=== PATIENT | male | born 1945 | race Caucasian/White ===

== ENCOUNTER 2020-11-07 22:54 | Emergency (ER) | payer OTHER ==
[2020-11-08 00:16] LABS: Absolute Lymphocytes (CBC) 0.4 K/uL (0.7-4.9); Basophils % 1.8 % (0-1.3); Hematocrit 32.6 % (39.6-49.0); MPV 10.1 fL (7.6-11.3); RBC Red Blood Cell Count 3.63 M/uL (4.33-5.43)
[2020-11-08 00:18] LABS: Protime INR 0.98
[2020-11-08 00:59] LABS: ALT/SGPT 19 U/L (12-78); AST/SGOT 9 U/L (15-37); Albumin 3.5 g/dL (3.4-5.0); Alkaline Phosphatase 111 U/L (45-117); BUN Blood Urea Nitrogen 35 mg/dL (7-18); Bicarbonate 22 mmol/L (21-32); Bilirubin Direct 0.3 mg/dL (0-0.2); Bilirubin Total 0.7 mg/dL (0.2-1.0); CKMB Creatine Kinase MB 3.1 ng/mL (0.3-3.6); Glucose Level 206 mg/dL (74-106); Lipase 107 U/L (73-393); NT PRO-BNP 2574 pg/mL (<450); Potassium 4.4 mmol/L (3.5-5.1); Protein, Total 7.2 g/dL (6.4-8.2); Sodium Level 139 mmol/L (136-145); Troponin (Emerg Dept Use Only) < 0.02 ng/mL (0.0-0.045)
--- NOTE | 2020-11-08 01:17 | EDPHYS ---
Physician Documentation [facility] Name: Royer Vu Jr Age: 74 yrs Sex: Male : 1945 Arrival Date: 11/07/2020 Time: 22:56 Bed 18 Private MD: ED Physician Frandy Fernandez HPI: 11/08 04:27 This 74 yrs old Male presents to ER via Ambulatory with complaints of tw4 Breathing Difficulty, Back Pain. 04:27 The patient has shortness of breath at rest. Onset: The symptoms/episode began/occurred tw4 today. Duration: The symptoms are continuous, and are unchanged since they started. The patient's shortness of breath has no apparent modifying factors. Associated signs and symptoms: The patient has no apparent associated signs or symptoms. The patient has not experienced similar symptoms in the past. Historical: - Allergies: 11/07 23:11 No Known Allergies; em - PMHx: 23:11 Hypertension; Diabetes - IDDM; colon CA; em - PSHx: 23:11 colon resection; em - Immunization history:: Adult Immunizations up to date. - Social history:: Smoking status: Patient denies any tobacco usage or history of. ROS: 11/08 04:27 Constitutional: Negative for fever, chills, and weight loss, Eyes: Negative for injury, tw4 pain, redness, and discharge, Cardiovascular: Negative for chest pain, palpitations, and edema, Abdomen/GI: Negative for abdominal pain, nausea, vomiting, diarrhea, and constipation, Back: Negative for injury and pain, MS/Extremity: Negative for injury and deformity, Skin: Negative for injury, rash, and discoloration, Neuro: Negative for headache, weakness, numbness, tingling, and seizure. Respiratory: Positive for shortness of breath. Exam: 04:27 Constitutional: This is a well developed, well nourished patient who is awake, alert, tw4 and in no acute distress. Head/Face: Normocephalic, atraumatic. Chest/axilla: Normal chest wall appearance and motion. Nontender with no deformity. No lesions are appreciated. Cardiovascular: Regular rate and rhythm with a normal S1 and S2. No gallops, murmurs, or rubs. Normal PMI, no JVD. No pulse deficits. Abdomen/GI: Soft, non-tender, with normal bowel sounds. No distension or tympany. No guarding or rebound. No evidence of tenderness throughout. Back: No spinal tenderness. No costovertebral tenderness. Full range of motion. Male : Normal genitalia with no discharge or lesions. Skin: Warm, dry with normal turgor. Normal color with no rashes, no lesions, and no evidence of cellulitis. 04:27 Respiratory: the patient does not display signs of respiratory distress, Respirations: normal, Breath sounds: are clear throughout. Vital Signs: 11/07 23:07 Pulse 74; Resp 22; Temp 98.9(O); Pulse Ox 95% on R/A; Weight 104.33 kg; Height 5 ft. 8 em in. (172.72 cm); Pain 3; 23:07 Body Mass Index 34.97 (104.33 kg, 172.72 cm) em MDM: 11/08 00:30 Patient medically screened. tw4 04:27 Antibiotic administration: Not indicated. Data reviewed: vital signs, nurses notes. Counseling: I had a detailed discussion with the patient and/or guardian regarding: the historical points, exam findings, and any diagnostic results supporting the discharge/admit diagnosis. Special discussion: I discussed with the patient/guardian in detail that at this point there is no indication for admission to the hospital. It is understood, however, that if the symptoms persist or worsen the patient needs to return immediately for re-evaluation. 11/07 23:08 Order name: Blood Culture Adult (2) 11/07 23:08 Order name: BMP 11/07 23:08 Order name: CBC with Diff 11/07 23:08 Order name: Ckmb 11/07 23:08 Order name: CPK 11/07 23:08 Order name: D-Dimer; Complete Time: 01:05 11/07 23:08 Order name: Hepatic Function 11/07 23:08 Order name: Lipase 11/07 23:08 Order name: Magnesium 11/07 23:08 Order name: NT PRO-BNP 11/07 23:08 Order name: PT-INR; Complete Time: 01:05 11/07 23:08 Order name: Ptt, Activated; Complete Time: 01:05 11/07 23:08 Order name: Troponin (emerg Dept Use Only) tw 11/07 23:08 Order name: XRAY CXR (1 view) tw 11/07 23:08 Order name: EKG; Complete Time: 23:11 tw4 11/07 23:08 Order name: Cardiac monitoring tw 11/07 23:08 Order name: EKG - Nurse/Tech tw 11/07 23:08 Order name: IV Saline Lock [facility] 11/07 23:08 Order name: Labs collected and sent tw 11/07 23:08 Order name: O2 Per Protocol tw 11/07 23:08 Order name: O2 Sat Monitoring tw 11/07 23:08 Order name: Blood Culture EDNE 11/07 23:09 Order name: Basic Metabolic Panel EDNE 11/07 23:09 Order name: CBC with Automated Diff; Complete Time: 01:05 EDNE 11/07 23:09 Order name: CKMB Creatine Kinase MB [facility] 11/07 23:09 Order name: Creatine Phosphokinase [facility] 11/08 00:44 Order name: SARS-COV-2 RT PCR; Complete Time: 01:05 EDMS Administered Medications: 01:40 Drug: Albuterol 1.25 mg Route: Inhalation; ll2 02:01 Follow up: Response: No adverse reaction ll2 Disposition: 11/08/20 01:17 Discharged to Home. Impression: Dyspnea. - Condition is Stable. - Discharge Instructions: Shortness of Breath. - Prescriptions for Albuterol Sulfate 90 mcg/actuation - inhale 1-2 puff by INHALATION route every 4-6 hours; 1 Inhaler. - Medication Reconciliation Form, Thank You Letter, Antibiotic Education, Prescription Opioid Use form. - Follow up: Private Physician; When: Upon discharge from the Emergency Department; Reason: Recheck today's complaints, Continuance of care, Re-evaluation by your physician. - Problem is new. - Symptoms have improved. Signatures: Dispatcher [employer] Nader Garvin, Frandy Wharton RN, MD MD tw4 Saritha Cash RN RN ll2 Corrections: (The following items were deleted from the chart) 11/07 23:57 23:09 CORONAVIRUS+MR.LAB.BRZ ordered. [facility] 11/08 02:31 01:17 11/08/2020 01:17 Discharged to Home. Impression: Dyspnea. Condition is Stable. ll2 Forms are Medication Reconciliation Form, Thank You Letter, Antibiotic Education, Prescription Opioid Use. Follow up: Private Physician; When: Upon discharge from the Emergency Department; Reason: Recheck today's complaints, Continuance of care, Re-evaluation by your physician. Problem is new. Symptoms have improved. tw4
--- NOTE | 2020-11-08 01:17 | ER ---
Nurse's Notes [facility] Name: Royer Vu Jr Age: 74 yrs Sex: Male : 1945 Arrival Date: 11/07/2020 Time: 22:56 Bed 18 Private MD: Diagnosis: Dyspnea Presentation: 11/07 23:07 Chief complaint: Patient states: reports shortness of breath on exertion that started em this morning, denies N/V fever, tested negative for covid 7 days ago. Coronavirus screen: Client denies travel out of the [place] in the last 14 days. Ebola Screen: Patient negative for fever greater than or equal to 101.5 degrees Fahrenheit, and additional compatible Ebola Virus Disease symptoms Patient denies exposure to infectious person. Patient denies travel to an Ebola-affected area in the 21 days before illness onset. No symptoms or risks identified at this time. Initial Sepsis Screen: Does the patient meet any 2 criteria? No. Patient's initial sepsis screen is negative. Does the patient have a suspected source of infection? No. Patient's initial sepsis screen is negative. Risk Assessment: Do you want to hurt yourself or someone else? Patient reports no desire to harm self or others. Onset of symptoms was November 07, 2020. 23:07 Method Of Arrival: Ambulatory em 23:07 Acuity: JORGE 3 em Historical: - Allergies: 23:11 No Known Allergies; em - PMHx: 23:11 Hypertension; Diabetes - IDDM; colon CA; em - PSHx: 23:11 colon resection; em - Immunization history:: Adult Immunizations up to date. - Social history:: Smoking status: Patient denies any tobacco usage or history of. Assessment: 23:30 General: Appears in no apparent distress. Behavior is calm, cooperative, appropriate ll2 for age. Pain: Denies pain. Neuro: Level of Consciousness is awake, alert, obeys commands, Oriented to person, place, time, situation. Respiratory: Airway is patent Respiratory effort is even, unlabored, Respiratory pattern is regular, symmetrical. GI: No signs and/or symptoms were reported involving the gastrointestinal system. : No signs and/or symptoms were reported regarding the genitourinary system. EENT: No signs and/or symptoms were reported regarding the EENT system. Derm: Skin is intact, is healthy with good turgor, Skin is dry, Skin is pink, warm \T\ dry. Musculoskeletal: Circulation, motion, and sensation intact. Range of motion: intact in all extremities. Vital Signs: 23:07 Pulse 74; Resp 22; Temp 98.9(O); Pulse Ox 95% on R/A; Weight 104.33 kg; Height 5 ft. 8 em in. (172.72 cm); Pain 3/10; 23:07 Body Mass Index 34.97 (104.33 kg, 172.72 cm) em ED Course: 22:56 Patient arrived in ED. cf2 23:06 Frandy Fernandez MD is Attending Physician. tw4 23:09 Triage completed. em 23:11 Arm band placed on. em 11/08 00:32 Saritha Cash, JANET is Primary Nurse. ll2 00:38 XRAY CXR (1 view) In Process Unspecified. EDMS Administered Medications: 01:40 Drug: Albuterol 1.25 mg Route: Inhalation; ll2 02:01 Follow up: Response: No adverse reaction 2 Outcome: 01:17 Discharge ordered by . tw4 02:31 Patient left the ED. 2 Signatures: Dispatcher [employer] EDMS Nader Tripp, RN RN Frandy Fernandez MD MD 4 Crescencio Guadarrama 2 Saritha Cash, JANET RN 2
[2020-11-08 01:34] LABS: Creatine Phosphokinase 113 U/L (39-308)
[2020-11-08] MEDS ORDERED: ALBUTEROL 2.5 MG/3 ML NEB SOL ONE (01:45)
[2020-11-08 02:50] VITALS: TEMP 98.9; O2SAT 95
--- NOTE | 2020-11-08 11:45 | RAD REPORT ---
EXAM DESCRIPTION: RAD - Chest Single View - 11/08/2020 12:38 am CLINICAL HISTORY: SOB Chest pain. COMPARISON: CHEST PA AND LAT 2 VIEW dated 01/24/2015 FINDINGS: Portable technique limits examination quality. Mild interstitial pulmonary edema seen. Trace right pleural effusion is present. The heart is mildly enlarged in size. No displaced fractures. IMPRESSION: Mild CHF.
== END 2020-11-08 02:31 | disposition home or self-care (01) ==
LOC: ER 22:54
DX: R06.00 Dyspnea, unspecified (principal); Z20.822 Contact with and (suspected) exposure to COVID-19; I10 Essential (primary) hypertension; Z85.038 Personal history of other malignant neoplasm of large intestine
CPT/HCPCS: 87040 ×2; 85025; 80048; 36415; 83735; 82550; 85610; 85379; 80076; 85730; 84484; 82553; 83690; 83880; 71045; 99284; U0003

== ENCOUNTER 2020-12-01 08:54 | Inpatient (IN) | payer OTHER ==
--- OUTSIDE RECORDS SUMMARY | 2020-12-01 08:58 | XMS REPORT | Continuity of Care Document ---
:1945 Author Organization [facility] t Address [address] [place] [address] Care Team Providers Name Role Phone Feng Love Attending Clinician [phone] DONITA Attending Clinician Unavailable NERY Attending Clinician Unavailable ALISON Attending Clinician Unavailable Problems This patient has no known problems. Allergies, Adverse Reactions, Alerts This patient has no known allergies or adverse reactions. Medications This patient has no known medications. Procedures This patient has no known procedures. Encounters Start End Encounter Admission Attending Care Care Encounter Source Date/Time Date/Time Type Type Clinicians Facility Department ID 2020-11-21 2020-11-21 Outpatient LoveSHEN [facility] [id number] 00:00:00 00:00:00 Ruben [id number] Feng [id number] 2020-10-27 2020-10-27 Outpatient [facility] [id number] [place] 00:00:00 00:00:[address] 2020-10-24 2020-10-24 Outpatient DONITA [facility] [id number] [place] 00:00:00 00:00:00 AUGUSTINE [address] 2020-10-06 2020-10-06 Outpatient [facility] [id number] [place] 00:00:00 00:00:[address] 2020-09-12 2020-09-12 Outpatient [facility] [id number] [place] 00:00:00 00:00:00 ABA [address] 2020-09-12 2020-09-12 Outpatient [facility] [id number] [place] 00:00:00 00:00:00 ABA [address] 2020-09-03 2020-09-03 Outpatient NERY [facility] [id number] [place] 00:00:00 00:00:00 ABA [address] 2020-09-03 2020-09-03 Outpatient NERY [facility] [id number] [place] 00:00:00 00:00:00 ABA [address] 2020-09-03 2020-09-03 Outpatient NERY [facility] [id number] [place] 00:00:00 00:00:00 ABA [address] 2019-12-27 2019-12-27 Outpatient ALISON [facility] [id number] [place] 00:00:00 00:00:00 ALI [address] Results This patient has no known results.
[2020-12-01] MEDS ORDERED: NA CHLORIDE 0.9% 500 ML ONE (11:24)
[2020-12-01 11:53] LABS: Absolute Lymphocytes (CBC) 0.7 K/uL (0.7-4.9); Basophils % 0.3 % (0-1.3); Hematocrit 33.5 % (39.6-49.0); Lymphocytes % 10.8 % (15.3-44.8); MPV 9.9 fL (7.6-11.3)
[2020-12-01 12:02] LABS: Protime INR 0.99
--- NOTE | 2020-12-01 12:02 | RAD REPORT ---
EXAM DESCRIPTION: RAD - Chest Single View - 12/01/2020 11:34 am CLINICAL HISTORY: DYSPNEA COMPARISON: November 07 TECHNIQUE: AP portable chest image was obtained 12/01/2020 11:34 am . FINDINGS: No peripheral mass or consolidation. Interstitial markings and vasculature are mildly prom inent. Mild, stable cardiomegaly seen. Trachea is midline. No measurable pleural effusion and no pneu mothorax. No acute bony abnormality seen. No acute aortic findings suspected. IMPRESSION: Mild failure/ volume overload pattern.
[2020-12-01 12:16] LABS: ALT/SGPT 21 U/L (12-78); AST/SGOT 11 U/L (15-37); Albumin 3.5 g/dL (3.4-5.0); Alkaline Phosphatase 118 U/L (45-117); BUN Blood Urea Nitrogen 36 mg/dL (7-18); Bicarbonate 24 mmol/L (21-32); Bilirubin Direct 0.3 mg/dL (0-0.2); Bilirubin Total 0.8 mg/dL (0.2-1.0); Glucose Level 159 mg/dL (74-106); Lipase 69 U/L (73-393); Magnesium 2.3 mg/dL (1.8-2.4); NT PRO-BNP 2622 pg/mL (<450); Potassium 4.6 mmol/L (3.5-5.1); Protein, Total 7.4 g/dL (6.4-8.2); Sodium Level 138 mmol/L (136-145); Troponin (Emerg Dept Use Only) < 0.02 ng/mL (0.0-0.045)
[2020-12-01 12:27] LABS: SARS-COV-2 RT PCR NEGATIVE (NEGATIVE)
--- NOTE | 2020-12-01 12:35 | EDPHYS ---
Physician Documentation [facility] Name: Royer Vu Jr Age: 75 yrs Sex: Male : 1945 Arrival Date: 12/01/2020 Time: 09:00 Bed 16 Private MD: KARLA Physician Aidn Hollis HPI: 12/01 11:00 This 75 yrs old Male presents to ER via Ambulatory with complaints of louise Shortness Of Breath. 11:00 The patient has shortness of breath at rest, with light activity, that woke him/her louise from sleep. Onset: The symptoms/episode began/occurred 3 day(s) ago. Duration: The symptoms are continuous, and are steadily getting worse. The patient's shortness of breath is aggravated by supine position, is alleviated by rest, sitting up, application of supplemental oxygen. Associated signs and symptoms: The patient has no apparent associated signs or symptoms. The patient has experienced similar episodes in the past, a few times. Historical: - Allergies: :23 No Known Allergies; hb - PMHx: : COLON CA; Diabetes - IDDM; Hypertension; hb - PSHx: 09:23 colon resection; hb - Immunization history:: Adult Immunizations up to date, Client reports receiving the 2nd dose of the Covid vaccine. - Social history:: Smoking status: Patient denies any tobacco usage or history of. - Family history:: not pertinent. ROS: 11:00 Constitutional: Negative for fever, chills, and weight loss, Eyes: Negative for injury, louise pain, redness, and discharge, ENT: Negative for injury, pain, and discharge, Neck: Negative for injury, pain, and swelling, Cardiovascular: Negative for chest pain, palpitations, and edema, Abdomen/GI: Negative for abdominal pain, nausea, vomiting, diarrhea, and constipation, Back: Negative for injury and pain, : Negative for injury, bleeding, discharge, and swelling, MS/Extremity: Negative for injury and deformity, Skin: Negative for injury, rash, and discoloration, Neuro: Negative for headache, weakness, numbness, tingling, and seizure, Psych: Negative for depression, anxiety, suicide ideation, homicidal ideation, and hallucinations, Allergy/Immunology: Negative for hives, rash, and allergies, Endocrine: Negative for neck swelling, polydipsia, polyuria, polyphagia, and marked weight changes, Hematologic/Lymphatic: Negative for swollen nodes, abnormal bleeding, and unusual bruising. 11:00 Respiratory: Positive for cough, dyspnea on exertion, orthopnea. Exam: 11:00 Constitutional: This is a well developed, well nourished patient who is awake, alert, louise and in no acute distress. Head/Face: Normocephalic, atraumatic. Eyes: Pupils equal round and reactive to light, extra-ocular motions intact. Lids and lashes normal. Conjunctiva and sclera are non-icteric and not injected. Cornea within normal limits. Periorbital areas with no swelling, redness, or edema. ENT: Nares patent. No nasal discharge, no septal abnormalities noted. Tympanic membranes are normal and external auditory canals are clear. Oropharynx with no redness, swelling, or masses, exudates, or evidence of obstruction, uvula midline. Mucous membranes moist. Neck: Trachea midline, no thyromegaly or masses palpated, and no cervical lymphadenopathy. Supple, full range of motion without nuchal rigidity, or vertebral point tenderness. No Meningismus. Chest/axilla: Normal chest wall appearance and motion. Nontender with no deformity. No lesions are appreciated. Cardiovascular: Regular rate and rhythm with a normal S1 and S2. No gallops, murmurs, or rubs. Normal PMI, no JVD. No pulse deficits. Abdomen/GI: Soft, non-tender, with normal bowel sounds. No distension or tympany. No guarding or rebound. No evidence of tenderness throughout. Back: No spinal tenderness. No costovertebral tenderness. Full range of motion. Male : Normal genitalia with no discharge or lesions. Skin: Warm, dry with normal turgor. Normal color with no rashes, no lesions, and no evidence of cellulitis. MS/ Extremity: Pulses equal, no cyanosis. Neurovascular intact. Full, normal range of motion. Neuro: Awake and alert, GCS 15, oriented to person, place, time, and situation. Cranial nerves II-XII grossly intact. Motor strength 5/5 in all extremities. Sensory grossly intact. Cerebellar exam normal. Normal gait. Psych: Awake, alert, with orientation to person, place and time. Behavior, mood, and affect are within normal limits. 11:00 Respiratory: the patient does not display signs of respiratory distress, Respirations: normal, Breath sounds: rales, that are mild, are located in both bases, decreased breath sounds. 11:00 Musculoskeletal/extremity: Extremities: all appear grossly normal, with no appreciated pain with palpation, grossly normal except: DVT Exam: No signs of deep vein thrombosis. no pain, no swelling, no tenderness, negative Homans' sign noted on exam, no appreciated bluish discoloration, no erythema, no increased warmth. 12:40 ECG was reviewed by the Attending Physician. [facility] Vital Signs: 09:19 BP 124 / 63; Pulse 66; Resp 24; Temp 98.1; Pulse Ox 83% on R/A; Pain 0/10; hb 09:19 Pulse Ox 95% on R/A; hb 13:23 BP 141 / 62; Pulse 55; Resp 21; Pulse Ox 94% on 2 lpm NC; hb 15:00 BP 146 / 68; Pulse 68; Resp 18; Pulse Ox 94% on 2 lpm NC; hb 16:00 BP 138 / 68; Pulse 66; Resp 19; Pulse Ox 95% on 2 lpm NC; hb 17:00 BP 142 / 82; Pulse 67; Resp 21; Pulse Ox 96% on 2 lpm NC; hb 09:19 talking hb 09:19 at rest hb MDM: 10:37 Patient medically screened. loiuse 11:02 Differential diagnosis: Anemia Bronchitis CHF exacerbation, Chronic Obstructive louise Pulmonary Disease pneumonia, pulmonary edema, Pulmonary Embolism reactive airway disease, Unstable Angina. Antibiotic administration: Not indicated. The patient's Wells Deep Vein Thrombosis Score was calculated as follows: Malignancy Total Score: 0-2 Pts- Low Risk. The patient's pulmonary embolism risk score was calculated as follows: malignancy Total Score: 3-6 points. This patient was found to be at moderate risk for a pulmonary embolism by using the Well's assessment criteria. Immunization status: Pneumococcal vaccine: Influenza vaccine: Data reviewed: vital signs, nurses notes, lab test result(s), EKG, radiologic studies, plain films. Data interpreted: teletypesetter monitor: rate is 6 beats/min, rhythm is regular, Pulse oximetry: on room air is 95 %. Test interpretation: by ED physician or midlevel provider: ECG, plain radiologic studies. Counseling: I had a detailed discussion with the patient and/or guardian regarding: the historical points, exam findings, and any diagnostic results supporting the discharge/admit diagnosis, lab results. 12/01 10:59 Order name: Basic Metabolic Panel; Complete Time: 12:27 [facility] 12/01 10:59 Order name: CBC with Diff; Complete Time: 11:58 [facility] 12/01 10:59 Order name: LFT's; Complete Time: 12:27 [facility] 12/01 10:59 Order name: Magnesium; Complete Time: 12:27 [facility] 12/01 10:59 Order name: NT PRO-BNP; Complete Time: 12:27 [facility] 12/01 10:59 Order name: PT-INR; Complete Time: 12:09 [facility] 12/01 10:59 Order name: Troponin (emerg Dept Use Only); Complete Time: 12:27 [facility] 12/01 10:59 Order name: D-Dimer; Complete Time: 12:09 [facility] 12/01 10:59 Order name: Lipase; Complete Time: 12:27 [facility] 12/01 11:25 Order name: Blood Culture Adult (2) [facility] 12/01 11:26 Order name: Lactate; Complete Time: 12:27 [facility] 12/01 11:51 Order name: TSH; Complete Time: 12:36 [facility] 12/01 10:59 Order name: XRAY Chest (1 view); Complete Time: 12:09 [facility] 12/01 10:59 Order name: EKG; Complete Time: 11:01 [facility] 12/01 10:59 Order name: Cardiac monitoring; Complete Time: 11:49 [facility] 12/01 10:59 Order name: EKG - Nurse/Tech; Complete Time: 11:50 [facility] 12/01 10:59 Order name: IV Saline Lock; Complete Time: 11:50 [facility] 12/01 12:27 Order name: COVID-19/FLU A+B; Complete Time: 12:28 [facility] 12/01 12:28 Order name: CT Chest Abdomen Pelvis W/O Contrast: no iv , no oral; Complete Time: 14:08 [facility] 12/01 12:29 Order name: US Extremity Venous W Compression Frantz; Complete Time: 14:08 [facility] 12/01 12:32 Order name: Echo w/ Doppler [facility] 12/01 14:03 Order name: CONS Physician Consult EDAZ 12/01 10:59 Order name: Labs collected and sent; Complete Time: 11:50 [facility] 12/01 10:59 Order name: O2 Per Protocol; Complete Time: 11:50 [facility] 03/08 10:59 Order name: O2 Sat Monitoring; Complete Time: 11:50 louise EC:40 Rate is 54 beats/min. Rhythm is regular. QRS [place] is Normal. NE interval is normal. QRS louise interval is normal. QT interval is normal. No Q waves. T waves are Normal. No ST changes noted. Clinical impression: Atrial Fibrillation. Interpreted by me. Reviewed by me. Administered Medications: 11:32 Drug: NS 0.9% 1000 ml Route: IV; Rate: 75 ml/hr; Site: left antecubital; hb 17:30 Follow up: Response: No adverse reaction; IV Status: Infusion continued upon admission; hb IV Intake: 420ml 11:32 Drug: Pepcid 20 mg Route: IVP; Site: left antecubital; hb 12:11 Follow up: Response: No adverse reaction hb 15:33 Drug: Rocephin 1 grams Route: IV; Rate: per protocol; Site: left antecubital; hb 15:34 Follow up: IV Status: Completed infusion; IV Intake: 10ml hb 16:11 Follow up: Response: No adverse reaction hb 15:34 Drug: Lasix 40 mg Route: IVP; Site: left antecubital; hb 16:15 Follow up: Response: No adverse reaction hb 15:34 Drug: Lovenox 60 mg Route: Sub-Q; Site: abdomen; hb 16:11 Follow up: Response: No adverse reaction hb Disposition: 12/01/20 12:34 Hospitalization ordered by Juarez Campos for Observation. Preliminary diagnosis are Type 1 diabetes mellitus, Dyspnea, Systolic (congestive) heart failure, Atrial fibrillation and flutter, Unspecified kidney failure - chronic. - Bed requested for Telemetry/MedSurg (observation). - Status is Observation. hb - Condition is Stable. - Problem is new. - Symptoms have improved. Signatures: Dispatcher [employer] EDMS Mary Salazar Corey, MD MD cha Baxter, Heather, RN RN Jose Lange RN RN ja1 Corrections: (The following items were deleted from the chart) 11:45 11:00 CORONAVIRUS+MR.LAB.BRZ ordered. EDMS EDMS 11:45 11:26 Influenza Screen (A \T\ B)+BA.LAB.BRZ ordered. EDMS EDMS 12:39 12:34 Hospitalization Ordered by Juarez Campos MD for Observation. Preliminary louise diagnosis is Type 1 diabetes mellitus; Dyspnea; Systolic (congestive) heart failure; Atrial fibrillation and flutter. Bed requested for Telemetry/MedSurg (observation). Status is Observation. Condition is Stable. Problem is new. Symptoms have improved. louise 12:48 12:10 Chest For PE Angio+CT.RAD.BRZ ordered. EDMS EDMS 16:05 12:39 12/01/2020 12:34 Hospitalization Ordered by Juarez Campos MD for Observation. bd Preliminary diagnosis is Type 1 diabetes mellitus; Dyspnea; Systolic (congestive) heart failure; Atrial fibrillation and flutter; Unspecified kidney failure - chronic. Bed requested for Telemetry/MedSurg (observation). Status is Observation. Condition is Stable. Problem is new. Symptoms have improved. louise 16:18 16:05 12/01/2020 12:34 Hospitalization Ordered by Juarez Campos MD for Observation. ja1 Preliminary diagnosis is Type 1 diabetes mellitus; Dyspnea; Systolic (congestive) heart failure; Atrial fibrillation and flutter; Unspecified kidney failure - chronic. Bed requested for Telemetry/MedSurg (observation). Status is Observation. Condition is Stable. Problem is new. Symptoms have improved. bd 17:51 16:18 12/01/2020 12:34 Hospitalization Ordered by Juarez Campos MD for Observation. hb Preliminary diagnosis is Type 1 diabetes mellitus; Dyspnea; Systolic (congestive) heart failure; Atrial fibrillation and flutter; Unspecified kidney failure - chronic. Bed requested for Telemetry/MedSurg (observation). Status is Observation. Condition is Stable. Problem is new. Symptoms have improved. ja1
--- NOTE | 2020-12-01 12:35 | ER ---
Nurse's Notes [facility] Name: Royer Vu Jr Age: 75 yrs Sex: Male : 1945 Arrival Date: 12/01/2020 Time: 09:00 Bed 16 Private MD: Diagnosis: Type 1 diabetes mellitus;Dyspnea;Systolic (congestive) heart failure;Atrial fibrillation and flutter;Unspecified kidney failure-chronic Presentation: 12/01 09:19 Coronavirus screen: Client presents with at least one sign or symptom that may indicate hb coronavirus-19. Standard/surgical mask placed on the client. Provider contacted for isolation considerations. Ebola Screen: No symptoms or risks identified at this time. Initial Sepsis Screen: Does the patient meet any 2 criteria? No. Patient's initial sepsis screen is negative. Does the patient have a suspected source of infection? No. Patient's initial sepsis screen is negative. Risk Assessment: Do you want to hurt yourself or someone else? Patient reports no desire to harm self or others. Onset of symptoms was November 29, 2020. 09:19 Method Of Arrival: Ambulatory hb 09:19 Acuity: JORGE 2 hb 09:21 Chief complaint: SOB and congestion x 2 days, home SpO2 80s. SpO2 82-95% in triage. hb Historical: - Allergies: 09:23 No Known Allergies; hb - PMHx: 09:23 COLON CA; Diabetes - IDDM; Hypertension; hb - PSHx: 09:23 colon resection; hb - Immunization history:: Adult Immunizations up to date, Client reports receiving the 2nd dose of the Covid vaccine. - Social history:: Smoking status: Patient denies any tobacco usage or history of. - Family history:: not pertinent. Screenin:50 Abuse screen: Denies threats or abuse. Denies injuries from another. Nutritional hb screening: No deficits noted. Tuberculosis screening: No symptoms or risk factors identified. Fall Risk None identified. Assessment: 10:20 General: Appears in no apparent distress. Behavior is calm, cooperative. Pain: Denies hb pain. Neuro: Level of Consciousness is awake, alert, obeys commands, Oriented to person, place, time, situation. Cardiovascular: Capillary refill < 3 seconds Patient's skin is warm and dry. Rhythm is irregular. Respiratory: Reports shortness of breath at rest on exertion Respiratory effort is labored, Respiratory pattern is tachypnea. GI: No signs and/or symptoms were reported involving the gastrointestinal system. : No signs and/or symptoms were reported regarding the genitourinary system. EENT: No signs and/or symptoms were reported regarding the EENT system. Derm: Skin is pink, warm \T\ dry. Musculoskeletal: No signs and/or symptoms reported regarding the musculoskeletal system. 12:00 Reassessment: Patient appears in no apparent distress at this time. Patient and/or hb family updated on plan of care and expected duration. Pain level reassessed. Patient is alert, oriented x 3, equal unlabored respirations, skin warm/dry/pink. 13:00 Reassessment: Patient appears in no apparent distress at this time. Patient and/or hb family updated on plan of care and expected duration. Pain level reassessed. Patient is alert, oriented x 3, equal unlabored respirations, skin warm/dry/pink. 14:00 Reassessment: Patient appears in no apparent distress at this time. No changes from hb previously documented assessment. Patient and/or family updated on plan of care and expected duration. Pain level reassessed. Admission ordered, awaiting room assignment at this time. 15:00 Reassessment: Patient appears in no apparent distress at this time. Patient and/or hb family updated on plan of care and expected duration. Pain level reassessed. 16:00 Reassessment: Patient appears in no apparent distress at this time. No changes from hb previously documented assessment. Patient and/or family updated on plan of care and expected duration. Pain level reassessed. 17:00 Reassessment: Patient appears in no apparent distress at this time. No changes from hb previously documented assessment. Patient and/or family updated on plan of care and expected duration. Pain level reassessed. Vital Signs: 09:19 BP 124 / 63; Pulse 66; Resp 24; Temp 98.1; Pulse Ox 83% on R/A; Pain 0/10; hb 09:19 Pulse Ox 95% on R/A; hb 13:23 BP 141 / 62; Pulse 55; Resp 21; Pulse Ox 94% on 2 lpm NC; hb 15:00 BP 146 / 68; Pulse 68; Resp 18; Pulse Ox 94% on 2 lpm NC; hb 16:00 BP 138 / 68; Pulse 66; Resp 19; Pulse Ox 95% on 2 lpm NC; hb 17:00 BP 142 / 82; Pulse 67; Resp 21; Pulse Ox 96% on 2 lpm NC; hb 09:19 talking hb 09:19 at rest hb ED Course: 09:00 Patient arrived in ED. mr 09:21 Triage completed. hb 09:23 Arm band placed on. hb 10:37 Adin Hollis MD is Attending Physician. louise 10:59 Tatiana Wood, JANET is Primary Nurse. hb 11:25 Inserted saline lock: 20 gauge in left antecubital area, using aseptic technique. Blood hb collected. 11:34 XRAY Chest (1 view) In Process Unspecified. EDMS 12:00 Patient has correct armband on for positive identification. Placed in gown. Bed in low hb position. Call light in reach. 12:33 Juarez Campos MD is Hospitalizing Provider. louise 12:41 CT Chest Abdomen Pelvis W/O Contrast: no iv , no oral In Process Unspecified. EDMS 13:28 US Extremity Venous W Compression Frantz In Process Unspecified. EDMS 17:50 No provider procedures requiring assistance completed. Patient admitted, IV remains in hb place. Administered Medications: 11:32 Drug: NS 0.9% 1000 ml Route: IV; Rate: 75 ml/hr; Site: left antecubital; hb 17:30 Follow up: Response: No adverse reaction; IV Status: Infusion continued upon admission; hb IV Intake: 420ml 11:32 Drug: Pepcid 20 mg Route: IVP; Site: left antecubital; hb 12:11 Follow up: Response: No adverse reaction hb 15:33 Drug: Rocephin 1 grams Route: IV; Rate: per protocol; Site: left antecubital; hb 15:34 Follow up: IV Status: Completed infusion; IV Intake: 10ml hb 16:11 Follow up: Response: No adverse reaction hb 15:34 Drug: Lasix 40 mg Route: IVP; Site: left antecubital; hb 16:15 Follow up: Response: No adverse reaction hb 15:34 Drug: Lovenox 60 mg Route: Sub-Q; Site: abdomen; hb 16:11 Follow up: Response: No adverse reaction hb Intake: 15:34 IV: 10ml; Total: 10ml. hb 17:30 IV: 420ml; Total: 430ml. hb Outcome: 12:34 Decision to Hospitalize by Provider. louise 17:50 Admitted to Tele accompanied by tech, via wheelchair, room 220. hb 17:50 Condition: stable 17:50 Instructed on the need for admit, Demonstrated understanding of instructions. 17:51 Patient left the ED. hb Signatures: Dispatcher [employer] EDAdin Davey MD MD cha Rivera, Tatiana Wright, JANET RN hb Corrections: (The following items were deleted from the chart) 09:22 09:19 Chief complaint: SOB and chest congestion x 2 days. Home SpO2 80s hb hb 09:23 09:19 BP 124 / 63; Pulse 66bpm; Resp 20bpm; Pulse Ox 95% RA; Temp 98.1F; Pain 0/10; hb hb 09:28 09:19 BP 124 / 63; Pulse 66bpm; Resp 24bpm; Pulse Ox 90% RA; Temp 98.1F; Pain 0/10; hb hb
--- NOTE | 2020-12-01 13:14 | RAD REPORT ---
EXAM DESCRIPTION: CT - Chest Abd Pelvis Wo Con - 12/01/2020 12:41 pm CLINICAL HISTORY: Abdominal distention;Dyspnea COMPARISON: Abdomen Pelvis Wo Contrast dated 08/16/2019; Chest Single View dated 12/01/2020 TECHNIQUE: During dynamic enhancement using 100 milliliters nonionic IV contrast, axial 5 millimeter thick images of the chest, abdomen and pelvis were obtained. Biphasic technique was utilized through the abdomen. No oral contrast administered. All CT scans are performed using dose optimization technique as appropriate and may include automated exposure control or mA/KV adjustment according to patient size. FINDINGS: In the lateral left upper lobe (image 31) there is a 7 millimeter pleural abutting noncalc ified nodule. In the superior aspect right middle lobe abutting the minor fissure (image 34) there is a 6 millimeter noncalcified nodule. No other suspicious mass and no acute infiltrate. No pneumothora x is present. Patient has small left-sided and small to moderate right-sided pleural effusions with p artial atelectasis of each lower lobe. No chest wall mass or abnormal axillary lymphadenopathy seen. Mediastinal and hilar regions show no mass or lymphadenopathy. Mild cardiomegaly is present. Overal l interstitial pattern is mildly prominent. Trace pericardial effusion present. Liver and spleen are normal size. No focal lesions of concern on noncontrast imaging. Granulomatous c alcifications are present in both. No pancreatic or peripancreatic acute finding. No biliary tree dil atation. Gallstones can be occult on CT imaging. Morales of the normal size gallbladder may be slightly thicken ed or edematous. No pericholecystic fluid or stranding. No hydronephrosis or obstructing calculi. Renal arterial tree calcifications are present. No abnormal perinephric stranding seen. There is a 5.3 centimeter exophytic cyst posterior mid right kidney. Par tially filled urinary bladder shows no suspicious finding. No adrenal abnormalities. No prostate gla nd or seminal vesicle suspicious finding. No dilated bowel loops or focal ball bowel wall thickening. Right-sided colon small bowel anastomosis shows no wall thickening or mass. Trace amount of stranding limits No free air, free fluid or inflam matory stranding. No mass or bulky lymphadenopathy. Umbilical and supraumbilical ventral hernia mesh is in place. No recurrence of hernia along the margins. Patient has very minimal left-side inguinal hernia with a slightly larger fat filled right inguinal hernia. No significant bone or vascular finding. Disc and bony degenerative changes are present. Patient does have prominent vascular calcification. IMPRESSION: CT chest imaging shows small left-sided and small to moderate right-sided pleural effusi ons with cardiomegaly and mild interstitial prominence. This is most likely failure. Morales of the gallbladder are slightly thickened and edematous. Gallstones can be occult. Gallbladder sonography can be performed if the patient has right upper quadrant pain symptoms. No ascites, mass or other significant abdominal or pelvic finding. Patient has 2 noncalcified pulmonary nodules, largest measuring 7 mm, with no other mass or lymphaden opathy. Follow-up recommendation would be CT imaging in 3-6 months with subsequent imaging at 18-24 m [facility] to be considered in a low risk patient or obtained in a high risk patient.
--- NOTE | 2020-12-01 13:35 | RAD REPORT ---
EXAM DESCRIPTION: US - Extrem Venous W Compress Frantz - 12/01/2020 1:28 pm CLINICAL HISTORY: Pain;Swelling COMPARISON: None. TECHNIQUE: Real-time sonographic evaluation of the bilateral lower extremity common femoral, superfi cial femoral, popliteal and posterior tibial veins was performed. FINDINGS: Normal compressibility, flow augmentation, phasic flow and spontaneous flow are identified in the left and right lower extremity common femoral, superficial femoral, popliteal and posterior t ibial veins. No intraluminal filling defects seen. IMPRESSION: No DVT in either lower extremity.
--- NOTE | 2020-12-01 14:37 | P.HP ---
Certification for Inpatient Patient admitted to: Observation With expected LOS: <2 Midnights Practitioner: I am a practitioner with admitting privileges, knowledge of patient current condition, hospital course, and medical plan of care. Services: Services provided to patient in accordance with Admission requirements found in Title 42 Section 412.3 of the Code of Federal Regulations Patient History Date of Service: 12/01/20 Reason for admission: acute CHF exacerbation History of Present Illness: 75yo M, PMH: IDDM2, GERD, PVD, CAD s/p stent, CKD3, presented to ED due to progressively worsening shortness of breath / dyspnea on exertion, orthopnea, and lower extremity swelling. He states this has been worsening over the past few weeks. He had a similar episode 3 weeks ago that improved, but slowly worsened again. He reports he takes lasix at home and has been compliant. He has had several medical issues over the past 2 months - with lower back pain, diagnosed with peripheral vascular disease 2 weeks ago, stomach ulcers ~2 weeks ago. Reports he had a stress test ~2-[address] Aviles but has not yet been told the results. In the ED, workup was consistent with acute CHF exacerbation with small bilateral pleural effusions, 1-2+ bilateral edema, elevated BNP, hypoxia. Patient denies any history of CHF. Allergies No Known Allergies Allergy (Unverified 12/17/14 09:04) - Past Medical/Surgical History -: GERD -: Peripheral vascular disease -: CAD s/p stent -: CKD3 -: IDDM2 -: Hernia repair - Family History Family History: Reviewed- Non-Contributory - Social History Smoking Status: Former smoker Place of Residence: Home Review of Systems 10-point ROS is otherwise unremarkable Physical Examination - Studies Laboratory Data (last 24 hrs) 12/01/20 11:41: PT 11.4, INR 0.99 12/01/20 11:41: WBC 6.80, Hgb 11.2 L, Hct 33.5 L, Plt Count 168 12/01/20 11:41: Sodium 138, Potassium 4.6, BUN 36 H, Creatinine 2.21 H, Glucose 159 H, Magnesium 2.3, Total Bilirubin 0.8, AST 11 L, ALT 21, Alkaline Phosphatase 118 H, Lipase 69 L Assessment and Plan - Advance Directives Does patient have a Living Will: No Does patient have a Durable POA for Healthcare: No Physician Review Additional Text: Physical Exam: Gen: mild distress HEENT: normal conjunctiva, sclera anicteric CV: RRR, II/ systolic murmur Pulm: diminished at bases, mild crackles bilaterally, on 2LNC, nonlabored Abd: soft, NTND Ext: 1-2 + edema in b/l lower extremities to knees, no rash Neuro: AAOx3, moves all extremities Problem List Acute hypoxemic respiratory failure, secondary to presumed acute CHF - unknown type HTN IDDM2 CKD3 GERD -Patient on 2L NC, with some dyspnea and mild labored respirations -IV Lasix 40mg BID -strict I/O's -wean O2 -monitor renal function, nephrology consulted - pt follows with Dr. Obregon -if no improvement, may need to consider cardiology consult -echo ordered by ED physician, will f/u -obtain/confirm home medications, restart as appropriate, pt unsure of doses VTE: lovenox Code: DNR Dispo: anticipate dc home in 24-48hrs, pending clinical improvement / stable renal function Time Spent Managing Pts Care (In Minutes): 60
[2020-12-01] MEDS ORDERED: CEFTRIAXONE/SWI 1gm 1 GM/10 ML SYR ONE (15:28)
[2020-12-01] MEDS ORDERED: ENOXAPARIN 60 MG/0.6 ML SQ ONE (15:28)
[2020-12-01] MEDS ORDERED: FUROSEMIDE 40 MG/4 ML VIAL ONE (15:28)
[2020-12-01] MEDS ORDERED: ALBUTEROL 2.5 MG/3 ML NEB SOL NEB PRN (18:34)
[2020-12-01] MEDS: INSULIN -REGULAR HUMAN 50 UNIT/0.5 ML ML SQ SCH ×2 (18:34→21:00)
[2020-12-01] MEDS ORDERED: GLUCAGON 1 MG/VIAL IM PRN (18:34)
[2020-12-01] MEDS ORDERED: D50W 25 GM/50 ML VIAL IV PRN (18:42)
[2020-12-01] MEDS: IPRATROPIUM BROM 0.5MG/2.5ML NEB SCH (19:40)
[2020-12-01] MEDS: ENOXAPARIN 40 MG/0.4 ML SQ SCH (20:00)
[2020-12-01] MEDS ORDERED: TRAMADOL HCL 50 MG TAB PO PRN (20:45)
[2020-12-01] MEDS: methocarbamoL 750 MG TAB PO SCH (21:00)
[2020-12-01] MEDS: ATORVASTATIN 20 MG TAB PO SCH (21:15)
[2020-12-01] MEDS: FUROSEMIDE 40 MG/4 ML VIAL IV SCH (21:15)
[2020-12-01] MEDS: GABAPENTIN 300 MG CAP PO SCH (21:16)
[2020-12-01] MEDS: METOPROLOL XL 100 MG TAB PO SCH (21:17)
[2020-12-01] MEDS: INSULIN GLARGINE 100 UNITS/ML SQ SCH (21:19)
[2020-12-01 23:12] LABS: Urine Appearance CLEAR; Urine Bilirubin NEGATIVE (NEG); Urine Blood NEGATIVE (NEG); Urine Color YELLOW; Urine Glucose NEGATIVE (NEG); Urine Protein 1+ (NEG); Urine Specific Gravity <=1.005 (1.005-1.030); Urine pH 6.5 (5.0-7.0)
[2020-12-01 23:20] LABS: Urine Microscopic Reflex ORDER UMIC
[2020-12-02] MEDS: IPRATROPIUM BROM 0.5MG/2.5ML NEB SCH ×4 (01:45→19:43)
[2020-12-02 02:11] LABS: Urine Bacteria <20 /HPF (NONE SEEN); Urine RBC <5 /HPF (NONE SEEN)
[2020-12-02 06:38] LABS: Absolute Lymphocytes (CBC) 1.1 K/uL (0.7-4.9); Basophils % 0.5 % (0-1.3); Hematocrit 30.4 % (39.6-49.0); Lymphocytes % 20.9 % (15.3-44.8); MPV 9.9 fL (7.6-11.3); RBC Red Blood Cell Count 3.48 M/uL (4.33-5.43)
[2020-12-02] MEDS: INSULIN -REGULAR HUMAN 50 UNIT/0.5 ML ML SQ SCH ×4 (07:30→21:00)
[2020-12-02 07:31] LABS: Albumin 3.3 g/dL (3.4-5.0); Bilirubin Total 0.7 mg/dL (0.2-1.0); Magnesium 2.1 mg/dL (1.8-2.4); Potassium 3.6 mmol/L (3.5-5.1); Protein, Total 6.8 g/dL (6.4-8.2)
[2020-12-02] MEDS ORDERED: POTASSIUM CL SA 10 MEQ TAB PO ONE (07:44)
--- NOTE | 2020-12-02 07:46 | P.CNS ---
Date of Consult: 12/01/20 Reason for Consult: REYES/ CKD Requesting Physician: Juarez Campos Chief Complaint: acute CHF exacerbation History of Present Illness: 75yo M, PMH: IDDM2, GERD, PVD, CAD s/p stent, CKD3, presented to ED due to progressively worsening shortness of breath / dyspnea on exertion, orthopnea, and lower extremity swelling. He states this has been worsening over the past few weeks. He had a similar episode 3 weeks ago that improved, but slowly worsened again. He reports he takes lasix at home and has been compliant. He has had several medical issues over the past 2 months - with lower back pain, diagnosed with peripheral vascular disease 2 weeks ago, stomach ulcers ~2 weeks ago. Reports he had a stress test ~2-[address] Aviles but has not yet been told the results. 11:00 This 75 yrs old Male presents to ER via Ambulatory with complaints of louise Shortness Of Breath. 11:00 The patient has shortness of breath at rest, with light activity, that woke him/her louise from sleep. Onset: The symptoms/episode began/occurred 3 day(s) ago. Duration: The symptoms are continuous, and are steadily getting worse. The patient's shortness of breath is aggravated by supine position, is alleviated by rest, sitting up, application of supplemental oxygen. Associated signs and symptoms: The patient has no apparent associated signs or symptoms. The patient has experienced similar episodes in the past, a few times. Allergies No Known Allergies Allergy (Unverified 12/17/14 09:04) Home medications list reviewed: Yes Home Medications: Amlodipine Besylate/Benazepril [Lotrel 10-40 mg Capsule] 1 cap PO DAILY 12/01/20 Clopidogrel Bisulfate [Plavix*] 1 tab PO DAILY 12/01/20 Doxazosin [Cardura*] 4 mg PO DAILY 12/01/20 Gabapentin 300 mg PO BID 12/01/20 Glimepiride 4 mg PO BID 12/01/20 Lovastatin 1 tab PO BEDTIME 12/01/20 Metformin HCl [Glucophage*] 2 tab PO BID 12/01/20 Methocarbamol [Robaxin-750] 1 tab PO BID 12/01/20 Metoprolol Succinate 1 tab PO BID 12/01/20 Pantoprazole [Protonix Tab*] 40 mg PO DAILY 12/01/20 Tramadol HCl [Ultram] 50 mg PO Q8HP PRN 12/01/20 hydroCHLOROthiazide [Hydrochlorothiazide] 25 mg PO DAILY 12/01/20 - Past Medical/Surgical History Diabetic: Yes -: GERD -: Peripheral vascular disease -: CAD s/p stent -: CKD3 -: IDDM2 -: Hernia repair - Social History Place of Residence: Home Review of Systems 10-point ROS is otherwise unremarkable General: Weakness Respiratory: SOB with Excertion Cardiovascular: Edema Physical Examination Temp Pulse Resp BP Pulse Ox 97.9 F 61 14 125/61 93 12/02/20 04:00 12/02/20 04:00 12/02/20 04:00 12/02/20 04:00 12/02/20 04:00 General: Oriented x3, Cooperative HEENT: Atraumatic, Normocephalic Neck: Supple, JVD distended Respiratory: Diminished Cardiovascular: Regular rate/rhythm, Edema Gastrointestinal: Soft and benign, Non-distended Musculoskeletal: No clubbing, No contractures Integumentary: No rashes, No cyanosis Neurological: Normal speech Laboratory Data (last 24 hrs) 12/01/20 11:41: PT 11.4, INR 0.99 12/01/20 11:41: WBC 6.80, Hgb 11.2 L, Hct 33.5 L, Plt Count 168 12/01/20 11:41: Sodium 138, Potassium 4.6, BUN 36 H, Creatinine 2.21 H, Glucose 159 H, Magnesium 2.3, Total Bilirubin 0.8, AST 11 L, ALT 21, Alkaline Phosp hatase 118 H, Lipase 69 L Imagings Data: EXAM DESCRIPTION: RAD - Chest Single View - 12/01/2020 11:34 am CLINICAL HISTORY: DYSPNEA COMPARISON: November 07 TECHNIQUE: AP portable chest image was obtained 12/01/2020 11:34 am . FINDINGS: No peripheral mass or consolidation. Interstitial markings and vasculature are mildly prominent. Mild, stable cardiomegaly seen. Trachea is midline. No measurable pleural effusion and no pneumothorax. No acute bony abnormality seen. No acute aortic findings suspected. IMPRESSION: Mild failure/ volume overload pattern. EXAM DESCRIPTION: CT - Chest Abd Pelvis Wo Con - 12/01/2020 12:41 pm CLINICAL HISTORY: Abdominal distention;Dyspnea COMPARISON: Abdomen Pelvis Wo Contrast dated 08/16/2019; Chest Single View dated 12/01/2020 TECHNIQUE: During dynamic enhancement using 100 milliliters nonionic IV contrast, axial 5 millimeter thick images of the chest, abdomen and pelvis were obtained. Biphasic technique was utilized through the abdomen. No oral contrast administered. All CT scans are performed using dose optimization technique as appropriate and may include automated exposure control or mA/KV adjustment according to patient size. FINDINGS: In the lateral left upper lobe (image 31) there is a 7 millimeter pleural abutting noncalcified nodule. In the superior aspect right middle lobe abutting the minor fissure (image 34) there is a 6 millimeter noncalcified nodule. No other suspicious mass and no acute infiltrate. No pneumothorax is present. Patient has small left-sided and small to moderate right-sided pleural effusions with partial atelectasis of each lower lobe. No chest wall mass or abnormal axillary lymphadenopathy seen. Mediastinal and hilar regions show no mass or lymphadenopathy. Mild cardiomegaly is present. Overall interstitial pattern is mildly prominent. Trace pericardial effusion present. Liver and spleen are normal size. No focal lesions of concern on noncontrast imaging. Granulomatous calcifications are present in both. No pancreatic or peripancreatic acute finding. No biliary tree dilatation. Gallstones can be occult on CT imaging. Morales of the normal size gallbladder may be slightly thickened or edematous. No pericholecystic fluid or stranding. No hydronephrosis or obstructing calculi. Renal arterial tree calcifications are present. No abnormal perinephric stranding seen. There is a 5.3 centimeter exophytic cyst posterior mid right kidney. Partially filled urinary bladder shows no suspicious finding. No adrenal abnormalities. No prostate gland or seminal vesicle suspicious finding. No dilated bowel loops or focal ball bowel wall thickening. Right-sided colon small bowel anastomosis shows no wall thickening or mass. Trace amount of stranding limits No free air, free fluid or inflammatory stranding. No mass or bulky lymphadenopathy. Umbilical and supraumbilical ventral hernia mesh is in place. No recurrence of hernia along the margins. Patient has very minimal left- side inguinal hernia with a slightly larger fat filled right inguinal hernia. No significant bone or vascular finding. Disc and bony degenerative changes are present. Patient does have prominent vascular calcification. IMPRESSION: CT chest imaging shows small left-sided and small to moderate right-sided pleural effusions with cardiomegaly and mild interstitial prom inence. This is most likely failure. Morales of the gallbladder are slightly thickened and edematous. Gallstones can be occult. Gallbladder sonography can be performed if the patient has right upper quadrant pain symptoms. No ascites, mass or other significant abdominal or pelvic finding. Patient has 2 noncalcified pulmonary nodules, largest measuring 7 mm, with no other mass or lymphadenopathy. Follow-up recommendation would be CT imaging in 3-6 months with subsequent imaging at 18-24 months to be considered in a low risk patient or obtained in a high risk patient. Conclusions/Impression: A/P: Continue the current POC and Medications other than the changes listed. AM Labs PRN. Recommend daily weight. Please see the orders for complete details. REYES likely CRS CKD III with proteinuria -Continue furosemide Hypokalemia -Replete potassium Hypocalcemia -Start Vitamin D HTN with CKD/ CHF -Continue Amlodipine and Benezapril Acute on chronic diastolic CHF Acute respiratory failure with hypoxia -Continue Metoprolol -Continue furosemide and HCTZ DM II with CKD -Continue Lantus Anemia in chronic illness -Monitor H&H
[2020-12-02] MEDS ORDERED: DOXAZOSIN 2 MG TAB ONE (08:18)
[2020-12-02] MEDS: methocarbamoL 750 MG TAB PO SCH ×2 (08:32→21:13)
[2020-12-02] MEDS: METOPROLOL XL 100 MG TAB PO SCH ×2 (08:33→21:14)
[2020-12-02] MEDS: AMLODIPINE 10 MG TAB PO SCH (08:34)
[2020-12-02] MEDS: VITAMIN D 5,000 UNIT CAP PO SCH (08:34)
[2020-12-02] MEDS: BENAZEPRIL 20 MG TAB PO SCH (08:34)
[2020-12-02] MEDS: CALCITROL 0.25 MCG CAP PO SCH (08:34)
[2020-12-02] MEDS: hydroCHLOROthiazide 25 MG TAB PO SCH (08:35)
[2020-12-02] MEDS: PANTOPRAZOLE 40MG TABLET PO SCH (08:35)
[2020-12-02] MEDS: GABAPENTIN 300 MG CAP PO SCH ×2 (08:35→21:14)
[2020-12-02] MEDS: CLOPIDOGREL 75 MG TABLET PO SCH (08:35)
[2020-12-02] MEDS: FUROSEMIDE 40 MG/4 ML VIAL IV SCH ×2 (08:36→17:40)
[2020-12-02] MEDS: DOXAZOSIN 4 MG TAB PO SCH (08:37)
[2020-12-02] MEDS: ENOXAPARIN 40 MG/0.4 ML SQ SCH (08:37)
[2020-12-02] MEDS: INSULIN GLARGINE 100 UNITS/ML SQ SCH ×2 (08:38→21:15)
[2020-12-02] MEDS: AMILORIDE HCL 5 MG TABLET PO SCH ×2 (11:51→17:41)
--- NOTE | 2020-12-02 14:18 | P.PN ---
Subjective Date of Service: 12/02/20 Chief Complaint: acute CHF exacerbation Patient reports feeling much better today. He is tolerating 1 L oxygen by nasal cannula. He denies any complain at the moment. Physical Examination - Vital Signs Temperature: 97.4 F Blood Pressure: 163/70 Pulse: 58 Respirations: 19 Pulse Ox (%): 93 - Physical Exam General: Alert, In no apparent distress, Oriented x3 HEENT: Atraumatic, PERRLA, Mucous membr. moist/pink, EOMI, Sclerae nonicteric Neck: Supple, JVD not distended Respiratory: Clear to auscultation bilaterally, Normal air movement Cardiovascular: No edema, Regular rate/rhythm, Normal S1 S2 Capillary refill: <2 Seconds Gastrointestinal: Normal bowel sounds, Soft and benign, Non-distended, No tenderness Musculoskeletal: No swelling, No tenderness Integumentary: No rashes Neurological: Normal strength at 5/5 x4 extr, Cranial nerves 3-12 intact - Studies Laboratory Data (last 24 hrs) 12/02/20 06:08: Sodium 137, Potassium 3.6, BUN 39 H, Creatinine 2.15 H, Glucose 116 H, Magnesium 2.1, Total Bilirubin 0.7, AST 11 L, ALT 19, Alkaline Phosphatase 107 12/02/20 06:08: WBC 5.20 D, Hgb 10.2 L, Hct 30.4 L, Plt Count 181 Assessment And Plan - Current Problems (Diagnosis) (1) Acute CHF Current Visit: Yes Status: Acute (2) Peripheral vascular disease Current Visit: Yes Status: Acute (3) Acute respiratory failure with hypoxia Current Visit: Yes Status: Acute (4) Hypertension Current Visit: Yes Status: Acute (5) Chronic kidney disease, stage 3 Current Visit: Yes Status: Acute - Plan Patient clinically improved. Newly diagnosed CHF. Is still requiring only 1 L oxygen by nasal cannula. Continue IV Lasix Echocardiogram requested. Cardiology consult request. I spoke to Dr. Aviles. Continue home antihypertensives.
--- NOTE | 2020-12-02 18:38 | P.PN ---
Date of Service: 12/02/20 Vital Signs Temp Pulse Resp BP Pulse Ox 97.9 F 80 19 128/56 L 95 12/02/20 16:00 12/02/20 17:40 12/02/20 16:00 12/02/20 17:40 12/02/20 16:00 Medications Albuterol Sulfate (Albuterol 2.5 Mg/3 Ml Neb [place]) 2.5 mg NEB [id number] PRN PRN Reason: SHORTNESS OF BREATH Amiloride HCl (Amiloride Hcl 5 Mg Tablet) 10 mg PO BIDL [facility] Last Admin: 12/02/20 17:41 Dose: 10 mg Documented by: Amlodipine Besylate (Amlodipine 10 Mg Tab) 10 mg PO DAILY [facility] Last Admin: 12/02/20 08:34 Dose: 10 mg Documented by: Atorvastatin Calcium (Atorvastatin 20 Mg Tab) 20 mg PO BEDTIME [facility] Last Admin: 12/01/20 21:15 Dose: 20 mg Documented by: Benazepril HCl (Benazepril 20 Mg Tab) 40 mg PO DAILY [facility] Last Admin: 12/02/20 08:34 Dose: 40 mg Documented by: Calcitriol (Calcitrol 0.25 Mcg Cap) 0.5 mcg PO DAILY [facility] Last Admin: 12/02/20 08:34 Dose: 0.5 mcg Documented by: Cholecalciferol (Vitamin D 5,000 Unit Cap) 5,000 unit PO DAILY [facility] Last Admin: 12/02/20 08:34 Dose: 5,000 unit Documented by: Clopidogrel Bisulfate (Clopidogrel 75 Mg Tablet) 75 mg PO DAILY [facility] Last Admin: 12/02/20 08:35 Dose: 75 mg Documented by: Dextrose (D50w 25 Gm/50 Ml Vial) 12.5 gm IV PRN PRN; Protocol PRN Reason: HYPOGLYCEMIA Doxazosin Mesylate (Doxazosin 4 Mg Tab) 4 mg PO DAILY [facility] Last Admin: 12/02/20 08:37 Dose: 4 mg Documented by: Enoxaparin Sodium (Enoxaparin 40 Mg/0.4 Ml) 40 mg SQ DAILY [facility] Last Admin: 12/02/20 08:37 Dose: 40 mg Documented by: Furosemide (Furosemide 40 Mg/4 Ml Vial) 40 mg IV BIDL [facility] Last Admin: 12/02/20 17:40 Dose: 40 mg Documented by: Gabapentin (Gabapentin 300 Mg Cap) 300 mg PO BID [facility] Last Admin: 12/02/20 08:35 Dose: 300 mg Documented by: Glucagon (Glucagon 1 Mg/Vial) 1 mg IM 1X PRN; Protocol PRN Reason: HYPOGLYCEMIA Hydrochlorothiazide (Hydrochlorothiazide 25 Mg Tab) 25 mg PO DAILY [facility] Last Admin: 12/02/20 08:35 Dose: 25 mg Documented by: Insulin Glargine (Insulin Glargine 100 Units/Ml) 15 units SQ BID [facility] Last Admin: 12/02/20 08:38 Dose: 15 units Documented by: Insulin Human Regular (Insulin -Regular Human 50 Unit/0.5 Ml Ml) 0 unit SQ ACHS [facility]; Protocol Last Admin: 12/02/20 16:30 Dose: Not Given Documented by: Ipratropium [place] (Ipratropium Brom 0.5mg/2.5ml) 0.5 mg NEB [id number] [facility] Last Admin: 12/02/20 14:10 Dose: 0.5 mg Documented by: Methocarbamol (Methocarbamol 750 Mg Tab) 750 mg PO BID [facility] Last Admin: 12/02/20 08:32 Dose: 750 mg Documented by: Metoprolol Succinate (Metoprolol Xl 100 Mg Tab) 100 mg PO BID [facility] Last Admin: 12/02/20 08:33 Dose: 100 mg Documented by: Pantoprazole Sodium (Pantoprazole 40mg Tablet) 40 mg PO DAILY [facility]; Protocol Last Admin: 12/02/20 08:35 Dose: 40 mg Documented by: Sodium Chloride (Flush Normal Saline 10 Ml) 10 ml IV BID [facility] Last Admin: 12/02/20 09:00 Dose: 10 ml Documented by: Tramadol HCl (Tramadol Hcl 50 Mg Tab) 50 mg PO Q8HP PRN PRN Reason: Pain scale 5-7 (Moderate) Lab Results (last 24 hrs) 12/02/20 11:22: POC Glucose 256 H 12/02/20 07:52: POC Glucose 123 H 12/02/20 06:08: Sodium 137, Potassium 3.6, Chloride 103, Carbon Dioxide 27, BUN 39 H, Creatinine 2.15 H, Estimated GFR 30 L, Glucose 116 H, Calcium 8.4 L, Magnesium 2.1, Total Bilirubin 0.7, AST 11 L, ALT 19, Alkaline Phosphatase 107, NT-Pro-B Natriuret Pep 2684 H, Serum Total Protein 6.8, Albumin 3.3 L, Globulin 3.5, Albumin/Globulin Ratio 0.9 L 12/02/20 06:08: WBC 5.20 D, RBC 3.48 L, Hgb 10.2 L, Hct 30.4 L, MCV 87.3, MCH 29.4, MCHC 33.6, RDW 13.3, Plt Count 181, MPV 9.9, Neutrophils % 65.7, Lymphocytes % 20.9, Monocytes % 11.1, Eosinophils % 1.8, Basophils % 0.5, Absolute Neutrophils 3.4, Absolute Lymphocytes 1.1, Absolute Monocytes 0.6, Absolute Eosinophils 0.1, Absolute Basophils 0.0 12/01/20 22:22: Urine Color Yellow, Urine Appearance Clear, Urine pH 6.5, Ur Specific [place] <=1.005, Glucose (UA)(Auto) Negative, Urine Ketones Negative, Urine Blood Negative, Urine Nitrite Negative, Urine Bilirubin Negative, Urine Urobilinogen 1.0, Ur Leukocyte Esterase Negative, Urine RBC <5, Urine WBC None seen, Ur Squamous Epith Cells [employer]LE PL[employer]ING MANAGER, Urine Bacteria <20, Urine Culture Reflexed Not needed, Urine Total Protein 1+ H 12/01/20 22:04: POC Glucose 124 H 12/01/20 18:31: Lactic Acid 3.0 H Microbiology Results 12/01/20 11:25 Blood - Blood Aerobic Blood Culture - Preliminary No growth in 24 hours. 12/01/20 11:25 Blood - Blood Anaerobic Blood Culture - Preliminary No growth in 24 hours. 12/01/20 11:41 Blood - Blood Aerobic Blood Culture - Preliminary No growth in 24 hours. 12/01/20 11:41 Blood - Blood Anaerobic Blood Culture - Preliminary No growth in 24 hours. Assessment/ Plan: Nephrology Feeling better with good diureses. States that he is breathing better. No acute events overnight. Vitals, medications, blood work and imaging reviewed in the chart. General: Oriented x3, Cooperative HEENT: Atraumatic, Normocephalic Neck: Supple, JVD distended Respiratory: Diminished Cardiovascular: Regular rate/rhythm, Edema Gastrointestinal: Soft and benign, Non-distended Musculoskeletal: No clubbing, No contractures Integumentary: No rashes, No cyanosis Neurological: Normal speech Laboratory Data (last 24 hrs) 12/01/20 11:41: PT 11.4, INR 0.99 12/01/20 11:41: WBC 6.80, Hgb 11.2 L, Hct 33.5 L, Plt Count 168 12/01/20 11:41: Sodium 138, Potassium 4.6, BUN 36 H, Creatinine 2.21 H, Glucose 159 H, Magnesium 2.3, Total Bilirubin 0.8, AST 11 L, ALT 21, Alkaline Phospha tase 118 H, Lipase 69 L Imagings Data: EXAM DESCRIPTION: RAD - Chest Single View - 12/01/2020 11:34 am CLINICAL HISTORY: DYSPNEA COMPARISON: November 07 TECHNIQUE: AP portable chest image was obtained 12/01/2020 11:34 am . FINDINGS: No peripheral mass or consolidation. Interstitial markings and vasculature are mildly prominent. Mild, stable cardiomegaly seen. Trachea is midline. No measurable pleural effusion and no pneumothorax. No acute bony abnormality seen. No acute aortic findings suspected. IMPRESSION: Mild failure/ volume overload pattern. EXAM DESCRIPTION: CT - Chest Abd Pelvis Wo Con - 12/01/2020 12:41 pm CLINICAL HISTORY: Abdominal distention;Dyspnea COMPARISON: Abdomen Pelvis Wo Contrast dated 08/16/2019; Chest Single View dated 12/01/2020 TECHNIQUE: During dynamic enhancement using 100 milliliters nonionic IV contrast, axial 5 millimeter thick images of the chest, abdomen and pelvis were obtained. Biphasic technique was utilized through the abdomen. No oral contrast administered. All CT scans are performed using dose optimization technique as appropriate and may include automated exposure control or mA/KV adjustment according to patient size. FINDINGS: In the lateral left upper lobe (image 31) there is a 7 millimeter pleural abutting noncalcified nodule. In the superior aspect right middle lobe abutting the minor fissure (image 34) there is a 6 millimeter noncalcified nodule. No other suspicious mass and no acute infiltrate. No pneumothorax is present. Patient has small left-sided and small to moderate right-sided pleural effusions with partial atelectasis of each lower lobe. No chest wall mass or abnormal axillary lymphadenopathy seen. Mediastinal and hilar regions show no mass or lymphadenopathy. Mild cardiomegaly is present. Overall interstitial pattern is mildly prominent. Trace pericardial effusion present. Liver and spleen are normal size. No focal lesions of concern on noncontrast imaging. Granulomatous calcifications are present in both. No pancreatic or peripancreatic acute finding. No biliary tree dilatation. Gallstones can be occult on CT imaging. Morales of the normal size gallbladder may be slightly thickened or edematous. No pericholecystic fluid or stranding. No hydronephrosis or obstructing calculi. Renal arterial tree calcifications are present. No abnormal perinephric stranding seen. There is a 5.3 centimeter exophytic cyst posterior mid right kidney. Partially filled urinary bladder shows no suspicious finding. No adrenal abnormalities. No prostate gland or se mónica vesicle suspicious finding. No dilated bowel loops or focal ball bowel wall thickening. Right-sided colon small bowel anastomosis shows no wall thickening or mass. Trace amount of stranding limits No free air, free fluid or inflammatory stranding. No mass or bulky lymphadenopathy. Umbilical and supraumbilical ventral hernia mesh is in place. No recurrence of hernia along the margins. Patient has very minimal left- side inguinal hernia with a slightly larger fat filled right inguinal hernia. No significant bone or vascular finding. Disc and bony degenerative changes are present. Patient does have prominent vascular calcification. IMPRESSION: CT chest imaging shows small left-sided and small to moderate right-sided pleural effusions with cardiomegaly and mild interstitial promin ence. This is most likely failure. Morales of the gallbladder are slightly thickened and edematous. Gallstones can be occult. Gallbladder sonography can be performed if the patient has right upper quadrant pain symptoms. No ascites, mass or other significant abdominal or pelvic finding. Patient has 2 noncalcified pulmonary nodules, largest measuring 7 mm, with no other mass or lymphadenopathy. Follow-up recommendation would be CT imaging in 3-6 months with subsequent imaging at 18-24 months to be considered in a low risk patient or obtained in a high risk patient. Conclusions/Impression: A/P: Continue the current POC and Medications other than the changes listed. AM Labs PRN. Recommend daily weight. Please see the orders for complete details. REYES likely CRS CKD III with proteinuria -Continue furosemide Hypokalemia -Replete potassium -Start Amiloride Hypocalcemia -Start Vitamin D HTN with CKD/ CHF -Continue Amlodipine and Benezapril Acute on chronic diastolic CHF Acute respiratory failure with hypoxia -Continue Metoprolol -Continue furosemide and HCTZ -Start Amiloride DM II with CKD -Continue Lantus Anemia in chronic illness -Monitor H&H
[2020-12-02] MEDS: ATORVASTATIN 20 MG TAB PO SCH (21:13)
[2020-12-03] MEDS: IPRATROPIUM BROM 0.5MG/2.5ML NEB SCH ×2 (02:30→08:50)
[2020-12-03 03:44] LABS: Albumin 3.7 g/dL (3.4-5.0); Phosphorus 3.6 mg/dL (2.5-4.9)
--- NOTE | 2020-12-03 05:06 | EKG ---
Test Date: 2020-12-01 Test Time: 11:24:05 Patient Safety Manager: HB MEASUREMENT RESULTS: Intervals: Rate: 54 [place]: QRSD: 94 QT: 460 QTc: 436 [place]: P: [place]: QRS: 4 T: 52 INTERPRETIVE STATEMENTS: Atrial fibrillation with slow ventricular response Low voltage QRS Abnormal ECG Compared to ECG 12/16/2014 09:27:03 Low QRS voltage now present Sinus bradycardia no longer present Electronically Signed On 12-03-20 05:03:56 BOBBIN DUMPER by Faraz Aviles
[2020-12-03 05:58] VITALS: BMI 34.7
[2020-12-03] MEDS: INSULIN -REGULAR HUMAN 50 UNIT/0.5 ML ML SQ SCH (07:30)
[2020-12-03] MEDS ORDERED: DOXAZOSIN 2 MG TAB ONE (08:37)
[2020-12-03] MEDS: GABAPENTIN 300 MG CAP PO SCH (08:51)
[2020-12-03] MEDS: AMLODIPINE 10 MG TAB PO SCH (08:51)
[2020-12-03] MEDS: CLOPIDOGREL 75 MG TABLET PO SCH (08:51)
[2020-12-03] MEDS: AMILORIDE HCL 5 MG TABLET PO SCH (08:51)
[2020-12-03] MEDS: BENAZEPRIL 20 MG TAB PO SCH (08:52)
[2020-12-03 08:53] VITALS: BP 135/63; TEMP 97.9
[2020-12-03] MEDS: hydroCHLOROthiazide 25 MG TAB PO SCH (08:53)
[2020-12-03] MEDS: CALCITROL 0.25 MCG CAP PO SCH (08:53)
[2020-12-03] MEDS: PANTOPRAZOLE 40MG TABLET PO SCH (08:53)
[2020-12-03] MEDS: INSULIN GLARGINE 100 UNITS/ML SQ SCH (08:54)
[2020-12-03] MEDS: methocarbamoL 750 MG TAB PO SCH (08:55)
[2020-12-03] MEDS: FUROSEMIDE 40 MG/4 ML VIAL IV SCH (08:56)
[2020-12-03] MEDS: ENOXAPARIN 40 MG/0.4 ML SQ SCH (08:56)
[2020-12-03] MEDS: VITAMIN D 5,000 UNIT CAP PO SCH (08:57)
[2020-12-03] MEDS: DOXAZOSIN 4 MG TAB PO SCH (09:00)
--- NOTE | 2020-12-03 09:01 | ECHO ---
HEIGHT: 5 ft 8 in WEIGHT: 228 lb 12.8 oz DATE OF STUDY: 12/02/[address]: Adin Hollis MD 2-DIMENSIONAL: YES M.MODE: YES DOPPLER: YES COLOR FLOW: YES TDS: YES PORTABLE: NO DEFINITY: NO BUBBLE STUDY: NO DIAGNOSIS: CONGESTIVE HEART FAILURE CARDIAC HISTORY: CATHERIZATION: SURGERY: PROSTHETIC VALVE: PACEMAKER: MEASUREMENTS (cm) DIASTOLIC (NORMALS) SYSTOLIC (NORMALS) IVSd 1.2 (0.6-1.2) LA Diam 4.0 (1.9-4.0) LVEF 75% LVIDd 5.6 (3.5-5.7) LVIDs 3.1 (2.0-3.5) %FS 44% LVPWd 1.2 (0.6-1.2) Ao Diam 3.3 (2.0-3.7) 2 DIMENSIONAL ASSESSMENT: RIGHT ATRIUM: NORMAL LEFT ATRIUM: NORMAL RIGHT VENTRICLE: NORMAL LEFT VENTRICLE: NORMAL TRICUSPID VALVE: NORMAL MITRAL VALVE: NORMAL PULMONIC VALVE: NORMAL AORTIC VALVE: NORMAL PERICARDIAL EFFUSION: NONE AORTIC ROOT: NORMAL LEFT VENTRICULAR WALL MOTION: NORMAL LEFT VENTRICULAR EJECTION FRACTION. DECREASED LEFT VENTRICULAR COMPLIANCE. DOPPLER/COLOR FLOW: NORMAL COMMENTS: DIASTOLIC DYSFUNCTION. NORMAL LEFT VENTRICULAR EJECTION FRACTION. NO EFFUISON. TECHNOLOGIST: Deejay VICTORIA
[2020-12-03] MEDS: METOPROLOL XL 100 MG TAB PO SCH (09:09)
--- NOTE | 2020-12-03 10:13 | P.DS ---
Admission Date: 12/02/20 Discharge Date: 12/03/20 Disposition: ROUTINE DISCHARGE Discharge Condition: FAIR Reason for Admission: acute CHF exacerbation Consultations: Cardiology-Dr. Aviles - Problems (1) Acute diastolic heart failure Current Visit: Yes Status: Acute (2) Peripheral vascular disease Current Visit: Yes Status: Acute (3) Acute respiratory failure with hypoxia Current Visit: Yes Status: Acute (4) Hypertension Current Visit: Yes Status: Acute (5) Chronic kidney disease, stage 3 Current Visit: Yes Status: Acute Brief History of Present Illness: 75-year-old man with a history of diabetes mellitus type 2, GERD, PVD, coronary artery disease status post stent, chronic kidney disease stage 3 presented the emergency department with a complaint of progressive shortness of breath from shortness of breath with exertion to shortness of breath at rest along with orthopnea and lower extremity edema. Patient reported he was taking Lasix at home and had been compliant with it. He apparently had a stress test done about 2 weeks ago and did not know the results. His chest x-ray in the ED suggested acute CHF with small bilateral pleural effusions. His BNP elevated. Patient was hypoxic on room air. He was admitted for further management. Hospital Course: Patient admitted to the medical floor and treated with IV Lasix for diuresis. He was seen in consultation by cardiology-Dr. Aviles. Echocardiogram was done which showed normal EF and diastolic dysfunction. Patient clinically improved with Lasix diuresis. He was weaned off oxygen. His shortness of breath resolved. Case discussed with Dr. Aviles will mentioned patient had a normal stress test. He was also seen in consultation by nephrology for chronic kidney disease. Amiloride was added to his antihypertensives by nephrology. Hydrochlo rothiazide has been replaced with Lasix. He has been normotensive today. Patient deemed clinically stable for discharge. Vital Signs/Physical Exam: Temp Pulse Resp BP Pulse Ox 97.9 F 65 19 135/63 91 12/03/20 08:00 12/03/20 09:09 12/03/20 08:00 12/03/20 08:00 12/03/20 08:00 General: Alert, In no apparent distress, Oriented x3 HEENT: Atraumatic, PERRLA, Mucous membr. moist/pink Neck: Supple, JVD not distended Respiratory: Clear to auscultation bilaterally, Normal air movement Cardiovascular: No edema, Regular rate/rhythm, Normal S1 S2 Gastrointestinal: Soft and benign, Non-distended Musculoskeletal: No swelling, No erythema Integumentary: No rashes Neurological: Normal strength at 5/5 x4 extr, Cranial nerves 3-12 intact Laboratory Data at Discharge: WBC 5.20 K/uL (4.3-10.9) D 12/02/20 06:08 Hgb 10.2 g/dL (13.6-17.9) L 12/02/20 06:08 Hct 30.4 % (39.6-49.0) L 12/02/20 06:08 Plt Count 181 K/uL (152-406) 12/02/20 06:08 PT 11.4 SECONDS (9.5-12.5) 12/01/20 11:41 INR 0.99 12/01/20 11:41 Sodium 136 mmol/L (136-145) 12/03/20 03:17 Potassium 4.0 mmol/L (3.5-5.1) 12/03/20 03:17 BUN 46 mg/dL (7-18) H 12/03/20 03:17 Creatinine 2.43 mg/dL (0.55-1.3) H 12/03/20 03:17 Glucose 174 mg/dL (74-106) H 12/03/20 03:17 Phosphorus 3.6 mg/dL (2.5-4.9) 12/03/20 03:17 Magnesium 2.1 mg/dL (1.8-2.4) 12/02/20 06:08 Total Bilirubin 0.7 mg/dL (0.2-1.0) 12/02/20 06:08 AST 11 U/L (15-37) L 12/02/20 06:08 ALT 19 U/L (12-78) 12/02/20 06:08 Alkaline Phosphatase 107 U/L (45-117) 12/02/20 06:08 Lipase 69 U/L (73-393) L 12/01/20 11:41 Home Medications: Amlodipine Besylate/Benazepril [Lotrel 10-40 mg Capsule] 1 cap PO DAILY 12/01/20 Clopidogrel Bisulfate [Plavix*] 1 tab PO DAILY 12/01/20 Doxazosin [Cardura*] 4 mg PO DAILY 12/01/20 Gabapentin 300 mg PO BID 12/01/20 Glimepiride 4 mg PO BID 12/01/20 Lovastatin 1 tab PO BEDTIME 12/01/20 Metformin HCl [Glucophage*] 2 tab PO BID 12/01/20 Methocarbamol [Robaxin-750] 1 tab PO BID 12/01/20 Metoprolol Succinate 1 tab PO BID 12/01/20 Pantoprazole [Protonix Tab*] 40 mg PO DAILY 12/01/20 Tramadol HCl [Ultram] 50 mg PO Q8HP PRN 12/01/20 Amiloride HCl [Midamor*] 10 mg PO BIDL #60 tablet 12/03/20 Calcitrol [Rocaltrol*] 0.5 mcg PO DAILY #30 cap 12/03/20 Cholecalciferol (Vitamin D3) [Vitamin D 5,000 IU Cap*] 5,000 unit PO DAILY #30 cap 12/03/20 Furosemide [Lasix] 40 mg PO DAILY #30 tab 12/03/20 New Medications: Furosemide [Lasix] 40 mg PO DAILY #30 tab Amiloride HCl [Midamor*] 10 mg PO BIDL #60 tablet Calcitrol [Rocaltrol*] 0.5 mcg PO DAILY #30 cap Cholecalciferol (Vitamin D3) [Vitamin D 5,000 IU Cap*] 5,000 unit PO DAILY #30 cap Diet: ADA Activity: Ad brennan Followup: Julio César Daniel DO [ACTIVE - CAN ADMIT] - 1 Week BENITA JOY [Primary Care Provider] - 1-2 Weeks Faraz Aviles MD [ACTIVE - CAN ADMIT] - 1-2 Weeks Time spent managing pt's care (in minutes): 35
[2020-12-03 11:03] VITALS: O2SAT 91
--- NOTE | 2020-12-03 13:10 | PN ---
Date of Progress Note: 12/03/2020 Subjective: The patient was seen and examined at bedside. He is doing much better. He has lost con siderable amount of fluid weight in the last few days because of aggressive diuresis. Physical Examination: Vital Signs: Have been reviewed and are stable. General: He appears in no acute distress. No JVD was noted. Lungs: Clear. Abdomen: Soft. Extremities: Showed no evidence of edema. Laboratory Data: Showing creatinine of 2.4, which is worsening compared to before. Other electrolyt es are stable. CBC showed stable hemoglobin, hematocrit, and platelet count. Current Medications: Have been reviewed. Discharge medications have been reviewed in detail with toney bass patient. Impression: 1.Acute on chronic renal insufficiency secondary to cardiorenal syndrome, currently with slightly wo rse renal function, but his volume status looks much better. This is likely secondary to aggressive diuresis. I am okay with discharging him on oral Lasix and amiloride; however, I have decreased jennifer oride to 5 mg b.i.d. from 10 mg b.i.d. and we will discontinue HCTZ. 2.Type 2 diabetes with diabetic nephropathy, currently with overall stable renal function. We will monitor renal function closely after discharge in 2 weeks. 3.Type 2 diabetes. Resume home medications. 4.Hypocalcemia, currently on calcitriol. Plan: Overall, the patient's renal function is slightly worse, but volume status is better. We will follow up. The plan is to follow up with him closely as outpatient. All discharge medications were reconciled with the patient in detail . VV/MODL Voice ID: [id number] Report ID: [id number]
--- NOTE | 2020-12-06 10:43 | CON ---
Date of Consultation: 12/02/2020 Reason For Consultation: Congestive heart failure. History Of Present Illness: Mr. Vu is a 75-year-old white male. He is very well known to me for history of hypertension, diabetes, history of colon cancer in the past. Has had history of periphera l artery disease, came in with shortness of breath that woke him up from sleep. Has complained of PN D, orthopnea, pedal edema, dyspnea on exertion. Denied any chest pain. Denied any unexplained nause a, vomiting, diaphoresis. He denied any palpitation or syncope. Denied any fever or chills. He was found on a chest x-ray, had mild congestive heart failure. His EKG showed atrial fibrillation with slow ventricular response of 54. Extremities, venous study, Doppler showed no DVT. Consultation had been obtained by Nephrology for renal insufficiency. His creatinine was 2.21. Recommendation was t o continue furosemide and replete potassium and start vitamin D to continue amlodipine and to continu e benazepril. The impression was [id number] diastolic congestive heart failure with hypoxia. Past Medical History: As stated above. History of coronary artery disease status post stent, histor y of hernia repair, history of chronic kidney disease stage 3. Review of Systems: Negative. Social History: Negative. Family History: Noncontributory. Medications: At home include amlodipine, Plavix, doxazosin, gabapentin, glimepiride, lovastatin, met formin, metoprolol, pantoprazole, tramadol, hydrochlorothiazide, and Robaxin. Physical Examination: General: When I saw him, vital signs were stable. Afebrile. HEENT: Negative. Neck: Supple with no bruit. Chest: Clear. Cardiac: Regular rhythm and rate. No murmurs, gallops, or rubs. Abdomen: Benign. Extremities: No clubbing, cyanosis, or edema. Diagnostic Data: As stated earlier. Impression And Plan: 1.Acute diastolic congestive heart failure. 2.History of peripheral arterial disease. 3.Chronic renal disease stage 3. Nephrology is following. 4.Gastroesophageal reflux disease. 5.History of coronary artery disease, status post stent that is stable. 6.Diabetes. 7.History of hernia repair. 8.History of colon cancer. I agree with his present regimen. Echocardiogram is pending. We will s ee what that shows before making any further decisions. NB/MODL Voice ID: [id number] Report ID: [id number]
--- NOTE | 2020-12-06 11:04 | PN ---
Date of Progress Note: 12/03/2020 Subjective: Mr. Vu had come in with acute congestive heart failure. Echocardiogram confirmed praveena t this is a diastolic dysfunction. He has an ejection fraction of 75%. He had improved drastically on IV Lasix. Nephrology has been following him. He has multiple other problems including history of coronary artery disease status post stent, peripheral arterial disease, hypertension, dyslipidemia, chronic renal disease. His last vital signs were stable. His last creatinine was 2.43, which is sli ghtly worse than when he came in. His last listed medication includes inhalers, amlodipine, glimepir stu, Lipitor, benazepril, Plavix, doxazosin, Lasix, insulin, metoprolol, hydrochlorothiazide. I woul d leave his medical management from a CHF standpoint and Renal standpoint to Nephrology. I am concer morris with his creatinine being elevated that we going to continue benazepril and hydrochlorothiazide, but I will discuss the case further with Dr. Daniel either as an inpatient or an outpatient. I will see the patient soon in the office. VITA/RITU Voice ID: [id number] Report ID: [id number]
== END 2020-12-03 12:35 | disposition home or self-care (01) | DRG 291 ==
LOC: ER 08:54 → ERHOLD 14:02 → 2ND 16:51 → OBSVTOIN 12-02 12:17
PROVIDERS: ADMIT Hospitalist; ATTEND Internal Medicine
DX: I13.0 Hypertensive heart and chronic kidney disease with heart failure and stage 1 through stage 4 chronic kidney disease, or unspecified chronic kidney disease (principal); J96.01 Acute respiratory failure with hypoxia; I50.33 Acute on chronic diastolic (congestive) heart failure; N17.9 Acute kidney failure, unspecified; N18.30 Chronic kidney disease, stage 3 unspecified; E11.22 Type 2 diabetes mellitus with diabetic chronic kidney disease; E11.51 Type 2 diabetes mellitus with diabetic peripheral angiopathy without gangrene; I25.10 Atherosclerotic heart disease of native coronary artery without angina pectoris; E87.6 Hypokalemia; K21.9 Gastro-esophageal reflux disease without esophagitis; D63.8 Anemia in other chronic diseases classified elsewhere; I48.91 Unspecified atrial fibrillation; E83.51 Hypocalcemia; Z87.891 Personal history of nicotine dependence; Z66 Do not resuscitate; Z79.02 Long term (current) use of antithrombotics/antiplatelets; Z79.84 Long term (current) use of oral hypoglycemic drugs; Z95.1 Presence of aortocoronary bypass graft; Z90.49 Acquired absence of other specified parts of digestive tract; Z85.038 Personal history of other malignant neoplasm of large intestine; Z20.828 Contact with and (suspected) exposure to other viral communicable diseases
CPT/HCPCS: 0240U; 36415; 71045; 71250; 74176; 80048; 80053; 80069; 80076; 81003; 81015; 82947; 83605; 83690; 83735; 83880; 84443; 84484; 85025; 85379; 85610; 87040; 93005; 93306; 93970; 94640; 94760; 96361; 96372; 96374; 96375; 97161; 99285; G0378; J0696; J1650; J1815; J1940; J7040

== ENCOUNTER 2020-12-10 15:20 | Inpatient (IN) | payer OTHER ==
--- OUTSIDE RECORDS SUMMARY | 2020-12-10 15:23 | XMS REPORT | Continuity of Care Document ---
:1945 Author Organization [facility] t Address [address] [place] [address] Dr. De Los Santos [address] [place] [address] Care Team Providers Name Role Phone Feng Love Attending Clinician [phone] DONITA Attending Clinician Unavailable NERY Attending Clinician [...] Date/Time Type Type Clinicians Facility Department ID 2020-12-05 2020-12-05 Outpatient Love [facility] [id number] 00:00:00 00:00:00 Ruben [id number] Feng [id number] 2020-11-21 2020-11-21 Outpatient Ivan [facility] [id number] 00:00:00 00:00:00 Ruben [id number] Feng [id number] 2020-10-27 2020-10-27 Outpatient [facility] [id number] [place] 00:00:00 00:00:[address] 2020-10-24 2020-10-24 Outpatient DONITA [facility] [id number] [place] 00:00:00 00:00:00 AUGUSTINE [address] 2020-10-06 2020-10-06 Outpatient [facility] [id number] [place] 00:00:00 00:00:[address] 2020-09-12 2020-09-12 [facility] [id number] [place] 00:00:00 00:00:00 ABA [address] 2020-09-12 2020-09-12 Outpatient NERY, [facility] [id number] [place] 00:00:00 00:00:00 ABA [address] 2020-09-03 2020-09-03 Outpatient WOOD, [facility] [id number] [place] 00:00:00 00:00:00 ABA [address] 2020-09-03 2020-09-03 Outpatient NERY, [facility] [id number] [place] 00:00:00 00:00:00 ABA [address] 2020-09-03 2020-09-03 Outpatient NERY, [facility] [id number] [place] 00:00:00 00:00:00 ABA [address] 2019-12-27 2019-12-27 Outpatient ALISON, [facility] [id number] [place] 00:00:00 00:00:00 PAUL [address] Results This patient has no known results.
[2020-12-10 18:20] LABS: Absolute Lymphocytes (CBC) 0.8 K/uL (0.7-4.9); Basophils % 0.7 % (0-1.3); Hematocrit 35.6 % (39.6-49.0); Lymphocytes % 14.7 % (15.3-44.8); MPV 8.9 fL (7.6-11.3); RBC Red Blood Cell Count 4.02 M/uL (4.33-5.43)
[2020-12-10 18:26] LABS: Protime INR 0.95
--- NOTE | 2020-12-10 18:55 | RAD REPORT ---
EXAM DESCRIPTION: RAD - Chest Single View - 12/10/2020 6:28 pm CLINICAL HISTORY: general weakness, shortness of breath COMPARISON: December 01 TECHNIQUE: AP portable chest image was obtained 12/10/2020 6:28 pm . FINDINGS: No focal mass or consolidation. Interstitial pattern matches comparison. Cardiomegaly pres ent similar to comparison. No abnormal vascular engorgement. No measurable pleural effusion and no pn eumothorax. No acute bony abnormality seen. No acute aortic findings suspected. IMPRESSION: No focal lung parenchymal process seen. Cardiomegaly, similar to comparison, with no other findings of acute failure or volume overload.
--- NOTE | 2020-12-10 18:56 | RAD REPORT ---
EXAM DESCRIPTION: CT - Head Brain Wo Cont - 12/10/2020 6:30 pm CLINICAL HISTORY: WEAKNESS, ataxia, colon cancer COMPARISON: No comparisons TECHNIQUE: Axial 5 mm thick images of the head were obtained without IV contrast. All CT scans are performed using dose optimization technique as appropriate and may include automated exposure control or mA/KV adjustment according to patient size. FINDINGS: No intracranial hemorrhage, mass, edema or shift of mid-line structures. No acute infarcti on changes seen. No cortical edema or sulcal effacement. Moderate severity atrophy and chronic ischem ic changes are present. Ventricles are in proportion. Arterial tree calcifications are present. Mastoid air cells and visualized portions of the paranasal sinuses are clear. No acute bony findings. IMPRESSION: Negative non-contrast CT head examination for acute finding. Moderate severity atrophy and chronic ischemic changes are present. Chronic ischemic change can mask nonhemorrhagic CVA.
[2020-12-10 19:23] LABS: ALT/SGPT 26 U/L (12-78); AST/SGOT 15 U/L (15-37); Albumin 4.1 g/dL (3.4-5.0); BUN Blood Urea Nitrogen 73 mg/dL (7-18); Bicarbonate 20 mmol/L (21-32); Bilirubin Direct 0.2 mg/dL (0-0.2); Bilirubin Total 0.6 mg/dL (0.2-1.0); Glucose Level 88 mg/dL (74-106); Magnesium 2.9 mg/dL (1.8-2.4); NT PRO-BNP 750 pg/mL (<450); Protein, Total 8.1 g/dL (6.4-8.2); Sodium Level 134 mmol/L (136-145); Troponin (Emerg Dept Use Only) < 0.02 ng/mL (0.0-0.045)
[2020-12-10 19:24] LABS: Alkaline Phosphatase ND U/L (45-117)
[2020-12-10 19:27] LABS: Potassium 8.1 mmol/L (3.5-5.1)
[2020-12-10] MEDS ORDERED: SOD POLYSTYREN SUL 15 GM/60 ML UCUP ONE (20:02)
[2020-12-10] MEDS ORDERED: CALCIUM GLUCONATE 1 GM IVPB 1 GM/50 ML BAG IV ONE (20:02)
[2020-12-10] MEDS ORDERED: FUROSEMIDE 20 MG/ 2ML VIAL ONE (20:02)
[2020-12-10] MEDS ORDERED: SODIUM BICARB 50 MEQ/50ML VIAL ONE (20:02)
[2020-12-10] MEDS ORDERED: D50W 25 GM/50 ML SYRINGE IV ONE (20:03)
[2020-12-10] MEDS ORDERED: INSULIN -REGULAR HUMAN 50 UNIT/0.5 ML ML ONE (20:08)
--- NOTE | 2020-12-10 21:02 | RAD REPORT ---
EXAM DESCRIPTION: CT - Stone Protocol - 12/10/2020 8:09 pm CLINICAL HISTORY: back pain, kidney failure COMPARISON: Abdomen Pelvis Wo Contrast dated 08/16/2019 TECHNIQUE: Axial 3 mm thick images were obtained without oral or IV contrast. The [id number] span s the entirety of the system including uppermost abdomen and lung bases. All CT scans are performed using dose optimization technique as appropriate and may include automated exposure control or mA/KV adjustment according to patient size. FINDINGS: No hydronephrosis is present and no obstructing ureteral calculi. No suspicious renal mass es. Isodense masses and pyelonephritis are not excluded on a stone protocol CT scan. An exophytic 5.5 centimeter posterior right renal cyst not substantially different. No significant adrenal finding. U rinary bladder is mostly contracted limiting assessment. Anterior wall thickness is accentuated by th e contraction. This cystitis cannot be excluded. There is no bladder calculus. Imaged portions of the liver, spleen and pancreas show no acute findings on non-contrast imaging. No gallbladder or biliary tree abnormality identified. Liver and spleen granulomatous calcifications are present. No dilated large or small bowel. Right-sided colon anastomotic site shows no suspicious finding. No a cute GI process is identifiable. No mass or bulky lymphadenopathy. Mesh material is present in the periumbilical region from prior her frederick repair. Small fat only inguinal hernias noted larger on the right. Disc and bone degenerative changes are present. Dense vascular calcifications are seen. IMPRESSION: No hydronephrosis, obstructing calculus or acute finding identifiable. Urinary bladder vazquez are thickened by the contracted state and cannot be accurately assessed. Cystit is cannot be excluded. Isodense masses and pyelonephritis are not excluded on stone protocol technique.
--- NOTE | 2020-12-10 21:10 | ER ---
Nurse's Notes [facility] Name: Royer Vu Jr Age: 75 yrs Sex: Male : 1945 Arrival Date: 12/10/2020 Time: 15:22 Bed 19 Private MD: Diagnosis: Hyperkalemia;Acute kidney failure;Weakness;Unspecified abnormalities of gait and mobility Presentation: 12/10 15:53 Chief complaint: Patient states: Weakness and feeling off balanced for a couple days. ll1 Slight diarrhea with stomach gurgling and nausea. Feels more weak today. No cough or fever. Coronavirus screen: Client denies travel out of the [place] in the last 14 days. At this time, the client does not indicate any symptoms associated with coronavirus-19. Ebola Screen: Patient denies travel to an Ebola-affected area in the 21 days before illness onset. No acute neurological deficit is noted. Initial Sepsis Screen: Does the patient meet any 2 criteria? No. Patient's initial sepsis screen is negative. Does the patient have a suspected source of infection? No. Patient's initial sepsis screen is negative. Initial Sepsis Screen: Does the patient have a suspected source of infection? Yes: Acute abdominal pain. Risk Assessment: Do you want to hurt yourself or someone else? Patient reports no desire to harm self or others. Onset of symptoms was December 08, 2020. 15:53 Method Of Arrival: Wheelchair ll1 15:53 Acuity: JORGE 3 ll1 Triage Assessment: 15:57 General: Appears uncomfortable, Behavior is calm, cooperative, appropriate for age. ll1 Pain: Complains of pain in abdomen Quality of pain is described as aching. 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 Full function Weakness Speech is normal, Facial symmetry appears normal, Reports weakness. Cardiovascular: No deficits noted. GI: Abdomen is round Reports diarrhea, gaseousness, nausea. Musculoskeletal: Reports weakness in generalized. Stroke Activation: Symptom onset > 6 hours Physician: Stroke Attending; Name: ; Notified At: ; Arrived At: Physician: Chief Stroke Resident; Name: ; Notified At: ; Arrived At: Physician: Stroke Resident; Name: ; Notified At: ; Arrived At: Physician: ED Attending; Name: ; Notified At: ; Arrived At: Physician: ED Resident; Name: ; Notified At: ; Arrived At: Historical: - Allergies: 15:57 No Known Allergies; ll1 - PMHx: 15:57 COLON CA; Diabetes - IDDM; Hypertension; ll1 - PSHx: 15:57 colon resection; Hernia repair; ll1 - Immunization history:: Flu vaccine is not up to date. - Social history:: Smoking status: Smoking status: Patient denies any tobacco usage or history of. Screenin:21 Abuse screen: Denies threats or abuse. Nutritional screening: No deficits noted. tw2 Tuberculosis screening: No symptoms or risk factors identified. Fall Risk None identified. Assessment: 18:00 General: Appears in no apparent distress. obese, well groomed, Behavior is calm, tw2 cooperative, appropriate for age. Neuro: Level of Consciousness is awake, alert, obeys commands, Oriented to person, place, time, situation. Cardiovascular: Capillary refill < 3 seconds Patient's skin is warm and dry. Respiratory: Airway is patent Respiratory effort is even, unlabored, Respiratory pattern is regular, tachypnea pt appears winded when talking, states "i am nothing like i was when i was here for chf". GI: Abdomen is round non-distended, obese. : No signs and/or symptoms were reported regarding the genitourinary system. EENT: No signs and/or symptoms were reported regarding the EENT system. Derm: No signs and/or symptoms reported regarding the dermatologic system. Musculoskeletal: Range of motion: intact in all extremities, Reports weakness in right arm and right leg. 18:20 Patient has been NPO before screening. The patient is alert, and able to follow tw2 commands. The patient does not exhibit slurred or garbled speech. The patient is not exhibiting difficulty speaking. The patient does not exhibit difficulty understanding words. The patient is able to swallow own secretions with no drooling or need for suction. Patient tolerated one teaspoon of water. No drooling, immediate coughing, gurgling, or clearing of the throat was noted. The patient tolerated 90mL of water. No drooling, immediate coughing, gurgling, or clearing of the throat was noted. The patient passed the bedside swallow screening. Oral medications may be given as ordered. Contact Physician for further diet orders. Provider notified of bedside swallow screening results: Adin SANDS. 18:53 Reassessment: Patient appears in no apparent distress at this time. No changes from tw2 previously documented assessment. Patient and/or family updated on plan of care and expected duration. Pain level reassessed. Patient is alert, oriented x 3, equal unlabored respirations, skin warm/dry/pink. 20:00 Reassessment: patient sent to CT scan. mg2 21:11 Reassessment: PATRICIA Amin -hospitalist at bedside with the patient. mg2 Vital Signs: 15:53 BP 135 / 50; Pulse 57; Resp 17; Temp 98.4; Pulse Ox 99% ; Weight 103.42 kg; Height 5 ll1 ft. 8 in. (172.72 cm); Pain 8/10; 18:53 BP 128 / 67; Pulse 48; Resp 17; Pulse Ox 97% on R/A; tw2 21:11 BP 120 / 64; Pulse 50; Resp 18; Pulse Ox 97% on R/A; mg2 22:20 BP 126 / 60; Pulse 50; Resp 18; Pulse Ox 98% on R/A; mg2 15:53 Body Mass Index 34.67 (103.42 kg, 172.72 cm) ll1 ED Course: 15:22 Patient arrived in ED. ds1 15:57 Triage completed. ll1 15:58 Arm band placed on. ll1 17:47 Bed in low position. Call light in reach. Side rails up X2. ekg monitor tech on. Pulse tw2 ox on. NIBP on. Warm blanket given. 17:48 Adin Anglin PA is PHCP. cp 17:48 Reddy Leigh MD is Attending Physician. cp 17:55 Ayse Young, JANET is Primary Nurse. tw2 18:00 Inserted saline lock: 20 gauge in left hand, using aseptic technique. Blood collected. tw2 18:28 XRAY Chest (1 view) In Process Unspecified. EDMS 18:29 CT Head Brain wo Cont In Process Unspecified. EDMS 20:10 CT Stone Protocol In Process Unspecified. EDMS 20:30 Inserted saline lock: 20 gauge in right antecubital area, using aseptic technique. mg2 Blood collected. 20:40 IV discontinued, intact, bleeding controlled, No redness/swelling at site. Pressure mg2 dressing applied. 20:49 No provider procedures requiring assistance completed. mg2 21:08 Kody Chau DO is Hospitalizing Provider. cp 22:20 Patient admitted, IV remains in place. mg2 Administered Medications: 20:30 Drug: Insulin Regular Human 10 units {Co-Signature: iw (Jacey Palacios RN).} Route: mg2 IVP; Site: right antecubital; 22:27 Follow up: Response: No adverse reaction mg2 20:30 Drug: D50W 50 ml Route: IVP; Site: right antecubital; mg2 22:27 Follow up: Response: No adverse reaction mg2 20:35 Drug: Calcium Gluconate 1 grams Route: IVPB; Infused Over: 60 mins; Site: right mg2 antecubital; 22:26 Follow up: Response: No adverse reaction; IV Status: Completed infusion; IV Intake: mg2 100ml 20:39 Drug: Sodium Bicarbonate 1 amp Route: IVP; Site: right antecubital; mg2 22:26 Follow up: Response: No adverse reaction mg2 20:40 Drug: Kayexalate 60 grams Route: PO; mg2 22:26 Follow up: Response: No adverse reaction mg2 20:40 Drug: Lasix 60 mg Route: IVP; Site: right antecubital; mg2 22:26 Follow up: Response: No adverse reaction mg2 21:02 Drug: Albuterol - atroVENT (ipratropium) (3:1) (2.5 mg - 0.5 mg) 3 ml Route: Nebulizer; mg2 22:26 Follow up: Response: No adverse reaction mg2 21:39 Drug: foLIC Acid 1 mg Route: IVPB; Site: right antecubital; mg2 22:25 Follow up: Response: No adverse reaction; IV Status: Completed infusion mg2 21:39 Drug: Aspirin Chewable Tablet 324 mg Route: PO; mg2 22:25 Follow up: Response: No adverse reaction mg2 Intake: 22:26 IV: 100ml; Total: 100ml. mg2 Outcome: 21:09 Decision to Hospitalize by Provider. cp 22:25 Admitted to Med/surg accompanied by nurse, via wheelchair, room 216, with chart, Report mg2 called to JANET Chilel 22:25 Condition: stable 22:25 Instructed on the need for admit, Demonstrated understanding of instructions. 22:35 Patient left the ED. mg2 Signatures: Dispatcher [facility], Ginny ds1 Adin Anglin PA PA cp Wise, Tara RN RN tw2 Gopal Sanchez RN RN mg2 Griffin Canas RN RN ll1 Jacey Palacios RN iw
--- NOTE | 2020-12-10 21:10 | EDPHYS ---
Physician Documentation [facility] Name: Royer Vu Jr Age: 75 yrs Sex: Male : 1945 Arrival Date: 12/10/2020 Time: 15:22 Bed 19 Private MD: ED Physician Reddy Leigh HPI: 12/10 18:05 This 75 yrs old Male presents to ER via Wheelchair with complaints of cp Weakness. 18:05 The patient presents to the emergency department with weakness of the entire body, cp generalized weakness. Onset: The symptoms/episode began/occurred and became worse today, for past couple days. 18:05 Patient's baseline: Neuro: alert and fully oriented, Motor: no deficits, Ambulation: cp walks without assistance, Speech: normal. 18:05 Associated signs and symptoms: Pertinent negatives: altered mental status, dizziness, cp fever, headache, syncope, vision changes. Current symptoms: weakness and heaviness of arms and legs. Historical: - Allergies: 15:57 No Known Allergies; ll1 - PMHx: 15:57 COLON CA; Diabetes - IDDM; Hypertension; ll1 - PSHx: 15:57 colon resection; Hernia repair; ll1 - Immunization history:: Flu vaccine is not up to date. - Social history:: Smoking status: Smoking status: Patient denies any tobacco usage or history of. ROS: 18:10 Constitutional: Positive for fatigue, Negative for body aches, chills, fever. cp 18:10 Eyes: Negative for injury, pain, redness, and discharge. cp 18:10 Cardiovascular: Negative for chest pain, palpitations. 18:10 Respiratory: Negative for cough, shortness of breath, wheezing. 18:10 Abdomen/GI: Positive for diarrhea, Negative for abdominal pain, vomiting, constipation, black/tarry stool, rectal bleeding. 18:10 : Negative for urinary symptoms. 18:10 Neuro: Positive for weakness, Negative for altered mental status, headache, syncope. 18:10 All other systems are negative. Exam: 18:13 Constitutional: The patient appears in no acute distress, alert, awake, cp non-diaphoretic, non-toxic, well developed, well nourished, obese. 18:13 Head/Face: Normocephalic, atraumatic. cp 18:13 Eyes: Periorbital structures: appear normal, Pupils: equal, round, and reactive to light and accomodation, Extraocular movements: intact throughout, Conjunctiva: normal, no exudate, no injection, Sclera: no appreciated abnormality, Lids and lashes: appear normal, bilaterally. 18:13 ENT: External ear(s): are unremarkable, Nose: is normal, Mouth: Lips: moist, Oral mucosa: moist, Posterior pharynx: Airway: no evidence of obstruction, patent. 18:13 Neck: ROM/movement: is normal, is supple, without pain, no range of motions limitations, no nuchal rigidity. 18:13 Chest/axilla: Inspection: normal, Palpation: is normal, no crepitus, no tenderness. 18:13 Cardiovascular: Rate: bradycardic, Rhythm: regular, Edema: ankle edema, that is mild, JVD: is not appreciated. 18:13 Respiratory: the patient does not display signs of respiratory distress, Respirations: normal, no use of accessory muscles, no retractions, labored breathing, is not present, Breath sounds: are clear throughout, no decreased breath sounds, no stridor, no wheezing. 18:13 Abdomen/GI: Inspection: abdomen appears normal, Bowel sounds: active, all quadrants, Palpation: abdomen is soft and non-tender, in all quadrants. 18:13 Back: CVA tenderness, is absent. 18:13 Skin: cellulitis, is not appreciated, no rash present. 18:13 Neuro: Orientation: to person, place \T\ time. Mentation: is normal, Cerebellar function: Romberg testing is negative, normal finger to nose testing, the patient is unable to track right heel to left kumar, Motor: moves all fours, general weakness with no focal deficits, Sensation: no obvious gross deficits, Gait: is unsteady. 18:55 ECG was reviewed by the Attending Physician. cp Vital Signs: 15:53 BP 135 / 50; Pulse 57; Resp 17; Temp 98.4; Pulse Ox 99% ; Weight 103.42 kg; Height 5 ll1 ft. 8 in. (172.72 cm); Pain 8/10; 18:53 BP 128 / 67; Pulse 48; Resp 17; Pulse Ox 97% on R/A; tw2 21:11 BP 120 / 64; Pulse 50; Resp 18; Pulse Ox 97% on R/A; mg2 22:20 BP 126 / 60; Pulse 50; Resp 18; Pulse Ox 98% on R/A; mg2 15:53 Body Mass Index 34.67 (103.42 kg, 172.72 cm) ll1 MDM: 17:54 Patient medically screened. cp 19:40 Data reviewed: vital signs, nurses notes, lab test result(s), EKG, radiologic studies, cp CT scan, plain films, I have discussed the patient's presentation/case with the attending Emergency Department Physician; and as a result, I will admit patient. 19:40 Test interpretation: by ED physician or midlevel provider: ECG, plain radiologic cp studies. 20:25 Physician consultation: Julio César Daniel DO was contacted at 20:20, regarding consult, cp patient's condition, in the emergency department to see patient at 20:20. 21:10 Physician consultation: Jonathan Mendes MD was called at 21:10, was contacted at 21:10, cp regarding consult, patient's condition. 12/10 18:04 Order name: Basic Metabolic Panel cp 12/10 18:04 Order name: CBC with Diff cp 12/10 18:04 Order name: LFT's cp 12/10 18:04 Order name: Magnesium cp 12/10 18:04 Order name: NT PRO-BNP cp 12/10 18:04 Order name: PT-INR cp 12/10 18:04 Order name: Troponin (emerg Dept Use Only) cp 12/10 18:05 Order name: Basic Metabolic Panel; Complete Time: 19:28 EDMS 12/10 18:05 Order name: CBC with Automated Diff; Complete Time: 18:52 EDMS 12/10 18:52 Interpretation: Normal except: RBC 4.02; HGB 11.8; HCT 35.6; MPV 8.9; LYM% 14.7. cp 12/10 18:05 Order name: Liver (Hepatic) Function; Complete Time: 19:28 EDMS 12/10 18:05 Order name: Magnesium; Complete Time: 19:28 EDMS 12/10 18:05 Order name: NT PRO-BNP; Complete Time: 19:28 EDMS 12/10 18:05 Order name: Protime (+INR); Complete Time: 18:52 EDMS 12/10 18:05 Order name: Troponin (Emerg Dept Use Only); Complete Time: 19:28 EDMS 12/10 18:04 Order name: XRAY Chest (1 view); Complete Time: 18:59 cp 12/10 18:04 Order name: CT Head Brain wo Cont; Complete Time: 18:59 cp 12/10 18:05 Order name: Urine Microscopic Only cp 12/10 19:39 Order name: CT Stone Protocol; Complete Time: 21:05 cp 12/10 20:14 Order name: SARS-COV-2 RT PCR; Complete Time: 21:05 EDMS 12/10 20:46 Order name: Urine Dipstick--Ancillary (enter results) mw2 12/10 20:47 Order name: Urine Dipstick-Ancillary EDMS 12/10 18:04 Order name: EKG; Complete Time: 18:05 cp 12/10 18:04 Order name: Cardiac monitoring; Complete Time: 18:20 cp 12/10 18:04 Order name: EKG - Nurse/Tech; Complete Time: 19:13 cp 12/10 18:04 Order name: IV Saline Lock; Complete Time: 18:20 cp 12/10 18:04 Order name: Labs collected and sent; Complete Time: 18:20 cp 12/10 18:04 Order name: O2 Per Protocol; Complete Time: 18:20 cp 12/10 18:04 Order name: O2 Sat Monitoring; Complete Time: 18:20 cp 12/10 18:05 Order name: Urine Dipstick-Ancillary (obtain specimen); Complete Time: 20:49 cp 12/10 18:13 Order name: Swallow Screen; Complete Time: 18:19 cp EC:55 Rate is 122 beats/min. Rhythm is regular. QRS interval is prolonged at 110 msec. QT cp interval is normal. Interpreted by me. Reviewed by me. Administered Medications: 20:30 Drug: Insulin Regular Human 10 units {Co-Signature: iw (Jacey Palacios RN).} Route: mg2 IVP; Site: right antecubital; 22:27 Follow up: Response: No adverse reaction mg2 20:30 Drug: D50W 50 ml Route: IVP; Site: right antecubital; mg2 22:27 Follow up: Response: No adverse reaction mg2 20:35 Drug: Calcium Gluconate 1 grams Route: IVPB; Infused Over: 60 mins; Site: right mg2 antecubital; 22:26 Follow up: Response: No adverse reaction; IV Status: Completed infusion; IV Intake: mg2 100ml 20:39 Drug: Sodium Bicarbonate 1 amp Route: IVP; Site: right antecubital; mg2 22:26 Follow up: Response: No adverse reaction mg2 20:40 Drug: Kayexalate 60 grams Route: PO; mg2 22:26 Follow up: Response: No adverse reaction mg2 20:40 Drug: Lasix 60 mg Route: IVP; Site: right antecubital; mg2 22:26 Follow up: Response: No adverse reaction mg2 21:02 Drug: Albuterol - atroVENT (ipratropium) (3:1) (2.5 mg - 0.5 mg) 3 ml Route: Nebulizer; mg2 22:26 Follow up: Response: No adverse reaction mg2 21:39 Drug: foLIC Acid 1 mg Route: IVPB; Site: right antecubital; mg2 22:25 Follow up: Response: No adverse reaction; IV Status: Completed infusion mg2 21:39 Drug: Aspirin Chewable Tablet 324 mg Route: PO; mg2 22:25 Follow up: Response: No adverse reaction mg2 Disposition: 12/11 21:47 Available for consultation at all times. Did not see or evaluate patient unless ps1 otherwise noted. . Disposition: 12/10/20 21:09 Hospitalization ordered by Kody Chau for Inpatient Admission. Preliminary diagnosis are Hyperkalemia, Acute kidney failure, Weakness, Unspecified abnormalities of gait and mobility. - Bed requested for Telemetry/MedSurg (Inpatient). - Status is Inpatient Admission. mg2 - Condition is Stable. - Problem is new. - Symptoms have improved. Signatures: Dispatcher [employer] [facility] Kathy Nava RN RN tl1 Adin Anglin PA PA cp Singer, Phillip, MD MD ps1 Gopla Sanchez RN RN mg2 Griffin Canas RN RN ll1 Jacey Palacios RN iw Corrections: (The following items were deleted from the chart) 12/10 19:33 19:05 CORONAVIRUS+MR.LAB.BRZ ordered. [facility] 22:11 21:09 Hospitalization Ordered by Kody Chau DO for Inpatient Admission. Preliminary tl1 diagnosis is Hyperkalemia; Acute kidney failure; Weakness; Unspecified abnormalities of gait and mobility. Bed requested for Telemetry/MedSurg (Inpatient). Status is Inpatient Admission. Condition is Stable. Problem is new. Symptoms have improved. cp 22:35 22:11 12/10/2020 21:09 Hospitalization Ordered by Kody Chau DO for Inpatient mg2 Admission. Preliminary diagnosis is Hyperkalemia; Acute kidney failure; Weakness; Unspecified abnormalities of gait and mobility. Bed requested for Telemetry/MedSurg (Inpatient). Status is Inpatient Admission. Condition is Stable. Problem is new. Symptoms have improved. tl1
[2020-12-10] MEDS ORDERED: ALBUTEROL 2.5 MG/3 ML NEB SOL ONE (21:18)
[2020-12-10] MEDS ORDERED: IPRATROPIUM BROM 0.5MG/2.5ML ONE (21:19)
[2020-12-10] MEDS ORDERED: ASPIRIN 81 MG CHEWABLE TABLET ONE (21:51)
[2020-12-10] MEDS ORDERED: FOLIC ACID 5 MG/ML VIAL ONE (21:52)
[2020-12-10] MEDS ORDERED: NA CHLORIDE 0.9% 50 ML ONE (21:52)
[2020-12-10 21:54] LABS: Urine Bacteria <20 /HPF (NONE SEEN); Urine RBC <5 /HPF (NONE SEEN); Urine Urothelial Cells <5 /HPF (NONE SEEN)
[2020-12-10 21:55] LABS: Urine Blood TRACE (NEG); Urine Glucose NEGATIVE (NEG); Urine Protein 1+ (NEG); Urine Specific Gravity 1.015 (1.005-1.030); Urine pH 6.5 (5.0-7.0)
[2020-12-10] MEDS ORDERED: ONDANSETRON 4 MG/2 ML VIAL IV PRN (23:12)
[2020-12-10 23:18] VITALS: BMI 34.2
--- NOTE | 2020-12-10 23:32 | P.HP ---
Certification for Inpatient Patient admitted to: Inpatient With expected LOS: >2 Midnights Patient will require the following post-hospital care: None Practitioner: I am a practitioner with admitting privileges, knowledge of patient current condition, hospital course, and medical plan of care. Services: Services provided to patient in accordance with Admission requirements found in Title 42 Section 412.3 of the Code of Federal Regulations Patient History Date of Service: 12/10/20 Primary Care Provider: Dr. Gail Pike Reason for admission: Acute renal failure, hyperkalemia History of Present Illness: 75-year-old male with history of diabetes mellitus type 2, GERD, PVD, CAD with stent, CKD 3, at chronic diastolic congestive heart failure presents emergency department for generalized weakness, malaise. Patient was recently seen here in the hospital in the beginning of November for CHF exacerbation and was discharged on Lasix, at discharge patient is creatinine was 2.43 BUN 46 and GFR was 26. During patient's evaluation in the emergency department today sodium was 134 potassium 8.1 CO2 20, BUN 73 creatinine 3.48 GFR 17 magnesium 2.9 white blood cell count within normal limits hemoglobin 11.8 hematocrit 35.6. Patient also was noted to have some difficulty performing [id number] on the right lower extremity, after closer examination patient is experiencing it pain/tightness with this but does not experience any leg drift or sensory deficits. Patient also reports some chronic back pain and between 2-3 episodes of fecal incontinence throughout the night over the course of the last 1 year with the last 1 being last night. Patient reports that these episodes typically only occur with liquid/loose stool. Patient was given hyperkalemia cocktail ED provider wishes to admit for further evaluation and management. Case was discussed with nephrology while patient was in the emergency department. Allergies No Known Allergies Allergy (Unverified 12/17/14 09:04) Home Medications: Amlodipine Besylate/Benazepril [Lotrel 10-40 mg Capsule] 1 cap PO DAILY 12/01/20 Clopidogrel Bisulfate [Plavix*] 1 tab PO DAILY 12/01/20 Doxazosin [Cardura*] 4 mg PO BEDTIME 12/01/20 Gabapentin 300 mg PO BID 12/01/20 Glimepiride 4 mg PO BID 12/01/20 Lovastatin 1 tab PO BEDTIME 12/01/20 Metformin HCl [Glucophage*] 2 tab PO BID 12/01/20 Methocarbamol [Robaxin-750] 1 tab PO BIDP PRN 12/01/20 Metoprolol Succinate 1 tab PO BID 12/01/20 Pantoprazole [Protonix Tab*] 40 mg PO DAILY 12/01/20 Tramadol HCl [Ultram] 50 mg PO Q8HP PRN 12/01/20 Amiloride HCl [Midamor*] 10 mg PO BIDL #60 tablet 12/03/20 Calcitrol [Rocaltrol*] 0.5 mcg PO DAILY #30 cap 12/03/20 Cholecalciferol (Vitamin D3) [Vitamin D 5,000 IU Cap*] 5,000 unit PO DAILY #30 cap 12/03/20 Furosemide [Lasix] 40 mg PO DAILY #30 tab 12/03/20 - Past Medical/Surgical History Diabetic: Yes -: GERD -: Peripheral vascular disease -: CAD s/p stent -: CKD3 -: IDDM2 -: Hernia repair Psychosocial/ Personal History: Patient lives at home with his and is retired but still occasionally works. - Family History Father -: Other (see notes) Notes: prostate problems Mother -: Hypertension, Other (see notes) Notes: Alzheimers - Social History Smoking Status: Former smoker Alcohol use: No CD- Drugs: No Caffeine use: Yes Place of Residence: Home Review of Systems General: Weakness, Malaise Musculoskeletal: Back Pain, Leg Pain, Other (Right Hip pain) Physical Examination - Vital Signs Temperature: 97.6 F Blood Pressure: 105/57 Pulse: 55 Respirations: 18 Pulse Ox (%): 97 - Physical Exam General: Alert, In no apparent distress, Oriented x3 HEENT: Atraumatic, Normocephalic, PERRLA, Other (Mucous membranes dry) Neck: Supple Respiratory: Clear to auscultation bilaterally, Normal air movement Cardiovascular: No edema, Normal S1 S2 Capillary refill: <2 Seconds Gastrointestinal: Normal bowel sounds, Soft and benign Musculoskeletal: No erythema, No tenderness, No warmth Integumentary: No significant lesion, No tenderness/swelling, No erythema Neurological: Normal gait, Normal speech, Normal strength at 5/5 x4 extr, Normal tone - Studies Laboratory Data (last 24 hrs) 12/10/20 18:10: PT 10.9, INR 0.95 12/10/20 18:10: WBC 5.50, Hgb 11.8 L, Hct 35.6 L D, Plt Count 211 12/10/20 18:10: Sodium 134 L, Potassium 8.1 H*, BUN 73 H D, Creatinine 3.48 H D, Glucose 88, Magnesium 2.9 H D, Total Bilirubin 0.6, AST 15, ALT 26, Alkaline Phosphatase ND Assessment and Plan - Plan Assessment Acute renal failure superimposed on CKD 3 with severe hyperkalemia Right lower extremity weakness Chronic diastolic congestive heart failure Diabetes mellitus type 2 Plan Acute renal failure superimposed on CKD 3 with severe hyperkalemia: Patient appears dry, has been taking Lasix at home which is new for him. Patient given potassium cocktail in the emergency department, repeat chemistry pending. Continue with IV fluids normal saline overnight, nephrology consulted. DVT prophylaxis heparin 5000 subcutaneous twice daily. Appreciate further input from nephrology. Right lower extremity weakness: Patient with some difficulty with [id number] exam during neurological exam, appears to be more related to pain/tightness to the right hip. Neurology consulted, patient with previous carotid stent to the left, will get carotid ultrasound and MRI brain without contrast. Appreciate further input from neurology. Chronic diastolic congestive heart failure: Stable at this time, patient appears dry will continue with hydration. Diabetes mellitus type 2: A.c. HS Accu-Cheks, sliding scale insulin therapy. Patient reports his blood sugars have been running low at night, currently taking Lantus 25 units in the morning and 25 units at night which is down from 35. Will give patient Lantus 10 units in the morning and at night. Discharge Plan: Home Plan to discharge in: 72 Hours - Advance Directives Does patient have a Living Will: No Does patient have a Durable POA for Healthcare: Yes - Code Status/Comfort Care Code Status Assessed: Yes (Full code) Critical Care: No Time Spent Managing Pts Care (In Minutes): 55
[2020-12-10] MEDS: NA CHLORIDE 0.9% 1,000 ML IV SCH (23:44)
[2020-12-11] MEDS ORDERED: SOD POLYSTYREN SUL 15 GM/60 ML UCUP PO ONE (00:53)
[2020-12-11] MEDS ORDERED: TRAMADOL HCL 50 MG TAB PO PRN (04:18)
[2020-12-11] MEDS ORDERED: methocarbamoL 750 MG TAB PO PRN (04:18)
[2020-12-11 05:54] LABS: Absolute Lymphocytes (CBC) 1.2 K/uL (0.7-4.9); Basophils % 0.9 % (0-1.3); Hematocrit 35.4 % (39.6-49.0); Lymphocytes % 24.3 % (15.3-44.8); MPV 9.1 fL (7.6-11.3); RBC Red Blood Cell Count 4.02 M/uL (4.33-5.43)
[2020-12-11] MEDS ORDERED: PNEUMOCOCCAL VACCINE 0.5 ML IMVAC ONE ×2 (06:00→17:00)
[2020-12-11 06:20] LABS: ALT/SGPT 26 U/L (12-78); AST/SGOT 16 U/L (15-37); BUN Blood Urea Nitrogen 72 mg/dL (7-18); Bicarbonate 23 mmol/L (21-32); Bilirubin Total 0.7 mg/dL (0.2-1.0); Glucose Level 66 mg/dL (74-106); HDL Cholesterol 47 mg/dL (40-60); LDL Cholesterol, Calculated 85 (<130); Magnesium 2.6 mg/dL (1.8-2.4); Phosphorus 4.9 mg/dL (2.5-4.9); Potassium 5.4 mmol/L (3.5-5.1); Protein, Total 7.8 g/dL (6.4-8.2); Sodium Level 138 mmol/L (136-145); Thyroid Stimulating Hormone 0.969 uIU/mL (0.360-3.740)
[2020-12-11] MEDS: INSULIN -REGULAR HUMAN 50 UNIT/0.5 ML ML SQ SCH ×4 (07:30→20:58)
--- NOTE | 2020-12-11 08:07 | P.CNS ---
Date of Consult: 12/10/20 Reason for Consult: REYES/ Hyperkalemia Requesting Physician: Kody Chau Primary Care Provider: Dr. Gail Pike Chief Complaint: Acute renal failure, hyperkalemia History of Present Illness: 75-year-old male with history of diabetes mellitus type 2, GERD, PVD, CAD with stent, CKD 3, at chronic diastolic congestive heart failure presents emergency department for generalized weakness, malaise. Patient was recently seen here in the hospital in the beginning of November for CHF exacerbation and was discharged on Lasix, at discharge patient is creatinine was 2.43 BUN 46 and GFR was 26. During patient's evaluation in the emergency department today sodium was 134 potassium 8.1 CO2 20, BUN 73 creatinine 3.48 GFR 17 magnesium 2.9 white blood cell count within normal limits hemoglobin 11.8 hematocrit 35.6. Patient also was noted to have some difficulty performing [id number] on the right lower extremity, after closer examination patient is experiencing it pain/tightness with this but does not experience any leg drift or sensory deficits. Patient also reports some chronic back pain and between 2-3 episodes of fecal incontinence throughout the night over the course of the last 1 year wi th the last 1 being last night. Patient reports that these episodes typically only occur with liquid/loose stool. Patient was given hyperkalemia cocktail ED provider wishes to admit for further evaluation and management. Case was discussed with nephrology while patient was in the emergency department. Allergies No Known Allergies Allergy (Unverified 12/17/14 09:04) Home medications list reviewed: Yes Home Medications: Amlodipine Besylate/Benazepril [Lotrel 10-40 mg Capsule] 1 cap PO DAILY 12/01/20 Clopidogrel Bisulfate [Plavix*] 1 tab PO DAILY 12/01/20 Doxazosin [Cardura*] 4 mg PO BEDTIME 12/01/20 Gabapentin 300 mg PO BID 12/01/20 Glimepiride 4 mg PO BID 12/01/20 Lovastatin 1 tab PO BEDTIME 12/01/20 Metformin HCl [Glucophage*] 2 tab PO BID 12/01/20 Methocarbamol [Robaxin-750] 1 tab PO BIDP PRN 12/01/20 Metoprolol Succinate 1 tab PO BID 12/01/20 Pantoprazole [Protonix Tab*] 40 mg PO DAILY 12/01/20 Tramadol HCl [Ultram] 50 mg PO Q8HP PRN 12/01/20 Amiloride HCl [Midamor*] 10 mg PO BIDL #60 tablet 12/03/20 Calcitrol [Rocaltrol*] 0.5 mcg PO DAILY #30 cap 12/03/20 Cholecalciferol (Vitamin D3) [Vitamin D 5,000 IU Cap*] 5,000 unit PO DAILY #30 cap 12/03/20 Furosemide [Lasix] 40 mg PO DAILY #30 tab 12/03/20 - Past Medical/Surgical History Diabetic: Yes -: GERD -: Peripheral vascular disease -: CAD s/p stent -: CKD3 -: IDDM2 -: Hernia repair Psychosocial/ Personal History: Patient lives at home with his and is retired but still occasionally works. - Family History Father Medical History: Other (see notes) Notes: prostate problems Mother Medical History: Hypertension, Other (see notes) Notes: Alzheimers - Social History Alcohol use: No CD- Drugs: No Caffeine use: Yes Place of Residence: Home Review of Systems 10-point ROS is otherwise unremarkable General: Weakness, Malaise Respiratory: SOB with Excertion Cardiovascular: Edema Neurological: Weakness Physical Examination Temp Pulse Resp BP Pulse Ox 97.5 F 56 17 156/65 H 100 12/11/20 04:00 12/11/20 04:00 12/11/20 04:00 12/11/20 04:00 12/11/20 04:00 General: In no apparent distress, Cooperative HEENT: Atraumatic Neck: Supple Respiratory: Clear to auscultation bilaterally Cardiovascular: Edema Gastrointestinal: Soft and benign, Non-distended Musculoskeletal: No clubbing, No contractures Integumentary: No rashes, No cyanosis Neurological: Normal speech Laboratory Data (last 24 hrs) 12/10/20 18:10: PT 10.9, INR 0.95 12/10/20 18:10: WBC 5.50, Hgb 11.8 L, Hct 35.6 L D, Plt Count 211 12/10/20 18:10: Sodium 134 L, Potassium 8.1 H*, BUN 73 H D, Creatinine 3.48 H D, Glucose 88, Magnesium 2.9 H D, Total Bilirubin 0.6, AST 15, ALT 26, Alkaline Phosphatase ND Imagings Data: EXAM DESCRIPTION: RAD - Chest Single View - 12/10/2020 6:28 pm CLINICAL HISTORY: general weakness, shortness of breath COMPARISON: December 01 TECHNIQUE: AP portable chest image was obtained 12/10/2020 6:28 pm . FINDINGS: No focal mass or consolidation. Interstitial pattern matches comparison. Cardiomegaly present similar to comparison. No abnormal vascular engorgement. No measurable pleural effusion and no pneumothorax. No acute bony abnormality seen. No acute aortic findings suspected. IMPRESSION: No focal lung parenchymal process seen. Cardiomegaly, similar to comparison, with no other findings of acute failure or volume overload. Conclusions/Impression: A/P: Continue the current POC and Medications other than the changes listed. AM Labs PRN. Recommend daily weight. Please see the orders for complete details. REYES possibly due to overdiuresis CKD III with protienuria -No NSAIDs -Give IVF with NS Hyperkalemia -Give Kayexalate as ordered HTN with CKD/ CHF -Continue Amlodipine Diastolic CHF, chronic -Low sodium diet DM II with CKD -Continue Lantus Anemia of chronic illness -Monitor H&H Thank you kindly for the consultation
[2020-12-11] MEDS ORDERED: BENAZEPRIL 20 MG TAB PO SCH ×2 (09:00)
[2020-12-11] MEDS ORDERED: AMILORIDE HCL 5 MG TABLET PO SCH (09:00)
[2020-12-11] MEDS: CALCITROL 0.25 MCG CAP PO SCH (09:00)
--- NOTE | 2020-12-11 09:17 | RAD REPORT ---
EXAM DESCRIPTION: MRI - Brain Wo Cont - 12/11/2020 9:09 am CLINICAL HISTORY: RLE weakness Headache, drowsiness COMPARISON: Head Brain Wo Cont dated 12/10/2020 TECHNIQUE: Multi-sequence, multiplanar MR imaging of the brain was performed without contrast. FINDINGS: No intracranial hemorrhage, hydrocephalus or extra-axial fluid collections.Moderate conflu ent T2/FLAIR hyperintensity in the periventricular and deep white matter is present compatible with c hronic microvascular ischemic changes. No edema or shift of midline structures. No findings to suspec t brain mass. DWI is negative for acute CVA. Midline structures are normally formed. Mastoid air cells and paranasal sinuses are clear. IMPRESSION: No acute or aggressive intracranial abnormalities. Negative for acute CVA.
[2020-12-11] MEDS: INSULIN GLARGINE 100 UNITS/ML SQ SCH ×2 (11:08→20:58)
[2020-12-11] MEDS: AMLODIPINE 10 MG TAB PO SCH (11:09)
[2020-12-11] MEDS: VITAMIN D 5,000 UNIT CAP PO SCH (11:09)
[2020-12-11] MEDS: CLOPIDOGREL 75 MG TABLET PO SCH (11:10)
[2020-12-11] MEDS: PANTOPRAZOLE 40MG TABLET PO SCH (11:10)
[2020-12-11] MEDS: GABAPENTIN 300 MG CAP PO SCH ×2 (11:10→20:56)
[2020-12-11] MEDS: METOPROLOL XL 100 MG TAB PO SCH ×2 (11:14→20:58)
--- NOTE | 2020-12-11 11:16 | RAD REPORT ---
EXAM DESCRIPTION: US - CP - 12/11/2020 10:24 am CLINICAL HISTORY: RLE weakness, hx carotid stent Left Headache, drowsiness COMPARISON: CAROTID ARTERY BILATERAL dated 02/09/2011; Brain Wo Cont dated 12/11/2020 TECHNIQUE: Real-time sonographic evaluation of both carotid systems was performed. Doppler interroga tion was performed with waveform tracing bilaterally. FINDINGS: Hard plaque is present involving the distal right common carotid artery and right carotid bulb. There is turbulent flow through this region with elevated peak systolic velocity noted. Peak sy stolic velocity of 290 cm/second in this region indicates a significant stenosis estimated at 70-80% based on NASCET criteria. A left-sided carotid stent is present. The stent appears patent. No significant left-sided stenosis. Antegrade flow seen in both vertebral arteries. IMPRESSION: Evidence of a significant stenosis involving the distal right common carotid artery/prox imal right internal carotid artery noted. Stenosis appears the hemodynamically significant is estimat ed at 70-80% based on NASCET criteria. Recommend CTA or MRA of the neck for further evaluation. Patent left internal carotid artery stent.
[2020-12-11] MEDS: NA CHLORIDE 0.9% 1,000 ML IV SCH ×2 (12:32→16:54)
--- NOTE | 2020-12-11 17:08 | P.PN ---
Subjective Date of Service: 12/11/20 Primary Care Provider: Dr. Gail Pike Chief Complaint: Acute renal failure, hyperkalemia Subjective: Improving, Doing well Physical Examination - Vital Signs Temperature: 97.1 F Blood Pressure: 124/54 Pulse: 59 Respirations: 16 Pulse Ox (%): 96 - Studies Laboratory Data (last 24 hrs) 12/10/20 18:10: PT 10.9, INR 0.95 12/10/20 18:10: WBC 5.50, Hgb 11.8 L, Hct 35.6 L D, Plt Count 211 12/10/20 18:10: Sodium 134 L, Potassium 8.1 H*, BUN 73 H D, Creatinine 3.48 H D, Glucose 88, Magnesium 2.9 H D, Total Bilirubin 0.6, AST 15, ALT 26, Alkaline Phosphatase ND Assessment & Plan Discharge Plan: Home Plan to discharge in: 24 Hours Physician Review Additional Text: Physical exam: Patient alert, cooperative Heart: Regular rate rhythm Lungs: Clear to auscultation Abdomen: Soft nontender nondistended Extremities: Good range of motion. Good strength bilateral to the lower extremities. Assessment Acute renal failure superimposed on CKD 3 with severe hyperkalemia Right lower extremity weakness Chronic diastolic congestive heart failure Diabetes mellitus type 2 Plan Acute renal failure superimposed on CKD 3 with severe hyperkalemia: Continue with IV fluids. Continue with Nephrology recommendations. Medications adjusted by Nephrology. Benazepril decrease. Amiloride discontinued. Nephrology suspects possible discharge tomorrow. Right lower extremity weakness: MRI negative. Will have physical therapy assess ambulation. Weakness likely related to acute renal failure. Chronic diastolic congestive heart failure: Stable. Diuretic therapy to be adjusted. Nephrology plans to decrease benazepril. Discontinue amiloride.. Diabetes mellitus type 2: Continue medications Time Spent Managing Pts Care (In Minutes): 55
--- NOTE | 2020-12-11 20:18 | P.PN ---
Date of Service: 12/11/20 Vital Signs Temp Pulse Resp BP Pulse Ox 97.4 F 72 18 132/66 95 12/11/20 19:56 12/11/20 19:56 12/11/20 19:56 12/11/20 19:56 12/11/20 19:56 Medications Amlodipine Besylate (Amlodipine 10 Mg Tab) 10 mg PO DAILY [facility] Last Admin: 12/11/20 11:09 Dose: 10 mg Documented by: Atorvastatin Calcium (Atorvastatin 20 Mg Tab) 20 mg PO BEDTIME [facility] Benazepril HCl (Benazepril 20 Mg Tab) 20 mg PO DAILY [facility] Last Admin: 12/11/20 11:09 Dose: 20 mg Documented by: Calcitriol (Calcitrol 0.25 Mcg Cap) 0.5 mcg PO DAILY [facility] Last Admin: 12/11/20 09:00 Dose: 0.5 mcg Documented by: Cholecalciferol (Vitamin D 5,000 Unit Cap) 5,000 unit PO DAILY [facility] Last Admin: 12/11/20 11:09 Dose: 5,000 unit Documented by: Clopidogrel Bisulfate (Clopidogrel 75 Mg Tablet) 75 mg PO DAILY [facility] Last Admin: 12/11/20 11:10 Dose: 75 mg Documented by: Doxazosin Mesylate (Doxazosin 4 Mg Tab) 4 mg PO BEDTIME [facility] Gabapentin (Gabapentin 300 Mg Cap) 300 mg PO BID [facility] Last Admin: 12/11/20 11:10 Dose: 300 mg Documented by: Sodium Chloride (Ns 1000 Ml Ivbag) 1,000 mls @ 75 mls/hr IV .[id number] [facility] Last Admin: 12/11/20 16:54 Dose: 1,000 mls Documented by: Insulin Glargine (Insulin Glargine 100 Units/Ml) 10 units SQ BID [facility] Last Admin: 12/11/20 11:08 Dose: 10 units Documented by: Insulin Human Regular (Insulin -Regular Human 50 Unit/0.5 Ml Ml) 0 unit SQ ACHS [facility]; Protocol Last Admin: 12/11/20 16:53 Dose: 4 unit Documented by: Methocarbamol (Methocarbamol 750 Mg Tab) 750 mg PO BIDP PRN PRN Reason: MUSCLE SPASMS Metoprolol Succinate (Metoprolol Xl 100 Mg Tab) 100 mg PO BID [facility] Last Admin: 12/11/20 11:14 Dose: 100 mg Documented by: Ondansetron HCl (Ondansetron 4 Mg/2 Ml Vial) 4 mg IV Q6HP PRN PRN Reason: NAUSEA / VOMITING Pantoprazole Sodium (Pantoprazole 40mg Tablet) 40 mg PO DAILY [facility]; Protocol Last Admin: 12/11/20 11:10 Dose: 40 mg Documented by: Sodium Chloride (Flush Normal Saline 10 Ml) 10 ml IV BID [facility] Last Admin: 12/11/20 09:00 Dose: 10 ml Documented by: Tramadol HCl (Tramadol Hcl 50 Mg Tab) 50 mg PO Q8HP PRN PRN Reason: Pain scale 5-7 (Moderate) Lab Results (last 24 hrs) 12/10/20 20:46: Urine pH 6.5, Ur Specific [place] 1.015, Glucose (UA)(Auto) Negative, Urine Ketones Negative, Urine Blood Trace H, Urine Nitrite Negative, Ur Leukocyte Esterase Negative, Urine Total Protein 1+ H 12/10/20 20:40: Urine RBC <5, Urine WBC <5, Ur Squamous Epith Cells [employer], Ur Urothelial Cells <5, Urine Bacteria <20, Urine Culture Reflexed Not needed 12/10/20 19:15: SARS-CoV-2 RNA (RT-PCR) Negative Assessment/ Plan: Nephrology No acute cardiac or pulmonary complaints. No CP or SOB. Feeling better today. Reports eating 1-2 bananas daily. No acute events overnight. Vitals, medications, blood work and imaging reviewed in the chart. General: In no apparent distress, Cooperative HEENT: Atraumatic Neck: Supple Respiratory: Clear to auscultation bilaterally Cardiovascular: Edema Gastrointestinal: Soft and benign, Non-distended Musculoskeletal: No clubbing, No contractures Integumentary: No rashes, No cyanosis Neurological: Normal speech Laboratory Data (last 24 hrs) 12/10/20 18:10: PT 10.9, INR 0.95 12/10/20 18:10: WBC 5.50, Hgb 11.8 L, Hct 35.6 L D, Plt Count 211 12/10/20 18:10: Sodium 134 L, Potassium 8.1 H*, BUN 73 H D, Creatinine 3.48 H D, Glucose 88, Magnesium 2.9 H D, Total Bilirubin 0.6, AST 15, ALT 26, Alkaline Phosphatase ND Imagings Data: EXAM DESCRIPTION: RAD - Chest Single View - 12/10/2020 6:28 pm CLINICAL HISTORY: general weakness, shortness of breath COMPARISON: December 01 TECHNIQUE: AP portable chest image was obtained 12/10/2020 6:28 pm . FINDINGS: No focal mass or consolidation. Interstitial pattern matches comparison. Cardiomegaly present similar to comparison. No abnormal vascular engorgement. No measurable pleural effusion and no pneumothorax. No acute bony abnormality seen. No acute aortic findings suspected. IMPRESSION: No focal lung parenchymal process seen. Cardiomegaly, similar to comparison, with no other findings of acute failure or volume overload. Conclusions/Impression: A/P: Continue the current POC and Medications other than the changes listed. AM Labs PRN. Recommend daily weight. Please see the orders for complete details. REYES possibly due to overdiuresis CKD III with protienuria -No NSAIDs -Continue IVF with NS Hyperkalemia -Give Kayexalate as ordered -Discontinue Amiloride -Reduce Benazepril HTN with CKD/ CHF -Continue Amlodipine Diastolic CHF, chronic -Low sodium diet DM II with CKD -Continue Lantus Anemia of chronic illness -Monitor H&H Case reviewed with Dr. Chau
[2020-12-11] MEDS ORDERED: ATORVASTATIN 20 MG TAB PO SCH (21:00)
[2020-12-11] MEDS ORDERED: DOXAZOSIN 4 MG TAB PO SCH (21:00)
[2020-12-11 23:05] VITALS: O2SAT 95
[2020-12-12] MEDS: NA CHLORIDE 0.9% 1,000 ML IV SCH ×2 (01:52→06:26)
[2020-12-12 03:29] VITALS: BP 107/52
[2020-12-12 05:46] LABS: Absolute Lymphocytes (CBC) 1.1 K/uL (0.7-4.9); Basophils % 1.1 % (0-1.3); Hematocrit 34.1 % (39.6-49.0); Lymphocytes % 21.1 % (15.3-44.8); RBC Red Blood Cell Count 3.87 M/uL (4.33-5.43)
[2020-12-12 05:47] LABS: Alkaline Phosphatase ND U/L (45-117)
[2020-12-12 07:08] LABS: ALT/SGPT 24 U/L (12-78); AST/SGOT 15 U/L (15-37); Albumin 3.5 g/dL (3.4-5.0); BUN Blood Urea Nitrogen 61 mg/dL (7-18); Bicarbonate 23 mmol/L (21-32); Bilirubin Total 0.6 mg/dL (0.2-1.0); Glucose Level 96 mg/dL (74-106); Magnesium 2.3 mg/dL (1.8-2.4); Phosphorus 4.4 mg/dL (2.5-4.9); Potassium 5.4 mmol/L (3.5-5.1); Protein, Total 6.9 g/dL (6.4-8.2); Sodium Level 140 mmol/L (136-145)
[2020-12-12] MEDS ORDERED: SOD POLYSTYREN SUL 15 GM/60 ML UCUP PO ONE (07:38)
--- NOTE | 2020-12-12 07:41 | P.PN ---
Date of Service: 12/12/20 Vital Signs Temp Pulse Resp BP Pulse Ox 97.4 F 63 18 107/52 L 95 12/12/20 03:28 12/12/20 03:28 12/12/20 03:28 12/12/20 03:28 12/12/20 03:28 Medications Amlodipine Besylate (Amlodipine 10 Mg Tab) 10 mg PO DAILY [facility] Last Admin: 12/11/20 11:09 Dose: 10 mg Documented by: Atorvastatin Calcium (Atorvastatin 20 Mg Tab) 20 mg PO BEDTIME [facility] Last Admin: 12/11/20 20:56 Dose: 20 mg Documented by: Calcitriol (Calcitrol 0.25 Mcg Cap) 0.5 mcg PO DAILY [facility] Last Admin: 12/11/20 09:00 Dose: 0.5 mcg Documented by: Cholecalciferol (Vitamin D 5,000 Unit Cap) 5,000 unit PO DAILY [facility] Last Admin: 12/11/20 11:09 Dose: 5,000 unit Documented by: Clopidogrel Bisulfate (Clopidogrel 75 Mg Tablet) 75 mg PO DAILY [facility] Last Admin: 12/11/20 11:10 Dose: 75 mg Documented by: Doxazosin Mesylate (Doxazosin 4 Mg Tab) 4 mg PO BEDTIME [facility] Last Admin: 12/11/20 21:43 Dose: 4 mg Documented by: Gabapentin (Gabapentin 300 Mg Cap) 300 mg PO BID [facility] Last Admin: 12/11/20 20:56 Dose: 300 mg Documented by: Sodium Chloride (Ns 1000 Ml Ivbag) 1,000 mls @ 75 mls/hr IV .[id number] [facility] Last Admin: 12/12/20 06:26 Dose: 1,000 mls Documented by: Insulin Glargine (Insulin Glargine 100 Units/Ml) 10 units SQ BID [facility] Last Admin: 12/11/20 20:58 Dose: 10 units Documented by: Insulin Human Regular (Insulin -Regular Human 50 Unit/0.5 Ml Ml) 0 unit SQ ACHS [facility]; Protocol Last Admin: 12/11/20 20:58 Dose: Not Given Documented by: Methocarbamol (Methocarbamol 750 Mg Tab) 750 mg PO BIDP PRN PRN Reason: MUSCLE SPASMS Metoprolol Succinate (Metoprolol Xl 100 Mg Tab) 100 mg PO BID [facility] Last Admin: 12/11/20 20:58 Dose: 100 mg Documented by: Ondansetron HCl (Ondansetron 4 Mg/2 Ml Vial) 4 mg IV Q6HP PRN PRN Reason: NAUSEA / VOMITING Pantoprazole Sodium (Pantoprazole 40mg Tablet) 40 mg PO DAILY [facility]; Protocol Last Admin: 12/11/20 11:10 Dose: 40 mg Documented by: Sodium Chloride (Flush Normal Saline 10 Ml) 10 ml IV BID [facility] Last Admin: 12/11/20 20:59 Dose: Not Given Documented by: Tramadol HCl (Tramadol Hcl 50 Mg Tab) 50 mg PO Q8HP PRN PRN Reason: Pain scale 5-7 (Moderate) Assessment/ Plan: Nephrology No acute cardiac or pulmonary complaints. No CP or SOB. +GANDARA Feeling better today. No acute events overnight. Vitals, medications, blood work and imaging reviewed in the chart. General: In no apparent distress, Cooperative HEENT: Atraumatic Neck: Supple Respiratory: Clear to auscultation bilaterally Cardiovascular: Edema Gastrointestinal: Soft and benign, Non-distended Musculoskeletal: No clubbing, No contractures Integumentary: No rashes, No cyanosis Neurological: Normal speech Laboratory Data (last 24 hrs) 12/10/20 18:10: PT 10.9, INR 0.95 12/10/20 18:10: WBC 5.50, Hgb 11.8 L, Hct 35.6 L D, Plt Count 211 12/10/20 18:10: Sodium 134 L, Potassium 8.1 H*, BUN 73 H D, Creatinine 3.48 H D, Glucose 88, Magnesium 2.9 H D, Total Bilirubin 0.6, AST 15, ALT 26, Alkaline Phosphatase ND Imagings Data: EXAM DESCRIPTION: RAD - Chest Single View - 12/10/2020 6:28 pm CLINICAL HISTORY: general weakness, shortness of breath COMPARISON: December 01 TECHNIQUE: AP portable chest image was obtained 12/10/2020 6:28 pm . FINDINGS: No focal mass or consolidation. Interstitial pattern matches comparison. Cardiomegaly present similar to comparison. No abnormal vascular engorgement. No measurable pleural effusion and no pneumothorax. No acute bony abnormality seen. No acute aortic findings suspected. IMPRESSION: No focal lung parenchymal process seen. Cardiomegaly, similar to comparison, with no other findings of acute failure or volume overload. Conclusions/Impression: A/P: Continue the current POC and Medications other than the changes listed. AM Labs PRN. Recommend daily weight. Please see the orders for complete details. REYES possibly due to overdiuresis CKD III with protienuria -No NSAIDs -Discontinue IVF Hyperkalemia -Give another dose of Kayexalate -Discontinue Amiloride and Benazepril HTN with CKD/ CHF -Continue Amlodipine, Metoprolol and Doxazosin Diastolic CHF, chronic -Low sodium diet DM II with CKD -Continue Lantus Anemia of chronic illness -Monitor H&H
[2020-12-12] MEDS: AMLODIPINE 10 MG TAB PO SCH (08:32)
[2020-12-12] MEDS: VITAMIN D 5,000 UNIT CAP PO SCH (08:32)
[2020-12-12] MEDS: METOPROLOL XL 100 MG TAB PO SCH (08:32)
[2020-12-12] MEDS: PANTOPRAZOLE 40MG TABLET PO SCH (08:33)
[2020-12-12] MEDS: GABAPENTIN 300 MG CAP PO SCH (08:33)
[2020-12-12] MEDS: CLOPIDOGREL 75 MG TABLET PO SCH (08:33)
[2020-12-12] MEDS: INSULIN GLARGINE 100 UNITS/ML SQ SCH (08:34)
[2020-12-12] MEDS: CALCITROL 0.25 MCG CAP PO SCH (08:34)
--- NOTE | 2020-12-12 08:38 | P.DS ---
Admission Date: 12/10/20 Discharge Date: 12/12/20 Primary Care Provider: Dr. Gail Pike Disposition: ROUTINE DISCHARGE Discharge Condition: GOOD Reason for Admission: Acute renal failure, hyperkalemia Consultations: Nephrology-Dr. Daniel Procedures: COVID: Negative CT Ab: FINDINGS: No hydronephrosis is present and no obstructing ureteral calculi. No suspicious renal masses. Isodense masses and pyelonephritis are not excluded on a stone protocol CT scan. An exophytic 5.5 centimeter posterior right renal cyst not substantially different. No significant adrenal finding. Urinary bladder is mostly contracted limiting assessment. Anterior wall thickness is accentuated by the contraction. This cystitis cannot be excluded. There is no bladder calculus. Imaged portions of the liver, spleen and pancreas show no acute findings on non- contrast imaging. No gallbladder or biliary tree abnormality identified. Liver and spleen granulomatous calcifications are present. No dilated large or small bowel. Right-sided colon anastomotic site shows no suspicious finding. No acute GI process is identifiable. No mass or bulky lymphadenopathy. Mesh material is present in the periumbilical region from prior hernia repair. Small fat only inguinal hernias noted larger on the right. Disc and bone degenerative changes are present. Dense vascular calcifications are seen. IMPRESSION: No hydronephrosis, obstructing calculus or acute finding identifiable. Urinary bladder vazquez are thickened by the contracted state and cannot be accurately assessed. Cystitis cannot be excluded. Isodense masses and pyelonephritis are not excluded on stone protocol technique. MRI Brain: FINDINGS: No intracranial hemorrhage, hydrocephalus or extra-axial fluid collections.Moderate confluent T2/FLAIR hyperintensity in the periventricular and deep white matter is present compatible with chronic microvascular ischemic changes. No edema or shift of midline structures. No findings to suspect brain mass. DWI is negative for acute CVA. Midline structures are normally formed. Mastoid air cells and paranasal sinuses are clear. IMPRESSION: No acute or aggressive intracranial abnormalities. Negative for acute CVA. Carotid doppler: FINDINGS: Hard plaque is present involving the distal right common carotid artery and right carotid bulb. There is turbulent flow through this region with elevated peak systolic velocity noted. Peak systolic velocity of 290 cm/second in this region indicates a significant stenosis estimated at 70-80% based on NASCET criteria. A left-sided carotid stent is present. The stent appears patent. No significant left-sided stenosis. Antegrade flow seen in both vertebral arteries. IMPRESSION: Evidence of a significant stenosis involving the distal right common carotid artery/proximal right internal carotid artery noted. Stenosis appears the hemodynamically significant is estimated at 70-80% based on NASCET criteria. Recommend CTA or MRA of the neck for further evaluation. ECHO: to be done Medical Problem List: Acute renal failure superimposed on CKD 3 with hyperkalemia likely secondary to medication Right lower extremity weakness with history of chronic back pain Chronic diastolic congestive heart failure with CAD and prior stent Hypertension Hyperlipidemia GERD Diabetes mellitus type 2 Carotid stenosis,right distal common carotid artery/proximal right internal carotid artery stenosis PVD Brief History of Present Illness: 75-year-old male with history of diabetes mellitus type 2, GERD, PVD, CAD with stent, CKD 3, at chronic diastolic congestive heart failure presents emergency department for generalized weakness, malaise. Patient was recently seen here in the hospital in the beginning of November for CHF exacerbation and was discharged on Lasix, at discharge patient is creatinine was 2.43 BUN 46 and GFR was 26. During patient's evaluation in the emergency department today sodium was 134 potassium 8.1 CO2 20, BUN 73 creatinine 3.48 GFR 17 magnesium 2.9 white blood cell count within normal limits hemoglobin 11.8 hematocrit 35.6. Patient also reports some chronic back pain and between 2-3 episodes of fecal incontinence throughout the night over the course of the last 1 year with the last 1 being last night. Patient reports that these episodes typically only occur with liquid/loose stool. Patient was admitted for further evaluation and treatment. Hospital Course: Patient presented with acute renal failure on chronic renal disease stage III with hyperkalemia. Patient had been increasing potassium intake including bananas. Patient also takes Lotrel and amiloride. During his hospitalization Nephrology was consulted to further address. Patient was given treatment for hyperkalemia. Low trial and amiloride were discontinued. Dietary changes addressed. At discharge patient's condition has improved. At discharge Lotrel has been discontinued due to the benazepril component. Also at discharge a miloride will be discontinued. At discharge he will eliminate bananas. Recommend a follow up with nephrology within 1 week. Recommend to recheck lab- BMP in 1 week to monitor his progress. Further adjustment in medication can be done by nephrology. At discharge patient will continue with Calcitrol 0.5 mcg daily and vitamin D supplementation 5000 units daily. Patient with hypertension. As above, Lotrel has been discontinued. At discharge patient will continue with Norvasc 10 mg daily, Cardura 4 mg daily and metoprolol XL 100 mg 1 pill twice daily. Recommend to maintain blood pressure less than 130/80. Further adjustment can be done by his PCP or nephrology. Patient with diabetes mellitus type 2. This appears stable. Medications reviewed. Metformin has been discontinued due to his acute on chronic renal disease. At discharge patient will continue with glimepiride 4 mg 1 pill twice daily. Recommend to monitor blood sugar at least twice daily. Recommend to maintain blood sugar less than 140 fasting and less than 200 after meals. If blood sugar remains above 200 additional medication besides metformin will need to be considered. Further adjustment can be done by his PCP. Patient with chronic diastolic CHF, hyperlipidemia and CAD with prior stent. This appears stable. At discharge patient will continue with Lasix 40 mg daily, lovastatin 40 mg daily and Plavix 75 mg daily. Recommend to continue 1500 cc per day fluid restriction and low-salt diet. Recommend to monitor his weight daily. If his weight increases by more than 5 lb he is to contact his PCP or nephrology to further address. Patient had weakness to the lower extremities. This resolved. Patient with chronic pain. Patient sees orthopedic/activity therapy specialist. Recommend follow up with specialist to further address and monitor. Fall precautions in place. Patient was evaluated further during the hospitalization. MRI brain shows no acute stroke. At discharge patient will continue with gabapentin 300 mg 1 pill twice daily. Patient also takes Robaxin as needed. Patient may also continue with tramadol 50 mg 3 times a day as needed for pain. During his workup in the hospital, patient had carotid Doppler. Patient has carotid stenosis. Right distal common carotid artery and proximal right internal carotid artery shows stenosis. Patient will likely require further evaluation including MRA or CT angiogram to further evaluate and address. Options for evaluation will need to consider his acute on chronic renal disease. This can be further addressed by cardiology. Recommend follow up with cardiology in 1-2 weeks to follow up this hospitalization. Patient with GERD. At discharge patient will continue with Protonix as directed. Vital Signs/Physical Exam: Temp Pulse Resp BP Pulse Ox 97.4 F 63 18 107/52 L 95 12/12/20 03:28 12/12/20 03:28 12/12/20 03:28 12/12/20 03:28 12/12/20 03:28 General: Alert, In no apparent distress, Oriented x3, Cooperative HEENT: Atraumatic Neck: Supple Respiratory: Clear to auscultation bilaterally, Normal air movement Cardiovascular: Normal pulses, Regular rate/rhythm Gastrointestinal: Normal bowel sounds, Soft and benign, Non-distended, No tenderness, No masses, No rebound, No guarding Musculoskeletal: No tenderness, No warmth Neurological: Normal speech, Normal strength at 5/5 x4 extr, Normal tone, Normal affect Laboratory Data at Discharge: WBC 5.00 K/uL (4.3-10.9) 12/12/20 05:07 Hgb 11.2 g/dL (13.6-17.9) L 12/12/20 05:07 Hct 34.1 % (39.6-49.0) L 12/12/20 05:07 Plt Count 192 K/uL (152-406) 12/12/20 05:07 PT 10.9 SECONDS (9.5-12.5) 12/10/20 18:10 INR 0.95 12/10/20 18:10 Sodium 140 mmol/L (136-145) 12/12/20 05:07 Potassium 5.4 mmol/L (3.5-5.1) H 12/12/20 05:07 BUN 61 mg/dL (7-18) H 12/12/20 05:07 Creatinine 2.69 mg/dL (0.55-1.3) H 12/12/20 05:07 Glucose 96 mg/dL (74-106) 12/12/20 05:07 Phosphorus 4.4 mg/dL (2.5-4.9) 12/12/20 05:07 Magnesium 2.3 mg/dL (1.8-2.4) 12/12/20 05:07 Total Bilirubin 0.6 mg/dL (0.2-1.0) 12/12/20 05:07 AST 15 U/L (15-37) 12/12/20 05:07 ALT 24 U/L (12-78) 12/12/20 05:07 Alkaline Phosphatase ND 12/12/20 05:07 Triglycerides 140 mg/dL (<150) 12/11/20 05:15 Cholesterol 160 mg/dL (<200) 12/11/20 05:15 HDL Cholesterol 47 mg/dL (40-60) 12/11/20 05:15 Cholesterol/HDL Ratio 3.40 12/11/20 05:15 Home Medications: Clopidogrel Bisulfate [Plavix*] 1 tab PO DAILY 12/01/20 Doxazosin [Cardura*] 4 mg PO BEDTIME 12/01/20 Gabapentin 300 mg PO BID 12/01/20 Glimepiride 4 mg PO BID 12/01/20 Lovastatin 1 tab PO BEDTIME 12/01/20 Methocarbamol [Robaxin-750] 1 tab PO BIDP PRN 12/01/20 Metoprolol Succinate 1 tab PO BID 12/01/20 Pantoprazole [Protonix Tab*] 40 mg PO DAILY 12/01/20 Tramadol HCl [Ultram] 50 mg PO Q8HP PRN 12/01/20 Calcitrol [Rocaltrol*] 0.5 mcg PO DAILY #30 cap 12/03/20 Cholecalciferol (Vitamin D3) [Vitamin D 5,000 IU Cap*] 5,000 unit PO DAILY #30 cap 12/03/20 Amlodipine [Norvasc*] 10 mg PO DAILY #30 tab 12/12/20 Furosemide [Lasix] 40 mg PO DAILY #30 tab 12/12/20 New Medications: Furosemide [Lasix] 40 mg PO DAILY #30 tab Amlodipine [Norvasc*] 10 mg PO DAILY #30 tab Physician Discharge Instructions: Patient presented with acute renal failure on chronic renal disease stage III with hyperkalemia. Patient had been increasing potassium intake including bananas. Patient also takes Lotrel and amiloride. During his hospitalization Nephrology was consulted to further address. Patient was given treatment for hyperkalemia. Low trial and amiloride were discontinued. Dietary changes addressed. At discharge patient's condition has improved. At discharge Lotrel has been discontinued due to the benazepril component. Also at discharge amiloride will be discontinued. At discharge he will eliminate bananas. Recommend a follow up with nephrology within 1 week. Recommend to recheck lab- BMP in 1 week to monitor his progress. Further adjustment in medication can be done by nephrology. At discharge patient will continue with Calcitrol 0.5 mcg daily and vitamin D supplementation 5000 units daily. Patient with hypertension. As above, Lotrel has been discontinued. At discharge patient will continue with Norvasc 10 mg daily, Cardura 4 mg daily and metoprolol XL 100 mg 1 pill twice daily. Recommend to maintain blood pressure less than 130/80. Further adjustment can be done by his PCP or nephrology. Patient with diabetes mellitus type 2. This appears stable. Medications reviewed. Metformin has been discontinued due to his acute on chronic renal disease. At discharge patient will continue with glimepiride 4 mg 1 pill twice daily. Recommend to monitor blood sugar at least twice daily. Recommend to maintain blood sugar less than 140 fasting and less than 200 after meals. If blood sugar remains above 200 additional medication besides metformin will need to be considered. Further adjustment can be done by his PCP. Patient with chronic diastolic CHF, hyperlipidemia and CAD with prior stent. This appears stable. At discharge patient will continue with Lasix 40 mg daily, lovastatin 40 mg daily and Plavix 75 mg daily. Recommend to continue 1500 cc per day fluid restriction and low-salt diet. Recommend to monitor his weight daily. If his weight increases by more than 5 lb he is to contact his PCP or nephrology to further address. Patient had weakness to the lower extremities. This resolved. Patient with chronic pain. Patient sees orthopedic/activity therapy specialist. Recommend follow up with specialist to further address and monitor. Fall precautions in place. Patient was evaluated further during the hospitalization. MRI brain shows no acute stroke. At discharge patient will continue with gabapentin 300 mg 1 pill twice daily. Patient also takes Robaxin as needed. Patient may also continue with tramadol 50 mg 3 times a day as needed for pain. During his workup in the hospital, patient had carotid Doppler. Patient has carotid stenosis. Right distal common carotid artery and proximal right internal carotid artery shows stenosis. Patient will likely require further evaluation including MRA or CT angiogram to further evaluate and address. Options for evaluation will need to consider his acute on chronic renal disease. This can be further addressed by cardiology. Recommend follow up with cardiology in 1-2 weeks to follow up this hospitalization. Patient with GERD. At discharge patient will continue with Protonix as directed. Diet: ADA Activity: Fall precautions Followup: Ruben Love MD [Primary Care Provider] - Time spent managing pt's care (in minutes): 55
[2020-12-12 09:30] VITALS: TEMP 97
== END 2020-12-12 11:45 | disposition home or self-care (01) | DRG 683 ==
LOC: ER 15:20 → ERHOLD 21:32 → 2ND 22:28
PROVIDERS: ADMIT Family Medicine; ATTEND Family Medicine
DX: N17.9 Acute kidney failure, unspecified (principal); I50.32 Chronic diastolic (congestive) heart failure; I13.0 Hypertensive heart and chronic kidney disease with heart failure and stage 1 through stage 4 chronic kidney disease, or unspecified chronic kidney disease; N18.30 Chronic kidney disease, stage 3 unspecified; E11.22 Type 2 diabetes mellitus with diabetic chronic kidney disease; E11.51 Type 2 diabetes mellitus with diabetic peripheral angiopathy without gangrene; I25.10 Atherosclerotic heart disease of native coronary artery without angina pectoris; D63.8 Anemia in other chronic diseases classified elsewhere; G89.29 Other chronic pain; M54.9 Dorsalgia, unspecified; I65.21 Occlusion and stenosis of right carotid artery; K21.9 Gastro-esophageal reflux disease without esophagitis; E87.5 Hyperkalemia; T50.905A Adverse effect of unspecified drugs, medicaments and biological substances, initial encounter; Z79.02 Long term (current) use of antithrombotics/antiplatelets; Z79.84 Long term (current) use of oral hypoglycemic drugs; Z85.038 Personal history of other malignant neoplasm of large intestine; Z95.5 Presence of coronary angioplasty implant and graft; Z79.899 Other long term (current) drug therapy; Z87.891 Personal history of nicotine dependence; Z20.822 Contact with and (suspected) exposure to COVID-19; Z23 Encounter for immunization
CPT/HCPCS: 36415; 70450; 70551; 71045; 74176; 76377; 80048; 80053; 80061; 80076; 81003; 81015; 82947; 83735; 83880; 84100; 84439; 84443; 84484; 85025; 85610; 90471; 90732; 93005; 93880; 96365; 96375; 97161; 99285; J0610; J1815; J1940; J7030; U0003

== ENCOUNTER 2022-04-18 18:06 | Emergency (ER) | payer OTHER ==
--- OUTSIDE RECORDS SUMMARY | 2022-04-18 18:08 | XMS REPORT | Continuity of Care Document ---
:[address] [facility] t Address [address] [place] [address] [address] [place] [address] Care Team Providers Name Role Phone ED Attending Clinician Unavailable Feng Love Attending Clinician [phone] ASHLEY Attending Clinician Unavailable ALISON Attending Clinician Unavailable DONITA Attending Clinician Unavailable NERY Attending Clinician Unavailable ED Admitting Clinician Unavailable ASHLEY Admitting Clinician Unavailable Payers Payer Name Policy Type Policy Number Effective Date Expiration Date [facility] [id number] (PPO) Problems This patient has no known problems. Allergies, Adverse Reactions, Alerts This patient has no known allergies or adverse reactions. Medications This patient has no known medications. Procedures This patient has no known procedures. Encounters Start End Encounter Admission Attending Care Care Encounter Source Date/Time Date/Time Type Type Clinicians Facility Department ID 2022-02-18 2022-02-18 Outpatient SHERRON_R [facility] [id number] [place] 04:53:00 04:53:00 [facility] 2022-02-18 2022-02-18 Outpatient Sherron [facility] [id number] 00:00:00 00:00:00 Ruben [id number] Feng [id number] 2021-11-19 Outpatient SHERRON_Ines [facility] [id number] [place] 03:44:00 03:44:00 [facility] 2021-11-19 2021-11-19 Outpatient Sherron [facility] [id number] 00:00:00 00:00:00 Ruben [id number] Feng [id number] 2021-11-19 2021-11-19 Outpatient Sherron [facility] [id number] 00:00:00 00:00:00 Ruben [id number] Feng [id number] 2021-08-18 2021-08-18 Outpatient ERICKSON_R [facility] [id number] [place] 06:15:00 06:15:00 [facility] 2021-08-18 2021-08-18 Outpatient Sherron [facility] [id number] 00:00:00 00:00:00 Ruben [id number] Feng [id number] 2021-05-19 2021-05-19 Outpatient ERSUMMERON_R [facility] [id number] [place] 06:05:00 06:05:00 [facility] 2021-05-19 2021-05-19 Outpatient Sherron [facility] [id number] 00:00:00 00:00:00 Ruben [id number] Feng [id number] 2021-05-19 2021-05-19 Outpatient Sherron [facility] [id number] 00:00:00 00:00:00 Ruben [id number] Feng [id number] 2021-04-17 2021-04-17 Outpatient [facility] [id number] [place] 00:00:00 00:00:[address] [facility] 2021-03-27 2021-03-27 Outpatient ERICKSON_R [facility] [id number] [place] 02:16:00 02:16:00 [facility] 2021-03-20 2021-03-20 Outpatient ERICKSON_R [facility] [id number] [place] 03:22:00 03:22:00 [facility] 2021-03-20 2021-03-20 Outpatient Sherron [facility] [id number] 00:00:00 00:00:00 Ruben [id number] Feng [id number] 2021-03-13 2021-03-13 Outpatient ERICKSON_R [facility] [id number] [place] 05:56:00 05:56:00 [facility] 2021-03-13 2021-03-13 Outpatient Sherron [facility] [id number] 00:00:00 00:00:00 Ruben [id number] Feng [id number] 2021-03-09 2021-03-09 Outpatient ERICKSON_R [facility] [id number] [place] 03:51:00 03:51:00 [facility] 2021-03-09 2021-03-09 Outpatient Sherron [facility] [id number] 00:00:00 00:00:00 Ruben [id number] Feng [id number] 2021-02-13 2021-02-13 Outpatient ERICKSON_R [facility] [id number] [place] 11:03:00 11:03:00 [facility] 2021-02-12 2021-02-12 Outpatient ERICKSON_R [facility] [id number] [place] 03:21:00 03:21:00 [facility] 2021-02-06 2021-02-06 Outpatient RAMIREZ [facility] [id number] [place] 00:00:00 00:00:00 HYUN [address] [facility] 2021-01-02 2021-01-02 Outpatient ERICKSON_R [facility] [id number] [place] 11:02:00 11:02:00 [facility] 2021-01-02 2021-01-02 Outpatient Sherron [facility] [id number] 00:00:00 00:00:00 Ruben [id number] Feng [id number] 2020-12-25 2020-12-25 Outpatient ALISON [facility] [id number] [place] 00:00:00 00:00:00 ALI [address] 2020-12-19 2020-12-19 Outpatient ERICKSON_R [facility] [id number] [place] 03:51:00 03:51:00 [facility] 2020-12-19 2020-12-19 Outpatient Sherron [facility] [id number] 00:00:00 00:00:00 Ruben [id number] Feng [id number] 2020-12-05 2020-12-05 Outpatient ERICKSON_R [facility] [id number] [place] 12:20:00 12:20:00 [facility] 2020-12-05 2020-12-05 Outpatient Sherron [facility] [id number] 00:00:00 00:00:00 Ruben [id number] Feng [id number] 2020-11-21 2020-11-21 Outpatient ERICKSON_R [facility] [id number] [place] 01:11:00 01:11:00 [facility] 2020-11-21 2020-11-21 Outpatient Sherron [facility] [id number] 00:00:00 00:00:00 Ruben [id number] Feng [id number] 2020-10-27 2020-10-27 Outpatient [facility] [id number] [place] 00:00:00 00:00:[address] 2020-10-24 2020-10-24 Outpatient DONITA [facility] [id number] [place] 00:00:00 00:00:00 AUGUSTINE [address] 2020-10-06 2020-10-06 Outpatient [facility] [id number] [place] 00:00:00 00:00:[address] 2020-09-12 2020-09-12 Outpatient NERY [facility] [id number] [place] 00:00:00 00:00:00 ABA [address] 2020-09-12 2020-09-12 Outpatient NERY [facility] [id number] [place] 00:00:00 00:00:00 ABA [address] 2020-09-03 2020-09-03 Outpatient NERY [facility] [id number] [place] 00:00:00 00:00:00 ABA [address] 2020-09-03 2020-09-03 Outpatient NERY [facility] [id number] [place] 00:00:00 00:00:00 ABA [address] 2020-09-03 2020-09-03 Outpatient NERY [facility] [id number] [place] 00:00:00 00:00:00 ABA [address] 2019-12-27 2019-12-27 Outpatient ALISON, [facility] [id number] [place] 00:00:00 00:00:[address] PAUL [address] Results This patient has no known results.
--- NOTE | 2022-04-18 21:50 | ER ---
Nurse's Notes [facility] Name: Royer Vu Jr Age: 76 yrs Sex: Male : 1945 Arrival Date: 04/18/2022 Time: 18:08 Bed 9 Private MD: Diagnosis: Diarrhea, unspecified Presentation: 04/18 19:28 Chief complaint: Patient states: diarrhea and low grade fever for the last 3 days. lg3 denies nausea, vomiting, cough, chest pain or SOB. Coronavirus screen: Client denies travel out of the [place] in the last 14 days. At this time, the client does not indicate any symptoms associated with coronavirus-19. Ebola Screen: No symptoms or risks identified at this time. Initial Sepsis Screen: Does the patient meet any 2 criteria? No. Patient's initial sepsis screen is negative. Does the patient have a suspected source of infection? No. Patient's initial sepsis screen is negative. Risk Assessment: Do you want to hurt yourself or someone else? Patient reports no desire to harm self or others. Onset of symptoms was April 16, 2022. 19:28 Method Of Arrival: Ambulatory lg3 19:28 Acuity: JORGE 4 lg3 Triage Assessment: 19:30 General: Appears in no apparent distress. comfortable, Behavior is calm, cooperative. lg3 Pain: Denies pain. EENT: No deficits noted. No signs and/or symptoms were reported regarding the EENT system. Neuro: No deficits noted. Level of Consciousness is awake, alert, obeys commands, Oriented to person, place, time, situation. Cardiovascular: No deficits noted. Denies chest pain, shortness of breath, Capillary refill < 3 seconds Clubbing of nail beds is absent JVD is absent Patient's skin is warm and dry. Respiratory: No deficits noted. Airway is patent Trachea midline Respiratory effort is even, unlabored, Respiratory pattern is regular, symmetrical, Breath sounds are clear bilaterally. Denies cough, shortness of breath. GI: No deficits noted. Abdomen is round non-distended, Reports diarrhea. : No deficits noted. No signs and/or symptoms were reported regarding the genitourinary system. Derm: No deficits noted. No signs and/or symptoms reported regarding the dermatologic system. Skin is intact, is healthy with good turgor, Skin is dry, Skin temperature is warm. Musculoskeletal: No deficits noted. No signs and/or symptoms reported regarding the musculoskeletal system. Circulation, motion, and sensation intact. Range of motion: intact in all extremities. Historical: - Allergies: 19:30 No Known Allergies; lg3 - PMHx: 19:30 COLON CA; Diabetes - IDDM; Hypertension; kidney disease; lg3 - PSHx: 19:30 None; lg3 - Immunization history:: Adult Immunizations up to date, moderna X3. - Social history:: Smoking status: Patient denies any tobacco usage or history of. Patient/guardian denies using alcohol. Screenin:33 Abuse screen: Denies threats or abuse. Denies injuries from another. Nutritional lg3 screening: No deficits noted. Tuberculosis screening: No symptoms or risk factors identified. Fall Risk None identified. Assessment: 19:32 General: see triage assessment . lg3 Vital Signs: 19:28 BP 130 / 56; Pulse 54; Resp 17 S; Temp 97.9(TE); Pulse Ox 99% on R/A; Weight 102.06 kg lg3 (R); Height 5 ft. 9 in. (175.26 cm) (R); Pain 0/10; 22:03 BP 129 / 62; Pulse 61; Resp 17 S; Pulse Ox 99% on R/A; lg3 19:28 Body Mass Index 33.23 (102.06 kg, 175.26 cm) lg3 ED Course: 18:08 Patient arrived in ED. as 19:02 Page Awad is Attending Physician. sd2 19:03 Ton Dubose DO is Attending Physician. ms3 19:06 Ton Dubose DO is Attending Physician. ms3 19:27 Saritha Calixto, RN is Primary Nurse. lg3 19:30 Triage completed. lg3 19:30 Arm band placed on right wrist. lg3 19:33 Patient has correct armband on for positive identification. Client placed on continuous lg3 cardiac and pulse oximetry monitoring. NIBP monitoring applied. Door closed. Noise minimized. Warm blanket given. 20:05 SARS-COV-2 RT PCR (Document "Date of Onset" if Symptomatic) Sent. lg3 20:07 Patient has correct armband on for positive identification. Bed in low position. Call mh5 light in reach. Side rails up X 1. Pulse ox on. NIBP on. 20:08 COVID swab sent to lab. 5 21:49 Kevin Moore DO is Referral Physician. ms3 22:03 No provider procedures requiring assistance completed. Patient did not have IV access lg3 during this emergency room visit. Administered Medications: No medications were administered Medication: 22:03 VIS not applicable for this client. lg3 Outcome: :49 Discharge ordered by . ms3 22:03 Discharged to home ambulatory. lg3 22:03 Condition: stable 22:03 Discharge instructions given to patient, Instructed on discharge instructions, follow up and referral plans. Demonstrated understanding of instructions, follow-up care. 22:03 Patient left the ED. lg3 Signatures: Kaity Calabrese [facility] Saritha Calixto, JANET RN 3 Ton Dubose DO DO ms3 Page Awad MD MD sd2
--- NOTE | 2022-04-18 21:50 | EDPHYS ---
Physician Documentation [facility] Name: Royer Vu Jr Age: 76 yrs Sex: Male : 1945 Arrival Date: 04/18/2022 Time: 18:08 Bed 9 Private MD: ED Physician Ton Dubose HPI: 04/18 20:09 This 76 yrs old Male presents to ER via Ambulatory with complaints of diarrhea and ms3 concerns of COVID. 20:09 76-year-old male with past medical history of colon cancer, diabetes, hypertension, ms3 kidney disease presents for diarrhea that began . Patient states he was at a temperature of 99.0. Patient denies pain. Patient denies shortness of breath, nausea, vomiting, chest pain. Patient denies alleviating or inciting factors.. Historical: - Allergies: 19:30 No Known Allergies; lg3 - PMHx: 19:30 COLON CA; Diabetes - IDDM; Hypertension; kidney disease; lg3 - PSHx: 19:30 None; lg3 - Immunization history:: Adult Immunizations up to date, moderna X3. - Social history:: Smoking status: Patient denies any tobacco usage or history of. Patient/guardian denies using alcohol. ROS: 20:09 Constitutional: Negative for fever, and chills. Neck: Negative for injury, pain, and ms3 swelling, Cardiovascular: Negative for chest pain, and palpitations. Respiratory: Negative for shortness of breath, cough, wheezing, and pleuritic chest pain. 20:09 MS/Extremity: Negative for injury and deformity, Skin: Negative for injury, rash, and discoloration. 20:09 Abdomen/GI: Positive for diarrhea. 20:09 All other systems are negative. Exam: 20:09 Constitutional: This is a well developed, well nourished patient who is awake, alert, ms3 and in no acute distress. Eyes: Pupils equal round and reactive to light, extra-ocular motions intact. Lids and lashes normal. Conjunctiva and sclera are non-icteric and not injected. Periorbital areas with no swelling, redness, or edema. ENT: Nares patent. No nasal discharge, no septal abnormalities noted. Tympanic membranes are normal and external auditory canals are clear. Oropharynx with no redness, swelling, or masses, exudates, or evidence of obstruction, uvula midline. Mucous membranes moist. Neck: Trachea midline, no cervical lymphadenopathy. Supple, full range of motion without nuchal rigidity, or vertebral point tenderness. No Meningismus. Chest/axilla: Normal chest wall appearance and motion. Nontender with no deformity. Cardiovascular: Regular rate and rhythm with a normal S1 and S2. No gallops, murmurs, or rubs. Normal PMI, no JVD. No pulse deficits. Respiratory: Lungs have equal breath sounds bilaterally, clear to auscultation and percussion. No rales, rhonchi or wheezes noted. No increased work of breathing, no retractions or nasal flaring. Abdomen/GI: Soft, non-tender, with normal bowel sounds. No distension or tympany. No guarding or rebound. No evidence of tenderness throughout. Skin: Warm, dry with normal turgor. Normal color with no rashes, no lesions, and no evidence of cellulitis. MS/ Extremity: Pulses equal, no cyanosis. Neurovascular intact. Full, normal range of motion. Psych: Awake, alert, with orientation to person, place and time. Behavior, mood, and affect are within normal limits. Vital Signs: 19:28 BP 130 / 56; Pulse 54; Resp 17 S; Temp 97.9(TE); Pulse Ox 99% on R/A; Weight 102.06 kg lg3 (R); Height 5 ft. 9 in. (175.26 cm) (R); Pain 0/10; 22:03 BP 129 / 62; Pulse 61; Resp 17 S; Pulse Ox 99% on R/A; lg3 19:28 Body Mass Index 33.23 (102.06 kg, 175.26 cm) lg3 MDM: 19:12 Patient medically screened. ms3 20:09 Differential Diagnosis COVID vs Viral illness vs Diarrhea. ms3 21:49 Data reviewed: vital signs, nurses notes, lab test result(s), and as a result, I will ms3 discharge patient. Counseling: I had a detailed discussion with the patient and/or guardian regarding: the historical points, exam findings, and any diagnostic results supporting the discharge/admit diagnosis, lab results, the need for outpatient follow up, to return to the emergency department if symptoms worsen or persist or if there are any questions or concerns that arise at home. ED course: On reevaluation patient is improved, alert and oriented x4, in no apparent distress, nontoxic-appearing, speaking full sentences, ambulatory in emergency department.. 04/18 19:56 Order name: SARS-COV-2 RT PCR (Document "Date of Onset" if Symptomatic); Complete Time: oe 21:21 Administered Medications: No medications were administered Disposition Summary: 04/18/22 21:49 Discharge Ordered Location: Home ms3 Condition: Stable ms3 Diagnosis - Diarrhea, unspecified ms3 Followup: ms3 - With: Kevin Moore, DO - When: 2 - 3 days - Reason: Recheck today's complaints Discharge Instructions: - Discharge Summary Sheet ms3 - Diarrhea, Adult ms3 Forms: - Medication Reconciliation Form ms3 - Thank You Letter ms3 - Antibiotic Education ms3 - Prescription Opioid Use ms3 Signatures: Dispatcher [employer] Saritha Marroquin, JANET RN lg3 Ton Dubose DO DO ms3
[2022-04-18 22:54] VITALS: TEMP 97.9; O2SAT 99
[2022-04-18 22:56] VITALS: BP 129/62
== END 2022-04-18 22:03 | disposition home or self-care (01) ==
LOC: ER 18:06
DX: R19.7 Diarrhea, unspecified (principal); Z20.822 Contact with and (suspected) exposure to COVID-19; I10 Essential (primary) hypertension; Z85.038 Personal history of other malignant neoplasm of large intestine
CPT/HCPCS: 99283; U0003

== ENCOUNTER 2022-10-13 06:18 | Day surgery (SDC) | payer OTHER ==
--- NOTE | 2022-10-11 09:56 | RAD REPORT ---
EXAM DESCRIPTION: RAD - Chest Pa And Lat (2 Views) - 10/11/2022 9:50 am CLINICAL HISTORY: Pre op pending mass removal from back COMPARISON: Chest Single View dated 12/10/2020; Chest Single View dated 12/01/2020; Chest Single View d ated 11/07/2020; CHEST PA AND LAT 2 VIEW dated 01/24/2015 FINDINGS: Lines: None. Lungs: No evidence of edema or pneumonia. Pleural: No significant pleural effusions or pneumothorax. Cardiac: The heart size is within normal limits. Mediastinum: Within normal limits. Bones: No acute fractures. Other: None IMPRESSION: No acute cardiopulmonary disease.
[2022-10-11 10:39] LABS: Absolute Lymphocytes (CBC) 1.3 K/uL (0.7-4.9); Hematocrit 36.5 % (39.6-49.0); Lymphocytes % 19.1 % (15.3-44.8); MCV 88.8 fL (80-100); RBC Red Blood Cell Count 4.11 M/uL (4.33-5.43)
[2022-10-11 10:49] LABS: Potassium 3.9 mmol/L (3.5-5.1)
--- NOTE | 2022-10-11 17:31 | EKG ---
Test Date: 2022-10-11 Test Time: 09:20:20 Digital Marketing Intern: TRUDY MEASUREMENT RESULTS: Intervals: Rate: 53 OK: 146 QRSD: 96 QT: 432 QTc: 405 [place]jacket: P: OK: 146 QRS: -46 T: 62 INTERPRETIVE STATEMENTS: Sinus bradycardia with marked sinus arrhythmia Left anterior fascicular block Abnormal ECG Compared to ECG 12/10/2020 18:46:34 Sinus rhythm no longer present T-wave abnormality no longer present Electronically Signed On 10-11-22 17:30:31 [place] by Roland Arango
[2022-10-13] MEDS ORDERED: NA CHLORIDE 0.9% 1,000 ML ONE (06:40)
[2022-10-13] MEDS: CEFAZOLIN SODIUM 1 GM/VIAL ONE ×3 (07:20→07:48)
[2022-10-13] MEDS ORDERED: propofoL 200 MG/20 ML VIAL IV ONE (07:24)
[2022-10-13] MEDS ORDERED: FENTANYL CITR 100 MCG/2 ML ONE (07:24)
[2022-10-13] MEDS ORDERED: MIDAZOLAM HCL 2 MG/2 ML INJ ONE (07:24)
[2022-10-13] MEDS ORDERED: LIDOCAINE 2% MPF 5 ML VIAL ONE (07:24)
[2022-10-13] MEDS ORDERED: ROCURONIUM 50 MG/5 ML VIAL IV ONE (07:25)
[2022-10-13] MEDS ORDERED: ONDANSETRON 4 MG/2 ML VIAL ONE (07:25)
[2022-10-13] MEDS ORDERED: dexAMETHasone 4 MG/ML VIAL ONE (07:49)
[2022-10-13] MEDS ORDERED: dexAMETHasone 10 MG/ML VIAL ONE (07:50)
[2022-10-13] MEDS ORDERED: EPHEDRINE SULF 50 MG/ML VIAL ONE (07:58)
--- NOTE | 2022-10-13 08:24 | P.BOP ---
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
[2022-10-13 08:50] VITALS: O2SAT 98
[2022-10-13 09:52] VITALS: BP 144/72; TEMP 97.6
== END 2022-10-13 09:40 | disposition home or self-care (01) ==
LOC: OR 06:18
PROVIDERS: ATTEND Surgery
PROC: 0JB70ZZ Excision of Back Subcutaneous Tissue and Fascia, Open Approach (ICD-10-PCS; principal; 2022-10-13 07:30)
DX: L72.0 Epidermal cyst (principal); I10 Essential (primary) hypertension; E11.9 Type 2 diabetes mellitus without complications; E78.00 Pure hypercholesterolemia, unspecified
CPT/HCPCS: 93005; 85025; 80048; 36415; 82947 ×2; 88304; 71046; 11406; J2704; J1100 ×2; J2001; J2250; J3010; J7030; J2405; J0690

== ENCOUNTER 2022-11-23 20:52 | Emergency (ER) | payer OTHER ==
--- OUTSIDE RECORDS SUMMARY | 2022-11-23 20:58 | XMS REPORT | Continuity of Care Document ---
:1945 Author Organization [facility] t Address [address] [place] [id number] Care Team Providers Name Role Phone Ruben Love DO Primary Care Physician [phone] ED Attending Clinician Unavailable Ruben Love Attending Clinician [phone] HYUN RAMIREZ Attending Clinician Unavailable PAUL ROSAS Attending Clinician Unavailable AUGUSTINE DUCKWORTH Attending Clinician Unavailable ABA GABRIEL Attending Clinician Unavailable ED Admitting Clinician Unavailable HYUN RAMIREZ Admitting Clinician Unavailable Payers Payer Name Policy Type Policy Number Effective Date Expiration Date [facility] [id number] 2021 (PPO) 00:00:00 Problems Condition Condition Condition Status Onset Resolution Last Treating Co mments Source Name Details Category Date Date Treatment Clinician Date Tinea Tinea Problem Active [facility] cruris Cruris 6-28 [facility]i 00:00: ty 00 [facility] Short Short Problem Active [facility] segment Segment 5-16 [facility]i [facility] 00:00: ty esophagus Esophagus 00 [facility] Chronic Chronic Problem Active [facility] kidney Kidney 3-26 Communi disease Disease 00:00: ty stage 4 Stage 4 00 Hospita Clinics Anemia Anemia Problem Active [facility] 3-22 [facility] 00:00: ty 00 [facility] Clin[facility] Congestive Congestive Problem Active S sherin heart Heart 3-12 Communi failure Failure 00:00: ty 00 [facility]osp[facility] l Clinics 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 Communi claudicati Claudicati 00:00: ty on of on Hospita bilateral Bilateral l lower Lower Clinics limbs Limbs co-occurre Co-occurre nt and due nt and Due to to atheroscle Atheroscle rosis rosis Trigger Trigger Problem Active 2019-09 [facility] finger of Finger of 09-27 Comm uni left hand Left Hand 00:00: ty 00 [facility]ospita l Clinics Normocytic Normocytic Problem Active S weeny normochrom Normochrom 4-24 Co m[facility]i ic anemia ic Anemia 00:00: ty 00 [facility] l Clinics Coronary Coronary Problem Active [facility] arterioscl Arterioscl 4-24 [facility] erosis erosis 00:00: ty 00 [facility] l Clinics Type 2 Type 2 Problem Active [facility] diabetes Diabetes 1-17 Commun i mellitus Mellitus 00:00: ty 00 [facility]ospita l Clinics Mixed Mixed Problem Active [facility] hyperlipid Hyperlipid 1-17 [facility] Body mass Body Mass Problem Active Swe efrem index 30+ Index 30+ 1-17 Comm uni - obesity - Obesity 00:00: ty 00 [facility] Essential Essential Problem Active Swe efrem hypertensi Hypertensi 1-17 Co mmuni on on 00:00: ty 00 [facility]ospita l Clinics Peripheral Peripheral Problem Active S weeny vascular Vascular -17 Commun i disease Disease 00:00: ty 00 Hospita Clinics 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 Allergic 17 Commun i rhinitis Rhinitis 00:00: ty 00 [facility]ospita l Clinics Low back Low Back Problem Active [facility] pain Pain -17 Communi 00:00: ty 00 [facility] Clinics Osteopenia Osteopenia Problem Active S weeny 1-17 Communi 00:00: ty 00 [facility]ospita l Clinics History of History of Problem Active S weeny malignant Malignant 1-17 Comm uni neoplasm Neoplasm 00:00: ty of colon of Colon 00 [facility] Clin[facility] History of History of Problem Active S weeny polyp of Polyp of 1-17 Commun i colon [facility]:00: ty [facility] History of History of Problem Active S weeny carotid Carotid 1-17 Communi endarterec Endarterec 00:00: ty [facility] Partial Problem Active [facility] resection Resection -17 Comm uni of colon of [facility] 00:00: ty [facility] Inc[facility] Incarcerat Disease Active M ethodi ed ventral ed ventral [address] hernia hernia 00:00: Hospita 00 l Ventral Ventral Disease Active Overview: Meth von hernia hernia 4-[address] without without 00:00: g of this Hospi ta obstructio obstructio 00 note l n or n or might be gangrene gangrene different from the original. Added automatic ally from request for surgery [id number] Polyp of Polyp of Disease Active Metho di colon colon 3-27 st 00:00: Hospita 00 l Allergies, Adverse Reactions, Alerts Allergy Allergy Status Severity Reaction(s) Onset Inactive Treating Comm ents Source Name Type Date Date Clinician Tramadol Allergy Active Nausea [facility] to [facility]anc [facility] Family History Family Member Diagnosis Comments Start Date Stop Date Source Natural brother Stroke [facility] father Cancer [facility] mother Alzheimer's disease [facility] mother Hypertension [facility] Paternal Diabetes [facility] grandmother [facility] Social History Social Habit Start Date Stop Date Quantity Comments Source History of tobacco Current smoker [facility] use [facility] Alcohol intake 2021-04-20 2021-04-20 Ex-drinker [facility] 00:00:00 00:00:00 (finding) Hospital Cigarettes smoked 2020-09-03 2020-09-[address] current (pack per 00:00:00 00:00:00 [facility] day) - Reported Cigarette 2020-09-03 2020-09-03 [facility] pack-years 00:00:00 00:00:00 Hospital Tobacco use and 2020-09-03 2020-09-03 Smokeless tobacco [facility] exposure 00:00:00 00:00:00 non-user Hospital Tobacco Comment 2020-09-03 2020-09-03 30+ years smoker. [facility] 00:00:00 00:00:00 Quit in 1998 Hospital Alcohol Comment 2018-01-16 2018-01-16 rarely [facility] 00:00:00 00:00:00 Hospital Sex Assigned At [birth year] [facility] 00:00:00 00:[facility]:00 Hospital Smoking Status Start Date Stop Date Source Ex-smoker 2020-09-03 00:00:00 2020-09-03 00:00:00 [facility] Medications Ordered Filled Start Stop Current Ordering Indication Dosage Frequency Signature Comments Components Source Medication Medication Date Date Medication? Clinician (SIG) Name Name glimepiride Yes 4mg Q.5D Take 4 mg M ethodi (AMARYL) 4 7-[address] MG tablet 11:20: (two) Hospita 32 times a l day. Morning and evening clopidogrel Yes 75mg QD Take 75 mg [facility] (PLAVIX) 75 7-[address] mg tablet 11:20: daily. Hospit a 32 l metoprolol 0 Yes 100mg QD Take 100 [facility] succinate 7-[address] XL 11:20: mouth Hospita (TOPROL-XL) 32 every l 100 mg 24 morning. hr tablet lovastatin Yes 40mg QD Take 40 mg M ethodi (MEVACOR) 7-[address] 40 MG 11:20: nightly. Hospita tablet 32 l amlodipine- 0 Yes 1{capsu QD Take 1 M ethodi benazepril 7-23 le} capsule by st (LOTREL) 11:20: mouth Hospita 10-20 mg 32 daily. l per capsule montelukast Yes 10mg QD Take 10 mg [facility] (SINGULAIR) 7-[address] 10 mg 11:20: every Hospita tablet 32 morning. l insulin Yes 40U QD Inject 40 Metho di GLARGINE 7-[address] (LANTUS) 11:20: under the Hosp prateek 100 unit/mL 32 skin l injection nightly. (vial) aspirin Yes 81mg QD Take 81 mg Meth von (ECOTRIN) 7-[address] 81 MG 11:20: daily. Hospita enteric 32 l coated tablet vit Yes 2{tbl} QD Take 2 [facility] C/E/Zn/savannah 7-[address] r/lutein/ze 11:20: mouth Hospi ta axan 32 every l (PRESERVISI morning. ON AREDS 2 ORAL) MULTIVITAMI Yes 1{packe QD Take 1 M ethodi N ORAL 04-17 t} packet by st 11:20: mouth Hospita 32 daily. l gabapentin Yes TAKE 1 Metho di (NEURONTIN) 4-[address] 300 mg 00:00: MOUTH Hospita capsule 00 TWICE A l DAY RESTASIS Yes 1[drp] Q24H Administer M ethodi 0.05 % 3-[address] ophthalmic 00:00: both eyes Ho spita emulsion 00 daily as l needed. metformin metformin No metformin [facility] 500 mg 500 mg 500 mg Communi tablet TAKE tablet TAKE tablet ty 2 TABLETS 2 TABLETS TAKE 2 Hos [facility] BY MOUTH BY MOUTH TABLETS BY l TWICE A DAY TWICE A DAY MOUTH Clinics TWICE A DAY metoprolol metoprolol No metoprolol [facility] succinate succinate succinate Communi ER 100 mg ER 100 mg ER 100 mg ty tablet,exte tablet,exte tablet,ext Hospita nded nded ended l release 24 release 24 release 24 Clinics hr TAKE 1 hr TAKE 1 hr TAKE 1 TABLET BY TABLET BY TABLET BY MOUTH TWICE MOUTH TWICE MOUTH A DAY A DAY TWICE A DAY montelukast montelukast No montelukas [facility] 10 mg 10 mg t 10 mg Communi tablet TAKE tablet TAKE tablet ty 1 TABLET BY 1 TABLET BY TAKE 1 Hospita MOUTH EVERY MOUTH EVERY TABLET BY l DAY DAY MOUTH Clinics EVERY DAY pantoprazol pantoprazol No pantoprazo [facility] e 40 mg e 40 mg le 40 mg Commu ni tablet,sophie tablet,sophie tablet,del ty yed release yed release ayed H ospita TAKE 1 TAKE 1 release l TABLET BY TABLET BY TAKE 1 Cli nics MOUTH EVERY MOUTH EVERY TABLET BY DAY DAY MOUTH EVERY DAY Restasis Restasis No Restasis Swe efrem 0.05 % eye 0.05 % eye 0.05 % eye Communi drops in a drops in a drops in a ty dropperette dropperette dropperett Hospita INSTILL 1 INSTILL 1 e INSTILL l DROP INTO DROP INTO 1 DROP Cli nics BOTH EYES BOTH EYES INTO BOTH TWICE A DAY TWICE A DAY EYES TWICE A DAY sodium sodium No sodium [facility] bicarbonate bicarbonate bicarbonat Communi 650 mg 650 mg e 650 mg ty tablet TAKE tablet TAKE tablet Hospita 1 TABLET 1 TABLET TAKE 1 l (650 MG (650 MG TABLET Clinics TOTAL) BY TOTAL) BY (650 MG MOUTH 2 MOUTH 2 TOTAL) BY (TWO) TIMES (TWO) TIMES MOUTH 2 A DAY A DAY (TWO) TIMES A DAY tramadol 50 tramadol 50 No 1 BID tramadol [facility] mg tablet mg tablet 50 mg Comm uni Take 1 Take 1 tablet ty tablet tablet Take 1 Hospita twice a day twice a day tablet l by oral by oral twice a Clinic s route. route. day by oral route. Accu-Chek Accu-Chek No Accu-Chek [facility] Therese Plus Therese Plus Therese Plus Communi test strips test strips test t y USE TO USE TO strips USE Hospi ta CHECK CHECK TO CHECK l GLUCOSE GLUCOSE GLUCOSE Clinic s TWICE DAILY TWICE DAILY TWICE DAILY Accu-Chek Accu-Chek No Accu-Chek [facility] Softclix Softclix Softclix Com remi Lancets USE Lancets USE Lancets ty TO CHECK TO CHECK USE TO Hospi ta GLUCOSE GLUCOSE CHECK l TWICE DAILY TWICE DAILY GLUCOSE Clinics TWICE DAILY acetaminoph acetaminoph No acetaminop [facility] en 300 en 300 hen 300 Communi mg-codeine mg-codeine mg-codeine ty 30 mg 30 mg 30 mg Hospita tablet tablet tablet l Clinics albuterol albuterol No albuterol [facility] sulfate HFA sulfate HFA sulfate Communi 90 90 HFA 90 ty mcg/actuati mcg/actuati mcg/actuat Hospita on aerosol on aerosol ion l inhaler inhaler aerosol Clinic s INHALE 1 TO INHALE 1 TO inhaler 2 PUFFS BY 2 PUFFS BY INHALE 1 MOUTH EVERY MOUTH EVERY TO 2 PUFFS 4 TO 6 4 TO 6 BY MOUTH HOURS PRN HOURS PRN EVERY 4 TO 6 HOURS PRN amiloride 5 amiloride 5 No amiloride [facility] mg tablet 1 mg tablet 1 5 mg C ommuni PO BID PO BID tablet 1 ty PO BID Hospita l Clinics amlodipine amlodipine No amlodipine [facility] 10 10 10 Communi mg-benazepr mg-benazepr mg-benazep ty il 40 mg il 40 mg ril 40 mg Ho spita capsule capsule capsule l TAKE 1 TAKE 1 TAKE 1 Clinics CAPSULE BY CAPSULE BY CAPSULE BY MOUTH EVERY MOUTH EVERY MOUTH DAY DAY EVERY DAY clopidogrel clopidogrel No clopidogre [facility] 75 mg 75 mg l 75 mg Communi tablet TAKE tablet TAKE tablet ty 1 TABLET BY 1 TABLET BY TAKE 1 Hospita MOUTH EVERY MOUTH EVERY TABLET BY l DAY DAY MOUTH Clinics EVERY DAY doxazosin 4 doxazosin 4 No doxazosin [facility] mg tablet mg tablet 4 mg Commu ni TAKE 1 TAKE 1 tablet ty TABLET BY TABLET BY TAKE 1 [facility] MOUTH EVERY MOUTH EVERY TABLET BY l DAY DAY MOUTH Clinics EVERY DAY fluticasone fluticasone No fluticason [facility] propionate propionate e Com remi 50 50 propionate ty mcg/actuati mcg/actuati 50 H ospita on nasal on nasal mcg/actuat l spray,suspe spray,suspe ion nasal Clinics nsion nsion spray,susp INSTILL 2 INSTILL 2 ension SPRAYS IN SPRAYS IN INSTILL 2 EACH EACH SPRAYS IN NOSTRIL NOSTRIL EACH EVERY EVERY NOSTRIL MORNING MORNING EVERY MORNING furosemide furosemide No furosemide [facility] 40 mg 40 mg 40 mg Communi tablet 1 PO tablet 1 PO tablet 1 ty qd qd PO qd Hospita l Clinics gabapentin gabapentin No gabapentin [facility] 300 mg 300 mg 300 mg Communi capsule capsule capsule ty TAKE 1 TAKE 1 TAKE 1 Hospita CAPSULE BY CAPSULE BY CAPSULE BY l MOUTH TWICE MOUTH TWICE MOUTH Clinics A DAY A DAY TWICE A DAY glimepiride glimepiride No glimepirid [facility] 4 mg tablet 4 mg tablet e 4 mg Communi TAKE 1 TAKE 1 tablet ty TABLET BY TABLET BY TAKE 1 [facility] MOUTH TWICE MOUTH TWICE TABLET BY l A DAY A DAY MOUTH Clinics TWICE A DAY Lantus Lantus No Lantus [facility] Solostar Solostar Solostar Com remi U-100 U-100 U-100 ty Insulin 100 Insulin 100 Insulin Hospita unit/mL (3 unit/mL (3 100 l mL) mL) unit/mL (3 Clinics subcutaneou subcutaneou mL) s pen s pen subcutaneo INJECT 30 INJECT 30 us pen UNITS in AM UNITS in AM INJECT 30 and 25 and 25 UNITS in UNITS UNITS AM and 25 SUBCUTANEOU SUBCUTANEOU UNITS SLY in PM SLY in PM SUBCUTANEO USLY in PM lovastatin lovastatin No lovastatin [facility] 40 mg 40 mg 40 mg Communi tablet TAKE tablet TAKE tablet ty 1 TABLET BY 1 TABLET BY TAKE 1 Hospita MOUTH EVERY MOUTH EVERY TABLET BY l DAY WITH DAY WITH MOUTH Clinic s EVENING EVENING EVERY DAY MEAL.NOT MEAL.NOT WITH E E EVENING REFILLS REFILLS MEAL.NO TE REFILLS metformin metformin No metformin [facility] 500 mg 500 mg 500 mg Communi tablet TAKE tablet TAKE tablet ty 2 TABLETS 2 TABLETS TAKE 2 [facility] BY MOUTH BY MOUTH TABLETS BY l TWICE A DAY TWICE A DAY MOUTH Clinics TWICE A DAY methocarbam methocarbam No methocarba [facility] ol 750 mg ol 750 mg mol 750 mg Communi tablet TAKE tablet TAKE tablet ty 1 TABLET 1 TABLET TAKE 1 Hospi ta TWICE DAILY TWICE DAILY TABLET l NEEDED NEEDED TWICE Clin ics FOR BACK FOR BACK DAILY SPASMS SPASMS NEEDED FOR BACK SPASMS metoprolol metoprolol No metoprolol [facility] succinate succinate succinate Communi ER 100 mg ER 100 mg ER 100 mg ty tablet,exte tablet,exte tablet,ext Hospita nded nded ended l release 24 release 24 release 24 Clinics hr TAKE 1 hr TAKE 1 hr TAKE 1 TABLET BY TABLET BY TABLET BY MOUTH TWICE MOUTH TWICE MOUTH A DAY A DAY TWICE A DAY montelukast montelukast No montelukas [facility] 10 mg 10 mg t 10 mg Communi tablet TAKE tablet TAKE tablet ty 1 TABLET BY 1 TABLET BY TAKE 1 Hospita MOUTH EVERY MOUTH EVERY TABLET BY l DAY DAY MOUTH Clinics EVERY DAY pantoprazol pantoprazol No pantoprazo [facility] e 40 mg e 40 mg le 40 mg Commu ni tablet,sophie tablet,sophie tablet,del ty yed release yed release ayed H ospita TAKE 1 TAKE 1 release l TABLET BY TABLET BY TAKE 1 Cli nics MOUTH EVERY MOUTH EVERY TABLET BY DAY DAY MOUTH EVERY DAY Restasis Restasis No Restasis Swe efrem 0.05 % eye 0.05 % eye 0.05 % eye Communi drops in a drops in a drops in a ty [facility] 1 e INSTILL l DROP INTO DROP INTO 1 DROP Cli nics BOTH EYES BOTH EYES INTO BOTH TWICE A DAY TWICE A DAY EYES TWICE A DAY Rocaltrol Rocaltrol No 1capsul Q1D Rocaltrol [facility] 0.5 mcg 0.5 mcg e(s) 0.5 mcg Commun i capsule capsule capsule ty Take 1 Take 1 Take 1 Hospita capsule capsule capsule l every day every day every day Clinics by oral by oral by oral route. route. route. sodium sodium No sodium [facility] bicarbonate bicarbonate bicarbonat Communi 650 mg 650 mg e 650 mg ty tablet TAKE tablet TAKE tablet Hospita 1 TABLET 1 TABLET TAKE 1 l (650 MG (650 MG TABLET Clinics TOTAL) BY TOTAL) BY (650 MG MOUTH 2 MOUTH 2 TOTAL) BY (TWO) TIMES (TWO) TIMES MOUTH 2 A DAY A DAY (TWO) TIMES A DAY tramadol 50 tramadol 50 No tramadol [facility] mg tablet mg tablet 50 mg Comm uni TAKE 1 TAKE 1 tablet ty TABLET BY TABLET BY TAKE 1 [facility] MOUTH TWICE MOUTH TWICE TABLET BY l A DAY A DAY MOUTH Clinics TWICE A DAY Accu-Chek Accu-Chek No Accu-Chek [facility] Therese Plus Therese Plus Therese Plus Communi test strips test strips test t y USE TO USE TO strips USE Hospi ta CHECK CHECK TO CHECK l GLUCOSE GLUCOSE GLUCOSE Clinic s TWICE DAILY TWICE DAILY TWICE DAILY Accu-Chek Accu-Chek No Accu-Chek [facility] Softclix Softclix Softclix Com remi Lancets USE Lancets USE Lancets ty TO CHECK TO CHECK USE TO Hospi ta GLUCOSE GLUCOSE CHECK l TWICE DAILY TWICE DAILY GLUCOSE Clinics TWICE DAILY albuterol albuterol No albuterol [facility] sulfate HFA sulfate HFA sulfate Communi 90 90 HFA 90 ty mcg/actuati mcg/actuati mcg/actuat Hospita on aerosol on aerosol ion l inhaler inhaler aerosol Clinic s INHALE 1 TO INHALE 1 TO inhaler 2 PUFFS BY 2 PUFFS BY INHALE 1 MOUTH EVERY MOUTH EVERY TO 2 PUFFS 4 TO 6 4 TO 6 BY MOUTH HOURS PRN HOURS PRN EVERY 4 TO 6 HOURS PRN amlodipine amlodipine No amlodipine [facility] 10 mg 10 mg 10 mg Communi tablet 1 po tablet 1 po tablet 1 ty qd qd po qd [facility] l Clinics calcitriol calcitriol No calcitriol [facility] 0.25 mcg 0.25 mcg 0.25 mcg Com remi capsule 1 capsule 1 capsule 1 ty PO qd PO qd PO qd [facility] cholecalcif cholecalcif No cholecalci [facility] rajiv lawrence Jji (vitamin (vitamin (vitamin ty D3) 125 mcg D3) 125 mcg D3) 125 Hospita (5,000 (5,000 mcg (5,000 l unit) unit) unit) Clinics capsule capsule capsule TAKE 1 TAKE 1 TAKE 1 CAPSULE BY CAPSULE BY CAPSULE BY MOUTH EVERY MOUTH EVERY MOUTH DAY DAY EVERY DAY clopidogrel clopidogrel No clopidogre [facility] 75 mg 75 mg l 75 mg Communi tablet TAKE tablet TAKE tablet ty 1 TABLET BY 1 TABLET BY TAKE 1 Hospita MOUTH EVERY MOUTH EVERY TABLET BY l DAY DAY MOUTH Clinics EVERY DAY doxazosin 4 doxazosin 4 No doxazosin [facility] mg tablet mg tablet 4 mg Commu ni TAKE 1 TAKE 1 tablet ty TABLET BY TABLET BY TAKE 1 [facility] MOUTH EVERY MOUTH EVERY TABLET BY l DAY DAY MOUTH Clinics EVERY DAY fluticasone fluticasone No fluticason [facility] propionate propionate e Com remi 50 50 propionate ty mcg/actuati mcg/actuati 50 H ospita on nasal on nasal mcg/actuat l spray,suspe spray,suspe ion nasal Clinics nsion nsion spray,susp INSTILL 2 INSTILL 2 ension SPRAYS IN SPRAYS IN INSTILL 2 EACH EACH SPRAYS IN NOSTRIL NOSTRIL EACH EVERY EVERY NOSTRIL MORNING MORNING EVERY MORNING furosemide furosemide No furosemide [facility] 40 mg 40 mg 40 mg Communi tablet 1 PO tablet 1 PO tablet 1 ty qd qd PO qd [facility] gabapentin gabapentin No gabapentin [facility] 300 mg 300 mg 300 mg Communi capsule capsule capsule ty TAKE 1 TAKE 1 TAKE 1 Hospita CAPSULE BY CAPSULE BY CAPSULE BY l MOUTH TWICE MOUTH TWICE MOUTH Clinics A DAY A DAY TWICE A DAY glimepiride glimepiride No glimepirid [facility] 4 mg tablet 4 mg tablet e 4 mg Communi TAKE 1 TAKE 1 tablet ty TABLET BY TABLET BY TAKE 1 [facility] MOUTH TWICE MOUTH TWICE TABLET BY l A DAY A DAY MOUTH Clinics TWICE A DAY Lantus Lantus No Lantus [facility] Solostar Solostar Solostar Com remi U-100 U-100 U-100 ty Insulin 100 Insulin 100 Insulin Hospita unit/mL (3 unit/mL (3 100 l mL) mL) unit/mL (3 Clinics subcutaneou subcutaneou mL) s pen s pen subcutaneo INJECT 25 INJECT 25 us pen UNITS in AM UNITS in AM INJECT 25 and 25 and 25 UNITS in UNITS UNITS AM and 25 SUBCUTANEOU SUBCUTANEOU UNITS SLY in PM SLY in PM SUBCUTANEO USLY in PM lovastatin lovastatin No lovastatin [facility] 40 mg 40 mg 40 mg Communi tablet TAKE tablet TAKE tablet ty 1 TABLET BY 1 TABLET BY TAKE 1 Hospita MOUTH EVERY MOUTH EVERY TABLET BY l DAY WITH DAY WITH MOUTH Clinic s EVENING EVENING EVERY DAY MEAL.NOT MEAL.NOT WITH E E EVENING REFILLS REFILLS MEAL.NO TE REFILLS methocarbam methocarbam No methocarba [facility] ol 750 mg ol 750 mg mol 750 mg Communi tablet TAKE tablet TAKE tablet ty 1 TABLET 1 TABLET TAKE 1 Hospi ta TWICE DAILY TWICE DAILY TABLET l NEEDED NEEDED TWICE Clin ics FOR BACK FOR BACK DAILY SPASMS SPASMS NEEDED FOR BACK SPASMS metoprolol metoprolol No metoprolol [facility] succinate succinate succinate Communi ER 100 mg ER 100 mg ER 100 mg ty tablet,exte tablet,exte tablet,ext Hospita nded nded ended l release 24 release 24 release 24 Clinics hr TAKE 1 hr TAKE 1 hr TAKE 1 TABLET BY TABLET BY TABLET BY MOUTH TWICE MOUTH TWICE MOUTH A DAY A DAY TWICE A DAY montelukast montelukast No montelukas [facility] 10 mg 10 mg t 10 mg Communi tablet TAKE tablet TAKE tablet ty 1 TABLET BY 1 TABLET BY TAKE 1 Hospita MOUTH EVERY MOUTH EVERY TABLET BY l DAY DAY MOUTH Clinics EVERY DAY pantoprazol pantoprazol No pantoprazo [facility] e 40 mg e 40 mg le 40 mg Commu ni tablet,sophie tablet,sophie tablet,del ty yed release yed release ayed H ospita TAKE 1 TAKE 1 release l TABLET BY TABLET BY TAKE 1 Cli nics MOUTH EVERY MOUTH EVERY TABLET BY DAY DAY MOUTH EVERY DAY Restasis Restasis No Restasis Swe efrem 0.05 % eye 0.05 % eye 0.05 % eye Communi drops in a drops in a drops in a ty dropperette dropperette dropperett Hospita INSTILL 1 INSTILL 1 e INSTILL l DROP INTO DROP INTO 1 DROP Cli nics BOTH EYES BOTH EYES INTO BOTH TWICE A DAY TWICE A DAY EYES TWICE A DAY Rocaltrol Rocaltrol No 1capsul Q1D Rocaltrol [facility] 0.5 mcg 0.5 mcg e(s) 0.5 mcg Commun i capsule capsule capsule ty Take 1 Take 1 Take 1 Hospita capsule capsule capsule l every day every day every day Clinics by oral by oral by oral route. route. route. sodium sodium No sodium [facility] bicarbonate bicarbonate bicarbonat Communi 650 mg 650 mg e 650 mg ty tablet TAKE tablet TAKE tablet Hospita 1 TABLET 1 TABLET TAKE 1 l (650 MG (650 MG TABLET Clinics TOTAL) BY TOTAL) BY (650 MG MOUTH 2 MOUTH 2 TOTAL) BY (TWO) TIMES (TWO) TIMES MOUTH 2 A DAY A DAY (TWO) TIMES A DAY tramadol 50 tramadol 50 No tramadol [facility] mg tablet mg tablet 50 mg Comm uni TAKE 1 TAKE 1 tablet ty TABLET BY TABLET BY TAKE 1 [facility] MOUTH TWICE MOUTH TWICE TABLET BY l A DAY A DAY MOUTH Clinics TWICE A DAY Accu-Chek Accu-Chek No Accu-Chek [facility] Therese Plus Therese Plus Therese Plus Communi test strips test strips test t y USE TO USE TO strips USE Hospi ta CHECK CHECK TO CHECK l GLUCOSE GLUCOSE GLUCOSE Clinic s TWICE DAILY TWICE DAILY TWICE DAILY Accu-Chek Accu-Chek No Accu-Chek [facility] Softclix Softclix Softclix Com remi Lancets USE Lancets USE Lancets ty TO CHECK TO CHECK USE TO Hospi ta GLUCOSE GLUCOSE CHECK l TWICE DAILY TWICE DAILY GLUCOSE Clinics TWICE DAILY albuterol albuterol No albuterol [facility] sulfate HFA sulfate HFA sulfate Communi 90 90 HFA 90 ty mcg/actuati mcg/actuati mcg/actuat Hospita on aerosol on aerosol ion l inhaler inhaler aerosol Clinic s INHALE 1 TO INHALE 1 TO inhaler 2 PUFFS BY 2 PUFFS BY INHALE 1 MOUTH EVERY MOUTH EVERY TO 2 PUFFS 4 TO 6 4 TO 6 BY MOUTH HOURS PRN HOURS PRN EVERY 4 TO 6 HOURS PRN amlodipine amlodipine No amlodipine [facility] 10 mg 10 mg 10 mg Communi tablet 1 po tablet 1 po tablet 1 ty qd qd po qd Hospita l Clinics calcitriol calcitriol No calcitriol [facility] 0.25 mcg 0.25 mcg 0.25 mcg Com remi capsule capsule capsule ty TAKE 2 TAKE 2 TAKE 2 Hospita CAPSULES BY CAPSULES BY CAPSULES l MOUTH EVERY MOUTH EVERY BY MOUTH Clinics DAY DAY EVERY DAY cholecalcif cholecalcif No cholecalci [facility] rajiv rajiv Gardneri (vitamin (vitamin (vitamin ty D3) 125 mcg D3) 125 mcg D3) 125 Hospita (5,000 (5,000 mcg (5,000 l unit) unit) unit) Clinics capsule capsule capsule TAKE 1 TAKE 1 TAKE 1 CAPSULE BY CAPSULE BY CAPSULE BY MOUTH EVERY MOUTH EVERY MOUTH DAY DAY EVERY DAY clopidogrel clopidogrel No clopidogre [facility] 75 mg 75 mg l 75 mg Communi tablet TAKE tablet TAKE tablet ty 1 TABLET BY 1 TABLET BY TAKE 1 Hospita MOUTH EVERY MOUTH EVERY TABLET BY l DAY DAY MOUTH Clinics EVERY DAY doxazosin 4 doxazosin 4 No doxazosin [facility] mg tablet mg tablet 4 mg Commu ni TAKE 1 TAKE 1 tablet ty TABLET BY TABLET BY TAKE 1 [facility] MOUTH EVERY MOUTH EVERY TABLET BY l DAY DAY MOUTH Clinics EVERY DAY fluticasone fluticasone No fluticason [facility] propionate propionate e Com remi 50 50 propionate ty mcg/actuati mcg/actuati 50 H ospita on nasal on nasal mcg/actuat l spray,suspe spray,suspe ion nasal Clinics nsion nsion spray,susp INSTILL 2 INSTILL 2 ension SPRAYS IN SPRAYS IN INSTILL 2 EACH EACH SPRAYS IN NOSTRIL NOSTRIL EACH EVERY EVERY NOSTRIL MORNING MORNING EVERY MORNING furosemide furosemide No furosemide [facility] 40 mg 40 mg 40 mg Communi tablet 1 PO tablet 1 PO tablet 1 ty qd qd PO qd Hospita l Clinics gabapentin gabapentin No gabapentin [facility] 300 mg 300 mg 300 mg Communi capsule capsule capsule ty TAKE 1 TAKE 1 TAKE 1 Hospita CAPSULE BY CAPSULE BY CAPSULE BY l MOUTH TWICE MOUTH TWICE MOUTH Clinics A DAY A DAY TWICE A DAY glimepiride glimepiride No glimepirid [facility] 4 mg tablet 4 mg tablet e 4 mg Communi TAKE 1 TAKE 1 tablet ty TABLET BY TABLET BY TAKE 1 [facility] MOUTH TWICE MOUTH TWICE TABLET BY l A DAY A DAY MOUTH Clinics TWICE A DAY Lantus Lantus No Lantus [facility] Solostar Solostar Solostar Com remi U-100 U-100 U-100 ty Insulin 100 Insulin 100 Insulin Hospita unit/mL (3 unit/mL (3 100 l mL) mL) unit/mL (3 Clinics subcutaneou subcutaneou mL) s pen s pen subcutaneo INJECT 25 INJECT 25 us pen UNITS in AM UNITS in AM INJECT 25 and 25 and 25 UNITS in UNITS UNITS AM and 25 SUBCUTANEOU SUBCUTANEOU UNITS SLY in PM SLY in PM SUBCUTANEO USLY in PM lovastatin lovastatin No lovastatin [facility] 40 mg 40 mg 40 mg [facility] tablet TAKE tablet TAKE tablet ty 1 TABLET BY 1 TABLET BY TAKE 1 Hospita MOUTH EVERY MOUTH EVERY TABLET BY l DAY WITH DAY WITH MOUTH Clinic s EVENING EVENING EVERY DAY MEAL.NOT MEAL.NOT WITH E E EVENING REFILLS REFILLS MEAL.NO TE REFILLS methocarbam methocarbam No methocarba [facility] ol 750 mg ol 750 mg mol 750 mg [facility] tablet TAKE tablet TAKE tablet ty 1 TABLET 1 TABLET TAKE 1 Hospi ta TWICE DAILY TWICE DAILY TABLET l NEEDED NEEDED TWICE Clin ics FOR BACK FOR BACK DAILY SPASMS SPASMS NEEDED FOR BACK SPASMS metoprolol metoprolol No metoprolol [facility] succinate succinate succinate [facility] ER 100 mg ER 100 mg ER 100 mg ty tablet,exte tablet,exte tablet,ext Hospita nded nded ended l release 24 release 24 release 24 Clinics hr TAKE 1 hr TAKE 1 hr TAKE 1 TABLET BY TABLET BY TABLET BY MOUTH TWICE MOUTH TWICE MOUTH A DAY A DAY TWICE A DAY montelukast montelukast No montelukas [facility] 10 mg 10 mg t 10 mg [facility] tablet TAKE tablet TAKE tablet ty 1 TABLET BY 1 TABLET BY TAKE 1 [facility]ospita MOUTH EVERY MOUTH EVERY TABLET BY l DAY DAY MOUTH Clinics EVERY DAY pantoprazol pantoprazol No pantoprazo [facility] e 40 mg e 40 mg le 40 mg Commu ni tablet,sophie tablet,sophie tablet,del ty yed release yed release ayed [facility] TAKE 1 TAKE 1 release l TABLET BY TABLET BY TAKE 1 Cli nics MOUTH EVERY MOUTH EVERY TABLET BY DAY DAY MOUTH EVERY DAY Restasis Restasis No Restasis Swe efrem 0.05 % eye 0.05 % eye 0.05 % eye [facility] drops in a drops in a drops in a ty dropperette dropperette dropperett [facility]ospita INSTILL 1 INSTILL 1 e INSTILL l DROP INTO DROP INTO 1 DROP Cli nics BOTH EYES BOTH EYES INTO BOTH TWICE A DAY TWICE A DAY EYES TWICE A DAY Rocaltrol Rocaltrol No 1capsul Q1D Rocaltrol [facility] 0.5 mcg 0.5 mcg e(s) 0.5 mcg Commun i capsule capsule capsule ty Take 1 Take 1 Take 1 [facility]ospita capsule capsule capsule l every day every day every day Clinics by oral by oral by oral route. route. route. sodium sodium No sodium [facility] bicarbonate bicarbonate bicarbonat [facility] 650 mg 650 mg e 650 mg ty tablet TAKE tablet TAKE tablet Hospita 1 TABLET 1 TABLET TAKE 1 l (650 MG (650 MG TABLET Clinics TOTAL) BY TOTAL) BY (650 MG MOUTH 2 MOUTH 2 TOTAL) BY (TWO) TIMES (TWO) TIMES MOUTH 2 A DAY A DAY (TWO) TIMES A DAY tramadol 50 tramadol 50 No tramadol [facility] mg tablet mg tablet 50 mg Comm uni TAKE 1 TAKE 1 tablet ty TABLET BY TABLET BY TAKE 1 [facility] MOUTH TWICE MOUTH TWICE TABLET BY l A DAY A DAY MOUTH Clinics TWICE A DAY Accu-Chek Accu-Chek No Accu-Chek [facility] Guide L1-L2 Guide L1-L2 Guide [facility] Control Control L1-L2 ty Solution Solution Control [facility] prateek Solution l Clinics accu-chek accu-chek No accu-chek [facility] guide me guide me guide me Com remi w/device w/device w/device ty kit kit kit Hospita l Clinics Accu-Chek Accu-Chek No Accu-Chek [facility] Guide test Guide test Guide test [facility] strips USE strips USE strips USE ty TO CHECK TO CHECK TO CHECK [facility] GLUCOSE GLUCOSE GLUCOSE l TWICE DAILY TWICE DAILY TWICE Clinics DAILY Accu-Chek Accu-Chek No Accu-Chek [facility] Softclix Softclix Softclix Com remi Lancets USE Lancets USE Lancets ty TO CHECK TO CHECK USE TO Hos[facility] ta GLUCOSE GLUCOSE CHECK l TWICE DAILY TWICE DAILY GLUCOSE Clinics TWICE DAILY acetaminoph acetaminoph No acetaminop [facility] en 300 en 300 hen 300 [facility] mg-codeine mg-codeine mg-codeine ty 30 mg 30 mg 30 mg [facility]osp[facility] tablet tablet tablet l Clinics amlodipine amlodipine No amlodipine [facility] 10 mg 10 mg 10 mg [facility] tablet TAKE tablet TAKE tablet ty 1 TABLET BY 1 TABLET BY TAKE 1 [facility]ospita MOUTH EVERY MOUTH EVERY TABLET BY l DAY DAY MOUTH Clinics EVERY DAY Bactrim DS Bactrim DS No 1 Q12H Bactrim DS [facility] 800 mg-160 800 mg-160 800 mg-160 [facility] mg tablet mg tablet mg tablet ty Take 1 Take 1 Take 1 [facility]ospita tablet tablet tablet l every 12 every 12 every 12 Cli nics hours by hours by hours by oral route. oral route. oral route. calcitriol calcitriol No calcitriol [facility] 0.25 mcg 0.25 mcg 0.25 mcg Com remi capsule capsule capsule ty TAKE 2 TAKE 2 TAKE 2 [facility]ospita CAPSULES BY CAPSULES BY CAPSULES l MOUTH EVERY MOUTH EVERY BY MOUTH Clinics DAY DAY EVERY DAY cholecalcif cholecalcif No cholecalci [facility] rajiv rajiv ferol [facility] (vitamin (vitamin (vitamin ty D3) 125 mcg D3) 125 mcg D3) 125 [facility]ospita (5,000 (5,000 mcg (5,000 l unit) unit) unit) Clinics capsule capsule capsule TAKE 1 TAKE 1 TAKE 1 CAPSULE BY CAPSULE BY CAPSULE BY MOUTH EVERY MOUTH EVERY MOUTH DAY DAY EVERY DAY ciprofloxac ciprofloxac No 1 Q12H ciprofloxa [facility] in 500 mg in 500 mg heron 500 mg [facility] tablet Take tablet Take tablet ty 1 tablet 1 tablet Take 1 Hospi ta every 12 every 12 tablet l hours by hours by every 12 Cli nics oral route. oral route. hours by oral route. clopidogrel clopidogrel No clopidogre [facility] 75 mg 75 mg l 75 mg [facility] tablet TAKE tablet TAKE tablet ty 1 TABLET BY 1 TABLET BY TAKE 1 [facility]ospita MOUTH EVERY MOUTH EVERY TABLET BY l DAY DAY MOUTH Clinics EVERY DAY doxazosin 4 doxazosin 4 No doxazosin [facility] mg tablet mg tablet 4 mg Commu ni TAKE 1 TAKE 1 tablet ty TABLET BY TABLET BY TAKE 1 [facility] MOUTH EVERY MOUTH EVERY TABLET BY l DAY DAY MOUTH Clinics EVERY DAY fluticasone fluticasone No fluticason [facility] propionate propionate e Com remi 50 50 propionate ty mcg/actuati mcg/actuati 50 [facility] on nasal on nasal mcg/actuat l spray,suspe spray,suspe ion nasal Clinics nsion nsion spray,susp INSTILL 2 INSTILL 2 ension SPRAYS IN SPRAYS IN INSTILL 2 EACH EACH SPRAYS IN NOSTRIL NOSTRIL EACH EVERY EVERY NOSTRIL MORNING MORNING EVERY MORNING furosemide furosemide No furosemide [facility] 40 mg 40 mg 40 mg [facility] tablet 1 PO tablet 1 PO tablet 1 ty qd qd PO qd Hospita l Clinics gabapentin gabapentin No gabapentin [facility] 300 mg 300 mg 300 mg [facility] capsule capsule capsule ty TAKE 1 TAKE 1 TAKE 1 [facility]ospita CAPSULE BY CAPSULE BY CAPSULE BY l MOUTH TWICE MOUTH TWICE MOUTH Clinics A DAY A DAY TWICE A DAY glimepiride glimepiride No glimepirid [facility] 4 mg tablet 4 mg tablet e 4 mg [facility]i TAKE 1 TAKE 1 tablet ty TABLET BY TABLET BY TAKE 1 [facility] MOUTH TWICE MOUTH TWICE TABLET BY l A DAY A DAY MOUTH Clinics TWICE A DAY hydrochloro hydrochloro No hydrochlor [facility] thiazide 25 thiazide 25 othiazide [facility] mg tablet mg tablet 25 mg ty tablet [facility]osp[facility] l Clinics Jardiance Jardiance No Jardiance [facility] 25 mg 25 mg 25 mg [facility] tablet TAKE tablet TAKE tablet ty 1 TABLET BY 1 TABLET BY TAKE 1 [facility]ospita MOUTH EVERY MOUTH EVERY TABLET BY l DAY DAY MOUTH Clinics EVERY DAY Lantus Lantus No Lantus [facility] Solostar Solostar Solostar Com remi U-100 U-100 U-100 ty Insulin 100 Insulin 100 Insulin [facility]osp[facility] unit/mL (3 unit/mL (3 100 l mL) mL) unit/mL (3 Clinics subcutaneou subcutaneou mL) s pen s pen subcutaneo INJECT 25 INJECT 25 us pen UNITS UNITS INJECT 25 SUBCUTANEOU SUBCUTANEOU UNITS SLY TWICE A SLY TWICE A SUBCUTANEO DAY DAY USLY TWICE A DAY lovastatin lovastatin No lovastatin [facility] 40 mg 40 mg 40 mg [facility] tablet TAKE tablet TAKE tablet ty 1 TABLET BY 1 TABLET BY TAKE 1 [facility]ospita MOUTH EVERY MOUTH EVERY TABLET BY l DAY WITH DAY WITH MOUTH Clinic s EVENING EVENING EVERY DAY MEAL.NOT MEAL.NOT WITH E E EVENING REFILLS REFILLS MEAL.NO TE REFILLS methocarbam methocarbam No methocarba [facility] ol 750 mg ol 750 mg mol 750 mg [facility] tablet TAKE tablet TAKE tablet ty 1 TABLET 1 TABLET TAKE 1 Hospi ta TWICE DAILY TWICE DAILY TABLET l NEEDED NEEDED TWICE Clin ics FOR BACK FOR BACK DAILY SPASMS SPASMS NEEDED FOR BACK SPASMS metoprolol metoprolol No metoprolol [facility] succinate succinate succinate [facility] ER 100 mg ER 100 mg ER 100 mg ty tablet,exte tablet,exte tablet,ext [facility]ospita nded nded ended l release 24 release 24 release 24 Clinics hr TAKE 1 hr TAKE 1 hr TAKE 1 TABLET BY TABLET BY TABLET BY MOUTH TWICE MOUTH TWICE MOUTH A DAY A DAY TWICE A DAY pantoprazol pantoprazol No pantoprazo [facility] e 40 mg e 40 mg le 40 mg Commu ni tablet,sophie tablet,sophie tablet,del ty yed release yed release ayed [facility] TAKE 1 TAKE 1 release l TABLET BY TABLET BY TAKE 1 Cli nics MOUTH EVERY MOUTH EVERY TABLET BY DAY DAY MOUTH EVERY DAY Restasis Restasis No Restasis Swe efrem 0.05 % eye 0.05 % eye 0.05 % eye [facility] drops in a drops in a drops in a ty dropperette dropperette dropperett [facility]osp[facility] INSTILL 1 INSTILL 1 e INSTILL l DROP INTO DROP INTO 1 DROP Cli nics BOTH EYES BOTH EYES INTO BOTH TWICE A DAY TWICE A DAY EYES TWICE A DAY Rocaltrol Rocaltrol No 1capsul Q1D Rocaltrol [facility] 0.5 mcg 0.5 mcg e(s) 0.5 mcg Commun i capsule capsule capsule ty Take 1 Take 1 Take 1 [facility]osp[facility] capsule capsule capsule l every day every day every day Clinics by oral by oral by oral route. route. route. Accu-Chek Accu-Chek No Accu-Chek [facility] Guide L1-L2 Guide L1-L2 Guide [facility] Control Control L1-L2 ty Solution Solution Control [facility] Solution l Clinics accu-chek accu-chek No accu-chek [facility] guide me guide me guide me Com remi w/device w/device w/device ty kit kit kit [facility]ospita l Clinics Accu-Chek Accu-Chek No Accu-Chek [facility] Guide test Guide test Guide test [facility] strips USE strips USE strips USE ty TO CHECK TO CHECK TO CHECK [facility] GLUCOSE GLUCOSE GLUCOSE l TWICE DAILY TWICE DAILY TWICE Clinics DAILY Accu-Chek Accu-Chek No Accu-Chek [facility] Softclix Softclix Softclix Com remi Lancets USE Lancets USE Lancets ty TO CHECK TO CHECK USE TO Hos[facility] ta GLUCOSE GLUCOSE CHECK l TWICE DAILY TWICE DAILY GLUCOSE Clinics TWICE DAILY acetaminoph acetaminoph No acetaminop [facility] en 300 en 300 hen 300 [facility] mg-codeine mg-codeine mg-codeine ty 30 mg 30 mg 30 mg [facility] tablet tablet tablet l Clinics amlodipine amlodipine No amlodipine [facility] 10 mg 10 mg 10 mg [facility] tablet TAKE tablet TAKE tablet ty 1 TABLET BY 1 TABLET BY TAKE 1 [facility]ita MOUTH EVERY MOUTH EVERY TABLET BY l DAY DAY MOUTH Clinics EVERY DAY Bactrim DS Bactrim DS No 1 Q12H Bactrim DS [facility] 800 mg-160 800 mg-160 800 mg-160 [facility] mg tablet mg tablet mg tablet ty Take 1 Take 1 Take 1 [facility]ospita tablet tablet tablet l every 12 every 12 every 12 Cli nics hours by hours by hours by oral route. oral route. oral route. calcitriol calcitriol No calcitriol [facility] 0.25 mcg 0.25 mcg 0.25 mcg Com remi capsule capsule capsule ty TAKE 2 TAKE 2 TAKE 2 [facility]ita CAPSULES BY CAPSULES BY CAPSULES l MOUTH EVERY MOUTH EVERY BY MOUTH Clinics DAY DAY EVERY DAY cholecalcif cholecalcif No cholecalci [facility] rajiv rajiv ferol [facility] (vitamin (vitamin (vitamin ty D3) 125 mcg D3) 125 mcg D3) 125 [facility] (5,000 (5,000 mcg (5,000 l unit) unit) unit) Clinics capsule capsule capsule TAKE 1 TAKE 1 TAKE 1 CAPSULE BY CAPSULE BY CAPSULE BY MOUTH EVERY MOUTH EVERY MOUTH DAY DAY EVERY DAY ciprofloxac ciprofloxac No ciprofloxa [facility] in 500 mg in 500 mg heron 500 mg [facility] tablet Take tablet Take tablet ty 1 tablet 1 tablet Take 1 Hos[facility] ta every 12 every 12 tablet l hours by hours by every 12 Cli nics oral route. oral route. hours by oral route. clopidogrel clopidogrel No clopidogre [facility] 75 mg 75 mg l 75 mg [facility] tablet TAKE tablet TAKE tablet ty 1 TABLET BY 1 TABLET BY TAKE 1 [facility] MOUTH EVERY MOUTH EVERY TABLET BY l DAY DAY MOUTH Clinics EVERY DAY doxazosin 4 doxazosin 4 No doxazosin [facility] mg tablet mg tablet 4 mg Commu ni TAKE 1 TAKE 1 tablet ty TABLET BY TABLET BY TAKE 1 [facility] MOUTH EVERY MOUTH EVERY TABLET BY l DAY DAY MOUTH Clinics EVERY DAY fluticasone fluticasone No fluticason [facility] propionate propionate e Com remi 50 50 propionate ty mcg/actuati mcg/actuati 50 [facility] on nasal on nasal mcg/actuat l spray,suspe spray,suspe ion nasal Clinics nsion nsion spray,susp INSTILL 2 INSTILL 2 ension SPRAYS IN SPRAYS IN INSTILL 2 EACH EACH SPRAYS IN NOSTRIL NOSTRIL EACH EVERY EVERY NOSTRIL MORNING MORNING EVERY MORNING furosemide furosemide No furosemide [facility] 40 mg 40 mg 40 mg [facility] tablet 1 PO tablet 1 PO tablet 1 ty qd qd PO qd [facility] l Clinics gabapentin gabapentin No gabapentin [facility] 300 mg 300 mg 300 mg [facility] capsule capsule capsule ty TAKE 1 TAKE 1 TAKE 1 [facility] CAPSULE BY CAPSULE BY CAPSULE BY l MOUTH TWICE MOUTH TWICE MOUTH Clinics A DAY A DAY TWICE A DAY glimepiride glimepiride No glimepirid [facility] 4 mg tablet 4 mg tablet e 4 mg [facility]i TAKE 1 TAKE 1 tablet ty TABLET BY TABLET BY TAKE 1 [facility] MOUTH TWICE MOUTH TWICE TABLET BY l A DAY A DAY MOUTH Clinics TWICE A DAY hydrochloro hydrochloro No hydrochlor [facility] thiazide 25 thiazide 25 othiazide [facility] mg tablet mg tablet 25 mg ty tablet [facility] l Clinics Jardiance Jardiance No Jardiance [facility] 25 mg 25 mg 25 mg [facility] tablet TAKE tablet TAKE tablet ty 1 TABLET BY 1 TABLET BY TAKE 1 [facility]osp[facility] MOUTH EVERY MOUTH EVERY TABLET BY l DAY DAY MOUTH Clinics EVERY DAY Lantus Lantus No Lantus [facility] Solostar Solostar Solostar Com remi U-100 U-100 U-100 ty Insulin 100 Insulin 100 Insulin [facility] unit/mL (3 unit/mL (3 100 l mL) mL) unit/mL (3 Clinics subcutaneou subcutaneou mL) s pen s pen subcutaneo INJECT 25 INJECT 25 us pen UNITS UNITS INJECT 25 SUBCUTANEOU SUBCUTANEOU UNITS SLY TWICE A SLY TWICE A SUBCUTANEO DAY DAY USLY TWICE A DAY lovastatin lovastatin No lovastatin [facility] 40 mg 40 mg 40 mg [facility] tablet TAKE tablet TAKE tablet ty 1 TABLET BY 1 TABLET BY TAKE 1 [facility]ospita MOUTH EVERY MOUTH EVERY TABLET BY l DAY WITH DAY WITH MOUTH Clinic s EVENING EVENING EVERY DAY MEAL.NOT MEAL.NOT WITH E E EVENING REFILLS REFILLS MEAL.NO TE REFILLS methocarbam methocarbam No methocarba [facility] ol 750 mg ol 750 mg mol 750 mg [facility] tablet TAKE tablet TAKE tablet ty 1 TABLET 1 TABLET TAKE 1 Hospi ta TWICE DAILY TWICE DAILY TABLET l NEEDED NEEDED TWICE Clin ics FOR BACK FOR BACK DAILY SPASMS SPASMS NEEDED FOR BACK SPASMS metoprolol metoprolol No metoprolol [facility] succinate succinate succinate [facility] ER 100 mg ER 100 mg ER 100 mg ty tablet,exte tablet,exte tablet,ext [facility]ospita nded nded ended l release 24 release 24 release 24 Clinics hr TAKE 1 hr TAKE 1 hr TAKE 1 TABLET BY TABLET BY TABLET BY MOUTH TWICE MOUTH TWICE MOUTH A DAY A DAY TWICE A DAY pantoprazol pantoprazol No pantoprazo [facility] e 40 mg e 40 mg le 40 mg Commu ni tablet,sophie tablet,sophie tablet,del ty yed release yed release ayed [facility] TAKE 1 TAKE 1 release l TABLET BY TABLET BY TAKE 1 Cli nics MOUTH EVERY MOUTH EVERY TABLET BY DAY DAY MOUTH EVERY DAY Restasis Restasis No Restasis Swe efrem 0.05 % eye 0.05 % eye 0.05 % eye [facility] drops in a drops in a drops in a ty dropperette dropperette dropperett [facility] INSTILL 1 INSTILL 1 e INSTILL l DROP INTO DROP INTO 1 DROP Cli nics BOTH EYES BOTH EYES INTO BOTH TWICE A DAY TWICE A DAY EYES TWICE A DAY Rocaltrol Rocaltrol No 1capsul Q1D Rocaltrol [facility] 0.5 mcg 0.5 mcg e(s) 0.5 mcg Commun i capsule capsule capsule ty Take 1 Take 1 Take 1 [facility] capsule capsule capsule l every day every day every day Clinics by oral by oral by oral route. route. route. Accu-Chek Accu-Chek No Accu-Chek [facility] Guide L1-L2 Guide L1-L2 Guide [facility] Control Control L1-L2 ty Solution Solution Control [facility] Solution l Clinics accu-chek accu-chek No accu-chek [facility] guide me guide me guide me Com remi w/device w/device w/device ty kit kit kit [facility]ospita l Clinics Accu-Chek Accu-Chek No Accu-Chek [facility] Guide test Guide test Guide test [facility] strips USE strips USE strips USE ty TO CHECK TO CHECK TO CHECK [facility] GLUCOSE GLUCOSE GLUCOSE l TWICE DAILY TWICE DAILY TWICE Clinics DAILY Accu-Chek Accu-Chek No Accu-Chek [facility] Softclix Softclix Softclix Com remi Lancets USE Lancets USE Lancets ty TO CHECK TO CHECK USE TO Hos[facility] ta GLUCOSE GLUCOSE CHECK l TWICE DAILY TWICE DAILY GLUCOSE Clinics TWICE DAILY amlodipine amlodipine No amlodipine [facility] 10 mg 10 mg 10 mg [facility] tablet TAKE tablet TAKE tablet ty 1 TABLET BY 1 TABLET BY TAKE 1 [facility] MOUTH EVERY MOUTH EVERY TABLET BY l DAY DAY MOUTH Clinics EVERY DAY calcitriol calcitriol No calcitriol [facility] 0.25 mcg 0.25 mcg 0.25 mcg Com remi capsule capsule capsule ty TAKE 2 TAKE 2 TAKE 2 [facility] CAPSULES BY CAPSULES BY CAPSULES l MOUTH EVERY MOUTH EVERY BY MOUTH Clinics DAY DAY EVERY DAY cholecalcif cholecalcif No cholecalci [facility] rajiv rajiv ferol [facility] (vitamin (vitamin (vitamin ty D3) 125 mcg D3) 125 mcg D3) 125 [facility] (5,000 (5,000 mcg (5,000 l unit) unit) unit) Clinics capsule capsule capsule TAKE 1 TAKE 1 TAKE 1 CAPSULE BY CAPSULE BY CAPSULE BY MOUTH EVERY MOUTH EVERY MOUTH DAY DAY EVERY DAY ciprofloxac ciprofloxac No ciprofloxa [facility] in 500 mg in 500 mg heron 500 mg [facility] tablet Take tablet Take tablet ty 1 tablet 1 tablet Take 1 [facility] ta every 12 every 12 tablet l hours by hours by every 12 Cli nics oral route. oral route. hours by oral route. clopidogrel clopidogrel No clopidogre [facility] 75 mg 75 mg l 75 mg [facility] tablet TAKE tablet TAKE tablet ty 1 TABLET BY 1 TABLET BY TAKE 1 [facility] MOUTH EVERY MOUTH EVERY TABLET BY l DAY DAY MOUTH Clinics EVERY DAY doxazosin 4 doxazosin 4 No doxazosin [facility] mg tablet mg tablet 4 mg Commu ni TAKE 1 TAKE 1 tablet ty TABLET BY TABLET BY TAKE 1 [facility] MOUTH EVERY MOUTH EVERY TABLET BY l DAY DAY MOUTH Clinics EVERY DAY fluticasone fluticasone No fluticason [facility] propionate propionate e Com remi 50 50 propionate ty mcg/actuati mcg/actuati 50 [facility] on nasal on nasal mcg/actuat l spray,suspe spray,suspe ion nasal Clinics nsion nsion spray,susp INSTILL 2 INSTILL 2 ension SPRAYS IN SPRAYS IN INSTILL 2 EACH EACH SPRAYS IN NOSTRIL NOSTRIL EACH EVERY EVERY NOSTRIL MORNING MORNING EVERY MORNING furosemide furosemide No furosemide [facility] 40 mg 40 mg 40 mg [facility] tablet 1 PO tablet 1 PO tablet 1 ty qd qd PO qd [facility] l Clinics gabapentin gabapentin No gabapentin [facility] 300 mg 300 mg 300 mg [facility] capsule capsule capsule ty TAKE 1 TAKE 1 TAKE 1 [facility] CAPSULE BY CAPSULE BY CAPSULE BY l MOUTH TWICE MOUTH TWICE MOUTH Clinics A DAY A DAY TWICE A DAY glimepiride glimepiride No glimepirid [facility] 4 mg tablet 4 mg tablet e 4 mg Communi TAKE 1 TAKE 1 tablet ty TABLET BY TABLET BY TAKE 1 [facility] MOUTH TWICE MOUTH TWICE TABLET BY l A DAY A DAY MOUTH Clinics TWICE A DAY hydrochloro hydrochloro No hydrochlor [facility] thiazide 25 thiazide 25 othiazide [facility] mg tablet mg tablet 25 mg ty tablet [facility] l Clinics Jardiance Jardiance No Jardiance [facility] 25 mg 25 mg 25 mg [facility] tablet TAKE tablet TAKE tablet ty 1 TABLET BY 1 TABLET BY TAKE 1 [facility] MOUTH EVERY MOUTH EVERY TABLET BY l DAY DAY MOUTH Clinics EVERY DAY Lantus Lantus No Lantus [facility] Solostar Solostar Solostar Com remi U-100 U-100 U-100 ty Insulin 100 Insulin 100 Insulin [facility] unit/mL (3 unit/mL (3 100 l mL) mL) unit/mL (3 Clinics subcutaneou subcutaneou mL) s pen s pen subcutaneo INJECT 25 INJECT 25 us pen UNITS UNITS INJECT 25 SUBCUTANEOU SUBCUTANEOU UNITS SLY TWICE A SLY TWICE A SUBCUTANEO DAY DAY USLY TWICE A DAY lovastatin lovastatin No lovastatin [facility] 40 mg 40 mg 40 mg [facility] tablet TAKE tablet TAKE tablet ty 1 TABLET BY 1 TABLET BY TAKE 1 [facility] MOUTH EVERY MOUTH EVERY TABLET BY l DAY WITH DAY WITH MOUTH Clinic s EVENING EVENING EVERY DAY MEAL.NOT MEAL.NOT WITH E E EVENING REFILLS REFILLS MEAL.NO TE REFILLS methocarbam methocarbam No methocarba [facility] ol 750 mg ol 750 mg mol 750 mg [facility] tablet TAKE tablet TAKE tablet ty 1 TABLET 1 TABLET TAKE 1 Hospi ta TWICE DAILY TWICE DAILY TABLET l NEEDED NEEDED TWICE Clin ics FOR BACK FOR BACK DAILY SPASMS SPASMS NEEDED FOR BACK SPASMS metoprolol metoprolol No metoprolol [facility] succinate succinate succinate [facility] ER 100 mg ER 100 mg ER 100 mg ty tablet,exte tablet,exte tablet,ext [facility]ospita nded nded ended l release 24 release 24 release 24 Clinics hr TAKE 1 hr TAKE 1 hr TAKE 1 TABLET BY TABLET BY TABLET BY MOUTH TWICE MOUTH TWICE MOUTH A DAY A DAY TWICE A DAY pantoprazol pantoprazol No pantoprazo [facility] e 40 mg e 40 mg le 40 mg Commu ni tablet,sophie tablet,sophie tablet,del ty yed release yed release ayed [facility] TAKE 1 TAKE 1 release l TABLET BY TABLET BY TAKE 1 Cli nics MOUTH EVERY MOUTH EVERY TABLET BY DAY DAY MOUTH EVERY DAY Restasis Restasis No Restasis Swe efrem 0.05 % eye 0.05 % eye 0.05 % eye [facility] drops in a drops in a drops in a ty dropperette dropperette dropperett [facility]osp[facility] INSTILL 1 INSTILL 1 e INSTILL l DROP INTO DROP INTO 1 DROP Cli nics BOTH EYES BOTH EYES INTO BOTH TWICE A DAY TWICE A DAY EYES TWICE A DAY Rocaltrol Rocaltrol No 1capsul Q1D Rocaltrol [facility] 0.5 mcg 0.5 mcg e(s) 0.5 mcg Commun i capsule capsule capsule ty Take 1 Take 1 Take 1 [facility] capsule capsule capsule l every day every day every day Clinics by oral by oral by oral route. route. route. sulfamethox sulfamethox No sulfametho [facility] azole 800 azole 800 xazole 800 [facility]i mg-trimetho mg-trimetho mg-trimeth ty prim 160 mg prim 160 mg oprim 160 [facility]osp[facility] tablet Take tablet Take mg tablet l 1 tablet 1 tablet Take 1 Clini cs every 12 every 12 tablet hours by hours by every 12 oral route. oral route. hours by oral route. Accu-Chek Accu-Chek No Accu-Chek [facility] Guide L1-L2 Guide L1-L2 Guide [facility] Control Control L1-L2 ty Solution Solution Control [facility] Solution l Clinics accu-chek accu-chek No accu-chek [facility] guide me guide me guide me Com remi w/device w/device w/device ty kit kit kit [facility]ospita l Clinics Accu-Chek Accu-Chek No Accu-Chek [facility] Guide test Guide test Guide test Communi strips USE strips USE strips USE ty TO CHECK TO CHECK TO CHECK [facility] GLUCOSE GLUCOSE GLUCOSE l TWICE DAILY TWICE DAILY TWICE Clinics DAILY Accu-Chek Accu-Chek No Accu-Chek [facility] Softclix Softclix Softclix Com remi Lancets USE Lancets USE Lancets ty TO CHECK TO CHECK USE TO Hos[facility] ta GLUCOSE GLUCOSE CHECK l TWICE DAILY TWICE DAILY GLUCOSE Clinics TWICE DAILY amlodipine amlodipine No amlodipine [facility] 10 mg 10 mg 10 mg [facility] tablet TAKE tablet TAKE tablet ty 1 TABLET BY 1 TABLET BY TAKE 1 [facility] MOUTH EVERY MOUTH EVERY TABLET BY l DAY DAY MOUTH Clinics EVERY DAY calcitriol calcitriol No calcitriol [facility] 0.25 mcg 0.25 mcg 0.25 mcg Com remi capsule capsule capsule ty TAKE 2 TAKE 2 TAKE 2 [facility] CAPSULES BY CAPSULES BY CAPSULES l MOUTH EVERY MOUTH EVERY BY MOUTH Clinics DAY DAY EVERY DAY cholecalcif cholecalcif No cholecalci [facility] rajiv rajiv ferol [facility] (vitamin (vitamin (vitamin ty D3) 125 mcg D3) 125 mcg D3) 125 [facility] (5,000 (5,000 mcg (5,000 l unit) unit) unit) Clinics capsule capsule capsule TAKE 1 TAKE 1 TAKE 1 CAPSULE BY CAPSULE BY CAPSULE BY MOUTH EVERY MOUTH EVERY MOUTH DAY DAY EVERY DAY ciprofloxac ciprofloxac No ciprofloxa [facility] in 500 mg in 500 mg heron 500 mg [facility] tablet Take tablet Take tablet ty 1 tablet 1 tablet Take 1 Hos[facility] ta every 12 every 12 tablet l hours by hours by every 12 Cli nics oral route. oral route. hours by oral route. clopidogrel clopidogrel No clopidogre [facility] 75 mg 75 mg l 75 mg [facility] tablet TAKE tablet TAKE tablet ty 1 TABLET BY 1 TABLET BY TAKE 1 [facility] MOUTH EVERY MOUTH EVERY TABLET BY l DAY DAY MOUTH Clinics EVERY DAY doxazosin 4 doxazosin 4 No doxazosin [facility] mg tablet mg tablet 4 mg Commu ni TAKE 1 TAKE 1 tablet ty TABLET BY TABLET BY TAKE 1 [facility] MOUTH EVERY MOUTH EVERY TABLET BY l DAY DAY MOUTH Clinics EVERY DAY fluticasone fluticasone No fluticason [facility] propionate propionate e Com remi 50 50 propionate ty mcg/actuati mcg/actuati 50 [facility] on nasal on nasal mcg/actuat l spray,suspe spray,suspe ion nasal Clinics nsion nsion spray,susp INSTILL 2 INSTILL 2 ension SPRAYS IN SPRAYS IN INSTILL 2 EACH EACH SPRAYS IN NOSTRIL NOSTRIL EACH EVERY EVERY NOSTRIL MORNING MORNING EVERY MORNING furosemide furosemide No furosemide [facility] 40 mg 40 mg 40 mg [facility] tablet TAKE tablet TAKE tablet ty 1 TABLET BY 1 TABLET BY TAKE 1 [facility] MOUTH EVERY MOUTH EVERY TABLET BY l DAY DAY MOUTH Clinics EVERY DAY gabapentin gabapentin No gabapentin [facility] 300 mg 300 mg 300 mg [facility] capsule capsule capsule ty TAKE 1 TAKE 1 TAKE 1 [facility] CAPSULE BY CAPSULE BY CAPSULE BY l MOUTH TWICE MOUTH TWICE MOUTH Clinics A DAY A DAY TWICE A DAY glimepiride glimepiride No glimepirid [facility] 4 mg tablet 4 mg tablet e 4 mg Communi TAKE 1 TAKE 1 tablet ty TABLET BY TABLET BY TAKE 1 [facility] MOUTH TWICE MOUTH TWICE TABLET BY l A DAY A DAY MOUTH Clinics TWICE A DAY hydrochloro hydrochloro No hydrochlor [facility] thiazide 25 thiazide 25 othiazide Communi mg tablet mg tablet 25 mg ty tablet [facility] Jardiance Jardiance No Jardiance [facility] 25 mg 25 mg 25 mg [facility] tablet TAKE tablet TAKE tablet ty 1 TABLET BY 1 TABLET BY TAKE 1 [facility]ospita MOUTH EVERY MOUTH EVERY TABLET BY l DAY DAY MOUTH Clinics EVERY DAY Lantus Lantus No Lantus [facility] Solostar Solostar Solostar Com remi U-100 U-100 U-100 ty Insulin 100 Insulin 100 Insulin [facility] unit/mL (3 unit/mL (3 100 l mL) mL) unit/mL (3 Clinics subcutaneou subcutaneou mL) s pen s pen subcutaneo INJECT 25 INJECT 25 us pen UNITS UNITS INJECT 25 SUBCUTANEOU SUBCUTANEOU UNITS SLY TWICE A SLY TWICE A SUBCUTANEO DAY DAY USLY TWICE A DAY lovastatin lovastatin No lovastatin [facility] 40 mg 40 mg 40 mg [facility] tablet TAKE tablet TAKE tablet ty 1 TABLET BY 1 TABLET BY TAKE 1 [facility]ospita MOUTH EVERY MOUTH EVERY TABLET BY l DAY WITH DAY WITH MOUTH Clinic s EVENING EVENING EVERY DAY MEAL.NOT MEAL.NOT WITH E E EVENING REFILLS REFILLS MEAL.NO TE REFILLS methocarbam methocarbam No methocarba [facility] ol 750 mg ol 750 mg mol 750 mg [facility] tablet TAKE tablet TAKE tablet ty 1 TABLET 1 TABLET TAKE 1 Hospi ta TWICE DAILY TWICE DAILY TABLET l NEEDED NEEDED TWICE Clin ics FOR BACK FOR BACK DAILY SPASMS SPASMS NEEDED FOR BACK SPASMS metoprolol metoprolol No metoprolol [facility] succinate succinate succinate [facility] ER 100 mg ER 100 mg ER 100 mg ty tablet,exte tablet,exte tablet,ext [facility]ospita nded nded ended l release 24 release 24 release 24 Clinics hr TAKE 1 hr TAKE 1 hr TAKE 1 TABLET BY TABLET BY TABLET BY MOUTH TWICE MOUTH TWICE MOUTH A DAY A DAY TWICE A DAY montelukast montelukast No montelukas [facility] 10 mg 10 mg t 10 mg [facility] tablet TAKE tablet TAKE tablet ty 1 TABLET BY 1 TABLET BY TAKE 1 [facility]ospita MOUTH EVERY MOUTH EVERY TABLET BY l DAY DAY MOUTH Clinics EVERY DAY pantoprazol pantoprazol No pantoprazo [facility] e 40 mg e 40 mg le 40 mg Commu ni tablet,sophie tablet,sophie tablet,del ty yed release yed release ayed [facility] TAKE 1 TAKE 1 release l TABLET BY TABLET BY TAKE 1 Cli nics MOUTH EVERY MOUTH EVERY TABLET BY DAY DAY MOUTH EVERY DAY Restasis Restasis No Restasis Swe efrem 0.05 % eye 0.05 % eye 0.05 % eye [facility] drops in a drops in a drops in a ty dropperette dropperette dropperett [facility]ospita INSTILL 1 INSTILL 1 e INSTILL l DROP INTO DROP INTO 1 DROP Cli nics BOTH EYES BOTH EYES INTO BOTH TWICE A DAY TWICE A DAY EYES TWICE A DAY Rocaltrol Rocaltrol No 1capsul Q1D Rocaltrol [facility] 0.5 mcg 0.5 mcg e(s) 0.5 mcg Commun i capsule capsule capsule ty Take 1 Take 1 Take 1 [facility]ospita capsule capsule capsule l every day every day every day Clinics by oral by oral by oral route. route. route. sulfamethox sulfamethox No sulfametho [facility] azole 800 azole 800 xazole 800 [facility] mg-trimetho mg-trimetho mg-trimeth ty prim 160 mg prim 160 mg oprim 160 [facility]ospita tablet Take tablet Take mg tablet l 1 tablet 1 tablet Take 1 Clini cs every 12 every 12 tablet hours by hours by every 12 oral route. oral route. hours by oral route. Accu-Chek Accu-Chek No Accu-Chek [facility] Guide L1-L2 Guide L1-L2 Guide [facility] Control Control L1-L2 ty Solution Solution Control [facility] prateek Solution l Clinics accu-chek accu-chek No accu-chek [facility] guide me guide me guide me Com remi w/device w/device w/device ty kit kit kit [facility]ospita [facility] Clinics Accu-Chek Accu-Chek No Accu-Chek [facility] Guide test Guide test Guide test [facility] strips USE strips USE strips USE ty TO CHECK TO CHECK TO CHECK [facility] GLUCOSE GLUCOSE GLUCOSE l TWICE DAILY TWICE DAILY TWICE Clinics DAILY Accu-Chek Accu-Chek No Accu-Chek [facility] Softclix Softclix Softclix Com remi Lancets USE Lancets USE Lancets ty TO CHECK TO CHECK USE TO Hos[facility] ta GLUCOSE GLUCOSE CHECK l TWICE DAILY TWICE DAILY GLUCOSE Clinics TWICE DAILY amlodipine amlodipine No amlodipine [facility] 10 mg 10 mg 10 mg [facility] tablet TAKE tablet TAKE tablet ty 1 TABLET BY 1 TABLET BY TAKE 1 [facility]ospita MOUTH EVERY MOUTH EVERY TABLET BY l DAY DAY MOUTH Clinics EVERY DAY calcitriol calcitriol No calcitriol [facility] 0.25 mcg 0.25 mcg 0.25 mcg Com remi capsule capsule capsule ty TAKE 2 TAKE 2 TAKE 2 [facility]ospita CAPSULES BY CAPSULES BY CAPSULES l MOUTH EVERY MOUTH EVERY BY MOUTH Clinics DAY DAY EVERY DAY cholecalcif cholecalcif No cholecalci [facility] rajiv rajiv ferol [facility] (vitamin (vitamin (vitamin ty D3) 125 mcg D3) 125 mcg D3) 125 [facility]ospita (5,000 (5,000 mcg (5,000 l unit) unit) unit) Clinics capsule capsule capsule TAKE 1 TAKE 1 TAKE 1 CAPSULE BY CAPSULE BY CAPSULE BY MOUTH EVERY MOUTH EVERY MOUTH DAY DAY EVERY DAY ciprofloxac ciprofloxac No ciprofloxa [facility] in 500 mg in 500 mg herno 500 mg [facility] tablet Take tablet Take tablet ty 1 tablet 1 tablet Take 1 Hospi ta every 12 every 12 tablet l hours by hours by every 12 Cli nics oral route. oral route. hours by oral route. clopidogrel clopidogrel No clopidogre [facility] 75 mg 75 mg l 75 mg [facility] tablet TAKE tablet TAKE tablet ty 1 TABLET BY 1 TABLET BY TAKE 1 [facility]ospita MOUTH EVERY MOUTH EVERY TABLET BY l DAY DAY MOUTH Clinics EVERY DAY doxazosin 4 doxazosin 4 No doxazosin [facility] mg tablet mg tablet 4 mg Commu ni TAKE 1 TAKE 1 tablet ty TABLET BY TABLET BY TAKE 1 [facility] MOUTH EVERY MOUTH EVERY TABLET BY l DAY DAY MOUTH Clinics EVERY DAY fluticasone fluticasone No fluticason [facility] propionate propionate e Com remi 50 50 propionate ty mcg/actuati mcg/actuati 50 [facility] on nasal on nasal mcg/actuat l spray,suspe spray,suspe ion nasal Clinics nsion nsion spray,susp INSTILL 2 INSTILL 2 ension SPRAYS IN SPRAYS IN INSTILL 2 EACH EACH SPRAYS IN NOSTRIL NOSTRIL EACH EVERY EVERY NOSTRIL MORNING MORNING EVERY MORNING furosemide furosemide No furosemide [facility] 40 mg 40 mg 40 mg [facility] tablet TAKE tablet TAKE tablet ty 1 TABLET BY 1 TABLET BY TAKE 1 [facility]ospita MOUTH EVERY MOUTH EVERY TABLET BY l DAY DAY MOUTH Clinics EVERY DAY gabapentin gabapentin No gabapentin [facility] 300 mg 300 mg 300 mg [facility] capsule capsule capsule ty TAKE 1 TAKE 1 TAKE 1 [facility]ospita CAPSULE BY CAPSULE BY CAPSULE BY l MOUTH TWICE MOUTH TWICE MOUTH Clinics A DAY A DAY TWICE A DAY glimepiride glimepiride No glimepirid [facility] 4 mg tablet 4 mg tablet e 4 mg Communi TAKE 1 TAKE 1 tablet ty TABLET BY TABLET BY TAKE 1 [facility] MOUTH TWICE MOUTH TWICE TABLET BY l A DAY A DAY MOUTH Clinics TWICE A DAY hydrochloro hydrochloro No hydrochlor [facility] thiazide 25 thiazide 25 othiazide Commun[facility] mg tablet mg tablet 25 mg ty tablet [facility] Jardiance Jardiance No Jardiance [facility] 25 mg 25 mg 25 mg [facility] tablet TAKE tablet TAKE tablet ty 1 TABLET BY 1 TABLET BY TAKE 1 [facility]ospita MOUTH EVERY MOUTH EVERY TABLET BY l DAY DAY MOUTH Clinics EVERY DAY Lantus Lantus No Lantus [facility] Solostar Solostar Solostar Com remi U-100 U-100 U-100 ty Insulin 100 Insulin 100 Insulin [facility] unit/mL (3 unit/mL (3 100 l mL) mL) unit/mL (3 Clinics subcutaneou subcutaneou mL) s pen s pen subcutaneo INJECT 25 INJECT 25 us pen UNITS UNITS INJECT 25 SUBCUTANEOU SUBCUTANEOU UNITS SLY TWICE A SLY TWICE A SUBCUTANEO DAY DAY USLY TWICE A DAY lovastatin lovastatin No lovastatin [facility] 40 mg 40 mg 40 mg [facility] tablet TAKE tablet TAKE tablet ty 1 TABLET BY 1 TABLET BY TAKE 1 [facility]osp[facility] MOUTH EVERY MOUTH EVERY TABLET BY l DAY WITH DAY WITH MOUTH Clinic s EVENING EVENING EVERY DAY MEAL.NOT MEAL.NOT WITH E E EVENING REFILLS REFILLS MEAL.NO TE REFILLS methocarbam methocarbam No methocarba [facility] ol 750 mg ol 750 mg mol 750 mg [facility] tablet TAKE tablet TAKE tablet ty 1 TABLET 1 TABLET TAKE 1 Hospi ta TWICE DAILY TWICE DAILY TABLET l NEEDED NEEDED TWICE Clin ics FOR BACK FOR BACK DAILY SPASMS SPASMS NEEDED FOR BACK SPASMS metoprolol metoprolol No metoprolol [facility] succinate succinate succinate [facility] ER 100 mg ER 100 mg ER 100 mg ty tablet,exte tablet,exte tablet,ext [facility]ospita nded nded ended l release 24 release 24 release 24 Clinics hr TAKE 1 hr TAKE 1 hr TAKE 1 TABLET BY TABLET BY TABLET BY MOUTH TWICE MOUTH TWICE MOUTH A DAY A DAY TWICE A DAY montelukast montelukast No montelukas [facility] 10 mg 10 mg t 10 mg [facility] tablet TAKE tablet TAKE tablet ty 1 TABLET BY 1 TABLET BY TAKE 1 [facility] MOUTH EVERY MOUTH EVERY TABLET BY l DAY DAY MOUTH Clinics EVERY DAY pantoprazol pantoprazol No pantoprazo [facility] e 40 mg e 40 mg le 40 mg Commu ni tablet,sophie tablet,sophie tablet,del ty yed release yed release ayed [facility] TAKE 1 TAKE 1 release l TABLET BY TABLET BY TAKE 1 Cli nics MOUTH EVERY MOUTH EVERY TABLET BY DAY DAY MOUTH EVERY DAY Restasis Restasis No Restasis Swe efrem 0.05 % eye 0.05 % eye 0.05 % eye [facility] drops in a drops in a drops in a ty dropperette dropperette dropperett [facility]osp[facility] INSTILL 1 INSTILL 1 e INSTILL l DROP INTO DROP INTO 1 DROP Cli nics BOTH EYES BOTH EYES INTO BOTH TWICE A DAY TWICE A DAY EYES TWICE A DAY Rocaltrol Rocaltrol No 1capsul Q1D Rocaltrol [facility] 0.5 mcg 0.5 mcg e(s) 0.5 mcg Commun i capsule capsule capsule ty Take 1 Take 1 Take 1 [facility]osp[facility] capsule capsule capsule l every day every day every day Clinics by oral by oral by oral route. route. route. sulfamethox sulfamethox No sulfametho [facility] azole 800 azole 800 xazole 800 [facility] mg-trimetho mg-trimetho mg-trimeth ty prim 160 mg prim 160 mg oprim 160 [facility] tablet Take tablet Take mg tablet l 1 tablet 1 tablet Take 1 Clini cs every 12 every 12 tablet hours by hours by every 12 oral route. oral route. hours by oral route. Accu-Chek Accu-Chek No Accu-Chek [facility] Guide L1-L2 Guide L1-L2 Guide [facility] Control Control L1-L2 ty Solution Solution Control [facility] prateek Solution l Clinics accu-chek accu-chek No accu-chek [facility] guide me guide me guide me Com remi w/device w/device w/device ty kit kit kit [facility]osp[facility] Clinics Accu-Chek Accu-Chek No Accu-Chek [facility] Guide test Guide test Guide test [facility] strips USE strips USE strips USE ty TO CHECK TO CHECK TO CHECK [facility] GLUCOSE GLUCOSE GLUCOSE l TWICE DAILY TWICE DAILY TWICE Clinics DAILY Accu-Chek Accu-Chek No Accu-Chek [facility] Softclix Softclix Softclix Com remi Lancets USE Lancets USE Lancets ty TO CHECK TO CHECK USE TO Hospi ta GLUCOSE GLUCOSE CHECK l TWICE DAILY TWICE DAILY GLUCOSE Clinics TWICE DAILY acetaminoph acetaminoph No 1 TID acetaminop [facility] en 300 en 300 hen 300 [facility] mg-codeine mg-codeine mg-codeine ty 30 mg 30 mg 30 mg [facility]osp[facility] tablet Take tablet Take tablet l 1 tablet 3 1 tablet 3 Take 1 C linics times a day times a day tablet 3 by oral by oral times a route as route as day by needed. needed. oral route as needed. amlodipine amlodipine No amlodipine [facility] 10 mg 10 mg 10 mg [facility] tablet TAKE tablet TAKE tablet ty 1 TABLET BY 1 TABLET BY TAKE 1 [facility] MOUTH EVERY MOUTH EVERY TABLET BY l DAY DAY MOUTH Clinics EVERY DAY calcitriol calcitriol No calcitriol [facility] 0.25 mcg 0.25 mcg 0.25 mcg Com remi capsule capsule capsule ty TAKE 2 TAKE 2 TAKE 2 [facility] CAPSULES BY CAPSULES BY CAPSULES l MOUTH EVERY MOUTH EVERY BY MOUTH Clinics DAY DAY EVERY DAY cholecalcif cholecalcif No cholecalci [facility] rajiv rajiv ferol [facility] (vitamin (vitamin (vitamin ty D3) 125 mcg D3) 125 mcg D3) 125 [facility] (5,000 (5,000 mcg (5,000 l unit) unit) unit) Clinics capsule capsule capsule TAKE 1 TAKE 1 TAKE 1 CAPSULE BY CAPSULE BY CAPSULE BY MOUTH EVERY MOUTH EVERY MOUTH DAY DAY EVERY DAY clopidogrel clopidogrel No clopidogre [facility] 75 mg 75 mg l 75 mg [facility] tablet TAKE tablet TAKE tablet ty 1 TABLET BY 1 TABLET BY TAKE 1 [facility] MOUTH EVERY MOUTH EVERY TABLET BY l DAY DAY MOUTH Clinics EVERY DAY doxazosin 4 doxazosin 4 No doxazosin [facility] mg tablet mg tablet 4 mg Commu ni TAKE 1 TAKE 1 tablet ty TABLET BY TABLET BY TAKE 1 [facility] MOUTH EVERY MOUTH EVERY TABLET BY l DAY DAY MOUTH Clinics EVERY DAY fluorouraci fluorouraci No fluorourac [facility] l 5 % l 5 % il 5 % [facility] topical topical topical ty cream APPLY cream APPLY cream [facility] TO AFFECTED TO AFFECTED APPLY TO l AREAS OF AREAS OF AFFECTED Cli nics SCALP/FOREA SCALP/FOREA AREAS OF [place]STINA TWICE CHRISTINA TWICE SCALP/FORE DAILY FOR DAILY FOR ARMS TWICE TWO WEEKS. TWO WEEKS. DAILY FOR TWO WEEKS. fluticasone fluticasone No fluticason [facility] propionate propionate e Com remi 50 50 propionate ty mcg/actuati mcg/actuati 50 [facility] on nasal on nasal mcg/actuat l spray,suspe spray,suspe ion nasal Clinics nsion nsion spray,susp INSTILL 2 INSTILL 2 ension SPRAYS IN SPRAYS IN INSTILL 2 EACH EACH SPRAYS IN NOSTRIL NOSTRIL EACH EVERY EVERY NOSTRIL MORNING MORNING EVERY MORNING furosemide furosemide No furosemide [facility] 40 mg 40 mg 40 mg [facility] tablet TAKE tablet TAKE tablet ty 1 TABLET BY 1 TABLET BY TAKE 1 [facility]osp[facility] MOUTH EVERY MOUTH EVERY TABLET BY l DAY DAY MOUTH Clinics EVERY DAY gabapentin gabapentin No gabapentin [facility] 300 mg 300 mg 300 mg [facility] capsule capsule capsule ty TAKE 1 TAKE 1 TAKE 1 [facility] CAPSULE BY CAPSULE BY CAPSULE BY l MOUTH TWICE MOUTH TWICE MOUTH Clinics A DAY A DAY TWICE A DAY glimepiride glimepiride No glimepirid [facility] 4 mg tablet 4 mg tablet e 4 mg Communi TAKE 1 TAKE 1 tablet ty TABLET BY TABLET BY TAKE 1 [facility] MOUTH TWICE MOUTH TWICE TABLET BY l A DAY A DAY MOUTH Clinics TWICE A DAY hydrochloro hydrochloro No hydrochlor [facility] thiazide 25 thiazide 25 othiazide Commun[facility] mg tablet mg tablet 25 mg ty tablet [facility] l [facility]ics Jardiance Jardiance No Jardiance [facility] 25 mg 25 mg 25 mg [facility] tablet TAKE tablet TAKE tablet ty 1 TABLET BY 1 TABLET BY TAKE 1 [facility]osp[facility] MOUTH EVERY MOUTH EVERY TABLET BY l DAY DAY MOUTH Clinics EVERY DAY Lantus Lantus No Lantus [facility] Solostar Solostar Solostar Com remi U-100 U-100 U-100 ty Insulin 100 Insulin 100 Insulin [facility] unit/mL (3 unit/mL (3 100 l mL) mL) unit/mL (3 Clinics subcutaneou subcutaneou mL) s pen s pen subcutaneo INJECT 25 INJECT 25 us pen UNITS UNITS INJECT 25 SUBCUTANEOU SUBCUTANEOU UNITS SLY TWICE A SLY TWICE A SUBCUTANEO DAY DAY USLY TWICE A DAY lovastatin lovastatin No lovastatin [facility] 40 mg 40 mg 40 mg [facility] tablet TAKE tablet TAKE tablet ty 1 TABLET BY 1 TABLET BY TAKE 1 [facility] MOUTH EVERY MOUTH EVERY TABLET BY l DAY WITH DAY WITH MOUTH Clinic s EVENING EVENING EVERY DAY MEAL.NOT MEAL.NOT WITH E E EVENING REFILLS REFILLS MEAL.NO TE REFILLS methocarbam methocarbam No methocarba [facility] ol 750 mg ol 750 mg mol 750 mg [facility] tablet TAKE tablet TAKE tablet ty 1 TABLET 1 TABLET TAKE 1 Hospi ta TWICE DAILY TWICE DAILY TABLET l NEEDED NEEDED TWICE Clin ics FOR BACK FOR BACK DAILY SPASMS SPASMS NEEDED FOR BACK SPASMS metoprolol metoprolol No metoprolol [facility] succinate succinate succinate [facility] ER 100 mg ER 100 mg ER 100 mg ty tablet,exte tablet,exte tablet,ext [facility]ospita nded nded ended l release 24 release 24 release 24 Clinics hr TAKE 1 hr TAKE 1 hr TAKE 1 TABLET BY TABLET BY TABLET BY MOUTH TWICE MOUTH TWICE MOUTH A DAY A DAY TWICE A DAY montelukast montelukast No montelukas [facility] 10 mg 10 mg t 10 mg [facility] tablet TAKE tablet TAKE tablet ty 1 TABLET BY 1 TABLET BY TAKE 1 [facility] MOUTH EVERY MOUTH EVERY TABLET BY l DAY DAY MOUTH Clinics EVERY DAY pantoprazol pantoprazol No pantoprazo [facility] e 40 mg e 40 mg le 40 mg Commu ni tablet,sophie tablet,sophie tablet,del ty yed release yed release ayed [facility] TAKE 1 TAKE 1 release l TABLET BY TABLET BY TAKE 1 Cli nics MOUTH EVERY MOUTH EVERY TABLET BY DAY DAY MOUTH EVERY DAY Restasis Restasis No Restasis Swe efrem 0.05 % eye 0.05 % eye 0.05 % eye [facility] drops in a drops in a drops in a ty dropperette dropperette dropperett [facility]osp[facility] INSTILL 1 INSTILL 1 e INSTILL l DROP INTO DROP INTO 1 DROP Cli nics BOTH EYES BOTH EYES INTO BOTH TWICE A DAY TWICE A DAY EYES TWICE A DAY Rocaltrol Rocaltrol No 1capsul Q1D Rocaltrol [facility] 0.5 mcg 0.5 mcg e(s) 0.5 mcg Commun i capsule capsule capsule ty Take 1 Take 1 Take 1 [facility] capsule capsule capsule l every day every day every day Clinics by oral by oral by oral route. route. route. Accu-Chek Accu-Chek No Accu-Chek [facility] Guide L1-L2 Guide L1-L2 Guide Communi Control Control L1-L2 ty Solution Solution Control [facility] prateke Solution l Clinics accu-chek accu-chek No accu-chek [facility] guide me guide me guide me Com remi w/device w/device w/device ty kit kit kit [facility]ospita l Clinics Accu-Chek Accu-Chek No Accu-Chek [facility] Guide test Guide test Guide test Communi strips USE strips USE strips USE ty TO CHECK TO CHECK TO CHECK [facility] GLUCOSE GLUCOSE GLUCOSE l TWICE DAILY TWICE DAILY TWICE Clinics DAILY Accu-Chek Accu-Chek No Accu-Chek [facility] Softclix Softclix Softclix Com remi Lancets USE Lancets USE Lancets ty TO CHECK TO CHECK USE TO Hos[facility] ta GLUCOSE GLUCOSE CHECK l TWICE DAILY TWICE DAILY GLUCOSE Clinics TWICE DAILY acetaminoph acetaminoph No acetaminop [facility] en 300 en 300 hen 300 [facility] mg-codeine mg-codeine mg-codeine ty 30 mg 30 mg 30 mg [facility]osp[facility] tablet Take tablet Take tablet l 1 tablet 3 1 tablet 3 Take 1 C linics times a day times a day tablet 3 by oral by oral times a route as route as day by needed. needed. oral route as needed. amlodipine amlodipine No amlodipine [facility] 10 mg 10 mg 10 mg [facility] tablet TAKE tablet TAKE tablet ty 1 TABLET BY 1 TABLET BY TAKE 1 [facility] MOUTH EVERY MOUTH EVERY TABLET BY l DAY DAY MOUTH Clinics EVERY DAY BD BD No BD [facility] Ultra-Fine Ultra-Fine Ultra-Fine [facility] Mini Pen Mini Pen Mini Pen ty Needle 31 Needle 31 Needle 31 [facility]osp[facility] gauge x gauge x gauge x l 3/16" USE 3/16" USE 316" USE Clinics DIRECTED. DIRECTED. DIRECTED. FOR USE FOR USE FOR USE WITH LANTUS WITH LANTUS WITH SOLOSTAR SOLOSTAR LANTUS U-100 U-100 SOLOSTAR INSULIN INSULIN U-100 UNDER THE UNDER THE INSULIN SKIN PEN SKIN PEN UNDER THE SKIN PEN calcitriol calcitriol No calcitriol [facility] 0.25 mcg 0.25 mcg 0.25 mcg Com remi capsule capsule capsule ty TAKE 2 TAKE 2 TAKE 2 [facility] CAPSULES BY CAPSULES BY CAPSULES l MOUTH EVERY MOUTH EVERY BY MOUTH Clinics DAY DAY EVERY DAY cholecalcif cholecalcif No cholecalci [facility] rajiv rajvi ferol [facility]i (vitamin (vitamin (vitamin ty D3) 125 mcg D3) 125 mcg D3) 125 [facility] (5,000 (5,000 mcg (5,000 l unit) unit) unit) Clinics capsule capsule capsule TAKE 1 TAKE 1 TAKE 1 CAPSULE BY CAPSULE BY CAPSULE BY MOUTH EVERY MOUTH EVERY MOUTH DAY DAY EVERY DAY clopidogrel clopidogrel No clopidogre [facility] 75 mg 75 mg l 75 mg [facility] tablet TAKE tablet TAKE tablet ty 1 TABLET BY 1 TABLET BY TAKE 1 [facility] MOUTH EVERY MOUTH EVERY TABLET BY l DAY DAY MOUTH Clinics EVERY DAY doxazosin 4 doxazosin 4 No doxazosin [facility] mg tablet mg tablet 4 mg Commu ni TAKE 1 TAKE 1 tablet ty TABLET BY TABLET BY TAKE 1 [facility] MOUTH EVERY MOUTH EVERY TABLET BY l DAY DAY MOUTH Clinics EVERY DAY fluticasone fluticasone No fluticason [facility] propionate propionate e Com remi 50 50 propionate ty mcg/actuati mcg/actuati 50 [facility] on nasal on nasal mcg/actuat l spray,suspe spray,suspe ion nasal Clinics nsion nsion spray,susp INSTILL 2 INSTILL 2 ension SPRAYS IN SPRAYS IN INSTILL 2 EACH EACH SPRAYS IN NOSTRIL NOSTRIL EACH EVERY EVERY NOSTRIL MORNING MORNING EVERY MORNING furosemide furosemide No furosemide [facility] 40 mg 40 mg 40 mg [facility] tablet TAKE tablet TAKE tablet ty 1 TABLET BY 1 TABLET BY TAKE 1 [facility] MOUTH EVERY MOUTH EVERY TABLET BY l DAY DAY MOUTH Clinics EVERY DAY gabapentin gabapentin No gabapentin [facility] 300 mg 300 mg 300 mg [facility] capsule capsule capsule ty TAKE 1 TAKE 1 TAKE 1 [facility] CAPSULE BY CAPSULE BY CAPSULE BY l MOUTH TWICE MOUTH TWICE MOUTH Clinics A DAY A DAY TWICE A DAY glimepiride glimepiride No glimepirid [facility] 4 mg tablet 4 mg tablet e 4 mg Communi TAKE 1 TAKE 1 tablet ty TABLET BY TABLET BY TAKE 1 [facility] MOUTH TWICE MOUTH TWICE TABLET BY l A DAY A DAY MOUTH Clinics TWICE A DAY Jardiance Jardiance No Jardiance [facility] 25 mg 25 mg 25 mg [facility] tablet TAKE tablet TAKE tablet ty 1 TABLET BY 1 TABLET BY TAKE 1 [facility] MOUTH EVERY MOUTH EVERY TABLET BY l DAY DAY MOUTH Clinics EVERY DAY Lantus Lantus No Lantus [facility] Solostar Solostar Solostar Com remi U-100 U-100 U-100 ty Insulin 100 Insulin 100 Insulin [facility] unit/mL (3 unit/mL (3 100 l mL) mL) unit/mL (3 Clinics subcutaneou subcutaneou mL) s pen s pen subcutaneo INJECT 25 INJECT 25 us pen UNITS UNITS INJECT 25 SUBCUTANEOU SUBCUTANEOU UNITS SLY TWICE A SLY TWICE A SUBCUTANEO DAY DAY USLY TWICE A DAY lovastatin lovastatin No lovastatin [facility] 40 mg 40 mg 40 mg [facility] tablet TAKE tablet TAKE tablet ty 1 TABLET BY 1 TABLET BY TAKE 1 [facility] MOUTH EVERY MOUTH EVERY TABLET BY l DAY WITH DAY WITH MOUTH Clinic s EVENING EVENING EVERY DAY MEAL.NOT MEAL.NOT WITH E E EVENING REFILLS REFILLS MEAL.NO TE REFILLS methocarbam methocarbam No methocarba [facility] ol 750 mg ol 750 mg mol 750 mg [facility] tablet TAKE tablet TAKE tablet ty 1 TABLET 1 TABLET TAKE 1 Hospi ta TWICE DAILY TWICE DAILY TABLET l NEEDED NEEDED TWICE Clin ics FOR BACK FOR BACK DAILY SPASMS SPASMS NEEDED FOR BACK SPASMS metoprolol metoprolol No metoprolol [facility] succinate succinate succinate Commun[facility] ER 100 mg ER 100 mg ER 100 mg ty tablet,exte tablet,exte tablet,ext [facility]ospita nded nded ended l release 24 release 24 release 24 Clinics hr TAKE 1 hr TAKE 1 hr TAKE 1 TABLET BY TABLET BY TABLET BY MOUTH TWICE MOUTH TWICE MOUTH A DAY A DAY TWICE A DAY montelukast montelukast No montelukas [facility] 10 mg 10 mg t 10 mg [facility]i tablet TAKE tablet TAKE tablet ty 1 TABLET BY 1 TABLET BY TAKE 1 [facility] MOUTH EVERY MOUTH EVERY TABLET BY l DAY DAY MOUTH Clinics EVERY DAY pantoprazol pantoprazol No pantoprazo [facility] e 40 mg e 40 mg le 40 mg Commu ni tablet,sophie tablet,sophie tablet,del ty yed release yed release ayed [facility] TAKE 1 TAKE 1 release l TABLET BY TABLET BY TAKE 1 Cli nics MOUTH EVERY MOUTH EVERY TABLET BY DAY DAY MOUTH EVERY DAY Restasis Restasis No Restasis Swe efrem 0.05 % eye 0.05 % eye 0.05 % eye [facility] drops in a drops in a drops in a ty dropperette dropperette dropperett [facility]ospita INSTILL 1 INSTILL 1 e INSTILL l DROP INTO DROP INTO 1 DROP Cli nics BOTH EYES BOTH EYES INTO BOTH TWICE A DAY TWICE A DAY EYES TWICE A DAY Accu-Chek Accu-Chek No Accu-Chek [facility] Guide L1-L2 Guide L1-L2 Guide Communi Control Control L1-L2 ty Solution Solution Control [facility] prateek Solution l Clinics accu-chek accu-chek No accu-chek [facility] guide me guide me guide me Com remi w/device w/device w/device ty kit kit kit [facility]ospita l Clinics Accu-Chek Accu-Chek No Accu-Chek [facility] Guide test Guide test Guide test Communi strips USE strips USE strips USE ty TO CHECK TO CHECK TO CHECK [facility] GLUCOSE GLUCOSE GLUCOSE l TWICE DAILY TWICE DAILY TWICE Clinics DAILY Accu-Chek Accu-Chek No Accu-Chek [facility] Softclix Softclix Softclix Com remi Lancets USE Lancets USE Lancets ty TO CHECK TO CHECK USE TO Hospi ta GLUCOSE GLUCOSE CHECK l TWICE DAILY TWICE DAILY GLUCOSE Clinics TWICE DAILY acetaminoph acetaminoph No acetaminop [facility] en 300 en 300 hen 300 [facility]i mg-codeine mg-codeine mg-codeine ty 30 mg 30 mg 30 mg [facility]osp[facility] tablet Take tablet Take tablet l 1 tablet 3 1 tablet 3 Take 1 C linics times a day times a day tablet 3 by oral by oral times a route as route as day by needed. needed. oral route as needed. amlodipine amlodipine No amlodipine [facility] 10 mg 10 mg 10 mg [facility] tablet TAKE tablet TAKE tablet ty 1 TABLET BY 1 TABLET BY TAKE 1 [facility] MOUTH EVERY MOUTH EVERY TABLET BY l DAY DAY MOUTH Clinics EVERY DAY BD BD No BD [facility] Ultra-Fine Ultra-Fine Ultra-Fine [facility] Mini Pen Mini Pen Mini Pen ty Needle 31 Needle 31 Needle 31 [facility]osp[facility] gauge x gauge x gauge x l 12/09" USE 12/09" USE 12/09" USE Clinics DIRECTED. DIRECTED. DIRECTED. FOR USE FOR USE FOR USE WITH LANTUS WITH LANTUS WITH SOLOSTAR SOLOSTAR LANTUS U-100 U-100 SOLOSTAR INSULIN INSULIN U-100 UNDER THE UNDER THE INSULIN SKIN PEN SKIN PEN UNDER THE SKIN PEN calcitriol calcitriol No calcitriol [facility] 0.25 mcg 0.25 mcg 0.25 mcg Com remi capsule capsule capsule ty TAKE 2 TAKE 2 TAKE 2 [facility] CAPSULES BY CAPSULES BY CAPSULES l MOUTH EVERY MOUTH EVERY BY MOUTH Clinics DAY DAY EVERY DAY cholecalcif cholecalcif No cholecalci [facility] rajiv lawrence Anatoliy (vitamin (vitamin (vitamin ty D3) 125 mcg D3) 125 mcg D3) 125 [facility] (5,000 (5,000 mcg (5,000 l unit) unit) unit) Clinics capsule capsule capsule TAKE 1 TAKE 1 TAKE 1 CAPSULE BY CAPSULE BY CAPSULE BY MOUTH EVERY MOUTH EVERY MOUTH DAY DAY EVERY DAY clopidogrel clopidogrel No clopidogre [facility] 75 mg 75 mg l 75 mg [facility]i tablet TAKE tablet TAKE tablet ty 1 TABLET BY 1 TABLET BY TAKE 1 [facility] MOUTH EVERY MOUTH EVERY TABLET BY l DAY DAY MOUTH Clinics EVERY DAY doxazosin 4 doxazosin 4 No doxazosin [facility] mg tablet mg tablet 4 mg Commu ni TAKE 1 TAKE 1 tablet ty TABLET BY TABLET BY TAKE 1 [facility] MOUTH EVERY MOUTH EVERY TABLET BY l DAY DAY MOUTH Clinics EVERY DAY fluticasone fluticasone No fluticason [facility] propionate propionate e Com remi 50 50 propionate ty mcg/actuati mcg/actuati 50 [facility] on nasal on nasal mcg/actuat l spray,suspe spray,suspe ion nasal Clinics nsion nsion spray,susp INSTILL 2 INSTILL 2 ension SPRAYS IN SPRAYS IN INSTILL 2 EACH EACH SPRAYS IN NOSTRIL NOSTRIL EACH EVERY EVERY NOSTRIL MORNING MORNING EVERY MORNING furosemide furosemide No furosemide [facility] 40 mg 40 mg 40 mg [facility] tablet TAKE tablet TAKE tablet ty 1 TABLET BY 1 TABLET BY TAKE 1 [facility] MOUTH EVERY MOUTH EVERY TABLET BY l DAY DAY MOUTH Clinics EVERY DAY gabapentin gabapentin No gabapentin [facility] 300 mg 300 mg 300 mg [facility] capsule capsule capsule ty TAKE 1 TAKE 1 TAKE 1 [facility]ospita CAPSULE BY CAPSULE BY CAPSULE BY l MOUTH TWICE MOUTH TWICE MOUTH Clinics A DAY A DAY TWICE A DAY glimepiride glimepiride No glimepirid [facility] 4 mg tablet 4 mg tablet e 4 mg [facility]i TAKE 1 TAKE 1 tablet ty TABLET BY TABLET BY TAKE 1 [facility] MOUTH TWICE MOUTH TWICE TABLET BY l A DAY A DAY MOUTH Clinics TWICE A DAY Jardiance Jardiance No Jardiance [facility] 25 mg 25 mg 25 mg [facility] tablet TAKE tablet TAKE tablet ty 1 TABLET BY 1 TABLET BY TAKE 1 [facility]ospita MOUTH EVERY MOUTH EVERY TABLET BY l DAY DAY MOUTH Clinics EVERY DAY Lantus Lantus No Lantus [facility] Solostar Solostar Solostar Com remi U-100 U-100 U-100 ty Insulin 100 Insulin 100 Insulin [facility]osp[facility] unit/mL (3 unit/mL (3 100 l mL) mL) unit/mL (3 Clinics subcutaneou subcutaneou mL) s pen s pen subcutaneo INJECT 25 INJECT 25 us pen UNITS UNITS INJECT 25 SUBCUTANEOU SUBCUTANEOU UNITS SLY TWICE A SLY TWICE A SUBCUTANEO DAY DAY USLY TWICE A DAY lovastatin lovastatin No lovastatin [facility] 40 mg 40 mg 40 mg [facility] tablet TAKE tablet TAKE tablet ty 1 TABLET BY 1 TABLET BY TAKE 1 [facility]ospita MOUTH EVERY MOUTH EVERY TABLET BY l DAY WITH DAY WITH MOUTH Clinic s EVENING EVENING EVERY DAY MEAL.NOT MEAL.NOT WITH E E EVENING REFILLS REFILLS MEAL.NO TE REFILLS methocarbam methocarbam No methocarba [facility] ol 750 mg ol 750 mg mol 750 mg [facility] tablet TAKE tablet TAKE tablet ty 1 TABLET 1 TABLET TAKE 1 Hospi ta TWICE DAILY TWICE DAILY TABLET l NEEDED NEEDED TWICE Clin ics FOR BACK FOR BACK DAILY SPASMS SPASMS NEEDED FOR BACK SPASMS metoprolol metoprolol No metoprolol [facility] succinate succinate succinate [facility] ER 100 mg ER 100 mg ER 100 mg ty tablet,exte tablet,exte tablet,ext [facility]ospita nded nded ended l release 24 release 24 release 24 Clinics hr TAKE 1 hr TAKE 1 hr TAKE 1 TABLET BY TABLET BY TABLET BY MOUTH TWICE MOUTH TWICE MOUTH A DAY A DAY TWICE A DAY montelukast montelukast No montelukas [facility] 10 mg 10 mg t 10 mg [facility] tablet TAKE tablet TAKE tablet ty 1 TABLET BY 1 TABLET BY TAKE 1 [facility]ospita MOUTH EVERY MOUTH EVERY TABLET BY l DAY DAY MOUTH Clinics EVERY DAY pantoprazol pantoprazol No pantoprazo [facility] e 40 mg e 40 mg le 40 mg Commu ni tablet,sophie tablet,sophie tablet,del ty yed release yed release ayed [facility] TAKE 1 TAKE 1 release l TABLET BY TABLET BY TAKE 1 Cli nics MOUTH EVERY MOUTH EVERY TABLET BY DAY DAY MOUTH EVERY DAY Restasis Restasis No Restasis Swe efrem 0.05 % eye 0.05 % eye 0.05 % eye [facility] drops in a drops in a drops in a ty dropperette dropperette dropperett [facility]ospita INSTILL 1 INSTILL 1 e INSTILL l DROP INTO DROP INTO 1 DROP Cli nics BOTH EYES BOTH EYES INTO BOTH TWICE A DAY TWICE A DAY EYES TWICE A DAY Accu-Chek Accu-Chek No Accu-Chek [facility] Guide L1-L2 Guide L1-L2 Guide [facility] Control Control L1-L2 ty Solution Solution Control [facility]osp prateek Solution l Clinics accu-chek accu-chek No accu-chek [facility] guide me guide me guide me Com remi w/device w/device w/device ty kit kit kit Hospita l Clinics Accu-Chek Accu-Chek No Accu-Chek [facility] Guide test Guide test Guide test [facility] strips USE strips USE strips USE ty TO CHECK TO CHECK TO CHECK [facility] GLUCOSE GLUCOSE GLUCOSE l TWICE DAILY TWICE DAILY TWICE Clinics DAILY Accu-Chek Accu-Chek No Accu-Chek [facility] Softclix Softclix Softclix Com remi Lancets USE Lancets USE Lancets ty TO CHECK TO CHECK USE TO Hospi ta GLUCOSE GLUCOSE CHECK l TWICE DAILY TWICE DAILY GLUCOSE Clinics TWICE DAILY acetaminoph acetaminoph No acetaminop [facility] en 300 en 300 hen 300 [facility] mg-codeine mg-codeine mg-codeine ty 30 mg 30 mg 30 mg [facility]osp[facility] tablet Take tablet Take tablet l 1 tablet 3 1 tablet 3 Take 1 C linics times a day times a day tablet 3 by oral by oral times a route as route as day by needed. needed. oral route as needed. amlodipine amlodipine No amlodipine [facility] 10 mg 10 mg 10 mg [facility] tablet TAKE tablet TAKE tablet ty 1 TABLET BY 1 TABLET BY TAKE 1 [facility] MOUTH EVERY MOUTH EVERY TABLET BY l DAY DAY MOUTH Clinics EVERY DAY BD BD No BD [facility] Ultra-Fine Ultra-Fine Ultra-Fine [facility] Mini Pen Mini Pen Mini Pen ty Needle 31 Needle 31 Needle 31 [facility]ospita gauge x gauge x gauge x l 3/16" USE 16" USE 16" USE Clinics DIRECTED. DIRECTED. DIRECTED. FOR USE FOR USE FOR USE WITH LANTUS WITH LANTUS WITH SOLOSTAR SOLOSTAR LANTUS U-100 U-100 SOLOSTAR INSULIN INSULIN U-100 UNDER THE UNDER THE INSULIN SKIN PEN SKIN PEN UNDER THE SKIN PEN calcitriol calcitriol No calcitriol [facility] 0.25 mcg 0.25 mcg 0.25 mcg Com remi capsule capsule capsule ty TAKE 2 TAKE 2 TAKE 2 [facility]ospita CAPSULES BY CAPSULES BY CAPSULES l MOUTH EVERY MOUTH EVERY BY MOUTH Clinics DAY DAY EVERY DAY cholecalcif cholecalcif No cholecalci [facility] rajiv rajiv ferol Communi (vitamin (vitamin (vitamin ty D3) 125 mcg D3) 125 mcg D3) 125 [facility]ospita (5,000 (5,000 mcg (5,000 l unit) unit) unit) Clinics capsule capsule capsule TAKE 1 TAKE 1 TAKE 1 CAPSULE BY CAPSULE BY CAPSULE BY MOUTH EVERY MOUTH EVERY MOUTH DAY DAY EVERY DAY clopidogrel clopidogrel No clopidogre [facility] 75 mg 75 mg l 75 mg [facility] tablet TAKE tablet TAKE tablet ty 1 TABLET BY 1 TABLET BY TAKE 1 [facility]osp[facility] MOUTH EVERY MOUTH EVERY TABLET BY l DAY DAY MOUTH Clinics EVERY DAY doxazosin 4 doxazosin 4 No doxazosin [facility] mg tablet mg tablet 4 mg Commu ni TAKE 1 TAKE 1 tablet ty TABLET BY TABLET BY TAKE 1 [facility] MOUTH EVERY MOUTH EVERY TABLET BY l DAY DAY MOUTH Clinics EVERY DAY fluticasone fluticasone No fluticason [facility] propionate propionate e Com remi 50 50 propionate ty mcg/actuati mcg/actuati 50 [facility] on nasal on nasal mcg/actuat l spray,suspe spray,suspe ion nasal Clinics nsion nsion spray,susp INSTILL 2 INSTILL 2 ension SPRAYS IN SPRAYS IN INSTILL 2 EACH EACH SPRAYS IN NOSTRIL NOSTRIL EACH EVERY EVERY NOSTRIL MORNING MORNING EVERY MORNING furosemide furosemide No furosemide [facility] 40 mg 40 mg 40 mg [facility] tablet TAKE tablet TAKE tablet ty 1 TABLET BY 1 TABLET BY TAKE 1 [facility] MOUTH EVERY MOUTH EVERY TABLET BY l DAY DAY MOUTH Clinics EVERY DAY gabapentin gabapentin No gabapentin [facility] 300 mg 300 mg 300 mg [facility] capsule capsule capsule ty TAKE 1 TAKE 1 TAKE 1 [facility] CAPSULE BY CAPSULE BY CAPSULE BY l MOUTH TWICE MOUTH TWICE MOUTH Clinics A DAY A DAY TWICE A DAY glimepiride glimepiride No glimepirid [facility] 4 mg tablet 4 mg tablet e 4 mg [facility]i TAKE 1 TAKE 1 tablet ty TABLET BY TABLET BY TAKE 1 [facility] MOUTH TWICE MOUTH TWICE TABLET BY l A DAY A DAY MOUTH Clinics TWICE A DAY Jardiance Jardiance No Jardiance [facility] 25 mg 25 mg 25 mg [facility] tablet TAKE tablet TAKE tablet ty 1 TABLET BY 1 TABLET BY TAKE 1 [facility]osp[facility] MOUTH EVERY MOUTH EVERY TABLET BY l DAY DAY MOUTH Clinics EVERY DAY Lantus Lantus No Lantus [facility] Solostar Solostar Solostar Com remi U-100 U-100 U-100 ty Insulin 100 Insulin 100 Insulin [facility] unit/mL (3 unit/mL (3 100 l mL) mL) unit/mL (3 Clinics subcutaneou subcutaneou mL) s pen s pen subcutaneo INJECT 30 INJECT 30 us pen UNITS UNITS INJECT 30 SUBCUTANEOU SUBCUTANEOU UNITS SLY TWICE A SLY TWICE A SUBCUTANEO DAY DAY USLY TWICE A DAY lovastatin lovastatin No lovastatin [facility] 40 mg 40 mg 40 mg [facility] tablet TAKE tablet TAKE tablet ty 1 TABLET BY 1 TABLET BY TAKE 1 [facility]ospita MOUTH EVERY MOUTH EVERY TABLET BY l DAY WITH DAY WITH MOUTH Clinic s EVENING EVENING EVERY DAY MEAL.NOT MEAL.NOT WITH E E EVENING REFILLS REFILLS MEAL.NO TE REFILLS methocarbam methocarbam No methocarba [facility] ol 750 mg ol 750 mg mol 750 mg [facility] tablet TAKE tablet TAKE tablet ty 1 TABLET 1 TABLET TAKE 1 [facility] ta TWICE DAILY TWICE DAILY TABLET l NEEDED NEEDED TWICE Clin ics FOR BACK FOR BACK DAILY SPASMS SPASMS NEEDED FOR BACK SPASMS metoprolol metoprolol No metoprolol [facility] succinate succinate succinate [facility] ER 100 mg ER 100 mg ER 100 mg ty tablet,exte tablet,exte tablet,ext [facility]ospita nded nded ended l release 24 release 24 release 24 Clinics hr TAKE 1 hr TAKE 1 hr TAKE 1 TABLET BY TABLET BY TABLET BY MOUTH TWICE MOUTH TWICE MOUTH A DAY A DAY TWICE A DAY montelukast montelukast No montelukas [facility] 10 mg 10 mg t 10 mg [facility] tablet TAKE tablet TAKE tablet ty 1 TABLET BY 1 TABLET BY TAKE 1 [facility]ospita MOUTH EVERY MOUTH EVERY TABLET BY l DAY DAY MOUTH Clinics EVERY DAY Ozempic Ozempic No Ozempic [facility] 0.25 mg or 0.25 mg or 0.25 mg or Communi 0.5 mg (2 0.5 mg (2 0.5 mg (2 ty mg/1.5 mL) mg/1.5 mL) mg/1.5 mL) Hospita subcutaneou subcutaneou subcutaneo l s pen s pen pen Clinics injector injector injector INJECT 0.25 INJECT 0.25 INJECT MG UNDER MG UNDER 0.25 MG THE SKIN 1 THE SKIN 1 UNDER THE (ONE) TIME (ONE) TIME SKIN 1 PER WEEK PER WEEK (ONE) TIME PER WEEK pantoprazol pantoprazol No pantoprazo [facility] e 40 mg e 40 mg le 40 mg Commu ni tablet,sophie tablet,sophie tablet,del ty yed release yed release ayed [facility] TAKE 1 TAKE 1 release l TABLET BY TABLET BY TAKE 1 Cli nics MOUTH EVERY MOUTH EVERY TABLET BY DAY DAY MOUTH EVERY DAY Restasis Restasis No Restasis Swe efrem 0.05 % eye 0.05 % eye 0.05 % eye [facility] drops in a drops in a drops in a ty dropperette dropperette dropperett [facility]ospita INSTILL 1 INSTILL 1 e INSTILL l DROP INTO DROP INTO 1 DROP Cli nics BOTH EYES BOTH EYES INTO BOTH TWICE A DAY TWICE A DAY EYES TWICE A DAY Accu-Chek Accu-Chek No Accu-Chek [facility] Therese Plus Therese Plus Therese Plus Communi test strips test strips test t y USE TO USE TO strips USE Hospi ta CHECK CHECK TO CHECK l GLUCOSE GLUCOSE GLUCOSE Clinic s TWICE DAILY TWICE DAILY TWICE DAILY Accu-Chek Accu-Chek No Accu-Chek [facility] Guide L1-L2 Guide L1-L2 Guide [facility] Control Control L1-L2 ty Solution Solution Control [facility]osp prateek Solution l Clinics accu-chek accu-chek No accu-chek [facility] guide me guide me guide me Com remi w/device w/device w/device ty kit kit kit Hospita l Clinics Accu-Chek Accu-Chek No Accu-Chek [facility] Softclix Softclix Softclix Com remi Lancets USE Lancets USE Lancets ty TO CHECK TO CHECK USE TO Hospi ta GLUCOSE GLUCOSE CHECK l TWICE DAILY TWICE DAILY GLUCOSE Clinics TWICE DAILY acetaminoph acetaminoph No acetaminop [facility] en 300 en 300 hen 300 [facility]i mg-codeine mg-codeine mg-codeine ty 30 mg 30 mg 30 mg [facility] tablet TAKE tablet TAKE tablet l 1 TABLET BY 1 TABLET BY TAKE 1 Clinics MOUTH EVERY MOUTH EVERY TABLET BY 4 HOURS IF 4 HOURS IF MOUTH NEEDED FOR NEEDED FOR EVERY 4 MODERATE MODERATE HOURS IF PAIN. PAIN. NEEDED FOR MODERATE PAIN. amlodipine amlodipine No amlodipine [facility] 10 mg 10 mg 10 mg [facility] tablet TAKE tablet TAKE tablet ty 1 TABLET BY 1 TABLET BY TAKE 1 [facility] MOUTH EVERY MOUTH EVERY TABLET BY l DAY DAY MOUTH Clinics EVERY DAY BD BD No BD [facility] Ultra-Fine Ultra-Fine Ultra-Fine [facility] Mini Pen Mini Pen Mini Pen ty Needle 31 Needle 31 Needle 31 [facility]osp[facility] gauge x gauge x gauge x l 3/16" USE 16" USE 16" USE Clinics DIRECTED. DIRECTED. DIRECTED. FOR USE FOR USE FOR USE WITH LANTUS WITH LANTUS WITH SOLOSTAR SOLOSTAR LANTUS U-100 U-100 SOLOSTAR INSULIN INSULIN U-100 UNDER THE UNDER THE INSULIN SKIN PEN SKIN PEN UNDER THE SKIN PEN calcitriol calcitriol No calcitriol [facility] 0.25 mcg 0.25 mcg 0.25 mcg Com remi capsule capsule capsule ty TAKE 1 TAKE 1 TAKE 1 [facility]osp[facility] CAPSULE CAPSULE CAPSULE l (0.25 MCG (0.25 MCG (0.25 MCG Clinics TOTAL) BY TOTAL) BY TOTAL) BY MOUTH 1 MOUTH 1 MOUTH 1 (ONE) TIME (ONE) TIME (ONE) TIME EACH DAY EACH DAY EACH DAY cholecalcif cholecalcif No cholecalci [facility] rajiv rajiv ferol [facility] (vitamin (vitamin (vitamin ty D3) 125 mcg D3) 125 mcg D3) 125 [facility]ospita (5,000 (5,000 mcg (5,000 l unit) unit) unit) Clinics capsule capsule capsule TAKE 1 TAKE 1 TAKE 1 CAPSULE BY CAPSULE BY CAPSULE BY MOUTH EVERY MOUTH EVERY MOUTH DAY DAY EVERY DAY clopidogrel clopidogrel No clopidogre [facility] 75 mg 75 mg l 75 mg [facility] tablet TAKE tablet TAKE tablet ty 1 TABLET BY 1 TABLET BY TAKE 1 [facility] MOUTH EVERY MOUTH EVERY TABLET BY l DAY DAY MOUTH Clinics EVERY DAY clotrimazol clotrimazol No clotrimazo [facility] e-betametha e-betametha le-betamet Communi sone 1 sone 1 hasone 1 ty %-0.05 % %-0.05 % %-0.05 % [facility] topical topical topical l cream APPLY cream APPLY cream Clinics TO AFFECTED TO AFFECTED APPLY TO AREA AT AREA AT AFFECTED BEDTIME BEDTIME AREA AT BEDTIME doxazosin 4 doxazosin 4 No doxazosin [facility] mg tablet mg tablet 4 mg Commu ni TAKE 1 TAKE 1 tablet ty TABLET BY TABLET BY TAKE 1 [facility] MOUTH EVERY MOUTH EVERY TABLET BY l DAY DAY MOUTH Clinics EVERY DAY fluticasone fluticasone No fluticason [facility] propionate propionate e Com remi 50 50 propionate ty mcg/actuati mcg/actuati 50 [facility] on nasal on nasal mcg/actuat l spray,suspe spray,suspe ion nasal Clinics nsion nsion spray,susp INSTILL 2 INSTILL 2 ension SPRAYS IN SPRAYS IN INSTILL 2 EACH EACH SPRAYS IN NOSTRIL NOSTRIL EACH EVERY EVERY NOSTRIL MORNING MORNING EVERY MORNING furosemide furosemide No furosemide [facility] 40 mg 40 mg 40 mg [facility] tablet TAKE tablet TAKE tablet ty 1 TABLET BY 1 TABLET BY TAKE 1 [facility] MOUTH EVERY MOUTH EVERY TABLET BY l DAY DAY MOUTH Clinics EVERY DAY gabapentin gabapentin No gabapentin [facility] 300 mg 300 mg 300 mg [facility] capsule capsule capsule ty TAKE 1 TAKE 1 TAKE 1 [facility] CAPSULE BY CAPSULE BY CAPSULE BY l MOUTH TWICE MOUTH TWICE MOUTH Clinics A DAY A DAY TWICE A DAY glimepiride glimepiride No glimepirid [facility] 4 mg tablet 4 mg tablet e 4 mg Communi TAKE 1 TAKE 1 tablet ty TABLET BY TABLET BY TAKE 1 [facility] MOUTH TWICE MOUTH TWICE TABLET BY l A DAY A DAY MOUTH Clinics TWICE A DAY Jardiance Jardiance No Jardiance [facility] 25 mg 25 mg 25 mg [facility] tablet TAKE tablet TAKE tablet ty 1 TABLET BY 1 TABLET BY TAKE 1 [facility] MOUTH EVERY MOUTH EVERY TABLET BY l DAY DAY MOUTH Clinics EVERY DAY Lantus Lantus No Lantus [facility] Solostar Solostar Solostar Com remi U-100 U-100 U-100 ty Insulin 100 Insulin 100 Insulin [facility] unit/mL (3 unit/mL (3 100 l mL) mL) unit/mL (3 Clinics subcutaneou subcutaneou mL) s pen s pen subcutaneo INJECT 25 INJECT 25 us pen UNITS UNITS INJECT 25 SUBCUTANEOU SUBCUTANEOU UNITS SLY TWICE A SLY TWICE A SUBCUTANEO DAY DAY USLY TWICE A DAY lovastatin lovastatin No lovastatin [facility] 40 mg 40 mg 40 mg [facility] tablet TAKE tablet TAKE tablet ty 1 TABLET BY 1 TABLET BY TAKE 1 [facility]ospita MOUTH EVERY MOUTH EVERY TABLET BY l DAY WITH DAY WITH MOUTH Clinic s EVENING EVENING EVERY DAY MEAL.NOT MEAL.NOT WITH E E EVENING REFILLS REFILLS MEAL.NO TE REFILLS methocarbam methocarbam No methocarba [facility] ol 750 mg ol 750 mg mol 750 mg [facility] tablet TAKE tablet TAKE tablet ty 1 TABLET 1 TABLET TAKE 1 Hos[facility] ta TWICE DAILY TWICE DAILY TABLET l NEEDED NEEDED TWICE Clin ics FOR BACK FOR BACK DAILY SPASMS SPASMS NEEDED FOR BACK SPASMS metoprolol metoprolol No metoprolol [facility] succinate succinate succinate [facility] ER 100 mg ER 100 mg ER 100 mg ty tablet,exte tablet,exte tablet,ext [facility]ospita nded nded ended l release 24 release 24 release 24 Clinics hr TAKE 1 hr TAKE 1 hr TAKE 1 TABLET BY TABLET BY TABLET BY MOUTH TWICE MOUTH TWICE MOUTH A DAY A DAY TWICE A DAY montelukast montelukast No montelukas [facility] 10 mg 10 mg t 10 mg [facility] tablet TAKE tablet TAKE tablet ty 1 TABLET BY 1 TABLET BY TAKE 1 [facility]ospita MOUTH EVERY MOUTH EVERY TABLET BY l DAY DAY MOUTH Clinics EVERY DAY Ozempic Ozempic No Ozempic [facility] 0.25 mg or 0.25 mg or 0.25 mg or Communi 0.5 mg (2 0.5 mg (2 0.5 mg (2 ty mg/1.5 mL) mg/1.5 mL) mg/1.5 mL) Hospita subcutaneou subcutaneou subcutaneo l s pen s pen us pen Clinics injector injector injector INJECT 0.5 INJECT 0.5 INJECT 0.5 MG UNDER MG UNDER MG UNDER THE SKIN 1 THE SKIN 1 THE SKIN 1 (ONE) TIME (ONE) TIME (ONE) TIME PER WEEK PER WEEK PER WEEK pantoprazol pantoprazol No pantoprazo [facility] e 40 mg e 40 mg le 40 mg Commu ni tablet,sophie tablet,sophie tablet,del ty yed release yed release ayed [facility] TAKE 1 TAKE 1 release l TABLET BY TABLET BY TAKE 1 Cli nics MOUTH EVERY MOUTH EVERY TABLET BY DAY DAY MOUTH EVERY DAY Paxlovid Paxlovid No 3 BID Paxlovid Swe efrem 300 mg (150 300 mg (150 300 mg [facility]i mg x 2)-100 mg x 2)-100 (150 mg x ty mg tablets mg tablets 2)-100 mg Hospita in a dose in a dose tablets in l pack (EUA) pack (EUA) a dose C linics Take 3 Take 3 pack (EUA) tablets tablets Take 3 twice a day twice a day tablets by oral by oral twice a route for 5 route for 5 day by days. days. oral route for 5 days. Restasis Restasis No Restasis Swe efrem 0.05 % eye 0.05 % eye 0.05 % eye [facility] drops in a drops in a drops in a ty dropperette dropperette dropperett [facility]ospita INSTILL 1 INSTILL 1 e INSTILL l DROP INTO DROP INTO 1 DROP Cli nics BOTH EYES BOTH EYES INTO BOTH TWICE A DAY TWICE A DAY EYES TWICE A DAY Zithromax Zithromax No Zithromax [facility] Z-Francisco 250 Z-Francisco 250 Z-Francisco 250 Communi mg tablet mg tablet mg tablet ty TAKE 2 TAKE 2 TAKE 2 [facility]ospita TABLETS TABLETS TABLETS l (500 MG) BY (500 MG) BY (500 MG) Clinics ORAL ROUTE ORAL ROUTE BY ORAL ONCE DAILY ONCE DAILY ROUTE ONCE FOR 1 DAY FOR 1 DAY DAILY FOR THEN 1 THEN 1 1 DAY THEN TABLET (250 TABLET (250 1 TABLET MG) BY ORAL MG) BY ORAL (250 MG) ROUTE ONCE ROUTE ONCE BY ORAL DAILY FOR 4 DAILY FOR 4 ROUTE ONCE DAYS DAYS DAILY FOR 4 DAYS Accu-Chek Accu-Chek No Accu-Chek [facility] Therese Plus Therese Plus Therese Plus [facility]i test strips test strips test t y USE TO USE TO strips USE Hospi ta CHECK CHECK TO CHECK l GLUCOSE GLUCOSE GLUCOSE Clinic s TWICE DAILY TWICE DAILY TWICE DAILY Accu-Chek Accu-Chek No Accu-Chek [facility] Guide L1-L2 Guide L1-L2 Guide [facility]i Control Control L1-L2 ty Solution Solution Control [facility]osp prateek Solution l Clinics accu-chek accu-chek No accu-chek [facility] guide me guide me guide me Com remi w/device w/device w/device ty kit kit kit Hospita l Clinics Accu-Chek Accu-Chek No Accu-Chek [facility] Softclix Softclix Softclix Com remi Lancets USE Lancets USE Lancets ty TO CHECK TO CHECK USE TO Hospi ta GLUCOSE GLUCOSE CHECK l TWICE DAILY TWICE DAILY GLUCOSE Clinics TWICE DAILY acetaminoph acetaminoph No acetaminop [facility] en 300 en 300 hen 300 [facility] mg-codeine mg-codeine mg-codeine ty 30 mg 30 mg 30 mg [facility] tablet TAKE tablet TAKE tablet l 1 TABLET BY 1 TABLET BY TAKE 1 Clinics MOUTH EVERY MOUTH EVERY TABLET BY 4 HOURS IF 4 HOURS IF MOUTH NEEDED FOR NEEDED FOR EVERY 4 MODERATE MODERATE HOURS IF PAIN. PAIN. NEEDED FOR MODERATE PAIN. amlodipine amlodipine No amlodipine [facility] 10 mg 10 mg 10 mg [facility]i tablet TAKE tablet TAKE tablet ty 1 TABLET BY 1 TABLET BY TAKE 1 [facility]ospita MOUTH EVERY MOUTH EVERY TABLET BY l DAY DAY MOUTH Clinics EVERY DAY BD BD No BD [facility] Ultra-Fine Ultra-Fine Ultra-Fine [facility] Mini Pen Mini Pen Mini Pen ty Needle 31 Needle 31 Needle 31 [facility]ospita gauge x gauge x gauge x l 3/16" USE 3/16" USE 316" USE Clinics DIRECTED. DIRECTED. DIRECTED. FOR USE FOR USE FOR USE WITH LANTUS WITH LANTUS WITH SOLOSTAR SOLOSTAR LANTUS U-100 U-100 SOLOSTAR INSULIN INSULIN U-100 UNDER THE UNDER THE INSULIN SKIN PEN SKIN PEN UNDER THE SKIN PEN calcitriol calcitriol No calcitriol [facility] 0.25 mcg 0.25 mcg 0.25 mcg Com remi capsule capsule capsule ty TAKE 1 TAKE 1 TAKE 1 [facility]ospita CAPSULE CAPSULE CAPSULE l (0.25 MCG (0.25 MCG (0.25 MCG Clinics TOTAL) BY TOTAL) BY TOTAL) BY MOUTH 1 MOUTH 1 MOUTH 1 (ONE) TIME (ONE) TIME (ONE) TIME EACH DAY EACH DAY EACH DAY cholecalcif cholecalcif No cholecalci [facility] rajiv rajiv ferol [facility]i (vitamin (vitamin (vitamin ty D3) 125 mcg D3) 125 mcg D3) 125 [facility]ospita (5,000 (5,000 mcg (5,000 l unit) unit) unit) Clinics capsule capsule capsule TAKE 1 TAKE 1 TAKE 1 CAPSULE BY CAPSULE BY CAPSULE BY MOUTH EVERY MOUTH EVERY MOUTH DAY DAY EVERY DAY clopidogrel clopidogrel No clopidogre [facility] 75 mg 75 mg l 75 mg [facility]i tablet TAKE tablet TAKE tablet ty 1 TABLET BY 1 TABLET BY TAKE 1 [facility]ospita MOUTH EVERY MOUTH EVERY TABLET BY l DAY DAY MOUTH Clinics EVERY DAY clotrimazol clotrimazol No clotrimazo [facility] e-betametha e-betametha le-betamet Communi sone 1 sone 1 hasone 1 ty %-0.05 % %-0.05 % %-0.05 % [facility] topical topical topical l cream APPLY cream APPLY cream Clinics TO AFFECTED TO AFFECTED APPLY TO AREA AT AREA AT AFFECTED BEDTIME BEDTIME AREA AT BEDTIME doxazosin 4 doxazosin 4 No doxazosin [facility] mg tablet mg tablet 4 mg Commu ni TAKE 1 TAKE 1 tablet ty TABLET BY TABLET BY TAKE 1 [facility] MOUTH EVERY MOUTH EVERY TABLET BY l DAY DAY MOUTH Clinics EVERY DAY fluticasone fluticasone No fluticason [facility] propionate propionate e Com remi 50 50 propionate ty mcg/actuati mcg/actuati 50 [facility] on nasal on nasal mcg/actuat l spray,suspe spray,suspe ion nasal Clinics nsion nsion spray,susp INSTILL 2 INSTILL 2 ension SPRAYS IN SPRAYS IN INSTILL 2 EACH EACH SPRAYS IN NOSTRIL NOSTRIL EACH EVERY EVERY NOSTRIL MORNING MORNING EVERY MORNING furosemide furosemide No furosemide [facility] 40 mg 40 mg 40 mg [facility] tablet TAKE tablet TAKE tablet ty 1 TABLET BY 1 TABLET BY TAKE 1 [facility]ospita MOUTH EVERY MOUTH EVERY TABLET BY l DAY DAY MOUTH Clinics EVERY DAY gabapentin gabapentin No gabapentin [facility] 300 mg 300 mg 300 mg [facility]i capsule capsule capsule ty TAKE 1 TAKE 1 TAKE 1 [facility]ospita CAPSULE BY CAPSULE BY CAPSULE BY l MOUTH TWICE MOUTH TWICE MOUTH Clinics A DAY A DAY TWICE A DAY glimepiride glimepiride No glimepirid [facility] 4 mg tablet 4 mg tablet e 4 mg Communi TAKE 1 TAKE 1 tablet ty TABLET BY TABLET BY TAKE 1 [facility] MOUTH TWICE MOUTH TWICE TABLET BY l A DAY A DAY MOUTH Clinics TWICE A DAY Jardiance Jardiance No Jardiance [facility] 25 mg 25 mg 25 mg [facility]i tablet TAKE tablet TAKE tablet ty 1 TABLET BY 1 TABLET BY TAKE 1 [facility]ospita MOUTH EVERY MOUTH EVERY TABLET BY l DAY DAY MOUTH Clinics EVERY DAY Lantus Lantus No Lantus [facility] Solostar Solostar Solostar Com remi U-100 U-100 U-100 ty Insulin 100 Insulin 100 Insulin [facility]osp[facility] unit/mL (3 unit/mL (3 100 l mL) mL) unit/mL (3 Clinics subcutaneou subcutaneou mL) s pen s pen subcutaneo INJECT 25 INJECT 25 us pen UNITS UNITS INJECT 25 SUBCUTANEOU SUBCUTANEOU UNITS SLY TWICE A SLY TWICE A SUBCUTANEO DAY DAY USLY TWICE A DAY lovastatin lovastatin No lovastatin [facility] 40 mg 40 mg 40 mg [facility] tablet TAKE tablet TAKE tablet ty 1 TABLET BY 1 TABLET BY TAKE 1 [facility]ospita MOUTH EVERY MOUTH EVERY TABLET BY l DAY WITH DAY WITH MOUTH Clinic s EVENING EVENING EVERY DAY MEAL.NOT MEAL.NOT WITH E E EVENING REFILLS REFILLS MEAL.NO TE REFILLS methocarbam methocarbam No methocarba [facility] ol 750 mg ol 750 mg mol 750 mg [facility] tablet TAKE tablet TAKE tablet ty 1 TABLET 1 TABLET TAKE 1 Hospi ta TWICE DAILY TWICE DAILY TABLET l NEEDED NEEDED TWICE Clin ics FOR BACK FOR BACK DAILY SPASMS SPASMS NEEDED FOR BACK SPASMS metoprolol metoprolol No metoprolol [facility] succinate succinate succinate Communi ER 100 mg ER 100 mg ER 100 mg ty tablet,exte tablet,exte tablet,ext Hospita nded nded ended l release 24 release 24 release 24 Clinics hr TAKE 1 hr TAKE 1 hr TAKE 1 TABLET BY TABLET BY TABLET BY MOUTH TWICE MOUTH TWICE MOUTH A DAY A DAY TWICE A DAY montelukast montelukast No montelukas [facility] 10 mg 10 mg t 10 mg [facility]i tablet TAKE tablet TAKE tablet ty 1 TABLET BY 1 TABLET BY TAKE 1 [facility]ospita MOUTH EVERY MOUTH EVERY TABLET BY l DAY DAY MOUTH Clinics EVERY DAY Ozempic Ozempic No Ozempic [facility] 0.25 mg or 0.25 mg or 0.25 mg or Communi 0.5 mg (2 0.5 mg (2 0.5 mg (2 ty mg/1.5 mL) mg/1.5 mL) mg/1.5 mL) Hospita subcutaneou subcutaneou subcutaneo l s pen s pen [facility] injector injector injector INJECT 0.5 INJECT 0.5 INJECT 0.5 MG UNDER MG UNDER MG UNDER THE SKIN 1 THE SKIN 1 THE SKIN 1 (ONE) TIME (ONE) TIME (ONE) TIME PER WEEK PER WEEK PER WEEK pantoprazol pantoprazol No pantoprazo [facility] e 40 mg e 40 mg le 40 mg Commu ni tablet,sophie tablet,sophie tablet,del ty yed release yed release ayed [facility]spita TAKE 1 TAKE 1 release l TABLET BY TABLET BY TAKE 1 Cli nics MOUTH EVERY MOUTH EVERY TABLET BY DAY DAY MOUTH EVERY DAY Paxlovid Paxlovid No 3 BID Paxlovid Swe efrem 300 mg (150 300 mg (150 300 mg Communi mg x 2)-100 mg x 2)-100 (150 mg x ty mg tablets mg tablets 2)-100 mg Hospita in a dose in a dose tablets in l pack (EUA) pack (EUA) a dose C linics Take 3 Take 3 pack (EUA) tablets tablets Take 3 twice a day twice a day tablets by oral by oral twice a route for 5 route for 5 day by days. days. oral route for 5 days. Restasis Restasis No Restasis Swe efrem 0.05 % eye 0.05 % eye 0.05 % eye [facility] drops in a drops in a drops in a ty dropperette dropperette dropperett Hospita INSTILL 1 INSTILL 1 e INSTILL l DROP INTO DROP INTO 1 DROP Cli nics BOTH EYES BOTH EYES INTO BOTH TWICE A DAY TWICE A DAY EYES TWICE A DAY Zithromax Zithromax No Zithromax [facility] Z-Francisco 250 Z-Francisco 250 Z-Francisco 250 Communi mg tablet mg tablet mg tablet ty TAKE 2 TAKE 2 TAKE 2 Hospita TABLETS TABLETS TABLETS l (500 MG) BY (500 MG) BY (500 MG) Clinics ORAL ROUTE ORAL ROUTE BY ORAL ONCE DAILY ONCE DAILY ROUTE ONCE FOR 1 DAY FOR 1 DAY DAILY FOR THEN 1 THEN 1 1 DAY THEN TABLET (250 TABLET (250 1 TABLET MG) BY ORAL MG) BY ORAL (250 MG) ROUTE ONCE ROUTE ONCE BY ORAL DAILY FOR 4 DAILY FOR 4 ROUTE ONCE DAYS DAYS DAILY FOR 4 DAYS Accu-Chek Accu-Chek No Accu-Chek [facility] Therese Plus Therese Plus Therese Plus Communi test strips test strips test t y USE TO USE TO strips USE Hospi ta CHECK CHECK TO CHECK l GLUCOSE GLUCOSE GLUCOSE Clinic s TWICE DAILY TWICE DAILY TWICE DAILY Accu-Chek Accu-Chek No Accu-Chek [facility] Guide L1-L2 Guide L1-L2 Guide Communi Control Control L1-L2 ty Solution Solution Control Hosp prateek Solution l Clinics accu-chek accu-chek No accu-chek [facility] guide me guide me guide me Com remi w/device w/device w/device ty kit kit kit Hospita l Clinics Accu-Chek Accu-Chek No Accu-Chek [facility] Softclix Softclix Softclix Com remi Lancets USE Lancets USE Lancets ty TO CHECK TO CHECK USE TO Hospi ta GLUCOSE GLUCOSE CHECK l TWICE DAILY TWICE DAILY GLUCOSE Clinics TWICE DAILY acetaminoph acetaminoph No acetaminop [facility] en 300 en 300 hen 300 Communi mg-codeine mg-codeine mg-codeine ty 30 mg 30 mg 30 mg Hospita tablet TAKE tablet TAKE tablet l 1 TABLET BY 1 TABLET BY TAKE 1 Clinics MOUTH EVERY MOUTH EVERY TABLET BY 4 HOURS IF 4 HOURS IF MOUTH NEEDED FOR NEEDED FOR EVERY 4 MODERATE MODERATE HOURS IF PAIN. PAIN. NEEDED FOR MODERATE PAIN. amlodipine amlodipine No amlodipine [facility] 10 mg 10 mg 10 mg [facility]i tablet TAKE tablet TAKE tablet ty 1 TABLET BY 1 TABLET BY TAKE 1 Hospita MOUTH EVERY MOUTH EVERY TABLET BY l DAY DAY MOUTH Clinics EVERY DAY BD BD No BD [facility] Ultra-Fine Ultra-Fine Ultra-Fine Commun[facility] Mini Pen Mini Pen Mini Pen ty Needle 31 Needle 31 Needle 31 Hospita gauge x gauge x gauge x l 12/09" USE 12/09" USE 12/09" USE Clinics DIRECTED. DIRECTED. DIRECTED. FOR USE FOR USE FOR USE WITH LANTUS WITH LANTUS WITH SOLOSTAR SOLOSTAR LANTUS U-100 U-100 SOLOSTAR INSULIN INSULIN U-100 UNDER THE UNDER THE INSULIN SKIN PEN SKIN PEN UNDER THE SKIN PEN calcitriol calcitriol No calcitriol [facility] 0.25 mcg 0.25 mcg 0.25 mcg Com remi capsule capsule capsule ty TAKE 1 TAKE 1 TAKE 1 Hospita CAPSULE CAPSULE CAPSULE l (0.25 MCG (0.25 MCG (0.25 MCG Clinics TOTAL) BY TOTAL) BY TOTAL) BY MOUTH 1 MOUTH 1 MOUTH 1 (ONE) TIME (ONE) TIME (ONE) TIME EACH DAY EACH DAY EACH DAY cholecalcif cholecalcif No cholecalci [facility] rajiv rajiv ferol Communi (vitamin (vitamin (vitamin ty D3) 125 mcg D3) 125 mcg D3) 125 Hospita (5,000 (5,000 mcg (5,000 l unit) unit) unit) Clinics capsule capsule capsule TAKE 1 TAKE 1 TAKE 1 CAPSULE BY CAPSULE BY CAPSULE BY MOUTH EVERY MOUTH EVERY MOUTH DAY DAY EVERY DAY clopidogrel clopidogrel No clopidogre [facility] 75 mg 75 mg l 75 mg Communi tablet TAKE tablet TAKE tablet ty 1 TABLET BY 1 TABLET BY TAKE 1 Hospita MOUTH EVERY MOUTH EVERY TABLET BY l DAY DAY MOUTH Clinics EVERY DAY clotrimazol clotrimazol No clotrimazo [facility] e-betametha e-betametha le-betamet Communi sone 1 sone 1 hasone 1 ty %-0.05 % %-0.05 % %-0.05 % [facility] topical topical topical l cream APPLY cream APPLY cream Clinics TO AFFECTED TO AFFECTED APPLY TO AREA AT AREA AT AFFECTED BEDTIME BEDTIME AREA AT BEDTIME doxazosin 4 doxazosin 4 No doxazosin [facility] mg tablet mg tablet 4 mg Commu ni TAKE 1 TAKE 1 tablet ty TABLET BY TABLET BY TAKE 1 [facility] MOUTH EVERY MOUTH EVERY TABLET BY l DAY DAY MOUTH Clinics EVERY DAY fluticasone fluticasone No fluticason [facility] propionate propionate e Com remi 50 50 propionate ty mcg/actuati mcg/actuati 50 H ospita on nasal on nasal mcg/actuat l spray,suspe spray,suspe ion nasal Clinics nsion nsion spray,susp INSTILL 2 INSTILL 2 ension SPRAYS IN SPRAYS IN INSTILL 2 EACH EACH SPRAYS IN NOSTRIL NOSTRIL EACH EVERY EVERY NOSTRIL MORNING MORNING EVERY MORNING furosemide furosemide No furosemide [facility] 40 mg 40 mg 40 mg [facility]i tablet TAKE tablet TAKE tablet ty 1 TABLET BY 1 TABLET BY TAKE 1 Hospita MOUTH EVERY MOUTH EVERY TABLET BY l DAY DAY MOUTH Clinics EVERY DAY gabapentin gabapentin No gabapentin [facility] 300 mg 300 mg 300 mg Communi capsule capsule capsule ty TAKE 1 TAKE 1 TAKE 1 Hospita CAPSULE BY CAPSULE BY CAPSULE BY l MOUTH TWICE MOUTH TWICE MOUTH Clinics A DAY A DAY TWICE A DAY Jardiance Jardiance No Jardiance [facility] 25 mg 25 mg 25 mg Communi tablet TAKE tablet TAKE tablet ty 1 TABLET BY 1 TABLET BY TAKE 1 Hospita MOUTH EVERY MOUTH EVERY TABLET BY l DAY DAY MOUTH Clinics EVERY DAY Lantus Lantus No Lantus [facility] Solostar Solostar Solostar Com remi U-100 U-100 U-100 ty Insulin 100 Insulin 100 Insulin Hospita unit/mL (3 unit/mL (3 100 l mL) mL) unit/mL (3 Clinics subcutaneou subcutaneou mL) s pen s pen subcutaneo INJECT 25 INJECT 25 us pen UNITS UNITS INJECT 25 SUBCUTANEOU SUBCUTANEOU UNITS SLY TWICE A SLY TWICE A SUBCUTANEO DAY DAY USLY TWICE A DAY lovastatin lovastatin No lovastatin [facility] 40 mg 40 mg 40 mg [facility]i tablet TAKE tablet TAKE tablet ty 1 TABLET BY 1 TABLET BY TAKE 1 Hospita MOUTH EVERY MOUTH EVERY TABLET BY l DAY WITH DAY WITH MOUTH Clinic s EVENING EVENING EVERY DAY MEAL.NOT MEAL.NOT WITH E E EVENING REFILLS REFILLS MEAL.NO TE REFILLS methocarbam methocarbam No 1 BID methocarba [facility] ol 750 mg ol 750 mg mol 750 mg Communi tablet Take tablet Take tablet ty 1 tablet 1 tablet Take 1 Hospi ta twice a day twice a day tablet l by oral by oral twice a Clinic s route. route. day by oral route. metoprolol metoprolol No metoprolol [facility] succinate succinate succinate Commun[facility] ER 100 mg ER 100 mg ER 100 mg ty tablet,exte tablet,exte tablet,ext Hospita nded nded ended l release 24 release 24 release 24 Clinics hr TAKE 1 hr TAKE 1 hr TAKE 1 TABLET BY TABLET BY TABLET BY MOUTH TWICE MOUTH TWICE MOUTH A DAY A DAY TWICE A DAY montelukast montelukast No montelukas [facility] 10 mg 10 mg t 10 mg [facility] tablet TAKE tablet TAKE tablet ty 1 TABLET BY 1 TABLET BY TAKE 1 Hospita MOUTH EVERY MOUTH EVERY TABLET BY l DAY DAY MOUTH Clinics EVERY DAY Ozempic Ozempic No Ozempic [facility] 0.25 mg or 0.25 mg or 0.25 mg or Communi 0.5 mg (2 0.5 mg (2 0.5 mg (2 ty mg/1.5 mL) mg/1.5 mL) mg/1.5 mL) Hospita subcutaneou subcutaneou subcutaneo l s pen s pen pen Clinics injector injector injector INJECT 0.25 INJECT 0.25 INJECT MG UNDER MG UNDER 0.25 MG THE SKIN 1 THE SKIN 1 UNDER THE (ONE) TIME (ONE) TIME SKIN 1 PER WEEK PER WEEK (ONE) TIME PER WEEK pantoprazol pantoprazol No pantoprazo [facility] e 40 mg e 40 mg le 40 mg Commu ni tablet,sophie tablet,sophie tablet,del ty yed release yed release ayed [facility]spita TAKE 1 TAKE 1 release l TABLET BY TABLET BY TAKE 1 Cli nics MOUTH EVERY MOUTH EVERY TABLET BY DAY DAY MOUTH EVERY DAY Restasis Restasis No Restasis Swe efrem 0.05 % eye 0.05 % eye 0.05 % eye [facility] drops in a drops in a drops in a ty dropperette dropperette dropperett Hospita INSTILL 1 INSTILL 1 e INSTILL l DROP INTO DROP INTO 1 DROP Cli nics BOTH EYES BOTH EYES INTO BOTH TWICE A DAY TWICE A DAY EYES TWICE A DAY Accu-Chek Accu-Chek No Accu-Chek [facility] Therese Plus Therese Plus Therese Plus [facility] test strips test strips test t y USE TO USE TO strips USE Hospi ta CHECK CHECK TO CHECK l GLUCOSE GLUCOSE GLUCOSE Clinic s TWICE DAILY TWICE DAILY TWICE DAILY Accu-Chek Accu-Chek No Accu-Chek [facility] Softclix Softclix Softclix Com remi Lancets USE Lancets USE Lancets ty TO CHECK TO CHECK USE TO Hospi ta GLUCOSE GLUCOSE CHECK l TWICE DAILY TWICE DAILY GLUCOSE Clinics TWICE DAILY acetaminoph acetaminoph No acetaminop [facility] en 300 en 300 hen 300 Communi mg-codeine mg-codeine mg-codeine ty 30 mg 30 mg 30 mg Hospita tablet tablet tablet l Clinics albuterol albuterol No albuterol [facility] sulfate HFA sulfate HFA sulfate Communi 90 90 HFA 90 ty mcg/actuati mcg/actuati mcg/actuat Hospita on aerosol on aerosol ion l inhaler inhaler aerosol Clinic s INHALE 1 TO INHALE 1 TO inhaler 2 PUFFS BY 2 PUFFS BY INHALE 1 MOUTH EVERY MOUTH EVERY TO 2 PUFFS 4 TO 6 4 TO 6 BY MOUTH HOURS PRN HOURS PRN EVERY 4 TO 6 HOURS PRN amlodipine amlodipine No amlodipine [facility] 10 10 10 Communi mg-benazepr mg-benazepr mg-benazep ty il 40 mg il 40 mg ril 40 mg Ho spita capsule capsule capsule l TAKE 1 TAKE 1 TAKE 1 Clinics CAPSULE BY CAPSULE BY CAPSULE BY MOUTH EVERY MOUTH EVERY MOUTH DAY DAY EVERY DAY clopidogrel clopidogrel No clopidogre [facility] 75 mg 75 mg l 75 mg Communi tablet TAKE tablet TAKE tablet ty 1 TABLET BY 1 TABLET BY TAKE 1 Hospita MOUTH EVERY MOUTH EVERY TABLET BY l DAY DAY MOUTH Clinics EVERY DAY doxazosin 4 doxazosin 4 No doxazosin [facility] mg tablet mg tablet 4 mg Commu ni TAKE 1 TAKE 1 tablet ty TABLET BY TABLET BY TAKE 1 [facility] MOUTH EVERY MOUTH EVERY TABLET BY l DAY DAY MOUTH Clinics EVERY DAY fluticasone fluticasone No fluticason [facility] propionate propionate e Com remi 50 50 propionate ty mcg/actuati mcg/actuati 50 H ospita on nasal on nasal mcg/actuat l spray,suspe spray,suspe ion nasal Clinics nsion nsion spray,susp INSTILL 2 INSTILL 2 ension SPRAYS IN SPRAYS IN INSTILL 2 EACH EACH SPRAYS IN NOSTRIL NOSTRIL EACH EVERY EVERY NOSTRIL MORNING MORNING EVERY MORNING gabapentin gabapentin No gabapentin [facility] 300 mg 300 mg 300 mg Communi capsule capsule capsule ty TAKE 1 TAKE 1 TAKE 1 Hospita CAPSULE BY CAPSULE BY CAPSULE BY l MOUTH TWICE MOUTH TWICE MOUTH Clinics A DAY A DAY TWICE A DAY glimepiride glimepiride No glimepirid [facility] 4 mg tablet 4 mg tablet e 4 mg Communi TAKE 1 TAKE 1 tablet ty TABLET BY TABLET BY TAKE 1 [facility] MOUTH TWICE MOUTH TWICE TABLET BY l A DAY A DAY MOUTH Clinics TWICE A DAY hydrochloro hydrochloro No hydrochlor [facility] thiazide 25 thiazide 25 othiazide Communi mg tablet mg tablet 25 mg ty TAKE 1 TAKE 1 tablet Hospita TABLET BY TABLET BY TAKE 1 l MOUTH EVERY MOUTH EVERY TABLET BY Clinics DAY DAY MOUTH EVERY DAY Lantus Lantus No Lantus [facility] Solostar Solostar Solostar Com remi U-100 U-100 U-100 ty Insulin 100 Insulin 100 Insulin Hospita unit/mL (3 unit/mL (3 100 l mL) mL) unit/mL (3 Clinics subcutaneou subcutaneou mL) s pen s pen subcutaneo Inject 30 Inject 30 us pen units twice units twice Inject 30 a day by a day by units subcutaneou subcutaneou twice a s route. s route. day by subcutaneo us route. lovastatin lovastatin No lovastatin [facility] 40 mg 40 mg 40 mg Communi tablet TAKE tablet TAKE tablet ty 1 TABLET BY 1 TABLET BY TAKE 1 Hospita MOUTH EVERY MOUTH EVERY TABLET BY l DAY WITH DAY WITH MOUTH Clinic s EVENING EVENING EVERY DAY MEAL.NOT MEAL.NOT WITH E E EVENING REFILLS REFILLS MEAL.NO TE REFILLS Immunizations Ordered Immunization Filled Immunization Date Status Commen ts Source Name Name SARS-COV-2 SARS-COV-2 2021-05-18 Completed [facility] (COVID-19) vaccine, (COVID-19) vaccine, 00:00:00 [facility] UNSPECIFIED UNSPECIFIED SARS-COV-2 SARS-COV-2 2021-05-18 Completed [facility] (COVID-19) vaccine, (COVID-19) vaccine, 00:00:00 [facility] UNSPECIFIED UNSPECIFIED COVID-19 COVID-19 2021-05-18 Completed [facility] ty (SARS-COV-2) (SARS-COV-2) 00:00:00 [facility] linics vaccine, unspecified vaccine, unspecified COVID-19 COVID-19 2021-05-18 Completed [facility] ty (SARS-COV-2) (SARS-COV-2) 00:00:00 [facility] linics vaccine, unspecified vaccine, unspecified COVID-19 COVID-19 2021-05-18 Completed [facility] (SARS-COV-2) (SARS-COV-2) 00:00:00 [facility] linics vaccine, unspecified vaccine, unspecified COVID-19 COVID-19 2021-05-18 Completed [facility] ty (SARS-COV-2) (SARS-COV-2) 00:00:00 [facility] linics vaccine, unspecified vaccine, unspecified COVID-19 COVID-19 2021-05-18 Completed [facility] (SARS-COV-2) (SARS-COV-2) 00:00:00 [facility] linics vaccine, unspecified vaccine, unspecified COVID-19 COVID-19 2021-05-18 Completed [facility] (SARS-COV-2) (SARS-COV-2) 00:00:00 [facility] linics vaccine, unspecified vaccine, unspecified COVID-19 COVID-19 2021-05-18 Completed [facility] ty (SARS-COV-2) (SARS-COV-2) 00:00:00 [facility] linics vaccine, unspecified vaccine, unspecified SARS-COV-2 SARS-COV-2 2020-10-27 Completed [facility] (COVID-19) vaccine, (COVID-19) vaccine, 00:00:00 [facility] UNSPECIFIED UNSPECIFIED SARS-COV-2 SARS-COV-2 2020-10-27 Completed [facility] (COVID-19) vaccine, (COVID-19) vaccine, 00:00:00 [facility] UNSPECIFIED UNSPECIFIED SARS-COV-2 SARS-COV-2 2020-10-27 Completed [facility] (COVID-19) vaccine, (COVID-19) vaccine, 00:00:00 [facility] Clin[facility] UNSPECIFIED UNSPECIFIED SARS-COV-2 SARS-COV-2 2020-10-27 Completed [facility] (COVID-19) vaccine, (COVID-19) vaccine, 00:00:00 [facility] Clin[facility] UNSPECIFIED UNSPECIFIED SARS-COV-2 SARS-COV-2 2020-10-27 Completed [facility] (COVID-19) vaccine, (COVID-19) vaccine, 00:00:00 Hospital Clin[facility] UNSPECIFIED UNSPECIFIED SARS-COV-2 SARS-COV-2 2020-10-27 Completed [facility] (COVID-19) vaccine, (COVID-19) vaccine, 00:00:00 Hospital Clin[facility] UNSPECIFIED UNSPECIFIED SARS-COV-2 SARS-COV-2 2020-10-27 Completed [facility] (COVID-19) vaccine, (COVID-19) vaccine, 00:00:00 [facility] UNSPECIFIED UNSPECIFIED SARS-COV-2 SARS-COV-2 2020-10-27 Completed [facility] ty (COVID-19) vaccine, (COVID-19) vaccine, 00:00:00 [facility] UNSPECIFIED UNSPECIFIED COVID-19 COVID-19 2020-10-27 Completed [facility] (SARS-COV-2) (SARS-COV-2) 00:00:00 [facility] linics vaccine, unspecified vaccine, unspecified COVID-19 COVID-19 2020-10-27 Completed [facility] (SARS-COV-2) (SARS-COV-2) 00:00:00 [facility] linics vaccine, unspecified vaccine, unspecified COVID-19 COVID-19 2020-10-27 Completed [facility] ty (SARS-COV-2) (SARS-COV-2) 00:00:00 [facility] linics vaccine, unspecified vaccine, unspecified COVID-19 COVID-19 2020-10-27 Completed [facility] ty (SARS-COV-2) (SARS-COV-2) 00:00:00 [facility] linics vaccine, unspecified vaccine, unspecified COVID-19 COVID-19 2020-10-27 Completed [facility] ty (SARS-COV-2) (SARS-COV-2) 00:00:00 [facility] linics vaccine, unspecified vaccine, unspecified COVID-19 COVID-19 2020-10-27 Completed [facility] ty (SARS-COV-2) (SARS-COV-2) 00:00:00 [facility] linics vaccine, unspecified vaccine, unspecified COVID-19 COVID-19 2020-10-27 Completed [facility] (SARS-COV-2) (SARS-COV-2) 00:00:00 [facility] linics vaccine, unspecified vaccine, unspecified PFIZER COVID-19 MRNA 2020-10-27 Completed Meth odist VACCINATION 00:00:00 [facility] SARS-COV-2 SARS-COV-2 2020-10-06 Completed [facility] (COVID-19) vaccine, (COVID-19) vaccine, 00:00:00 Hospital Clin[facility] UNSPECIFIED UNSPECIFIED SARS-COV-2 SARS-COV-2 2020-10-06 Completed [facility] (COVID-19) vaccine, (COVID-19) vaccine, 00:00:00 Hospital Clin[facility] UNSPECIFIED UNSPECIFIED SARS-COV-2 SARS-COV-2 2020-10-06 Completed [facility] (COVID-19) vaccine, (COVID-19) vaccine, 00:00:00 Hospital Clin[facility] UNSPECIFIED UNSPECIFIED SARS-COV-2 SARS-COV-2 2020-10-06 Completed [facility] (COVID-19) vaccine, (COVID-19) vaccine, 00:00:00 Hospital Clin[facility] UNSPECIFIED UNSPECIFIED SARS-COV-2 SARS-COV-2 2020-10-06 Completed [facility] (COVID-19) vaccine, (COVID-19) vaccine, 00:00:00 Hospital Clin[facility] UNSPECIFIED UNSPECIFIED SARS-COV-2 SARS-COV-2 2020-10-06 Completed [facility] (COVID-19) vaccine, (COVID-19) vaccine, 00:00:00 [facility] UNSPECIFIED UNSPECIFIED SARS-COV-2 SARS-COV-2 2020-10-06 Completed [facility] (COVID-19) vaccine, (COVID-19) vaccine, 00:00:00 [facility] Clin[facility] UNSPECIFIED UNSPECIFIED SARS-COV-2 SARS-COV-2 2020-10-06 Completed [facility] (COVID-19) vaccine, (COVID-19) vaccine, 00:00:00 [facility] Clin[facility] UNSPECIFIED UNSPECIFIED COVID-19 COVID-19 2020-10-06 Completed [facility] (SARS-COV-2) (SARS-COV-2) 00:00:00 [facility] linics vaccine, unspecified vaccine, unspecified COVID-19 COVID-19 2020-10-06 Completed [facility] (SARS-COV-2) (SARS-COV-2) 00:00:00 [facility] lin[facility] vaccine, unspecified vaccine, unspecified COVID-19 COVID-19 2020-10-06 Completed [facility] (SARS-COV-2) (SARS-COV-2) 00:00:00 [facility] linics vaccine, unspecified vaccine, unspecified COVID-19 COVID-19 2020-10-06 Completed [facility] (SARS-COV-2) (SARS-COV-2) 00:00:00 [facility] linics vaccine, unspecified vaccine, unspecified COVID-19 COVID-19 2020-10-06 Completed [facility] (SARS-COV-2) (SARS-COV-2) 00:00:00 [facility] linics vaccine, unspecified vaccine, unspecified COVID-19 COVID-19 2020-10-06 Completed [facility] (SARS-COV-2) (SARS-COV-2) 00:00:00 [facility] linics vaccine, unspecified vaccine, unspecified COVID-19 COVID-19 2020-10-06 Completed [facility] (SARS-COV-2) (SARS-COV-2) 00:00:00 [facility] linics vaccine, unspecified vaccine, unspecified PFIZER COVID-19 MRNA 2020-10-06 Completed Meth odist VACCINATION 00:00:00 Hospital Vital Signs Vital Name Observation Time Observation Value Comments Source BP Diastolic 2022-08-06 00:00:00 75 mm[Hg] [facility] s Height 2022-08-06 00:00:00 68 [in_i] [facility] s BMI (Body Mass 2022-08-06 00:00:00 34.8 kg/m2 [facility] Index) [facility] s BP Systolic 2022-08-06 00:00:00 118 mm[Hg] [facility] s Body Weight 2022-08-06 00:00:00 3664 [oz_av] [facility] s Height 2022-06-07 00:00:00 68 [in_i] [facility] s Height 2022-06-01 00:00:00 68 [in_i] [facility] s BP Diastolic 2022-02-18 00:00:00 80 mm[Hg] Replaced by [facility] s Height 2022-02-18 00:00:00 68 [in_i] Replaced by [facility] s BMI (Body Mass 2022-02-18 00:00:00 34.2 kg/m2 [facility]) [facility] Clinic s BP Systolic 2022-02-18 00:00:00 116 mm[Hg] Replaced by [facility] s Body Weight 2022-02-18 00:00:00 3600 [oz_av] Replaced by [facility] s BP Diastolic 2021-11-19 00:00:00 72 mm[Hg] Replaced by [facility] s Height 2021-11-19 00:00:00 68 [in_i] [facility] s BMI (Body Mass 2021-11-19 00:00:00 35 kg/m2 [facility]) [facility] s BP Systolic 2021-11-19 00:00:00 120 mm[Hg] [facility] s Body Weight 2021-11-19 00:00:00 3680 [oz_av] [facility] s BP Diastolic 2021-08-18 00:00:00 68 mm[Hg] Replaced by [facility] s Height 2021-08-18 00:00:00 68 [in_i] [facility] s BMI (Body Mass 2021-08-18 00:00:00 35.1 kg/m2 [facility]) [facility] Clinic s BP Systolic 2021-08-18 00:00:00 142 mm[Hg] Replaced by [facility] s Body Weight 2021-08-18 00:00:00 3696 [oz_av] [facility] s BP Diastolic 2021-05-19 00:00:00 62 mm[Hg] Replaced by [facility] s Height 2021-05-19 00:00:00 68 [in_i] [facility] s BMI (Body Mass 2021-05-19 00:00:00 34.4 kg/m2 [facility]) [facility] s BP Systolic 2021-05-19 00:00:00 120 mm[Hg] Replaced by [facility] s Body Weight 2021-05-19 00:00:00 3616 [oz_av] Replaced by [facility] s BP Diastolic 2021-03-20 00:00:00 62 mm[Hg] Replaced by [facility] s Height 2021-03-20 00:00:00 68 [in_i] Replaced by [facility] s BMI (Body Mass 2021-03-20 00:00:00 34.1 kg/m2 [facility]) [facility] s BP Systolic 2021-03-20 00:00:00 110 mm[Hg] [facility] s Body Weight 2021-03-20 00:00:00 3584 [oz_av] Replaced by [facility] s BP Diastolic 2021-03-13 00:00:00 58 mm[Hg] Replaced by [facility] s Height 2021-03-13 00:00:00 68 [in_i] Replaced by [facility] s BMI (Body Mass 2021-03-13 00:00:00 34.1 kg/m2 [facility]) [facility] s BP Systolic 2021-03-13 00:00:00 114 mm[Hg] Replaced by [facility] s Body Weight 2021-03-13 00:00:00 3584 [oz_av] Replaced by [facility] s BP Diastolic 2021-03-09 00:00:00 65 mm[Hg] Replaced by [facility] s Height 2021-03-09 00:00:00 68 [in_i] [facility] s BMI (Body Mass 2021-03-09 00:00:00 34.1 kg/m2 [facility]) [facility] s BP Systolic 2021-03-09 00:00:00 145 mm[Hg] Replaced by [facility] s Body Weight 2021-03-09 00:00:00 3584 [oz_av] Replaced by [facility] s BP Diastolic 2021-01-02 00:00:00 60 mm[Hg] Replaced by [facility] s Height 2021-01-02 00:00:00 68 [in_i] Replaced by [facility] s BMI (Body Mass 2021-01-02 00:00:00 33.5 kg/m2 [facility]) [facility] s BP Systolic 2021-01-02 00:00:00 118 mm[Hg] Replaced by [facility] s Body Weight 2021-01-02 00:00:00 3520 [oz_av] Replaced by [facility] s BP Diastolic 2020-12-19 00:00:00 72 mm[Hg] Replaced by [facility] s Height 2020-12-19 00:00:00 68 [in_i] [facility] s BMI (Body Mass 2020-12-19 00:00:00 33.8 kg/m2 [facility]) [facility] s BP Systolic 2020-12-19 00:00:00 142 mm[Hg] [facility] s Body Weight 2020-12-19 00:00:00 3560 [oz_av] [facility] s BP Diastolic 2020-12-05 00:00:00 62 mm[Hg] Replaced by [facility] s Height 2020-12-05 00:00:00 68 [in_i] [facility] s BMI (Body Mass 2020-12-05 00:00:00 34.8 kg/m2 [facility]) [facility] s BP Systolic 2020-12-05 00:00:00 108 mm[Hg] [facility] s Body Weight 2020-12-05 00:00:00 3664 [oz_av] [facility] s BP Diastolic 2020-11-21 00:00:00 64 mm[Hg] Replaced by [facility] s Height 2020-11-21 00:00:00 68 [in_i] Replaced by [facility] s BMI (Body Mass 2020-11-21 00:00:00 35.9 kg/m2 [facility] s BP Systolic 2020-11-21 00:00:00 124 mm[Hg] [facility] s Body Weight 2020-11-21 00:00:00 3776 [oz_av] [facility] [facility] Procedures Procedure Date / Time Performed Performing Clinician Sourc e Colonoscopy 2019-12-11 00:00:00 [facility] Operation on Rectum 2019-12-11 00:00:00 [facility] Procedure on Intestine 2014-09-26 00:00:00 [facility] Hernia Repair [facility] Plan of Care Planned Activity Planned Date Details Comments Source Future Scheduled Test 2022-09-08 Hepatitis C screening [facility] 08:58:27 (procedure) [code = [id number]] Future Scheduled Test 2022-09-08 SHINGLES VACCINES (1 [facility] 08:58:27 of 2) [code = SHINGLES VACCINES (1 of 2)] Future Scheduled Test 2022-09-08 COVID-19 VACCINE (3 - [facility] 08:58:27 Booster for Pfizer series) [code = COVID-19 VACCINE (3 - Booster for Pfizer series)] Future Scheduled Test 2022-09-08 65+ PNEUMOCOCCAL [facility] 08:58:27 VACCINE (2 - PCV) [code = 65+ PNEUMOCOCCAL VACCINE (2 - PCV)] Future Scheduled Test 2022-09-08 INFLUENZA VACCINE [facility] 08:58:27 [code = INFLUENZA VACCINE] Diagnostic Test 2022-06-07 rapid SARS CoV 2 Ag, [facility] Pending 00:00:00 [place], respiratory Hospital Clinics specimen [code = rapid SARS CoV 2 Ag, [place], respiratory specimen] Future Appointment 2023-02-02 Ruben Love, [address] [facility] 00:00:00 Abel Ghotra; [address], [place] [address] Encounters Start End Encounter Admission Attending Care Care Encounter Source Date/Time Date/Time Type Type Clinicians Facility Department ID 2022-08-06 2022-08-06 Outpatient ED [facility] [id number] [place] 00:00:00 00:00:00 111 [facility] 2022-08-06 2022-08-06 Ruben [facility] [place] [id number] [place] 00:00:00 00:00:00 [facility] - ty DO: [address] a [facility], H[facility] [place], [place], [address] SHERRON , Ph. 2022-06-07 2022-06-07 Outpatient ERICKSON_R [facility] [id number] - [place] 00:00:00 00:00:00 9[address] [facility] 2022-06-07 2022-06-07 Ruben [facility] [place] 00:00:00 00:00:00 [facility] ty DO: [address] [facility] [place] [place], [address] SHERRON , Ph. [phone] 2022-06-07 2022-06-07 Outpatient Sherron [facility] [id number] 00:00:00 00:00:00 Ruben [id number] Feng [id number] 2022-06-01 2022-06-01 Outpatient ERICKSON_R [facility] [id number] - [place] 00:00:00 00:00:00 906 [facility] i [facility] Clinics 2022-06-01 2022-06-01 Ruben [facility] [place] 00:00:00 00:00:00 [facility] - ty DO: [address] [facility], [place], [place], [address] SHERRON , Ph. 2022-06-01 2022-06-01 Outpatient Sherron [facility] [id number] 00:00:00 00:00:00 Ruben [id number] Feng [id number] 2022-02-18 2022-02-18 Outpatient ERICKSON_R [facility] [id number] [place] 04:53:00 04:53:00 526 Commun i [facility]osp[facility] Clinics 2022-02-18 2022-02-18 Ruben [facility] [place] 00:00:00 00:00:00 [facility] DO: [address] a [facility], HOSPITAL Clinic [place], [place], [address] SHERRON , Ph. 2022-02-18 2022-02-18 Outpatient Sherron, [facility] [id number] 00:00:00 00:00:00 Ruben [id number] Feng [id number] 2021-11-19 Outpatient ERICKSON_R [facility] [id number] - [place] 03:44:00 03:44:00 224 [facility] i [facility] Clinics 2021-11-19 2021-11-19 Ruben [facility] [place] 00:00:00 00:00:00 [facility] DO: [address] a [facility], [place], [address] SHERRON , Ph. 2021-11-19 2021-11-19 Outpatient Sherron [facility] [id number] 00:00:00 00:00:00 Ruben [id number] Feng [id number] 2021-11-19 2021-11-19 Outpatient Love, [facility] [id number] 00:00:00 00:00:00 Ruben [id number] Feng [id number] 2021-08-18 2021-08-18 Outpatient ERICKSON_R [facility] [id number] [place] 06:15:00 06:15:00 [address] [facility] 2021-08-18 2021-08-18 Ruben [facility] [place] [id number] [place] 00:00:00 00:00:00 [facility] ty DO: [address] [facility] [place] [place] [place], [address] SHERRON , Ph. 2021-08-18 2021-08-18 Outpatient Sherron [facility] [id number] 00:00:00 00:00:00 Ruben [id number] Feng [id number] 2021-05-19 2021-05-19 Outpatient ERICKSON_R [facility] [id number] - [place] 06:05:00 06:05:00 824 Commun i ty Hospita Critical access hospital 2021-05-19 2021-05-19 [facility] [id number] 00:00:00 00:00:00 Ruben [id number] Feng [id number] 2021-05-19 2021-05-19 Outpatient Sherron [facility] [id number] 00:00:00 00:00:00 Ruben [id number] Feng [id number] 2021-05-19 2021-05-19 Ruben [facility] [place] 00:00:00 00:00:00 [facility] ty DO: [address] [facility] [place] [address] SHERRON , Ph. 2021-04-17 2021-04-17 Outpatient [facility] [id number] [place] 00:00:00 00:00:00 HYUN [facility] 2021-03-27 2021-03-27 Outpatient ERICKSON_R [facility] [id number] [place] 02:16:00 02:16:00 702 [facility] Clinics 2021-03-20 2021-03-20 Outpatient ERICKSON_R [facility] [id number] [place] 03:22:00 03:22:00 625 [facility] Clinics 2021-03-20 2021-03-20 Outpatient Sherron [facility] [id number] 00:00:00 00:00:00 Ruben [id number] Feng [id number] 2021-03-20 2021-03-20 Ruben [facility] [place] 00:00:00 00:00:00 [facility] DO: [address] Hospit a [place], [place], [address] SHERRON , Ph. 2021-03-13 2021-03-13 Outpatient ERICKSON_R [facility] [id number] [place] 05:56:00 05:56:00 [address] 2021-03-13 2021-03-13 Outpatient Sherron [facility] [id number] 00:00:00 00:00:00 Ruben [id number] Feng [id number] 2021-03-13 2021-03-13 Ruben [facility] [place] 00:00:00 00:00:00 [facility] ty DO: [address] a [facility], [address] SHERRON , Ph. 2021-03-09 2021-03-09 Outpatient ERICKSON_R [facility] [id number] [place] 03:51:00 03:51:00 614 Commun i ty [facility]osp[facility] Clinics 2021-03-09 2021-03-09 Outpatient Sherron, [facility] [id number] 00:00:00 00:00:00 Ruben [id number] Feng [id number] 2021-03-09 2021-03-09 Ruben [facility] [place] [id number] [place] 00:00:00 00:00:00 [facility] - ty DO: [address] [facility] [place] [place], [address] SHERRON , Ph. 2021-02-13 2021-02-13 Outpatient ERICKSON_R [facility] [id number] [place] 11:03:00 11:03:00 [address] 2021-02-13 2021-02-13 Ruben [facility] [place] 21 [place] 00:00:00 00:00:00 [facility] ty DO: [address] [facility] [place] [place], [address] SHERRON , Ph. 2021-02-12 2021-02-12 Outpatient ERICKSON_R [facility] [id number] [place] 03:21:00 03:21:00 [address] [facility] 2021-02-06 2021-02-06 Outpatient [facility] [id number] [place] 00:00:00 00:00:00 HYUN [address] [facility] 2021-01-02 2021-01-02 Outpatient ERICKSON_R [facility] [id number] [place] 11:02:00 11:02:00 409 Commun i ty Hospita [facility] Clinics 2021-01-02 2021-01-02 Ruben [facility] [place] 09 [place] 00:00:00 00:00:00 [facility] - ty DO: [address] [facility] [place] [address] SHERRON , Ph. 2021-01-02 2021-01-02 Outpatient Sherron [facility] [id number] 00:00:00 00:00:00 Ruben [id number] Feng [id number] 2020-12-25 2020-12-25 [facility] [id number] [place] 00:00:00 00:00:00 ALI [address] 2020-12-19 2020-12-19 Outpatient ERSUMMERON_R [facility] [id number] - [place] 03:51:00 03:51:00 326 Commun i ty Hospita Critical access hospital 2020-12-19 2020-12-19 Ruben [facility] [place] 00:00:00 00:00:00 [facility] DO: [address] [facility] [place] [address] SHERRON , Ph. [phone] 2020-12-19 2020-12-19 Outpatient Sherron [facility] [id number] 00:00:00 00:00:00 Ruben [id number] Feng [id number] 2020-12-05 2020-12-05 Outpatient ERSUMMERON_R [facility] [id number] - [place] 12:20:00 12:20:00 312 Commun i ty Hospita Critical access hospital 2020-12-05 2020-12-05 Ruben [facility] [place] 00:00:00 00:00:00 [facility] DO: [address] [facility] [place] [address] SHERRON , Ph. 2020-12-05 2020-12-05 Outpatient Sherron [facility] [id number] 00:00:00 00:00:00 Ruben [id number] Feng [id number] 2020-11-21 2020-11-21 Outpatient SILVIOR [facility] [id number] [place] 01:11:00 01:11:00 226 Commun i [facility]ospita [facility] Clinics 2020-11-21 2020-11-21 Outpatient Sherron [facility] [id number] 00:00:00 00:00:00 Ruben [id number] Feng [id number] 2020-11-21 2020-11-21 Ruben [facility] [place] 00:00:00 00:00:00 [facility] DO: [address] a [facility] [address], HOSPITAL Clinic [place], [place], [address] SHERRON , Ph. 2020-10-27 2020-10-27 Outpatient [facility] [id number] [place] 00:00:00 00:00:[address] 2020-10-24 2020-10-24 Outpatient DONITA [facility] [id number] [place] 00:00:00 00:00:00 AUGUSTINE [address] 2020-10-06 2020-10-06 Outpatient [facility] [id number] [place] 00:00:00 00:00:[address] 2020-09-12 2020-09-12 Outpatient NERY [facility] [id number] [place] 00:00:00 00:00:00 ABA [address] 2020-09-12 2020-09-12 Outpatient NERY [facility] [id number] [place] 00:00:00 00:00:00 ABA [address] 2020-09-03 2020-09-03 Outpatient NERY [facility] [id number] [place] 00:00:00 00:00:00 ABA [address] 2020-09-03 2020-09-03 Outpatient NERY [facility] [id number] [place] 00:00:00 00:00:00 ABA [address] 2020-09-03 2020-09-03 Outpatient NERY, [facility] [id number] [place] 00:00:00 00:00:00 ABA [address] 2019-12-27 2019-12-27 Outpatient ALISON, [facility] [id number] [place] 00:00:00 00:00:00 ALI [address] Results Test Description Test Time Test Comments Results Result Comments Source SARS-CoV-2 (COVID-19) Ag [Presence] in Respiratory spe cimen by 2022-06-07 10:59:00 Rapid immunoassay Test Item Value Reference Range Interpretation Comme nts SARS CoV 2 (test code = SARS CoV 2) [facility] Ag [Presence] in Respiratory specimen by Rapid [id number] 11:22:00 Test Item Value Reference Range Interpretation Comments SARS CoV 2 (test code = SARS CoV 2) [facility] Ag [Presence] in Respiratory specimen by Rapid [id number] 11:22:00 Test Item Value Reference Range Interpretation Comments SARS CoV 2 (test code = SARS CoV 2) positive [facility] metabolic 2000 panel - Serum or Plasma 2020-12-20 00:00:00 Test Item Value Reference Range Interpretation Comments Glucose [Mass/volume] in Serum 206 mg/dL 65-99 H or Plasma (test code = 2345-7) Urea nitrogen [Mass/volume] in 51 mg/dL 8-27 H Serum or Plasma (test code = 3094-0) Creatinine [Mass/volume] in 2.34 mg/dL 0.76-1.27 H Serum or Plasma (test code = 2160-0) Glomerular filtration 26 mL/min/1.73 >59 L rate/1.73 sq M.predicted among non-blacks [Volume Rate/Area] in Serum, Plasma or Blood by Creatinine-based formula (CKD-EPI) (test code = 95676-4) Glomerular filtration 30 mL/min/1.73 >59 L rate/1.73 sq M.predicted among blacks [Volume Rate/Area] in Serum, Plasma or Blood by Creatinine-based formula (CKD-EPI) (test code = 10442-4) Urea nitrogen/Creatinine [Mass 22 10-24 Ratio] in Serum or Plasma (test code = 3097-3) Sodium [Moles/volume] in Serum 138 mmol/L 134-144 or Plasma (test code = 2951-2) Potassium [Moles/volume] in 4.7 mmol/L 3.5-5.2 Serum or Plasma (test code = 2823-3) Chloride [Moles/volume] in 100 mmol/L 96-106 Serum or Plasma (test code = 2075-0) Carbon dioxide, total 22 mmol/L 20-29 [Moles/volume] in Serum or Plasma (test code = 2027-9) Calcium [Mass/volume] in Serum 9.6 mg/dL 8.6-10.2 or Plasma (test code = 44237-4) [facility] metabolic 2000 panel - Serum or Plasma 2020-11-22 00:00:00 Test Item Value Reference Range Interpretation Comments Glucose [Mass/volume] in Serum 116 mg/dL 65-99 H or Plasma (test code = 2345-7) Urea nitrogen [Mass/volume] in 31 mg/dL 8-27 H Serum or Plasma (test code = 3094-0) Creatinine [Mass/volume] in 1.97 mg/dL 0.76-1.27 H Serum or Plasma (test code = 2160-0) Glomerular filtration 32 mL/min/1.73 >59 L rate/1.73 sq M.predicted among non-blacks [Volume Rate/Area] in Serum, Plasma or Blood by Creatinine-based formula (CKD-EPI) (test code = 01231-3) Glomerular filtration 37 mL/min/1.73 >59 L rate/1.73 sq M.predicted among blacks [Volume Rate/Area] in Serum, Plasma or Blood by Creatinine-based formula (CKD-EPI) (test code = 18611-3) Urea nitrogen/Creatinine [Mass 16 10-24 Ratio] in Serum or Plasma (test code = 3097-3) Sodium [Moles/volume] in Serum 139 mmol/L 134-144 or Plasma (test code = 2951-2) Potassium [Moles/volume] in 4.4 mmol/L 3.5-5.2 Serum or Plasma (test code = 2823-3) Chloride [Moles/volume] in 103 mmol/L 96-106 Serum or Plasma (test code = 2075-0) Carbon dioxide, total 21 mmol/L 20-29 [Moles/volume] in Serum or Plasma (test code = 202-9) Calcium [Mass/volume] in Serum 8.8 mg/dL 8.6-10.2 or Plasma (test code = 57076-0) [facility]Mass Ratio] in Urine 2020-11-22 00:00:00 Test Item Value Reference Range Interpretation Comments Creatinine [Mass/volume] in 63.9 mg/dL not estab. Urine (test code = 2161-8) Microalbumin [Mass/volume] in 534.6 ug/mL not estab. Urine (test code = 56016-9) Albumin/Creatinine [Mass 837 mg/g creat 0-29 H ratio] in Urine (test code = 9318-7) [facility]Hemoglobin.total in Blood 2020-11-22 00:00:00 Test Item Value Reference Range Interpretation Comments Hemoglobin A1c/Hemoglobin.total in 6.8 % 4.8-5.6 H Blood (test code = 4548-4) [facility] 2000 [facility] - Serum or Plasma 2020-11-22 00:00:00 Test Item Value Reference Range Interpretation Comments Glucose [Mass/volume] in Serum 116 mg/dL 65-99 H or Plasma (test code = 2345-7) Urea nitrogen [Mass/volume] in 31 mg/dL 8-27 H Serum or Plasma (test code = 3094-0) Creatinine [Mass/volume] in 1.97 mg/dL 0.76-1.27 H Serum or Plasma (test code = 2160-0) Glomerular filtration 32 mL/min/1.73 >59 L rate/1.73 sq M.predicted among non-blacks [Volume Rate/Area] in Serum, Plasma or Blood by Creatinine-based formula (CKD-EPI) (test code = 00972-4) Glomerular filtration 37 mL/min/1.73 >59 L rate/1.73 sq M.predicted among blacks [Volume Rate/Area] in Serum, Plasma or Blood by Creatinine-based formula (CKD-EPI) (test code = 57019-4) Urea nitrogen/Creatinine [Mass 16 10-24 Ratio] in Serum or Plasma (test code = 3097-3) Sodium [Moles/volume] in Serum 139 mmol/L 134-144 or Plasma (test code = 2951-2) Potassium [Moles/volume] in 4.4 mmol/L 3.5-5.2 Serum or Plasma (test code = 2823-3) Chloride [Moles/volume] in 103 mmol/L 96-106 Serum or Plasma (test code = 2075-0) Carbon dioxide, total 21 mmol/L 20-29 [Moles/volume] in Serum or Plasma (test code = 2028-9) Calcium [Mass/volume] in Serum 8.8 mg/dL 8.6-10.2 or Plasma (test code = 22685-4) [facility] [Mass Ratio] in Urine 2020-11-22 00:00:00 Test Item Value Reference Range Interpretation Comments Creatinine [Mass/volume] in 63.9 mg/dL not estab. Urine (test code = 2161-8) Microalbumin [Mass/volume] in 534.6 ug/mL not estab. Urine (test code = 76132-4) Albumin/Creatinine [Mass 837 mg/g creat 0-29 H ratio] in Urine (test code = 9318-7) [facility]/Hemoglobin.total in Blood 2020-11-22 00:00:00 Test Item Value Reference Range Interpretation Comments Hemoglobin A1c/Hemoglobin.total in 6.8 % 4.8-5.6 H Blood (test code = 4548-4) [facility]
[2022-11-23 23:22] LABS: Urine Blood Negative (Negative); Urine Glucose 2+ (Negative); Urine Protein 2+ (Negative); Urine pH 5.5 (5.0-7.0)
[2022-11-23 23:37] LABS: Urine Bacteria None Seen /HPF (<20); Urine RBC None Seen /HPF (None Seen)
[2022-11-23 23:42] LABS: Absolute Lymphocytes (CBC) 2.3 K/uL (0.7-4.9); Hematocrit 35.8 % (39.6-49.0); Lymphocytes % 28.2 % (15.3-44.8); MCV 88.1 fL (80-100); MPV 8.5 fL (7.6-11.3); RBC Red Blood Cell Count 4.06 M/uL (4.33-5.43)
[2022-11-23 23:56] LABS: Magnesium 2.4 mg/dL (1.6-2.4); Potassium 3.8 mmol/L (3.5-5.1); Troponin High Sensitivity 18.3 pg/mL (<58.9)
[2022-11-24] MEDS ORDERED: MECLIZINE HCL 12.5 MG TAB ONE (00:19)
[2022-11-24] MEDS ORDERED: NA CHLORIDE 0.9% 500 ML ONE (01:22)
--- NOTE | 2022-11-24 02:09 | EDPHYS ---
Physician Documentation [facility] Name: Royer Vu Jr Age: 77 yrs Sex: Male : 1945 Arrival Date: 11/23/2022 Time: 20:55 Bed 13 Private MD: ED Physician John Saunders HPI: 11/23 22:55 This 77 yrs old Male presents to ER via Ambulatory with complaints of Blood Pressure cp Problem, Dizziness, Constipation. 22:55 The patient presents with dizziness, feeling faint, lightheadedness. Onset: The cp symptoms/episode began/occurred for past several days. Context: occurred while the patient was sitting, standing, walking. Associated signs and symptoms: Pertinent negatives: abdominal pain, chest pain, confusion, diaphoresis, focal weakness, headache, syncope, vomiting. Severity of symptoms: in the emergency department the symptoms are unchanged. Patient's baseline: Neuro: alert and fully oriented, Motor: no deficits, Ambulation: walks without assistance, Speech: normal. Patient c/o constipation. Reports noticing low blood pressure readings. No recent change in hypertensive meds. Historical: - Allergies: 22:08 No Known Allergies; kd3 - PMHx: 22:08 COLON CA; Diabetes - IDDM; Hypertension; kidney disease; kd3 - Immunization history:: Adult Immunizations up to date. - Social history:: Smoking status: Patient denies any tobacco usage or history of. ROS: 23:00 Constitutional: Negative for body aches, chills, fever, poor PO intake. cp 23:00 Eyes: Negative for injury, pain, redness, and discharge. cp 23:00 ENT: Negative for drainage from ear(s), ear pain, sore throat, difficulty swallowing, difficulty handling secretions. 23:00 Cardiovascular: Negative for chest pain, edema, palpitations. 23:00 Respiratory: Negative for cough, shortness of breath, wheezing. 23:00 Abdomen/GI: Positive for constipation, Negative for abdominal pain, vomiting, diarrhea, black/tarry stool, rectal bleeding. 23:00 : Negative for urinary symptoms. 23:00 Neuro: Positive for dizziness, Negative for altered mental status, headache, numbness, syncope, weakness. 23:00 All other systems are negative. Exam: 23:05 Constitutional: The patient appears in no acute distress, alert, awake, cp non-diaphoretic, non-toxic, well developed, well nourished. 23:05 Head/Face: Normocephalic, atraumatic. cp 23:05 Eyes: Periorbital structures: appear normal, Pupils: equal, round, and reactive to light and accomodation, Extraocular movements: intact throughout, Conjunctiva: normal, no exudate, no injection, Sclera: no appreciated abnormality, Lids and lashes: appear normal, bilaterally. 23:05 ENT: External ear(s): are unremarkable, Nose: is normal, Mouth: Lips: moist, Oral mucosa: pink and intact, moist, Posterior pharynx: is normal, airway is patent, no erythema, no exudate. 23:05 Neck: ROM/movement: is normal, is supple, without pain, no range of motions limitations, no meningismus, no nuchal rigidity. 23:05 Chest/axilla: Inspection: normal. 23:05 Cardiovascular: Rate: normal, Rhythm: regular, Edema: is not appreciated, JVD: is not appreciated. 23:05 Respiratory: the patient does not display signs of respiratory distress, Respirations: normal, no use of accessory muscles, no retractions, labored breathing, is not present, Breath sounds: are clear throughout, no decreased breath sounds, no stridor, no wheezing. 23:05 Abdomen/GI: Inspection: abdomen appears normal, Bowel sounds: active, all quadrants, Palpation: abdomen is soft and non-tender, in all quadrants. 23:05 Skin: cellulitis, is not appreciated, no rash present. 23:05 Neuro: Orientation: to person, place \T\ time. Mentation: is normal, Cerebellar function: Romberg testing is negative, Motor: moves all fours, strength is normal, Sensation: is normal, Gait: is steady. 11/24 00:27 ECG was reviewed by the Attending Physician. cp 02:06 ECG was reviewed by the Attending Physician. cp Vital Signs: 11/23 22:05 BP 133 / 65; Pulse 67; Resp 19; Temp 98(O); Pulse Ox 95% ; Weight 102.51 kg; Pain 4/10; kd3 11/24 00:28 BP 163 / 78; Pulse 57; Resp 14 S; Pulse Ox 96% on R/A; aa9 00:45 BP 151 / 67; Pulse 54; Resp 13 S; Pulse Ox 96% on R/A; aa9 01:15 BP 151 / 65; Pulse 57; Resp 12 S; Pulse Ox 96% on R/A; aa9 01:30 BP 154 / 65; Pulse 58; Resp 13; Pulse Ox 94% on R/A; aa9 02:00 BP 159 / 69; Pulse 64; Resp 13 S; Pulse Ox 97% on R/A; aa9 MDM: 11/23 22:12 Patient medically screened. 23:00 Differential diagnosis: viral Infection, bacterial infection, UTI, gastroenteritis, cp meningitis, volume depletion, sepsis, CVA, vertigo. 11/24 02:05 Data reviewed: vital signs, nurses notes, lab test result(s), EKG, radiologic studies, cp CT scan, plain films. Consideration of Admission/Observation Escalation of care including admission/observation considered. discussed results of today's tests and admission for continued monitoring offered, but patient requesting discharge to home and will f/u with cardiology. 02:05 I considered the following discharge prescriptions or medication management in the emergency department Medications were administered in the Emergency Department. See MAR. 02:05 Test considered but Not performed: MRI: brain. Care significantly affected by the cp following chronic conditions: Diabetes, Hypertension, Congestive Heart Failure, Chronic Kidney Disease. 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 Response to treatment: the patient's symptoms have mildly improved after treatment, and as a result, I will discharge patient. 11/23 22:49 Order name: Orthostatic Blood Pressure cp 11/23 22:49 Order name: Basic Metabolic Panel; Complete Time: 23:57 cp 11/23 23:57 Interpretation: Normal except: BUN 36; CRE 2.90; GFR 21. cp 11/23 22:49 Order name: CBC with Diff; Complete Time: 23:54 cp 11/23 23:54 Interpretation: Normal except: RBC 4.06; HGB 12.1; HCT 35.8. cp 11/23 22:49 Order name: Magnesium; Complete Time: 23:57 cp 11/23 22:49 Order name: NT PRO-BNP; Complete Time: 23:57 cp 11/23 22:49 Order name: Troponin HS; Complete Time: 23:57 cp 11/23 22:49 Order name: XRAY Chest (1 view) cp 11/23 22:49 Order name: EKG; Complete Time: 22:50 cp 11/23 22:49 Order name: Cardiac monitoring; Complete Time: 00:09 cp 11/23 22:49 Order name: EKG - Nurse/Tech; Complete Time: 00:25 cp 11/23 22:49 Order name: IV Saline Lock; Complete Time: 00:09 cp 11/23 22:49 Order name: Labs collected and sent; Complete Time: 00:09 cp 11/23 22:49 Order name: O2 Per Protocol; Complete Time: 00: cp 11/23 22:49 Order name: O2 Sat Monitoring; Complete Time: 00:09 cp 11/23 22:49 Order name: CT Head Brain wo Cont cp 11/23 22:50 Order name: Urine Dipstick-Ancillary (obtain specimen); Complete Time: 23:21 cp 11/23 22:50 Order name: Urine Microscopic Only; Complete Time: 23:54 cp 11/23 23:22 Order name: Urine Dipstick-Ancillary; Complete Time: 23:54 EDMS EC:27 Rate is 54 beats/min. Rhythm is regular. WA interval is normal. QRS interval is cp prolonged at 102 msec. QT interval is normal. Interpreted by me. Reviewed by me. 02:06 Rate is 53 beats/min. Rhythm is regular. WA interval is normal. QRS interval is normal. cp QT interval is normal. T waves are Inverted in lead aVR. Interpreted by me. Reviewed by me. Administered Medications: 00:03 CANCELLED (Physician Discretion): NS 0.9% 500 ml IV at 250 ml/hr continuous cp 00:34 Drug: Meclizine 25 mg Route: PO; aa9 02:24 Follow up: Response: No adverse reaction aa9 01:26 Drug: NS 0.9% 500 ml Route: IV; Rate: 250 ml/hr; Site: left forearm; aa9 02:24 Follow up: Response: No adverse reaction; IV Status: Completed infusion; IV Intake: aa9 250ml Disposition: 02:54 Co-signature as Attending Physician, John Saunders MD I reviewed the patient's care rt provided by the Advanced Practice Provider and agree with the diagnosis and treatment plan. Disposition Summary: 11/24/22 02:08 Discharge Ordered Location: Home cp Problem: new cp Symptoms: have improved cp Condition: Stable cp Diagnosis - Dizziness and giddiness cp - Bradycardia, unspecified cp - Chronic kidney disease, unspecified cp Followup: cp - With: Roland Arango MD - When: 1 - 2 days - Reason: Recheck today's complaints Discharge Instructions: - Discharge Summary Sheet cp - Bradycardia, Adult cp - Dizziness cp - Food Basics for Chronic Kidney Disease cp - Chronic Kidney Disease, Adult cp Forms: - Medication Reconciliation Form cp - Thank You Letter cp - Antibiotic Education cp - Prescription Opioid Use cp Prescriptions: - Meclizine 25 mg Oral Tablet - take 1 tablet by ORAL route every 8 hours As needed; 30 tablet; Refills: 0, cp Product Selection Permitted Signatures: Dispatcher [employer] EDMS Adin Anglin PA PA cp Elaine Damon RN RN kd3 Rupa Fitzpatrick RN RN aa9 John Saunders MD MD rt Corrections: (The following items were deleted from the chart) 00:03 00:02 NS 0.9% 500 ml IV at 250 ml/hr continuous ordered. cp cp
--- NOTE | 2022-11-24 02:09 | ER ---
Nurse's Notes [facility] Name: Royer Vu Jr Age: 77 yrs Sex: Male : 1945 Arrival Date: 11/23/2022 Time: 20:55 Bed 13 Private MD: Diagnosis: Dizziness and giddiness;Bradycardia, unspecified;Chronic kidney disease, unspecified Presentation: 11/23 22:05 Chief complaint: Patient states: I feel kind of light headed and dizzy. My blood kd3 pressure will occasionally drop. I am on blood pressure medication. There has not been any recent changes to my blood pressure medication recently. Coronavirus screen: Vaccine status: Patient reports receiving the 2nd dose of the covid vaccine. Ebola Screen: No symptoms or risks identified at this time. Initial Sepsis Screen: Does the patient meet any 2 criteria? No. Patient's initial sepsis screen is negative. Does the patient have a suspected source of infection? No. Patient's initial sepsis screen is negative. Risk Assessment: Do you want to hurt yourself or someone else? Patient reports no desire to harm self or others. Onset of symptoms was November 23, 2022. 22:05 Method Of Arrival: Ambulatory kd3 22:05 Acuity: JORGE 3 kd3 Triage Assessment: 22:08 General: Appears in no apparent distress. Behavior is calm, cooperative. Pain: kd3 Complains of pain in headache. GI: Abdomen is non-distended. Historical: - Allergies: 22:08 No Known Allergies; kd3 - PMHx: 22:08 COLON CA; Diabetes - IDDM; Hypertension; kidney disease; kd3 - Immunization history:: Adult Immunizations up to date. - Social history:: Smoking status: Patient denies any tobacco usage or history of. Screenin/01 01:39 Abuse screen: Denies threats or abuse. Denies injuries from another. Nutritional aa9 screening: No deficits noted. Tuberculosis screening: No symptoms or risk factors identified. 02:24 [facility] ED Fall Risk Assessment (Adult) History of falling in the last 3 months, aa9 including since admission No falls in past 3 months (0 pts) Confusion or Disorientation No (0 pts) Intoxicated or Sedated No (0 pts) Impaired Gait No (0 pts) Mobility Assist Device Used No (0 pt) Altered Elimination No (0 pt) Score/Fall Risk Level 0 - 2 = Low Risk Oriented to surroundings, Maintained a safe environment. Assessment: 00:00 General: Appears comfortable, obese, well groomed, Behavior is calm, cooperative. aa9 00:00 Pain: Denies pain. Cardiovascular: Patient's skin is warm and dry. Respiratory: Airway aa9 is patent Respiratory effort is even, unlabored. GI: No signs and/or symptoms were reported involving the gastrointestinal system. : No signs and/or symptoms were reported regarding the genitourinary system. Derm: Skin is intact, is healthy with good turgor. 02:15 Reassessment: Patient appears in no apparent distress at this time. Patient is alert, aa9 oriented x 3, equal unlabored respirations, skin warm/dry/pink. Patient states feeling better. 02:24 Reassessment: Patient appears in no apparent distress at this time. Patient is alert, aa9 oriented x 3, equal unlabored respirations, skin warm/dry/pink. Patient states feeling better. Vital Signs: 11/23 22:05 BP 133 / 65; Pulse 67; Resp 19; Temp 98(O); Pulse Ox 95% ; Weight 102.51 kg; Pain 4/10; kd3 11/24 00:28 BP 163 / 78; Pulse 57; Resp 14 S; Pulse Ox 96% on R/A; aa9 00:45 BP 151 / 67; Pulse 54; Resp 13 S; Pulse Ox 96% on R/A; aa9 01:15 BP 151 / 65; Pulse 57; Resp 12 S; Pulse Ox 96% on R/A; aa9 01:30 BP 154 / 65; Pulse 58; Resp 13; Pulse Ox 94% on R/A; aa9 02:00 BP 159 / 69; Pulse 64; Resp 13 S; Pulse Ox 97% on R/A; aa9 ED Course: 11/23 20:55 Patient arrived in ED. jj6 21:16 Adin Anglin PA is PHCP. cp 21:16 John Saunders MD is Attending Physician. cp 22:08 Triage completed. kd3 22:08 Arm band placed on right wrist. kd3 11/24 00:00 Patient has correct armband on for positive identification. Placed in gown. Bed in low aa9 position. Call light in reach. Side rails up X2. Adult w/ patient. 00:07 Rupa Fitzpatrick, RN is Primary Nurse. aa9 01:37 XRAY Chest (1 view) In Process Unspecified. EDMS 01:37 CT Head Brain wo Cont In Process Unspecified. EDMS 02:07 Roland Arango MD is Referral Physician. cp 02:23 No provider procedures requiring assistance completed. IV discontinued, intact, aa9 bleeding controlled, No redness/swelling at site. Pressure dressing applied. Administered Medications: 00:03 CANCELLED (Physician Discretion): NS 0.9% 500 ml IV at 250 ml/hr continuous cp 00:34 Drug: Meclizine 25 mg Route: PO; aa9 02:24 Follow up: Response: No adverse reaction aa9 01:26 Drug: NS 0.9% 500 ml Route: IV; Rate: 250 ml/hr; Site: left forearm; aa9 02:24 Follow up: Response: No adverse reaction; IV Status: Completed infusion; IV Intake: aa9 250ml Medication: 02:24 VIS not applicable for this client. aa9 Intake: 02:24 IV: 250ml; Total: 250ml. aa9 Outcome: 02:08 Discharge ordered by . cp 02:23 Discharged to home ambulatory, with family. aa9 02:23 Condition: stable 02:23 Discharge instructions given to patient, family, Instructed on discharge instructions, follow up and referral plans. medication usage, Demonstrated understanding of instructions, follow-up care, medications, Prescriptions given X 1. 02:25 Patient left the ED. aa9 Signatures: Dispatcher [employer] EDNJ Adin Anglin PA PA cp Meena Sutton jj6 Elaine Damon RN RN kd3 Rupa Fitzpatrick, RN RN aa9
[2022-11-24 02:29] VITALS: TEMP 98
[2022-11-24 02:35] VITALS: BP 159/69; O2SAT 97
--- NOTE | 2022-11-24 11:14 | EKG ---
Test Date: 2022-11-24 Test Time: 02:01:29 Chief Station Engineer: TONY MEASUREMENT RESULTS: Intervals: Rate: 53 SC: 156 QRSD: 100 QT: 410 QTc: 384 [place]: P: 260 SC: 156 QRS: -35 T: 9 INTERPRETIVE STATEMENTS: Unusual P axis, possible ectopic atrial bradycardia Left axis deviation Abnormal ECG Compared to ECG 10/11/2022 09:20:20 Left-axis deviation now present Sinus bradycardia no longer present Sinus arrhythmia no longer present Left anterior fascicular block no longer present Electronically Signed On 11-24-22 11:13:38 AUDIOVISUAL AIDS TECHNICIAN by Roland Arango
--- NOTE | 2022-11-24 13:09 | RAD REPORT ---
EXAM DESCRIPTION: RAD - Chest Single View - 11/23/2022 11:56 pm CLINICAL HISTORY: 77 years, Male, dizziness COMPARISON: None. FINDINGS: Single view of the chest was obtained portable. No prior films are available for compariso n. The cardiomediastinal silhouette demonstrate to be unremarkable. The heart is not enlarged. The th oracic aorta demonstrate intimal aortic arch calcification. The pulmonary vasculature is normal distr ibution. Costophrenic angles are sharp. No areas of consolidation or masses are seen. The rest of the soft tissue and bony structures demonstrate to be unremarkable. IMPRESSION: No acute cardiopulmonary disease seen. Electronically signed by: Noah Thomas MD 11/24/2022 12:09 AM GRAPHIC DESIGN INTERN Due to temporary technical issues with the PACS/Fluency reporting system, reports are being signed by the in house radiologists without review as a courtesy to insure prompt reporting. The interpreting radiologist is fully responsible for the content of the report.
--- NOTE | 2022-11-24 13:24 | RAD REPORT ---
EXAM DESCRIPTION: CT - Head Brain Wo Cont - 11/24/2022 6:54 am CLINICAL HISTORY: 77 years Male, DIZZINESS TECHNIQUE: Helical CT axial images are obtained from the base of skull through the vertex without IV contrast. Multiplanar reconstruction. This exam was performed according to our departmental dose-opt imization program, which includes automated exposure control, adjustment of the mA and/or kV accordin g to patient size and/or use of iterative reconstruction technique. COMPARISON: 12/10/2020 FINDINGS: BRAIN: No infarcts. No parenchymal hemorrhage, intra-axial mass, mass effect, or midline shift. No abnormal extra-axial fluid collections. Mild periventricular white matter hypodensities. VENTRICLES: Ventricles are normal in size and configuration. No hydrocephalus. CALVARIUM: Bone windows show no skull fracture or calvarial lesions. PARANASAL SINUSES AND MASTOIDS: Clear paranasal sinuses. Mastoid air cells are clear. IMPRESSION: 1. No acute intracranial disease. 2. Mild chronic small vessel ischemic white matter changes. Electronically signed by: Neal Michelle MD 11/23/2022 11:52 PM BINDING FOLDER MACHINE Due to temporary technical issues with the PACS/Fluency reporting system, reports are being signed by the in house radiologists without review as a courtesy to insure prompt reporting. The interpreting radiologist is fully responsible for the content of the report.
--- NOTE | 2022-11-24 17:29 | EKG ---
Test Date: 2022-11-24 Test Time: 00:22:32 Motion Picture Photographer: TONY MEASUREMENT RESULTS: Intervals: Rate: 54 MD: 180 QRSD: 102 QT: 424 QTc: 402 [place]: P: MD: 180 QRS: -37 T: 30 INTERPRETIVE STATEMENTS: Sinus bradycardia Left axis deviation Abnormal ECG Compared to ECG 10/11/2022 09:20:20 Left-axis deviation now present Sinus arrhythmia no longer present Left anterior fascicular block no longer present Electronically Signed On 11-24-22 17:28:40 LINE MANAGER by Roland Arango
== END 2022-11-24 02:25 | disposition home or self-care (01) ==
LOC: ER 20:52
DX: R00.1 Bradycardia, unspecified (principal); E11.22 Type 2 diabetes mellitus with diabetic chronic kidney disease; I12.9 Hypertensive chronic kidney disease with stage 1 through stage 4 chronic kidney disease, or unspecified chronic kidney disease; N18.9 Chronic kidney disease, unspecified; Z85.038 Personal history of other malignant neoplasm of large intestine
CPT/HCPCS: 93005 ×2; 85025; 80048; 36415; 83735; 84484; 83880; 70450; 71045; J8597; J7040; 81003; 81015

== ENCOUNTER 2024-09-14 10:44 | Emergency (ER) | payer OTHER ==
[2024-09-14 11:07] LABS: Absolute Basophils 0.1 K/uL (0-0.5); Absolute Eosinophils 0.1 K/uL (0-0.5); Absolute Lymphocytes (CBC) 0.5 K/uL (0.7-4.9); Absolute Monocytes 0.9 K/uL (0.1-1.3); Basophils % 0.6 % (0-1.3); Eosinophils % 1.2 % (0-4.4); Hematocrit 19.5 % (39.6-49.0); Hemoglobin 6.3 g/dL (13.6-17.9); Lymphocytes % 6.1 % (15.3-44.8); MCH 30.8 pg (27.0-35.0); MCHC 32.3 g/dL (32.0-36.0); MCV 95.4 fL (80-100); MPV 8.4 fL (7.6-11.3); Neutrophils % 81.1 % (41.7-73.7); Nucleated Red Blood Cells % 0.1 % (0-0); Platelets 189 thou/uL (152-406); RBC Red Blood Cell Count 2.05 M/uL (4.33-5.43); Red Cell Distribution Width 21.6 % (12.1-15.2)
[2024-09-14 11:08] LABS: PT Prothrombin Time 15.3 SECONDS (9.4-12.5); Protime INR 1.38
--- NOTE | 2024-09-14 11:21 | RAD REPORT ---
EXAMINATION: ONE VIEW CHEST XR CLINICAL INDICATION: CHEST PAIN TECHNIQUE: Frontal chest projection is submitted. Examination is limited by patient positioning and t echnique. COMPARISON: 11/15/2022 FINDINGS: Mild pulmonary edema suspected. Small right pleural effusion. The heart is moderately enlarged. Right -sided venous catheters tip near the junction of the right atrium and SVC. No pneumothorax.. IMPRESSION: Mild CHF with small right pleural effusion.
[2024-09-14 11:23] LABS: Albumin 2.6 g/dL (3.4-5.0); Albumin/Globulin Ratio 0.8 (1.1-1.8); Anion Gap 13.5 mEq/L (5.0-15.0); Bilirubin Direct 0.2 mg/dL (0-0.2); Bilirubin Indirect, Calculated 0.5 mg/dL (0.2-0.8); Bilirubin Total 0.7 mg/dL (0.2-1.0); Globulin 3.2 g/dL (2.3-3.5); Magnesium 2.5 mg/dL (1.6-2.4); Potassium 4.5 mEq/L (3.5-5.1); Protein, Total 5.8 g/dL (6.4-8.2); Troponin High Sensitivity 14.4 pg/mL (<58.9)
[2024-09-14 11:29] LABS: Anisocytosis 1+; Blood Morphology Comment NOTED (NOT SEEN); Macrocytosis SLIGHT; Microcytosis SLIGHT; Ovalocytes SLIGHT; Platelet Estimate ADEQ; Poikilocytosis 1+; White Blood Cell Scan OK (OK)
[2024-09-14 11:52] LABS: SARS-CoV-2 Antigen CONTROL BLUE LINE VIS/BG OK; SARS-CoV-2 Antigen Rapid Res Negative (Negative)
[2024-09-14] MEDS ORDERED: FUROSEMIDE 40 MG/4 ML VIAL ONE (12:21)
--- NOTE | 2024-09-14 12:43 | ER ---
Nurse's Notes [facility] Name: Royer Vu II Age: 78 yrs Sex: Male : 1945 Arrival Date: 09/14/2024 Time: 10:44 Bed 15 Private MD: Diagnosis: CHF exacerbation, dyspnea, melena, anemia, possible GI bleed Presentation: 09/14 10:52 Chief complaint: Worsening SOB and chest tightness x 2-3 days. Recent LLE bypass graft, hb on Merrem BID. Coronavirus screen: At this time, the client does not indicate any symptoms associated with coronavirus-19. Ebola Screen: No symptoms or risks identified at this time. Initial Sepsis Screen: Does the patient meet any 2 criteria? No. Patient's initial sepsis screen is negative. Does the patient have a suspected source of infection? No. Patient's initial sepsis screen is negative. Risk Assessment: Do you want to hurt yourself or someone else? Patient reports no desire to harm self or others. Onset of symptoms was September 12, 2024. 10:52 Method Of Arrival: Wheelchair hb 10:52 Acuity: JORGE 3 hb Historical: - Allergies: 11:00 No Known Allergies; hb - Home Meds: 11:00 Xarelto oral [Active]; Furosemide Oral [Active]; metoprolol succinate oral [Active]; hb 11:03 meropenem intravenous [Active]; hb - PMHx: 11:00 COLON CA; Diabetes - IDDM; Hypertension; kidney disease; hb 11:00 CHF; hb - PSHx: 11:00 LLE Bypass; Hernia Repair; hb - Immunization history:: Adult Immunizations up to date. - Infectious Disease History:: Denies. - Social history:: Smoking status: Patient/guardian denies using tobacco, but has a distant history of tobacco abuse. Screenin:50 [facility] ED Fall Risk Assessment (Adult) History of falling in the last 3 months, rs5 including since admission No falls in past 3 months (0 pts) Confusion or Disorientation No (0 pts) Intoxicated or Sedated No (0 pts) Impaired Gait No (0 pts) Mobility Assist Device Used No (0 pt) Altered Elimination No (0 pt) Score/Fall Risk Level 0 - 2 = Low Risk Oriented to surroundings, Maintained a safe environment. Abuse screen: Denies threats or abuse. Nutritional screening: No deficits noted. Tuberculosis screening: No symptoms or risk factors identified. Assessment: 10:47 General: Appears in no apparent distress. uncomfortable, Behavior is calm, cooperative. rs5 Pain: Complains of pain in chest Pain does not radiate. Quality of pain is described as aching, Pain began 2-3 days ago. Is intermittent. Neuro: Level of Consciousness is awake, alert, obeys commands, Oriented to person, place, time, situation. Cardiovascular: Patient's skin is warm and dry. Respiratory: Airway is patent Respiratory effort is even, unlabored. 10:47 GI: Abdomen is round non-distended, Abd is soft and non tender X 4 quads. : No signs rs5 and/or symptoms were reported regarding the genitourinary system. EENT: No signs and/or symptoms were reported regarding the EENT system. Derm: Skin is intact, Skin is pink, warm \T\ dry. Musculoskeletal: Range of motion: intact in all extremities. 12:01 Reassessment: Patient and/or family updated on plan of care and expected duration. Pain rs5 level reassessed. Patient is alert, oriented x 3, equal unlabored respirations, skin warm/dry/pink. 13:22 Reassessment: Patient and/or family updated on plan of care and expected duration. Pain rs5 level reassessed. Patient is alert, oriented x 3, equal unlabored respirations, skin warm/dry/pink. 14:53 Reassessment: Patient and/or family updated on plan of care and expected duration. Pain rs5 level reassessed. Patient is alert, oriented x 3, equal unlabored respirations, skin warm/dry/pink. 16:05 Reassessment: Patient and/or family updated on plan of care and expected duration. Pain rs5 level reassessed. Patient is alert, oriented x 3, equal unlabored respirations, skin warm/dry/pink. 16:07 Reassessment: failed attempt to call report, asked to call back at a later time due to rs5 room not being clean, RN notified of ETA, denies attempt to call report. 16:33 Reassessment: failed attempt to call report. rs5 16:48 Reassessment: successful attempt to call report. rs5 17:01 Reassessment: Patient and/or family updated on plan of care and expected duration. Pain rs5 level reassessed. Patient is alert, oriented x 3, equal unlabored respirations, skin warm/dry/pink. 17:30 Reassessment: report given to EMS at bedside. rs5 Vital Signs: 10:52 BP 143 / 46; Pulse 96; Resp 28; Temp 97.5; Pulse Ox 96% on R/A; Weight 101.15 kg; hb Height 5 ft. 8 in. ; Pain 4/10; 11:10 BP 133 / 53; Pulse 71; Resp 17; Pulse Ox 96% on R/A; rs5 12:01 BP 152 / 54; Pulse 77; Resp 17; Pulse Ox 98% on R/A; rs5 13:24 BP 140 / 50; Pulse 80; Resp 17; Pulse Ox 97% on R/A; rs5 15:55 BP 142 / 57; Pulse 81; Resp 16; Pulse Ox 97% on R/A; rs5 17:22 BP 135 / 61; Pulse 74; Resp 17; Pulse Ox 98% on R/A; rs5 10:52 Body Mass Index 33.91 (101.15 kg, 172.72 cm) hb 10:52 Pain Scale: Adult hb ED Course: 10:46 Patient arrived in ED. ra3 10:48 Jorge Moore MD is Attending Physician. sp3 10:50 No provider procedures requiring assistance completed. Patient maintains SpO2 rs5 saturation greater than 95% on room air. 10:50 Patient has correct armband on for positive identification. Placed in gown. Bed in low rs5 position. Call light in reach. Side rails up X2. Client placed on continuous cardiac and pulse oximetry monitoring. NIBP monitoring applied. case monitor on. 10:51 Efren Díaz, JANET is Primary Nurse. rs5 10:52 Accessed PICC line. Blood collected. double lumen picc. rs5 10:57 Triage completed. hb 11:00 EKG done, by ED staff, reviewed by Jorge Moore MD. em1 11:03 Arm band placed on. hb 11:04 XRAY Chest (1 view) In Process Unspecified. EDMS 12:42 Antony Dennis is Hospitalizing Provider. sp3 13:42 initiated a transfer with Val from the [facility]. eb 14:48 called the [facility] to check on the status of the transfer/ per eb Livhenny Neal is still trying to get a hold of the doctors at [facility]. 14:53 connected the hospitalist technical sales consultant for [facility] with Dr. Moore for patient transfer consultation. 15:48 administrative approval given by Val Grimaldo / patient has been accepted to [facility] / room assignment will be given when report is called/ Dr. Sami Sandoval has accepted the patient in transfer/ report to be called to [phone]. 17:25 Provided Education on: need for transfer. rs5 17:35 Patient transferred, IV remains in place. rs5 Administered Medications: 12:20 Drug: Furosemide IVP 40 mg IVP once; give over 2 minutes {Note: to right upper chest .} rs5 Route: IVP; Site: PICC; 12:40 Follow up: Response: No adverse reaction rs5 Medication: 13:24 VIS not applicable for this client. rs5 Outcome: 12:43 Decision to Hospitalize by Provider. sp3 14:56 ER care complete, transfer ordered by MD. sp3 17:35 Discharged to home ambulatory, rs5 17:35 Condition: stable rs5 17:35 Instructed on the need for admit, Demonstrated understanding of instructions, 17:38 Patient left the ED. rs5 Signatures: Dispatcher [employer] Jony Herman em1 Tatiana Wood, RN RN Elsi De La Garza Setul, MD MD sp3 Efren Díaz RN RN rs5 Renetta Sarabia 3
--- NOTE | 2024-09-14 12:43 | EDPHYS ---
Physician Documentation [facility] Name: Royer Vu II Age: 78 yrs Sex: Male : 1945 Arrival Date: 09/14/2024 Time: 10:44 Bed 15 Private MD: ED Physician Jorge Moore HPI: 09/14 10:55 This 78 yrs old Male presents to ER via Unassigned with complaints of Chest Pain. sp3 10:55 78-year-old male with a history of CHF, diabetes, hypertension with recent arterial sp3 bypass surgery of the left lower extremity performed August 14, 2024 at [facility], who is currently on Xarelto and also has a central line port in the right chest now presents to the ED with 2-day history of shortness of breath and chest pain with hypoxia at home demonstrated on home pulse oximeter. Patient denies prior DVT or PE. He sees Dr. Borges here at this hospital as well as cardiology team at [facility]. He denies fever, cough, back pain, abdominal pain, vomiting, diarrhea, rash, syncope, near syncope or any other signs or symptoms on ROS at this time.. Historical: - Allergies: 11:00 No Known Allergies; hb - Home Meds: 11:00 Xarelto oral [Active]; Furosemide Oral [Active]; metoprolol succinate oral [Active]; hb 11:03 meropenem intravenous [Active]; hb - PMHx: 11:00 COLON CA; Diabetes - IDDM; Hypertension; kidney disease; hb 11:00 CHF; hb - PSHx: 11:00 LLE Bypass; Hernia Repair; hb - Immunization history:: Adult Immunizations up to date. - Infectious Disease History:: Denies. - Social history:: Smoking status: Patient/guardian denies using tobacco, but has a distant history of tobacco abuse. ROS: 10:56 Constitutional: Negative for fever, chills, and weight loss, Eyes: Negative for injury, sp3 pain, redness, and discharge, ENT: Negative for injury, pain, and discharge, Neck: Negative for injury, pain, and swelling, Abdomen/GI: Negative for abdominal pain, nausea, vomiting, diarrhea, and constipation, Back: Negative for injury and pain, MS/Extremity: Negative for injury and deformity, Skin: Negative for injury, rash, and discoloration, Neuro: Negative for headache, weakness, numbness, tingling, and seizure, Psych: Negative for depression, anxiety, suicide ideation, homicidal ideation, and hallucinations, Allergy/Immunology: Negative for hives, rash, and allergies, Endocrine: Negative for neck swelling, polydipsia, polyuria, polyphagia, and marked weight changes, Hematologic/Lymphatic: Negative for swollen nodes, abnormal bleeding, and unusual bruising, 10:56 All other systems are negative, Exam: 10:57 Constitutional: This is a well developed, well nourished patient who is awake, alert, sp3 and in no acute distress. Head/Face: Normocephalic, atraumatic. Eyes: Pupils equal round and reactive to light, extra-ocular motions intact. Lids and lashes normal. Conjunctiva and sclera are non-icteric and not injected. Cornea within normal limits. Periorbital areas with no swelling, redness, or edema. Neck: Trachea midline, no thyromegaly or masses palpated, and no cervical lymphadenopathy. Supple, full range of motion without nuchal rigidity, or vertebral point tenderness. No Meningismus. Chest/axilla: Normal chest wall appearance and motion. Nontender with no deformity. No lesions are appreciated. Cardiovascular: Regular rate and rhythm with a normal S1 and S2. No gallops, murmurs, or rubs. Normal PMI, no JVD. No pulse deficits. Abdomen/GI: Soft, non-tender, with normal bowel sounds. No distension or tympany. No guarding or rebound. No evidence of tenderness throughout. Back: No spinal tenderness. No costovertebral tenderness. Full range of motion. Skin: Warm, dry with normal turgor. Normal color with no rashes, no lesions, and no evidence of cellulitis. MS/ Extremity: Pulses equal, no cyanosis. Neurovascular intact. Full, normal range of motion. Neuro: Awake and alert, GCS 15, oriented to person, place, time, and situation. Cranial nerves II-XII grossly intact. Motor strength 5/5 in all extremities. Sensory grossly intact. Cerebellar exam normal. Normal gait. Psych: Awake, alert, with orientation to person, place and time. Behavior, mood, and affect are within normal limits. 10:57 Respiratory: Respirations of 28 with 96% room air pulse oxygenation. No accessory muscle use noted. Wheezing and Rales noted on exam., 11:43 ECG was reviewed by the Attending Physician. EKG demonstrates normal sinus rhythm at 89 sp3 bpm with normal intervals except QTc of 467, normal axis, nonspecific diffuse ST/T changes with isolated 1 mm depression in lead V5 without any reciprocal changes noted. Vital Signs: 10:52 BP 143 / 46; Pulse 96; Resp 28; Temp 97.5; Pulse Ox 96% on R/A; Weight 101.15 kg; hb Height 5 ft. 8 in. ; Pain 4/10; 11:10 BP 133 / 53; Pulse 71; Resp 17; Pulse Ox 96% on R/A; rs5 12:01 BP 152 / 54; Pulse 77; Resp 17; Pulse Ox 98% on R/A; rs5 13:24 BP 140 / 50; Pulse 80; Resp 17; Pulse Ox 97% on R/A; rs5 15:55 BP 142 / 57; Pulse 81; Resp 16; Pulse Ox 97% on R/A; rs5 17:22 BP 135 / 61; Pulse 74; Resp 17; Pulse Ox 98% on R/A; rs5 10:52 Body Mass Index 33.91 (101.15 kg, 172.72 cm) hb 10:52 Pain Scale: Adult hb MDM: 10:50 Medical Screening Exam initiated sp3 10:57 FERNANDO Risk Score:. Data reviewed: vital signs, nurses notes, old medical records, lab sp3 test result(s), EKG, radiologic studies. ED course: 78-year-old male with chest pain and shortness of breath. Differential diagnosis includes acute coronary syndrome, CHF, PE, pneumonia, musculoskeletal pain, among others. Will obtain chest x-ray, CT chest PE protocol, EKG, general labs, swabs and general supportive care. Disposition pending workup and patient course.. 12:42 ED course: Patient anemic at 6.3 but known and being treated outpatient. Patient sp3 received IV iron dextran approximately 1 week ago. There is no bleeding or hematoma at femoral bypass site. Will treat with Lasix IV and consider blood transfusion with continued Lasix as well.. 13:38 ED course: Inpatient team evaluated patient and does not feel comfortable taking care sp3 of him here. We will transfer to [facility] due to not having GI. Patient now states he has been having some darker stools. I believe this is likely due to Xarelto however they would like to transfer.. 14:54 ED course: Patient accepted at [facility] to IMU.. sp3 09/14 10:50 Order name: Basic Metabolic Panel; Complete Time: 11:56 sp3 09/14 10:50 Order name: CBC with Diff; Complete Time: 11:56 sp3 09/14 10:50 Order name: LFT's; Complete Time: 11:56 sp3 09/14 10:50 Order name: Magnesium; Complete Time: 11:56 sp3 09/14 10:50 Order name: NT PRO-BNP; Complete Time: 11:56 sp3 09/14 10:50 Order name: PT-INR; Complete Time: 11:56 sp3 09/14 10:50 Order name: Troponin HS; Complete Time: 11:56 sp3 09/14 10:58 Order name: Flu; Complete Time: 11:56 sp3 09/14 10:58 Order name: RSV; Complete Time: 11:56 sp3 09/14 10:58 Order name: SARS RAPID; Complete Time: 11:56 sp3 09/14 11:12 Order name: CBC Smear Scan; Complete Time: 11:56 EDMS 09/14 10:50 Order name: XRAY Chest (1 view); Complete Time: 11:56 sp3 09/14 10:50 Order name: Cardiac monitoring; Complete Time: 11:13 sp3 09/14 10:50 Order name: EKG - Nurse/Tech; Complete Time: 11:00 sp3 09/14 10:50 Order name: IV Saline Lock; Complete Time: 11:13 sp3 09/14 10:50 Order name: Labs collected and sent; Complete Time: 11:13 sp3 09/14 10:50 Order name: O2 Per Protocol; Complete Time: 11:13 sp3 09/14 10:50 Order name: O2 Sat Monitoring; Complete Time: 11:13 sp3 Administered Medications: 12:20 Drug: Furosemide IVP 40 mg IVP once; give over 2 minutes {Note: to right upper chest .} rs5 Route: IVP; Site: PICC; 12:40 Follow up: Response: No adverse reaction rs5 Disposition Summary: 09/14/24 14:56 Transfer Ordered Notes: Transfer Location: [facility] sp3 Reason: Higher level of care sp3 Condition: Stable(09/14/24 14:56) sp3 Problem: an acute exacerbation(09/14/24 14:56) sp3 Symptoms: have worsened(09/14/24 14:56) sp3 [facility](09/14/24 17:38) rs5 Diagnosis - CHF exacerbation, dyspnea, melena, anemia, possible GI bleed sp3 Forms: - Medication Reconciliation Form sp3 - SBAR form sp3 Signatures: Dispatcher [employer] EDMS Tatiana Wood RN RN hb Jorge Moore MD MD sp3 Efren Díaz RN RN rs5 Corrections: (The following items were deleted from the chart) 10:51 10:51 BASIC METABOLIC PANEL+C.LAB.BRZ ordered. EDMS EDMS 10:51 10:51 CBC+H.LAB.BRZ ordered. EDMS EDMS 10:51 10:51 HEPATIC FUNCTION+C.LAB.BRZ ordered. EDMS EDMS 10:51 10:51 MAGNESIUM+C.LAB.BRZ ordered. EDMS EDMS 10:51 10:51 PROBNP+C.LAB.BRZ ordered. EDMS EDMS 10:51 10:51 PROTIME (+INR)+COAG.LAB.BRZ ordered. EDMS EDMS 10:51 10:51 Troponin High Sensitivity+C.LAB.BRZ ordered. EDMS EDMS 10:51 10:51 Chest Single View+RAD.RAD.BRZ ordered. EDMS EDMS 13:46 10:55 Chest For PE Angio+CT.RAD.BRZ ordered. EDMS EDMS 14:55 12:43 Inpatient Admission sp3 sp3 14:55 12:43 Chuy Dennis-Ran sp3 sp3 14:55 12:43 Telemetry/MedSurg (Inpatient) sp3 sp3 14:55 12:43 Stable sp3 sp3 14:55 12:43 an acute exacerbation sp3 sp3 14:55 12:43 have worsened sp3 sp3 14:55 12:43 Standard sp3 sp3 14:55 12:43 sp3 sp3 14:55 12:43 Dyspnea, CHF, anemia sp3 sp3 17:38 14:56 [facility] IMU sp3 rs5
--- NOTE | 2024-09-14 14:40 | P.CNS ---
Date of Consult: 09/14/24 Reason for Consult: regarding admission Requesting Physician: Jorge Moore Chief Complaint: Dyspnea History of Present Illness: Mr. Vu is a 78-year-old gentleman with a past medical history of hypertension, A-fib, CHF, diabetes, recent osteo of the left foot with PAD. He has previously seen Dr. Decker regarding possible endoscopy/colonoscopy but then the wound infection happened and he was cared for at [facility]. 08/14/2024 he underwent arterial bypass to the left lower extremity. During his hospitalization his hemoglobin dropped to around 6 and he was given 2 units of PRBCs and started on iron infusions. He states he suddenly became dyspneic at rest with worsening on exertion and was brought to the emergency department. Lab evaluation shows a H/H of 6.3/19.5, creatinine of 2.44 with a BUN of 43 with a GFR of 26, BNP 4033. Imaging shows "mild CHF with small right pleural effusion." Vital signs 143/46, heart rate 96, respiratory rate 28, 96% on room air. Dyspnea significantly improved with O2 via nasal cannula. Patient however describes black stools and a hemoglobin last week of greater than 8. It was requested that patient return to [facility] for reevaluation by vascular surgery, GI, and his other doctors including podiatry, infectious disease, hematology, and nephrology. Home medications list reviewed: Yes - Past Medical/Surgical History Diabetic: Yes -: GERD -: Peripheral vascular disease -: CAD s/p stent -: CKD3 -: IDDM2 -: Hernia repair -: Recent I&D of left foot wound/osteo -: Recent left femoral artery bypass Psychosocial/ Personal History: Patient lives at home with his and is retired but still occasionally works. - Family History Father Medical History: Other (see notes) Notes: prostate problems Mother Medical History: Hypertension, Other (see notes) Notes: Alzheimers - Social History Smoking Status: Unknown if ever smoked Alcohol use: No CD- Drugs: No Caffeine use: Yes Place of Residence: Home <Rita Ramirez - Last Filed: 09/14/24 14:54> <DennisGIDEON - Last Filed: 09/14/24 16:56> Allergies No Known Allergies Allergy (Verified 10/13/22 07:05) Home Medications: Clopidogrel Bisulfate [Plavix*] 1 tab PO DAILY 12/01/20 Doxazosin [Cardura*] 4 mg PO BEDTIME 12/01/20 Gabapentin 300 mg PO BID 12/01/20 Lovastatin 1 tab PO BEDTIME 12/01/20 Metoprolol Succinate 1 tab PO BID 12/01/20 Pantoprazole [Protonix Tab*] 40 mg PO DAILY 12/01/20 Amlodipine [Norvasc*] 10 mg PO DAILY #30 tab 12/12/20 Furosemide [Lasix] 40 mg PO DAILY #30 tab 12/12/20 Calcitrol [Rocaltrol*] 0.25 mcg PO DAILY 10/11/22 Cholecalciferol (Vitamin D3) [Vitamin D 5,000 Iu Cap] 5,000 unit PO DAILY 10/11/22 Codeine/APAP [Tylenol W/Codeine #3 tab] 1 tab PO Q6HP PRN 10/11/22 Empagliflozin [Jardiance] 25 mg PO DAILY 10/11/22 Fluticasone [Flonase 50mcg Nasal [place]] 2 sprays NS DAILYPRN PRN 10/11/22 Insulin Glargine,Hum.rec.anlog [Lantus] 25 unit SQ BID 10/11/22 Montelukast Sodium 10 mg PO DAILYPRN PRN 10/11/22 Semaglutide [Ozempic] 0.5 mg SQ EVERY 7TH DAY 10/11/22 Vit C/E/Zn/Coppr/Lutein/Zeaxan [Preservision Areds 2 Softgel] 2 each PO DAILY 10/11/22 Review of Systems 10-point ROS is otherwise unremarkable General: Weakness, Malaise Eyes: Unremarkable ENT: Unremarkable Respiratory: Shortness of Breath, SOB with Excertion Cardiovascular: Chest Pain Gastrointestinal: Melena Genitourinary: Unremarkable Musculoskeletal: Unremarkable Integumentary: As per HPI Neurological: Unremarkable Lymphatics: Unremarkable <Ramirez,Rita Fidel - Last Filed: 09/14/24 14:54> Physical Examination General: Alert, In no apparent distress, Oriented x3, Other (pallor) HEENT: Atraumatic, Normocephalic, Other (conjunctival pallor) Neck: Supple Respiratory: Normal air movement Cardiovascular: Regular rate/rhythm Capillary refill: <2 Seconds Gastrointestinal: No tenderness, Hyperactive Musculoskeletal: No clubbing Integumentary: Other (significant pallor) Neurological: Normal tone Lymphatics: No axilla or inguinal lymphadenopathy External genitalia: Other (mildly purulent discharge/granulation to superior aspect of L groin incision) Rectal: Deferred Laboratory Data (last 24 hrs) 09/14/24 09/14/24 09/14/24 11:00 11:00 11:00 WBC 8.60 Hgb 6.3 L Hct 19.5 L Plt Count 189 PT 15.3 H INR 1.38 Sodium 139 Potassium 4.5 BUN 43 H Creatinine 2.44 H Glucose 267 H Magnesium 2.5 H Total Bilirubin 0.7 AST 14 L ALT 21 Alkaline Phosphatase 106 <Rita Ramirez - Last Filed: 09/14/24 14:54> Laboratory Data (last 24 hrs) 09/14/24 09/14/24 09/14/24 11:00 11:00 11:00 WBC 8.60 Hgb 6.3 L Hct 19.5 L Plt Count 189 PT 15.3 H INR 1.38 Sodium 139 Potassium 4.5 BUN 43 H Creatinine 2.44 H Glucose 267 H Magnesium 2.5 H Total Bilirubin 0.7 AST 14 L ALT 21 Alkaline Phosphatase 106 <GIDEON Dennis - Last Filed: 09/14/24 16:56> Conclusions/Impression: Significant anemia with dyspnea and melena on anticoagulation status post PAD surgery Hypoxemia CKD 3 Please transfer to [facility] for continuity and specialties Critical Care: Yes <Rita Ramirez - Last Filed: 09/14/24 14:54> Conclusions/Impression: This is a 78 years old gentleman with past medical history notable for type 2 diabetes, CKD stage III, left infected diabetic foot ulcer, iron deficiency anemia with a plan for anemia workup including EGD/colonoscopy by his PCP. He recently underwent a left femoral bypass surgery in [facility] 1 month ago and discharged on Plavix and rivaroxaban 15 mg once a day and today presented to emergency room for worsening shortness of breath and found to have hemoglobin 6.3, patient reports having melena. Assessment and plan; suspected overt GI bleeding complicated by anemia of acute blood loss and acute decompensated heart failure secondary to anemia. I would recommend packed RBC transfusion for symptomatic anemia and could be benefit from reversal of DOAC or prothrombin complex concentrate and may need GI evaluation by EGD/endoscopy, I advised patient be transferred to [facility] for higher level of care <GIDEON Dennis - Last Filed: 09/14/24 16:56>
[2024-09-14 17:42] VITALS: TEMP 97.5
[2024-09-14 17:47] VITALS: BP 140/50; O2SAT 97
--- NOTE | 2024-09-16 13:08 | EKG ---
Test Date: 2024-09-14 Test Time: 10:57:29 Mechatronics Technician: NEGRA MEASUREMENT RESULTS: Intervals: Rate: 89 MD: 144 QRSD: 84 QT: 384 QTc: 467 Rough And Ready: P: 70 MD: 144 QRS: -3 T: 82 INTERPRETIVE STATEMENTS: Sinus rhythm with premature supraventricular complexes Low voltage QRS Nonspecific ST and T wave abnormality Prolonged QT Abnormal ECG Compared to ECG 11/24/2022 02:01:29 Atrial premature complex(es) now present Low QRS voltage now present ST (T wave) deviation now present Prolonged QT interval now present Left-axis deviation no longer present Electronically Signed On 09-16-24 13:04:59 FIRE EQUIPMENT INSPECTOR HELPER by Alexi Borges
== END 2024-09-14 17:38 | disposition short-term general hospital (02) ==
LOC: ER 10:44
DX: I11.0 Hypertensive heart disease with heart failure (principal); I50.9 Heart failure, unspecified; R06.00 Dyspnea, unspecified; K92.1 Melena; D64.9 Anemia, unspecified; E11.9 Type 2 diabetes mellitus without complications; Z11.52 Encounter for screening for COVID-19; Z79.01 Long term (current) use of anticoagulants; Z79.899 Other long term (current) drug therapy
CPT/HCPCS: 93005; 85025; 80048; 36415; 83735; 85610; 80076; 84484; 83880; 87807; 87804 ×2; 71045; 96374; 99285; 87811; J1940

== ENCOUNTER 2024-10-03 18:34 | Inpatient (IN) | payer OTHER ==
--- NOTE | 2024-10-03 19:25 | RAD REPORT ---
EXAMINATION: ONE VIEW CHEST XR CLINICAL INDICATION: DYSPNEA TECHNIQUE: Frontal chest projection is submitted. Examination is limited by patient positioning and t echnique. COMPARISON: 09/14/2024 FINDINGS: [id number] bilateral pulmonary opacities probably represent pulmonary edema. The heart is moder ately enlarged. Trace bilateral pleural fluid. No displaced fractures identified. Right-sided venous catheters tip in SVC. IMPRESSION: Moderate CHF versus volume overload pattern.
[2024-10-03 19:41] LABS: Absolute Eosinophils 0.2 K/uL (0-0.5); Absolute Lymphocytes (CBC) 0.5 K/uL (0.7-4.9); Absolute Monocytes 0.7 K/uL (0.1-1.3); Absolute Neutrophil 5.7 K/uL (1.8-8.0); Basophils % 0.7 % (0-1.3); Eosinophils % 2.7 % (0-4.4); Hematocrit 28.8 % (39.6-49.0); Hemoglobin 9.4 g/dL (13.6-17.9); Lymphocytes % 6.6 % (15.3-44.8); MCH 28.7 pg (27.0-35.0); MCHC 32.7 g/dL (32.0-36.0); MCV 87.7 fL (80-100); Monocytes % 9.5 % (3.3-12.3); Neutrophils % 80.5 % (41.7-73.7); Nucleated Red Blood Cells % 0.1 % (0-0); Platelets 194 thou/uL (152-406); RBC Red Blood Cell Count 3.29 M/uL (4.33-5.43)
[2024-10-03 20:04] LABS: PT Prothrombin Time 24.7 SECONDS (9.4-12.5); Protime INR 2.26
[2024-10-03 20:09] LABS: Albumin 2.8 g/dL (3.4-5.0); Albumin/Globulin Ratio 0.8 (1.1-1.8); Anion Gap 10.3 mEq/L (5.0-15.0); Bilirubin Direct 0.2 mg/dL (0-0.2); Bilirubin Indirect, Calculated 0.5 mg/dL (0.2-0.8); Bilirubin Total 0.7 mg/dL (0.2-1.0); Globulin 3.5 g/dL (2.3-3.5); Magnesium 2.2 mg/dL (1.6-2.4); Potassium 4.3 mEq/L (3.5-5.1); Protein, Total 6.3 g/dL (6.4-8.2); Troponin High Sensitivity 10.6 pg/mL (<58.9)
--- NOTE | 2024-10-03 20:39 | ER ---
Nurse's Notes [facility] Name: Royer Vu II Age: 78 yrs Sex: Male : 1945 Arrival Date: 10/03/2024 Time: 18:34 Bed 20 Private MD: Diagnosis: Acute on chronic diastolic (congestive) heart failure;Acute pulmonary edema Presentation: 10/03 18:49 Chief complaint: Patient states: x2 days difficulty breathing, wheezing. Coronavirus tm6 screen: Client denies travel out of the [place] in the last 14 days. Ebola Screen: Patient negative for fever greater than or equal to 101.5 degrees Fahrenheit, and additional compatible Ebola Virus Disease symptoms Patient denies exposure to infectious person. Patient denies travel to an Ebola-affected area in the 21 days before illness onset. No symptoms or risks identified at this time. 18:49 Method Of Arrival: Wheelchair tm6 18:49 Initial Sepsis Screen: Does the patient meet any 2 criteria? RR > 20 per min. Does the tm6 patient have a suspected source of infection? No. Patient's initial sepsis screen is negative. Risk Assessment: Do you want to hurt yourself or someone else? Patient reports no desire to harm self or others. Onset of symptoms was October 01, 2024. 18:49 Acuity: JORGE 3 tm6 Triage Assessment: 18:50 General: Appears uncomfortable, Behavior is cooperative. Pain: Denies pain. EENT: No tm6 signs and/or symptoms were reported regarding the EENT system. Neuro: Level of Consciousness is awake, alert, obeys commands, Oriented to person, place, time, situation. Cardiovascular: Patient's skin is warm and dry. Respiratory: Reports shortness of breath labored breathing Onset: The symptoms/episode began/occurred x2 days, the patient has moderate shortness of breath. GI: No signs and/or symptoms were reported involving the gastrointestinal system. Abdomen is round non-distended. : No signs and/or symptoms were reported regarding the genitourinary system. Derm: No signs and/or symptoms reported regarding the dermatologic system. Musculoskeletal: No signs and/or symptoms reported regarding the musculoskeletal system. Historical: - Allergies: 18:50 No Known Allergies; tm6 - PMHx: 18:50 CHF; COLON CA; Diabetes - IDDM; Hypertension; kidney disease; Anemia; tm6 - PSHx: 18:50 hernia repair; LLE Bypass; tm6 - Immunization history:: Flu vaccine is not up to date. - Infectious Disease History:: Denies. - Social history:: Smoking status: Patient/guardian denies using tobacco, the patient reports quitting approximately 26 years ago. Screenin:30 [facility] ED Fall Risk Assessment (Adult) History of falling in the last 3 months, ay including since admission No falls in past 3 months (0 pts) Confusion or Disorientation No (0 pts) Intoxicated or Sedated No (0 pts) Impaired Gait No (0 pts) Mobility Assist Device Used Yes (1 pt) Altered Elimination No (0 pt) Score/Fall Risk Level 0 - 2 = Low Risk Oriented to surroundings, Maintained a safe environment, Educated pt \T\ family on fall prevention, incl call for assistance when getting out of bed. Abuse screen: Denies threats or abuse. Nutritional screening: No deficits noted. Tuberculosis screening: No symptoms or risk factors identified. Assessment: 19:30 General: Appears in no apparent distress. uncomfortable, Behavior is calm, cooperative. ay 19:30 Pain: Denies pain. Neuro: Level of Consciousness is awake, alert, obeys commands, ay Oriented to person, place, time, situation, Speech is normal. Cardiovascular: Denies chest pain, Rhythm is irregular. Respiratory: Airway is patent Respiratory effort is even, labored, Respiratory pattern is tachypnea Breath sounds with crackles bilaterally. Breath sounds with wheezes bilaterally. GI: Abdomen is distended, Bowel sounds present X 4 quads. : No signs and/or symptoms were reported regarding the genitourinary system. EENT: No signs and/or symptoms were reported regarding the EENT system. Derm: No signs and/or symptoms reported regarding the dermatologic system. Musculoskeletal: No signs and/or symptoms reported regarding the musculoskeletal system. 21:37 Reassessment: Patient appears in no apparent distress at this time. Patient is alert, ay oriented x 3, equal unlabored respirations, skin warm/dry/pink. 23:29 Reassessment: No changes from previously documented assessment. ay Vital Signs: 18:49 BP 182 / 65; Pulse 72; Resp 25; Temp 98.8(O); Pulse Ox 86% on R/A; MAP 99 mmHg; Weight tm6 104.33 kg; Height 5 ft. 8 in. ; Pain 0/10; 18:49 Pulse Ox 96% on 2 lpm NC; tm6 21:15 BP 141 / 58; Pulse 66; Resp 18 S; Pulse Ox 95% on 3 lpm NC; ay 18:49 Body Mass Index 34.97 (104.33 kg, 172.72 cm) tm6 18:49 Pain Scale: Adult tm6 Eleuterio Coma Score: 19:30 Eye Response: spontaneous(4). Motor Response: obeys commands(6). Verbal Response: ay oriented(5). Total: 15. 21:25 Eye Response: spontaneous(4). Motor Response: obeys commands(6). Verbal Response: sp4 oriented(5). Total: 15. ED Course: 18:35 Patient arrived in ED. mr 18:46 Jorge Moore MD is Attending Physician. sp3 18:50 Triage completed. tm6 18:50 Arm band placed on right wrist. tm6 19:09 XRAY Chest (1 view) In Process Unspecified. EDMS 19:20 Gene Petit, RN is Primary Nurse. ay 19:30 Patient has correct armband on for positive identification. Bed in low position. Call ay light in reach. Side rails up X2. Provided Education on: plan of care. youth nutritional monitor on. Pulse ox on. NIBP on. Door closed. Warm blanket given. Pillow given. 19:30 Accessed PICC line. using ,sterile technique, Clean \T\ dry. Dressing intact. Good blood ay return. Flushes easily. 19:58 Basic Metabolic Panel Sent. ay 19:59 LFT's Sent. ay 19:59 Magnesium Sent. ay 19:59 NT PRO-BNP Sent. ay 19:59 PT-INR Sent. ay 19:59 Troponin HS Sent. ay 20:04 Attending Physician role handed off by Jorge Moore MD sp4 20:04 Reddy Martinez MD is Attending Physician. sp4 20:35 Ren Pacheco MD is Hospitalizing Provider. sp4 22:46 CBC with Automated Diff Sent. ay 22:46 Comprehensive Metabolic Panel Sent. ay 22:46 Comprehensive Metabolic Panel Sent. ay 22:47 CBC with Automated Diff Sent. ay 23:29 No provider procedures requiring assistance completed. Patient admitted, IV remains in ay place. Administered Medications: 20:54 Drug: Furosemide IVP 40 mg IVP once; give over 2 minutes Route: IVP; Site: PICC; ay 21:24 Follow up: Response: No adverse reaction ay 20:54 Drug: HydrALAZINE PO 25 mg PO once Route: PO; ay 21:24 Follow up: Response: No adverse reaction ay 22:14 Drug: Insulin Glargine Sub-Q 20 units Sub-Q once {Co-Signature: ha1 (Olga Munoz RN).} ay Route: Sub-Q; Site: right lower abdomen; 22:29 Follow up: Response: No adverse reaction ay Medication: 19:30 VIS not applicable for this client. ay Outcome: 20:38 Decision to Hospitalize by Provider. sp4 23:29 Admitted to Med/surg accompanied by nurse, via stretcher, with oxygen, ay 23:29 Condition: stable 23:29 Instructed on the need for admit, 23:31 Patient left the ED. ay Signatures: Dispatcher [employer] EDMI Brandi Le, Reg Reg mr MooreJorge MD MD sp3 Reddy Martinez MD MD sp4 Nick Humphrey RN RN [email or web address] Gene Petit RN Olga Son RN ha1
--- NOTE | 2024-10-03 20:39 | EDPHYS ---
Physician Documentation [facility] Name: Royer Vu II Age: 78 yrs Sex: Male : 1945 Arrival Date: 10/03/2024 Time: 18:34 Bed 20 Private MD: ED Physician Reddy Martinez HPI: 10/03 19:00 This 78 yrs old Male presents to ER via Wheelchair with complaints of Breathing sp3 Difficulty. 19:00 78-year-old male with history of diabetes, CHF, hypertension, recent GI bleed sp3 transferred from this facility to [facility] where he was cauterized and received iron dextran including a dose this morning with hemoglobin rising to 9.2. He now presents with shortness of breath over the last 24 hours. He states he has had some dark stools though less than before. He denies any chest pain, fever, headache, back pain, abdominal pain, vomiting, diarrhea, rash, other bleeding, or any other signs or symptoms on ROS at this time.. 21:33 Patient care assumed from Dr. Moore at 8 PM or 20 00. Patient has recent visit to [address] 09/14/2024 through 09/21/2024.. Patient takes at home Plavix 75 mg daily, glimepiride 2 mg daily, cyanocobalamin 1000 mcg daily, naloxone nasal spray was discontinued. Patient also has history of vascular port double-lumen tunneled right chest wall port. 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 Port was used for home health to administer meropenem at home. Meropenem was administered at 500 mg IV daily.. Additional medications include Plavix 75 mg daily, glimepiride 2 mg daily, allopurinol 100 mg daily, amlodipine 10 mg daily, collagenase ointment daily, doxazosin 4 mg daily, Jardiance 25 mg daily, ferrous sulfate 325 mg daily, fluticasone 50 mcg nasal spray also known as Flonase, furosemide 40 mg 3 times a week, gabapentin 300 mg every morning, heparin flush for tunneled IV line, insulin glargine 20 units in the morning 20 units in the evening, lovastatin 40 mg bedtime also known as Mevacor, meropenem 500 mg IVPB bag every evening for 6 days, metoprolol succinate 100 mg in the morning, and 100 mg in the evening, montelukast 10 mg daily, pantoprazole 40 mg daily, multivitamin daily, Restasis ophthalmic emulsion twice daily, also rivaroxaban 15 mg in the evening, semaglutide or Ozempic 0.5 mg once a week, at this time patient has done with his meropenem.. Additional data patient has undergone left femoral-popliteal bypass using cryopreserved greater saphenous vein, left common femoral superficial femoral profundofemoral endarterectomy and patch angioplasty using thin-walled bovine patch. Date of surgery 08/14/2024. Patient was diagnosed with peripheral arterial disease with tissue loss associated with infected pressure sore over the left plantar foot procedure was performed by Dr. Patel . Historical: - Allergies: 18:50 No Known Allergies; tm6 - PMHx: 18:50 CHF; COLON CA; Diabetes - IDDM; Hypertension; kidney disease; Anemia; tm6 - PSHx: 18:50 hernia repair; LLE Bypass; tm6 - Immunization history:: Flu vaccine is not up to date. - Infectious Disease History:: Denies. - Social history:: Smoking status: Patient/guardian denies using tobacco, the patient reports quitting approximately 26 years ago. ROS: 19:01 Constitutional: Negative for fever, chills, and weight loss, Eyes: Negative for injury, sp3 pain, redness, and discharge, ENT: Negative for injury, pain, and discharge, Neck: Negative for injury, pain, and swelling, Abdomen/GI: Negative for abdominal pain, nausea, vomiting, diarrhea, and constipation, Back: Negative for injury and pain, MS/Extremity: Negative for injury and deformity, Skin: Negative for injury, rash, and discoloration, Neuro: Negative for headache, weakness, numbness, tingling, and seizure, Psych: Negative for depression, anxiety, suicide ideation, homicidal ideation, and hallucinations, Allergy/Immunology: Negative for hives, rash, and allergies, Endocrine: Negative for neck swelling, polydipsia, polyuria, polyphagia, and marked weight changes, Hematologic/Lymphatic: Negative for swollen nodes, abnormal bleeding, and unusual bruising, 19:01 All other systems are negative, Exam: 19:02 Constitutional: This is a well developed, well nourished patient who is awake, alert, sp3 and in no acute distress. Head/Face: Normocephalic, atraumatic. Eyes: Pupils equal round and reactive to light, extra-ocular motions intact. Lids and lashes normal. Conjunctiva and sclera are non-icteric and not injected. Cornea within normal limits. Periorbital areas with no swelling, redness, or edema. ENT: Nares patent. No nasal discharge, no septal abnormalities noted. External auditory canals are clear. Oropharynx with no redness, swelling, or masses, exudates, or evidence of obstruction, uvula midline. Mucous membranes moist. Neck: Trachea midline, no thyromegaly or masses palpated, and no cervical lymphadenopathy. Supple, full range of motion without nuchal rigidity, or vertebral point tenderness. No Meningismus. Chest/axilla: Normal chest wall appearance and motion. Nontender with no deformity. No lesions are appreciated. Cardiovascular: Regular rate and rhythm with a normal S1 and S2. No gallops, murmurs, or rubs. Normal PMI, no JVD. No pulse deficits. Abdomen/GI: Soft, non-tender, with normal bowel sounds. No distension or tympany. No guarding or rebound. No evidence of tenderness throughout. Back: No spinal tenderness. No costovertebral tenderness. Full range of motion. Skin: Warm, dry with normal turgor. Normal color with no rashes, no lesions, and no evidence of cellulitis. MS/ Extremity: Pulses equal, no cyanosis. Neurovascular intact. Full, normal range of motion. Neuro: Awake and alert, GCS 15, oriented to person, place, time, and situation. Cranial nerves II-XII grossly intact. Motor strength 5/5 in all extremities. Sensory grossly intact. Cerebellar exam normal. Normal gait. Psych: Awake, alert, with orientation to person, place and time. Behavior, mood, and affect are within normal limits. 19:02 Respiratory: Mild Rales noted bilaterally. Pulse oxygenation 96%. BP 182/65 with heart rate 72. Patient in no acute distress currently on 2 L nasal cannula., 21:25 ECG was reviewed by the Attending Physician. EKG 1950 atrial fibrillation rate 60 rate sp4 controlled atrial fibrillation. Vital Signs: 18:49 BP 182 / 65; Pulse 72; Resp 25; Temp 98.8(O); Pulse Ox 86% on R/A; MAP 99 mmHg; Weight tm6 104.33 kg; Height 5 ft. 8 in. ; Pain 0/10; 18:49 Pulse Ox 96% on 2 lpm NC; tm6 21:15 BP 141 / 58; Pulse 66; Resp 18 S; Pulse Ox 95% on 3 lpm NC; ay 18:49 Body Mass Index 34.97 (104.33 kg, 172.72 cm) tm6 18:49 Pain Scale: Adult tm6 Mallory Coma Score: 19:30 Eye Response: spontaneous(4). Motor Response: obeys commands(6). Verbal Response: ay oriented(5). Total: 15. 21:25 Eye Response: spontaneous(4). Motor Response: obeys commands(6). Verbal Response: sp4 oriented(5). Total: 15. MDM: 18:50 Medical Screening Exam initiated sp3 19:03 Data reviewed: vital signs, nurses notes, old medical records, lab test result(s), EKG, sp3 radiologic studies. ED course: 78-year-old male with PMH above now with recurrent shortness of breath. Differential diagnosis includes congestive heart failure, acute coronary syndrome, recurrent GI bleed if hemoglobin is low, electrolyte abnormality, pneumonia, among others. Workup will include chest x-ray, general labs, EKG and general supportive care. Disposition pending workup and patient course with probable admission. We do have GI on-call today here if needed.. 20:19 ED course: CLINICAL INDICATION: DYSPNEA TECHNIQUE: Frontal chest projection is sp4 submitted. Examination is limited by patient positioning and technique. COMPARISON: 09/14/2024 FINDINGS: [id number] bilateral pulmonary opacities probably represent pulmonary edema. The heart is moderately enlarged. Trace bilateral pleural fluid. No displaced fractures identified. Right-sided venous catheters tip in SVC. IMPRESSION: Moderate CHF versus volume overload pattern. . 20:33 Differential diagnosis: Anxiety Reaction asthma, Bronchitis CHF exacerbation, Chronic sp4 Obstructive Pulmonary Disease pneumonia. 10/03 18:51 Order name: Basic Metabolic Panel; Complete Time: 20:17 sp3 10/03 18:51 Order name: CBC with Diff; Complete Time: 19:57 sp3 10/03 18:51 Order name: LFT's; Complete Time: 20:17 sp3 10/03 18:51 Order name: Magnesium; Complete Time: 20:17 sp3 10/03 18:51 Order name: NT PRO-BNP; Complete Time: 20:17 sp3 10/03 18:51 Order name: PT-INR; Complete Time: 20:07 sp3 10/03 18:51 Order name: Troponin HS; Complete Time: 20:17 sp3 10/03 21:58 Order name: Urinalysis w/ reflexes EDMS 10/03 21:58 Order name: CBC with Automated Diff EDMS 10/03 21:58 Order name: CBC with Automated Diff EDMS 10/03 21:58 Order name: Comprehensive Metabolic Panel EDMS 10/03 21:58 Order name: Comprehensive Metabolic Panel EDMS 10/03 22:20 Order name: Glucose, Ancillary Testing; Complete Time: 00:58 EDMS 10/03 18:51 Order name: XRAY Chest (1 view); Complete Time: 19:32 sp3 10/03 21:59 Order name: Echo without Doppler (2D) EDMS 10/03 18:51 Order name: Cardiac monitoring; Complete Time: 19:59 sp3 10/03 18:51 Order name: EKG - Nurse/Tech; Complete Time: 19:58 sp3 10/03 18:51 Order name: IV Saline Lock; Complete Time: 19:58 sp3 10/03 18:51 Order name: Labs collected and sent; Complete Time: 19:58 sp3 10/03 18:51 Order name: O2 Per Protocol; Complete Time: 19:58 sp3 10/03 18:51 Order name: O2 Sat Monitoring; Complete Time: 19:58 sp3 EC:50 Rate is 60 beats/min. Rhythm is irregularly irregular, A fib. QRS Cost is Normal. QRS sp4 interval is normal. QT interval is normal. No Q waves. T waves are Normal. Clinical impression: No evidence of ischemia. Interpreted by me. Reviewed by me. Administered Medications: 20:54 Drug: Furosemide IVP 40 mg IVP once; give over 2 minutes Route: IVP; Site: [facility]; ay 21:24 Follow up: Response: No adverse reaction ay 20:54 Drug: HydrALAZINE PO 25 mg PO once Route: PO; ay 21:24 Follow up: Response: No adverse reaction ay 22:14 Drug: Insulin Glargine Sub-Q 20 units Sub-Q once {Co-Signature: ha1 (Olga Munoz RN).} ay Route: Sub-Q; Site: right lower abdomen; 22:29 Follow up: Response: No adverse reaction ay Disposition Summary: 10/03/24 20:38 Hospitalization Ordered Notes: Hospitalization Status: Inpatient Admission sp4 Provider: Ren Pacheco Location: Telemetry/MedSurg (Inpatient) sp4 Condition: Fair sp4 Problem: new sp4 Symptoms: have improved sp4 Bed/Room Type: Standard sp4 Room Assignment: [facility](10/03/24 22:09) [facility] Diagnosis - Acute on chronic diastolic (congestive) heart failure sp4 - Acute pulmonary edema sp4 Forms: - Medication Reconciliation Form sp4 - SBAR form sp4 - Leadership Thank You Letter sp4 Signatures: Dispatcher [employer] EDMS Jorge Moore MD MD sp3 Reddy Martinez MD MD sp4 Kimberlyn Batista [facility] Nick Humphrey RN RN tm6 Gene Petit RN Olga Son RN ha1 Corrections: (The following items were deleted from the chart) 18:52 18:52 BASIC METABOLIC PANEL+C.LAB.BRZ ordered. EDMS EDMS 18:52 18:52 CBC+H.LAB.BRZ ordered. EDMS EDMS 18:52 18:52 HEPATIC FUNCTION+C.LAB.BRZ ordered. EDMS EDMS 18:52 18:52 MAGNESIUM+C.LAB.BRZ ordered. EDMS EDMS 18:52 18:52 PROBNP+C.LAB.BRZ ordered. EDMS EDMS 18:52 18:52 PROTIME (+INR)+COAG.LAB.BRZ ordered. EDMS EDMS 18:52 18:52 Troponin High Sensitivity+C.LAB.BRZ ordered. EDMS EDMS 18:52 18:52 Chest Single View+RAD.RAD.BRZ ordered. EDMS EDMS 22:09 20:38 sp4 [facility]
[2024-10-03] MEDS ORDERED: FUROSEMIDE 40 MG/4 ML VIAL ONE (20:44)
[2024-10-03] MEDS ORDERED: hydroCHLOROthiazide 25 MG TAB ONE (20:44)
--- NOTE | 2024-10-03 21:45 | P.HP ---
Certification for Inpatient Patient admitted to: Inpatient With expected LOS: >2 Midnights Practitioner: I am a practitioner with admitting privileges, knowledge of patient current condition, hospital course, and medical plan of care. Services: Services provided to patient in accordance with Admission requirements found in Title 42 Section 412.3 of the Code of Federal Regulations Patient History Date of Service: 10/03/24 Reason for admission: CHF exacerbation History of Present Illness: 78-year-old male with history of heart failure colon cancer diabetes hypertension chronic kidney disease anemia presents with complaints of progressive shortness of breath for last 24 to 36 hours. He reports he was recently hospitalized at [facility]. Recent left leg surgery. Also for GI bleed. In the ER he was noted to have elevated BNP and imaging was suggestive of pulmonary edema. He does report left leg swelling. Denies any fevers, chills productive cough. He denies any chest pain. He does take furosemide. 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 Allergies No Known Allergies Allergy (Verified 10/13/22 07:05) Home Medications: Clopidogrel Bisulfate [Plavix*] 1 tab PO DAILY 12/01/20 Doxazosin [Cardura*] 4 mg PO BEDTIME 12/01/20 Gabapentin 300 mg PO BID 12/01/20 Lovastatin 1 tab PO BEDTIME 12/01/20 Metoprolol Succinate 1 tab PO BID 12/01/20 Pantoprazole [Protonix Tab*] 40 mg PO DAILY 12/01/20 Amlodipine [Norvasc*] 10 mg PO DAILY #30 tab 12/12/20 Furosemide [Lasix] 40 mg PO DAILY #30 tab 12/12/20 Calcitrol [Rocaltrol*] 0.25 mcg PO DAILY 10/11/22 Cholecalciferol (Vitamin D3) [Vitamin D 5,000 Iu Cap] 5,000 unit PO DAILY 10/11/22 Codeine/APAP [Tylenol W/Codeine #3 tab] 1 tab PO Q6HP PRN 10/11/22 Empagliflozin [Jardiance] 25 mg PO DAILY 10/11/22 Fluticasone [Flonase 50mcg Nasal Dickey] 2 sprays NS DAILYPRN PRN 10/11/22 Insulin Glargine,Hum.rec.anlog [Lantus] 25 unit SQ BID 10/11/22 Montelukast Sodium 10 mg PO DAILYPRN PRN 10/11/22 Semaglutide [Ozempic] 0.5 mg SQ EVERY 7TH DAY 10/11/22 Vit C/E/Zn/Coppr/Lutein/Zeaxan [Preservision Areds 2 Softgel] 2 each PO DAILY 10/11/22 - Past Medical/Surgical History Diabetic: Yes -: GERD -: Peripheral vascular disease -: CAD s/p stent -: CKD3 -: IDDM2 -: Hernia repair -: Recent I&D of left foot wound/osteo -: Recent left femoral artery bypass Psychosocial/ Personal History: Patient lives at home with his and is retired but still occasionally works. - Family History Father -: Other (see notes) Notes: prostate problems Mother -: Hypertension, Other (see notes) Notes: Alzheimers - Social History Alcohol use: No CD- Drugs: No Caffeine use: Yes Review of Systems 10-point ROS is otherwise unremarkable Physical Examination - Physical Exam General: Alert, Oriented x3 HEENT: Atraumatic, Normocephalic Respiratory: Crackles/rales Cardiovascular: Regular rate/rhythm Gastrointestinal: Normal bowel sounds, Soft and benign Musculoskeletal: Other (left leg covered in dressing, bilateral edema ) - Studies Laboratory Data (last 24 hrs) 10/03/24 10/03/24 10/03/24 19:30 19:30 19:30 WBC 7.10 Hgb 9.4 L Hct 28.8 L Plt Count 194 PT 24.7 H INR 2.26 Sodium 140 Potassium 4.3 BUN 37 H Creatinine 2.74 H Glucose 225 H Magnesium 2.2 Total Bilirubin 0.7 AST 15 ALT 22 Alkaline Phosphatase 124 H Assessment and Plan - Problems (Diagnosis) (1) Acute CHF Current Visit: No Status: Acute (2) Acute respiratory failure with hypoxia Current Visit: No Status: Acute (3) Chronic kidney disease, stage 3 Current Visit: No Status: Acute (4) Peripheral vascular disease Current Visit: No Status: Acute - Plan CHF exacerbation acute hypoxemic respiratory failure pulmonary edema PVD CKD4 Anemia IDDM HTN Plan: Admit to med surg telemetry IV lasix 40mg IV x 1 check ECHO cardiology consult FSBS, SSI await home medication reconciliation to be completed transfuse for hgb < 7 renal dose medications - Advance Directives Does patient have a Living Will: No Does patient have a Durable POA for Healthcare: Yes
[2024-10-03] MEDS ORDERED: ACETAMINOPHEN 500 MG TAB PO PRN (21:50)
[2024-10-03] MEDS ORDERED: GLUCAGON 1 MG/VIAL IM PRN (21:57)
[2024-10-03] MEDS ORDERED: D10W 125 ML IV PRN (21:57)
[2024-10-03] MEDS ORDERED: INSULIN GLARGINE 100 UNIT/ML SQ ONE (22:10)
[2024-10-03 23:31] LABS: Absolute Eosinophils 0.1 K/uL (0-0.5); Absolute Lymphocytes (CBC) 0.5 K/uL (0.7-4.9); Absolute Monocytes 0.7 K/uL (0.1-1.3); Absolute Neutrophil 5.9 K/uL (1.8-8.0); Basophils % 0.5 % (0-1.3); Eosinophils % 1.4 % (0-4.4); Hematocrit 28.3 % (39.6-49.0); Hemoglobin 9.3 g/dL (13.6-17.9); MCH 28.8 pg (27.0-35.0); MCHC 32.8 g/dL (32.0-36.0); MCV 87.6 fL (80-100); MPV 9.2 fL (7.6-11.3); Monocytes % 9.9 % (3.3-12.3); Neutrophils % 81.2 % (41.7-73.7); Platelets 199 thou/uL (152-406); RBC Red Blood Cell Count 3.23 M/uL (4.33-5.43); Red Cell Distribution Width 17.1 % (12.1-15.2)
[2024-10-03 23:36] VITALS: BMI 34.9
[2024-10-03 23:41] LABS: Albumin 2.8 g/dL (3.4-5.0); Albumin/Globulin Ratio 0.8 (1.1-1.8); Anion Gap 10.4 mEq/L (5.0-15.0); Bilirubin Total 0.7 mg/dL (0.2-1.0); Globulin 3.7 g/dL (2.3-3.5); Potassium 4.4 mEq/L (3.5-5.1); Protein, Total 6.5 g/dL (6.4-8.2)
[2024-10-04 01:30] LABS: Specific Gravity 1.008 (1.005-1.030); Sqamous Epithelial None Seen /HPF (None Seen); Urine Bacteria None Seen /HPF (<20); Urine Bilirubin NEGATIVE (Negative); Urine Blood Negative (Negative); Urine Clarity Clear (Clear); Urine Color Colorless (Yellow); Urine Culture Reflex Order NOT NEEDED; Urine Glucose 4+ (Negative); Urine Ketones NEGATIVE (Negative); Urine Microscopic Reflex YN ORDER UMIC; Urine Nitrite NEGATIVE (Negative); Urine Protein TRACE (Negative); Urine RBC <5 /HPF (None Seen); Urine Sperm Present (None Seen); Urine Urobilinogen Normal (Normal); Urine WBC <5 /HPF (<5); Urine pH 5.5 (5.0-7.0)
[2024-10-04 05:19] LABS: Absolute Eosinophils 0.2 K/uL (0-0.5); Absolute Lymphocytes (CBC) 0.8 K/uL (0.7-4.9); Absolute Monocytes 0.8 K/uL (0.1-1.3); Absolute Neutrophil 4.2 K/uL (1.8-8.0); Basophils % 0.8 % (0-1.3); Eosinophils % 2.9 % (0-4.4); Hematocrit 26.3 % (39.6-49.0); Hemoglobin 8.6 g/dL (13.6-17.9); Lymphocytes % 12.9 % (15.3-44.8); MCH 28.5 pg (27.0-35.0); MCHC 32.8 g/dL (32.0-36.0); MCV 86.9 fL (80-100); MPV 8.8 fL (7.6-11.3); Monocytes % 13.8 % (3.3-12.3); Neutrophils % 69.6 % (41.7-73.7); Nucleated Red Blood Cells % 0.1 % (0-0); Platelets 193 thou/uL (152-406); RBC Red Blood Cell Count 3.02 M/uL (4.33-5.43); Red Cell Distribution Width 17.2 % (12.1-15.2)
[2024-10-04 05:37] LABS: ALT/SGPT 21 U/L (16-61); Albumin 2.8 g/dL (3.4-5.0); Albumin/Globulin Ratio 0.8 (1.1-1.8); Alkaline Phosphatase 110 U/L (45-117); Anion Gap 9.1 mEq/L (5.0-15.0); BUN Blood Urea Nitrogen 39 mg/dL (7-18); Bicarbonate 27 mEq/L (21-32); Bilirubin Total 0.8 mg/dL (0.2-1.0); Globulin 3.3 g/dL (2.3-3.5); Glomerular Filtration Rate 23 ml/min (=/>90); Glucose Level 155 mg/dL (74-106); Potassium 4.1 mEq/L (3.5-5.1); Protein, Total 6.1 g/dL (6.4-8.2); Sodium Level 140 mEq/L (136-145)
[2024-10-04 05:43] LABS: AST/SGOT < 10 U/L (15-37)
[2024-10-04] MEDS: INSULIN REGULAR (HUMAN) 100 UNIT/ML SQ SCH (07:30)
[2024-10-04] MEDS ORDERED: CYCLOSPORINE OPTH PRN (07:51)
[2024-10-04] MEDS ORDERED: MONTELUKAST 10 MG TAB PO PRN (07:51)
[2024-10-04] MEDS ORDERED: FLUTICASONE 50MCG NASAL SPRAY NAS PRN (07:51)
[2024-10-04] MEDS: **PT MED**Empagliflozin [Jardiance] 25 MG Tablet PO SCH (09:00)
[2024-10-04] MEDS: RIVAROXABAN 15 MG TABLET PO SCH (09:09)
[2024-10-04] MEDS: PANTOPRAZOLE 40MG TABLET PO SCH (09:09)
[2024-10-04] MEDS: FERROUS SULFATE 325 MG TAB PO SCH (09:09)
[2024-10-04] MEDS: GABAPENTIN 300 MG CAP PO SCH (09:09)
[2024-10-04] MEDS: METOPROLOL XL 100 MG TAB PO SCH (09:09)
[2024-10-04] MEDS: AMLODIPINE 10 MG TAB PO SCH (09:10)
[2024-10-04] MEDS: allopurinoL 100 MG TAB PO SCH (09:11)
[2024-10-04] MEDS: INSULIN GLARGINE 100 UNIT/ML SQ SCH (09:12)
--- NOTE | 2024-10-04 11:07 | P.CNS ---
Date of Consult: 10/04/24 Reason for Consult: REYES/ CKD Requesting Physician: darell turner Chief Complaint: CHF exacerbation History of Present Illness: 78-year-old male with history of heart failure colon cancer diabetes hypertension chronic kidney disease anemia presents with complaints of progressive shortness of breath for last 24 to 36 hours. He reports he was recently hospitalized at [facility]. Recent left leg surgery. Also for GI bleed. In the ER he was noted to have elevated BNP and imaging was suggestive of pulmonary edema. He does report left leg swelling. Denies any fevers, chills productive cough. He denies any chest pain. He does take furosemide. 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 19:00 This 78 yrs old Male presents to ER via Wheelchair with complaints of Breathing sp3 Difficulty. 19:00 78-year-old male with history of diabetes, CHF, hypertension, recent GI bleed sp3 transferred from this facility to [facility] where he was cauterized and received iron dextran including a dose this morning with hemoglobin rising to 9.2. He now presents with shortness of breath over the last 24 hours. He states he has had some dark stools though less than before. He denies any chest pain, fever, headache, back pain, abdominal pain, vomiting, diarrhea, rash, other bleeding, or any other signs or symptoms on ROS at this time.. 21:33 Patient care assumed from Dr. Moore at 8 PM or 20 00. Patient has recent visit to [address] 09/14/2024 through 09/21/2024.. Patient takes at home Plavix 75 mg daily, glimepiride 2 mg daily, cyanocobalamin 1000 mcg daily, naloxone nasal spray was discontinued. Patient also has history of vascular port double-lumen tunneled right chest wall port. 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 Port was used for home health to administer meropenem at home. Meropenem was administered at 500 mg IV daily.. Additional medications include Plavix 75 mg daily, glimepiride 2 mg daily, allopurinol 100 mg daily, amlodipine 10 mg daily, collagenase ointment daily, doxazosin 4 mg daily, Jardiance 25 mg daily, ferrous sulfate 325 mg daily, fluticasone 50 mcg nasal spray also known as Flonase, furosemide 40 mg 3 times a week, gabapentin 300 mg every morning, heparin flush for tunneled IV line, insulin glargine 20 units in the morning 20 units in the evening, lovastatin 40 mg bedtime also known as Mevacor, meropenem 500 EMERGENCY DEPARTMENT (Continued) NAME: CARIDAD RODRIGUEZKEHINDE SILVER II CC: Ren Pacheco MD; Darell Turner MD; Reddy Martinez MD EMERGENCY DEPARTMENT JENNIFERSRINIVASA II / Report: [id number] Page 2of 6 mg IVPB bag every evening for 6 days, metoprolol succinate 100 mg in the morning, and 100 mg in the evening, montelukast 10 mg daily, pantoprazole 40 mg daily, multivitamin daily, Restasis ophthalmic emulsion twice daily, also rivaroxaban 15 mg in the evening, semaglutide or Ozempic 0.5 mg once a week, at this time patient has done with his meropenem.. Additional data patient has undergone left femoral-popliteal bypass using cryopreserved greater saphenous vein, left common femoral superficial femoral profundofemoral endarterectomy and patch angioplasty using thin-walled bovine patch. Date of surgery 08/14/2024. Patient was diagnosed with peripheral arterial disease with tissue loss associated with infected pressure sore over the left plantar foot procedure was performed by Dr. Patel . Allergies No Known Allergies Allergy (Verified 10/13/22 07:05) Home medications list reviewed: Yes Home Medications: Doxazosin [Cardura*] 4 mg PO BEDTIME 12/01/20 Gabapentin 300 mg PO BID 12/01/20 Metoprolol Succinate 1 tab PO BID 12/01/20 Pantoprazole [Protonix Tab*] 40 mg PO DAILY 12/01/20 Amlodipine [Norvasc*] 10 mg PO DAILY #30 tab 12/12/20 Empagliflozin [Jardiance] 25 mg PO DAILY 10/11/22 Fluticasone [Flonase 50mcg Nasal [place]] 2 sprays NS DAILYPRN PRN 10/11/22 Insulin Glargine,Hum.rec.anlog [Lantus] 20 unit SQ BID 10/11/22 Montelukast Sodium 10 mg PO DAILYPRN PRN 10/11/22 Semaglutide [Ozempic] 0.5 mg SQ EVERY 7TH DAY 10/11/22 Vit C/E/Zn/Coppr/Lutein/Zeaxan [Preservision Areds 2 Softgel] 2 each PO DAILY 10/11/22 Allopurinol 100 mg PO DAILY 10/04/24 Collagenase [Santyl Ointment] 1 appl TP DAILY 10/04/24 Ferrous Sulfate 325 mg PO DAILY 10/04/24 Furosemide [Lasix] 40 mg PO SEECOM 10/04/24 Lovastatin 80 mg PO BEDTIME 10/04/24 Rivaroxaban [Xarelto] 15 mg PO DAILY 10/04/24 cycloSPORINE [Restasis Multidose] 1 drop OP BID PRN 10/04/24 - Past Medical/Surgical History Diabetic: Yes -: GERD -: PAD -: CAD s/p stent -: CKD IV (Dr. Obregon/ Fredy) -: DM II -: HTN -: Hernia repair -: Recent I&D of left foot wound/osteo -: Recent left femoral artery bypass Psychosocial/ Personal History: Patient lives at home with his and is retired but still occasionally works. - Family History Father Medical History: Other (see notes) Notes: prostate problems Mother Medical History: Hypertension, Other (see notes) Notes: Alzheimers - Social History Smoking Status: Unknown if ever smoked Alcohol use: No CD- Drugs: No Caffeine use: Yes Place of Residence: Home Review of Systems 10-point ROS is otherwise unremarkable Respiratory: SOB with Excertion Cardiovascular: Edema Physical Examination Temp Pulse Resp BP Pulse Ox 98.2 F 72 18 152/60 H 97 10/04/24 08:00 10/04/24 09:10 10/04/24 08:00 10/04/24 09:10 10/04/24 08:00 General: In no apparent distress, Oriented x3, Cooperative HEENT: Atraumatic Neck: Supple Respiratory: Clear to auscultation bilaterally, Normal air movement Cardiovascular: Regular rate/rhythm, Edema Gastrointestinal: Soft and benign, Non-distended Musculoskeletal: No clubbing, No contractures Integumentary: No rashes, No cyanosis Neurological: Normal speech Laboratory Data (last 24 hrs) 10/03/24 10/03/24 10/03/24 19:30 19:30 19:30 WBC 7.10 Hgb 9.4 L Hct 28.8 L Plt Count 194 PT 24.7 H INR 2.26 Sodium 140 Potassium 4.3 BUN 37 H Creatinine 2.74 H Glucose 225 H Magnesium 2.2 Total Bilirubin 0.7 AST 15 ALT 22 Alkaline Phosphatase 124 H Imagings Data: EXAMINATION: ONE VIEW CHEST XR CLINICAL INDICATION: DYSPNEA TECHNIQUE: Frontal chest projection is submitted. Examination is limited by patient positioning and technique. COMPARISON: 09/14/2024 FINDINGS: [id number] bilateral pulmonary opacities probably represent pulmonary edema. The heart is moderately enlarged. Trace bilateral pleural fluid. No displaced fractures identified. Right-sided venous catheters tip in SVC. IMPRESSION: Moderate CHF versus volume overload pattern. Conclusions/Impression: CKD IV -No NSAIDs HTN with CKD/ CHF -Continue Amlodipine -Continue Metoprolol & Doxazosin Diastolic CHF, A/C -Metolazone X1 now -Start Bumex BID -Start Spironolactone Daily DM II with CKD, Polyneuropathy & Peripheral Angiopathy -Continue Lantus & RISS -Continue Gabapentin -Continue Jardiance DM II with foot ulcer PAD sp Bypass July 2024 -Continue wound care as ordered Anemia in chronic illness/ CKD Iron Deficiency 18% Hx B12 Deficiency -Start MVI -B12 SC as ordered CKD MBD -Start Ergo Case reviewed with Dr. Turner Thank you kindly for the consultation
[2024-10-04] MEDS: METOLAZONE 5 MG TABLET PO ONE ×2 (11:22→15:06)
[2024-10-04] MEDS: SPIRONOLACTONE 25 MG TABLET PO SCH ×2 (12:00→15:06)
[2024-10-04] MEDS: CYANOCOBALAMIN 1000MCG/ML INJ SQ SCH ×2 (12:00→15:07)
--- NOTE | 2024-10-04 13:57 | P.PN ---
Subjective Date of Service: 10/04/24 Chief Complaint: CHF exacerbation Patient states he feels better compared to yesterday. He reports improvement in his shortness of breath. He denies any chest pain. Physical Examination - Vital Signs Temperature: 98.9 F Blood Pressure: 136/51 Pulse: 53 Respirations: 16 Pulse Ox (%): 95 - Studies Laboratory Data (last 24 hrs) 10/03/24 10/03/24 10/03/24 19:30 19:30 19:30 WBC 7.10 Hgb 9.4 L Hct 28.8 L Plt Count 194 PT 24.7 H INR 2.26 Sodium 140 Potassium 4.3 BUN 37 H Creatinine 2.74 H Glucose 225 H Magnesium 2.2 Total Bilirubin 0.7 AST 15 ALT 22 Alkaline Phosphatase 124 H Assessment And Plan - Plan Physical examination General: Alert and oriented x3, NAD, morbidly obese. HEENT: Conjunctiva not pale, anicteric sclera Neck: Supple, no elevated JVD Heart: Heart sounds 1 and 2 normal, regular rhythm, normal rate, 1+ bilateral lower extremity pitting edema. Lungs: Clear to auscultation bilaterally, adequate breath sounds bilaterally, no rhonchi or crackles. Abdomen: Soft, nondistended, nontender, normal bowel sounds. Extremities: No tenderness, no deformity Skin: Normal skin turgor, no ulcers. Neuro: No focal motor deficit. Normal speech. Psychiatry: Normal mood, no agitation. Diagnosis Acute on chronic diastolic heart failure Acute respiratory failure with hypoxia Pulmonary edema Peripheral vascular disease DM type II Chronic anemia Chronic kidney disease stage IV Plan: Acute on chronic diastolic heart failure Acute hypoxemic respiratory failure Pulmonary edema Nephrology input appreciated. Patient placed on Bumex for diuresis Patient given a dose of metolazone today. Monitor intake and output Monitor renal function. Blood pressure control. Repeat echocardiogram is pending. PVD Continue Xarelto Continue statin CKD4 Nephrology input appreciated. Patient started on Bumex Monitor renal function Chronic Anemia Hemoglobin dropped from 9.3-8.6. Monitor and transfuse as needed for hemoglobin less than 7. IDDM Jardiance resumed Insulin sliding scale Home dose Lantus insulin resumed. Blood glucose monitoring HTN Continue home antihypertensives-doxazosin and metoprolol DVT prophylaxis: Patient is on Xarelto Advanced directive: Full code
[2024-10-04] MEDS: BUMETANIDE 1 MG TABLET PO SCH (17:15)
[2024-10-04] MEDS: DOXAZOSIN 4 MG TAB PO SCH (20:43)
[2024-10-04] MEDS: DOCUSATE NA 100 MG CAP PO SCH (20:44)
[2024-10-04] MEDS: ATORVASTATIN 20 MG TAB PO SCH (20:44)
[2024-10-04] MEDS ORDERED: HOME MED 1 EA UNK (Lovastatin [Lovastatin] 40 MG Tablet) PO SCH (21:00)
[2024-10-05 05:06] LABS: Absolute Basophils 0.1 K/uL (0-0.5); Absolute Eosinophils 0.3 K/uL (0-0.5); Absolute Monocytes 0.6 K/uL (0.1-1.3); Basophils % 1.3 % (0-1.3); Eosinophils % 5.9 % (0-4.4); Hematocrit 27.8 % (39.6-49.0); Hemoglobin 9.2 g/dL (13.6-17.9); Lymphocytes % 20.2 % (15.3-44.8); MCH 28.7 pg (27.0-35.0); MCHC 33.1 g/dL (32.0-36.0); MCV 86.6 fL (80-100); MPV 8.9 fL (7.6-11.3); Monocytes % 12.4 % (3.3-12.3); Neutrophils % 60.2 % (41.7-73.7); Nucleated Red Blood Cells % 0.1 % (0-0); Platelets 186 thou/uL (152-406); RBC Red Blood Cell Count 3.21 M/uL (4.33-5.43); Red Cell Distribution Width 17.2 % (12.1-15.2)
[2024-10-05 05:33] LABS: Anion Gap 11.8 mEq/L (5.0-15.0); Phosphorus 4.8 mg/dL (2.5-4.9); Potassium 3.8 mEq/L (3.5-5.1); Uric Acid 7.8 mg/dL (3.5-7.2)
[2024-10-05] MEDS: DRISDOL (VITAMIN D=ERGOCALCIFEROL) 50000 UNIT CAP PO SCH (08:21)
[2024-10-05] MEDS: FE SULF/FA/VIT B COMP & C TAB PO SCH (08:22)
--- NOTE | 2024-10-05 08:24 | ECHO ---
HEIGHT: 5 ft 8 in WEIGHT: 230 lb 0 oz DATE OF STUDY: 10/04/[address]: Ren Pacheco MD 2-DIMENSIONAL: YES M.MODE: YES DOPPLER: YES COLOR FLOW: YES TDS: YES PORTABLE: YESN DEFINITY: NO BUBBLE STUDY: NO DIAGNOSIS: CONGESTIVE HEART FAILURE CARDIAC HISTORY: CATHERIZATION: NO SURGERY: NO PROSTHETIC VALVE: NO PACEMAKER: NO MEASUREMENTS (cm) DIASTOLIC (NORMALS) SYSTOLIC (NORMALS) IVSd 1.1 (0.6-1.2) LA Diam 3.4 (1.9-4.0) LVEF 60-65% LVIDd 4.7 (3.5-5.7) LVIDs 2.7 (2.0-3.5) %FS 44% LVPWd 1.2 (0.6-1.2) Ao Diam 3.1 (2.0-3.7) 2 DIMENSIONAL ASSESSMENT: RIGHT ATRIUM: NORMAL LEFT ATRIUM: MILDLY DILATED RIGHT VENTRICLE: NORMAL LEFT VENTRICLE: NORMAL TRICUSPID VALVE: TRACE TRICUSPID REGURGITATION MITRAL VALVE: NORMAL PULMONIC VALVE: NORMAL AORTIC VALVE: NORMAL PERICARDIAL EFFUSION: NONE AORTIC ROOT: NORMAL LEFT VENTRICULAR WALL MOTION: NORMAL. DOPPLER/COLOR FLOW: DIASTOLIC DYSFUNCTION. COMMENTS: 1. NORMAL LEFT VENTRICULAR SYSTOLIC FUNCTION. LEFT VENTRICULAR EJECTION FRACTION 60-65%. NORMAL WALL MOTION. 2. DIASTOLIC DYSFUNCTION. 3. MILD ELEVATED FILLING PRESSURES. RIGHT ATRIAL PRESSURE 10-15 mmHg. TECHNOLOGIST: MARK THORNE
--- NOTE | 2024-10-05 11:48 | P.PN ---
Nephrology note (S) Pt still reports GANDARA, on O2, diuresing on diuretic regimen, TTE performed, report reviewed. Pt with some chronic Lt LE swelling (O) Vitals reviewed in the EMR General: In no apparent distress, non tachypnec HEENT: Atraumatic, LFNC present Neck: Supple Respiratory: b/l air entry without sig rales Cardiovascular: RRR mostly, no cardiac gallop heart sounds aprpeciated Gastrointestinal: Soft and benign, Non-distended Musculoskeletal: Lt leg swelling, dressing over foot and medial upper kumar Integumentary: No rashes Neurological: Normal speech, awake, alert, non focal Laboratory Data (last 24 hrs) Reviewed in the EMR A/P) Stage 1 REYES on underlying long standing CKD IV (2nd to chronic conditions). REYES 2nd to CRS, diuretic escalation, other -Cont to trend renal function tests closely, sees Dr. Obregon as OP, resume f/u with her on discharge -UA bland other than glucosuria Acute on chronic diastolic CHF, fluid overload -Elevated filling pressures documented on TTE -Cont current regimen with loop diuretics, MRA and SGLT2i. As OP can see if he will tolerate Entresto Chronic HTN with CKD and heart failure -Target BP < 130/80 Anemia in chronic illness/ CKD -Hb < 10, cont to trend closely Yovanny Manzanares MD, CHAD
[2024-10-05] MEDS: FERROUS SULFATE 325 MG TAB PO SCH (16:05)
[2024-10-06 09:05] LABS: Anion Gap 10.9 mEq/L (5.0-15.0); Phosphorus 4.6 mg/dL (2.5-4.9); Potassium 3.9 mEq/L (3.5-5.1); Uric Acid 8.6 mg/dL (3.5-7.2)
--- NOTE | 2024-10-06 15:02 | P.PN ---
Subjective Date of Service: 10/05/24 Chief Complaint: CHF exacerbation Patient some improvement in his shortness of breath. No recorded fever. Negative fluid balance over the past 24 hours. Physical Examination - Vital Signs Temperature: 97.5 F Blood Pressure: 153/70 Pulse: 69 Respirations: 18 Pulse Ox (%): 99 Assessment And Plan - Plan Physical examination General: Alert and oriented x3, NAD. Neck: No elevated JVD Heart: Heart sounds 1 and 2 normal, regular rhythm, normal rate, 1+ bilateral lower extremity pitting edema. Lungs: Clear to auscultation bilaterally, adequate breath sounds bilaterally, no rhonchi or crackles. Abdomen: Soft, nondistended, nontender, normal bowel sounds. Extremities: No tenderness, no deformity Skin: Normal skin turgor, no ulcers. Neuro: No focal motor deficit. Normal speech. Psychiatry: Normal mood, no agitation. Diagnosis Acute on chronic diastolic heart failure Acute respiratory failure with hypoxia Pulmonary edema Peripheral vascular disease DM type II Chronic anemia Chronic kidney disease stage IV Plan: Acute on chronic diastolic heart failure Acute hypoxemic respiratory failure Pulmonary edema Continue Bumex Monitor renal function. May consider intermittent albumin infusion if serum creatinine continues to trend up. Blood pressure control. Repeat echocardiogram is pending. PVD Continue Xarelto Continue statin CKD4 Nephrology input appreciated. Patient started on Bumex Serum creatinine is trending up. Nephrology to follow for recommendation. May consider Lasix drip. Chronic Anemia Hemoglobin is relatively stable Monitor and transfuse as needed for hemoglobin less than 7. IDDM Continue Jardiance. Insulin sliding scale Continue Lantus insulin Blood glucose monitoring HTN Continue home antihypertensives-doxazosin and metoprolol Hydralazine as needed for BP spikes. DVT prophylaxis: Patient is on Xarelto Advanced directive: Full code
--- NOTE | 2024-10-06 15:10 | P.PN ---
Subjective Date of Service: 10/06/24 Chief Complaint: CHF exacerbation Patient patient reports significant improvement in his shortness of breath. Good urine output over the past 24 hours, however his creatinine level trended up. No recorded fever. Physical Examination - Vital Signs Temperature: 97.5 F Blood Pressure: 153/70 Pulse: 69 Respirations: 18 Pulse Ox (%): 99 Assessment And Plan - Plan Physical examination General: Alert and oriented x3, NAD. Neck: No elevated JVD Heart: Heart sounds 1 and 2 normal, regular rhythm, normal rate, 1+ bilateral lower extremity pitting edema. Lungs: Clear to auscultation bilaterally, adequate breath sounds bilaterally, no rhonchi or crackles. Abdomen: Soft, nondistended, nontender, normal bowel sounds. Extremities: No tenderness. Skin: Normal skin turgor, no ulcers. Neuro: No focal motor deficit. Normal speech. Psychiatry: Normal mood, no agitation. Diagnosis Acute on chronic diastolic heart failure Acute respiratory failure with hypoxia Pulmonary edema Peripheral vascular disease DM type II Chronic anemia Chronic kidney disease stage IV Plan: Acute on chronic diastolic heart failure Acute hypoxemic respiratory failure Pulmonary edema Diuretics per nephrology. Monitor renal function. May consider intermittent albumin infusion if serum creatinine continues to trend up. Blood pressure control. Repeat echocardiogram shows normal EF PVD Continue Xarelto Continue statin CKD4 Nephrology input appreciated. Patient started on Bumex Serum creatinine continue to trend Nephrology to follow for recommendation. Chronic Anemia Hemoglobin is relatively stable Monitor and transfuse as needed for hemoglobin less than 7. IDDM Continue Jardiance. Insulin sliding scale Continue Lantus insulin Blood glucose monitoring HTN Continue home antihypertensives-doxazosin and metoprolol Hydralazine as needed for BP spikes. DVT prophylaxis: Patient is on Xarelto Advanced directive: Full code
--- NOTE | 2024-10-06 17:27 | RAD REPORT ---
EXAMINATION: TWO VIEW CHEST XR CLINICAL INDICATION: Male, 78 years old. [facility] MAIN CHF. Dyspnea. Hypoxia Please evaluate volume status TECHNIQUE: 2 view radiographs of the chest were performed. COMPARISON: 10/03/2024 FINDINGS: Central interstitial prominence. Bilateral streaky opacities and blunting of the costophrenic angles may suggest small effusions. Right IJ CVC terminating in the right atrium. No pneumothorax. The heart is normal in size. Mediastinal contours are unremarkable. IMPRESSION: Bilateral effusions with underlying mild airspace opacification, may reflect atelectasis or airspace disease. Mild central interstitial prominence may suggest central congestion/CHF.
--- NOTE | 2024-10-06 21:02 | P.PN ---
Date of Service: 10/06/24 Vital Signs Temp Pulse Resp BP Pulse Ox 98.9 F 71 18 145/65 H 94 10/06/24 16:00 10/06/24 18:30 10/06/24 16:00 10/06/24 18:30 10/06/24 16:00 Medications Acetaminophen (Acetaminophen 500 Mg Tab) 500 mg PO Q4HP PRN PRN Reason: Pain scale 2-4 (Mild) Allopurinol (Allopurinol 100 Mg Tab) 100 mg PO DAILY [facility] Last Admin: 10/06/24 10:11 Dose: 100 mg Amlodipine Besylate (Amlodipine 10 Mg Tab) 10 mg PO DAILY [facility] Last Admin: 10/06/24 10:11 Dose: 10 mg Atorvastatin Calcium (Atorvastatin 20 Mg Tab) 20 mg PO BEDTIME [facility] Last Admin: 10/05/24 21:22 Dose: 20 mg Bumetanide (Bumetanide 1 Mg Tablet) 1 mg PO BIDL [facility] Last Admin: 10/06/24 18:30 Dose: 1 mg Cyanocobalamin (Cyanocobalamin 1000mcg/Ml Inj) 1,000 mcg SQ DAILY [facility] Stop: 10/10/24 09:01 Last Admin: 10/06/24 10:12 Dose: 1,000 mcg Docusate Sodium (Docusate Na 100 Mg Cap) 100 mg PO BID [facility] Last Admin: 10/06/24 10:12 Dose: 100 mg Doxazosin Mesylate (Doxazosin 4 Mg Tab) 4 mg PO BEDTIME [facility] Last Admin: 10/05/24 21:21 Dose: 4 mg Ferrous Sulfate (Ferrous Sulfate 325 Mg Tab) 325 mg PO Q24H [facility] Last Admin: 10/06/24 18:30 Dose: 325 mg Fluticasone Propionate (Fluticasone 50mcg Nasal [place]) 2 sprays FREDERIC DAILYPRN PRN PRN Reason: ALLERGIES Gabapentin (Gabapentin 300 Mg Cap) 300 mg PO BID [facility] Last Admin: 10/06/24 10:10 Dose: 300 mg Glucagon (Glucagon 1 Mg/Vial) 1 mg IM 1X PRN PRN Reason: HYPOGLYCEMIA Home Med (Cyclosporine [Restasis Multidose]) 1 drop OPTH BID PRN PRN Reason: DRY EYES Home Med (Empagliflozin [Jardiance]) 25 mg PO DAILY [facility] Last Admin: 10/06/24 09:00 Dose: Not Given Dextrose (Dextrose 10% Water Iv Soln.) 125 mls @ 0 mls/hr IV PRN PRN; Protocol PRN Reason: HYPOGLYCEMIA Insulin Glargine (Insulin Glargine 100 Unit/Ml) 20 unit SQ BID [facility] Last Admin: 10/06/24 10:13 Dose: 20 unit Insulin Human Regular (Insulin Regular (Human) 100 Unit/Ml) 0 unit SQ ACHS [facility]; Protocol Last Admin: 10/06/24 18:31 Dose: 3 unit Metoprolol Succinate (Metoprolol Xl 100 Mg Tab) 100 mg PO BID [facility] Last Admin: 10/06/24 10:11 Dose: 100 mg Montelukast Sodium (Montelukast 10 Mg Tab) 10 mg PO DAILYPRN PRN PRN Reason: ALLERGIES Multivitamins/Iron (Fe Sulf/Fa/Vit B Comp & C Tab) 1 tab PO DAILY WITH BREAKFAST [facility] Last Admin: 10/06/24 10:10 Dose: 1 tab Pantoprazole Sodium (Pantoprazole 40mg Tablet) 40 mg PO DAILY [facility]; Protocol Last Admin: 10/06/24 10:11 Dose: 40 mg Rivaroxaban (Rivaroxaban 15 Mg Tablet) 15 mg PO DAILY [facility] Last Admin: 10/06/24 10:10 Dose: 15 mg Spironolactone (Spironolactone 25 Mg Tablet) 25 mg PO DAILY [facility] Last Admin: 10/06/24 10:11 Dose: 25 mg Assessment/ Plan: Nephrology No dyspnea. GANDARA No chest pain No acute events overnight Vitals, medications, blood work and imaging reviewed in the chart General: In no apparent distress, Oriented x3, Cooperative HEENT: Atraumatic Neck: Supple Respiratory: Clear to auscultation bilaterally, Normal air movement Cardiovascular: Regular rate/rhythm, Edema Gastrointestinal: Soft and benign, Non-distended Musculoskeletal: No clubbing, No contractures Integumentary: No rashes, No cyanosis Neurological: Normal speech Laboratory Data (last 24 hrs) 10/03/24 10/03/24 10/03/24 19:30 19:30 19:30 WBC 7.10 Hgb 9.4 L Hct 28.8 L Plt Count 194 PT 24.7 H INR 2.26 Sodium 140 Potassium 4.3 BUN 37 H Creatinine 2.74 H Glucose 225 H Magnesium 2.2 Total Bilirubin 0.7 AST 15 ALT 22 Alkaline Phosphatase 124 H Imagings Data: EXAMINATION: ONE VIEW CHEST XR CLINICAL INDICATION: DYSPNEA TECHNIQUE: Frontal chest projection is submitted. Examination is limited by patient positioning and technique. COMPARISON: 09/14/2024 FINDINGS: [id number] bilateral pulmonary opacities probably represent pulmonary edema. The heart is moderately enlarged. Trace bilateral pleural fluid. No displaced fractures identified. Right-sided venous catheters tip in SVC. IMPRESSION: Moderate CHF versus volume overload pattern. EXAMINATION: TWO VIEW CHEST XR CLINICAL INDICATION: Male, 78 years old. [facility] MA[facility] CHF. Dyspnea. Hypoxia Please evaluate volume status TECHNIQUE: 2 view radiographs of the chest were performed. COMPARISON: 10/03/2024 FINDINGS: Central interstitial prominence. Bilateral streaky opacities and blunting of the costophrenic angles may suggest small effusions. Right IJ CVC terminating in the right atrium. No pneumothorax. The heart is normal in size. Mediastinal contours are unremarkable. IMPRESSION: Bilateral effusions with underlying mild airspace opacification, may reflect atelectasis or airspace disease. Mild central interstitial prominence may suggest central congestion/CHF. Conclusions/Impression: CKD IV -No NSAIDs HTN with CKD/ CHF -Continue Amlodipine -Continue Metoprolol & Doxazosin Diastolic CHF, A/C -Continue Bumex BID -Continue Spironolactone Daily DM II with CKD, Polyneuropathy & Peripheral Angiopathy -Continue Lantus & RISS -Continue Gabapentin -Continue Jardiance DM II with foot ulcer PAD sp Bypass July 2024 -Continue wound care as ordered Anemia in chronic illness/ CKD Iron Deficiency 18% Hx B12 Deficiency -Continue MVI -B12 SC as ordered CKD MBD -Continue Ergo Case reviewed with Dr. Turner
[2024-10-07 04:59] LABS: Absolute Basophils 0.1 K/uL (0-0.5); Absolute Eosinophils 0.3 K/uL (0-0.5); Absolute Monocytes 0.7 K/uL (0.1-1.3); Absolute Neutrophil 3.9 K/uL (1.8-8.0); Eosinophils % 5.1 % (0-4.4); Hemoglobin 10.3 g/dL (13.6-17.9); Lymphocytes % 16.9 % (15.3-44.8); MCH 29.1 pg (27.0-35.0); MCHC 34.3 g/dL (32.0-36.0); MPV 9.3 fL (7.6-11.3); Monocytes % 12.3 % (3.3-12.3); Neutrophils % 64.7 % (41.7-73.7); Nucleated Red Blood Cells % 0.1 % (0-0); Platelets 196 thou/uL (152-406); RBC Red Blood Cell Count 3.54 M/uL (4.33-5.43); Red Cell Distribution Width 17.3 % (12.1-15.2)
[2024-10-07 05:24] LABS: Anion Gap 12.9 mEq/L (5.0-15.0); Potassium 3.9 mEq/L (3.5-5.1)
[2024-10-07] MEDS ORDERED: CEFEPIME 2 GM in NA CHLORIDE 0.9% 100 ML IV SCH (10:30)
--- NOTE | 2024-10-07 13:30 | P.PN ---
Subjective Date of Service: 10/07/24 Chief Complaint: CHF exacerbation Patient denies any shortness of breath today. He is now tolerating room air with good oxygen saturation. Physical Examination - Vital Signs Temperature: 97.3 F Blood Pressure: 134/64 Pulse: 74 Respirations: 16 Pulse Ox (%): 98 Assessment And Plan - Plan Physical examination General: Alert and oriented x3, NAD. Neck: No elevated JVD Heart: Heart sounds 1 and 2 normal, regular rhythm, normal rate, 1+ bilateral lo wer extremity pitting edema. Lungs: Clear to auscultation bilaterally, adequate breath sounds bilaterally, no rhonchi or crackles. Abdomen: Soft, nondistended, nontender, normal bowel sounds. Extremities: No tenderness. Neuro: No focal motor deficit. Normal speech. Psychiatry: Normal mood, no agitation. Diagnosis Acute on chronic diastolic heart failure Acute respiratory failure with hypoxia Pulmonary edema Peripheral vascular disease DM type II Chronic anemia Chronic kidney disease stage IV Plan: Acute on chronic diastolic heart failure Acute hypoxemic respiratory failure Pulmonary edema Acute respiratory failure resolved. Patient is tolerating room air. Maintainance diuretics per nephrology. Monitor renal function. Blood pressure control. Repeat echocardiogram shows normal EF PVD Continue Xarelto Continue statin CKD4 Nephrology input appreciated. Patient started on Bumex Serum creatinine trended up Nephrology to follow for recommendation. Chronic Anemia Hemoglobin is relatively stable Monitor and transfuse as needed for hemoglobin less than 7. IDDM Continue Jardiance. Insulin sliding scale Continue Lantus insulin Blood glucose monitoring HTN Continue home antihypertensives-doxazosin and metoprolol Hydralazine as needed for BP spikes. DVT prophylaxis: Patient is on Xarelto Advanced directive: Full code
--- NOTE | 2024-10-07 14:48 | P.DS ---
Admission Date: 10/03/24 Discharge Date: 10/07/24 Disposition: ROUTINE DISCHARGE Discharge Condition: FAIR Reason for Admission: CHF exacerbation Brief History of Present Illness: 78-year-old male with history of heart failure, colon cancer diabetes, hypertension, chronic kidney disease anemia presented with complaints of progressive shortness of breath of 1 day duration. He reports he was recently hospitalized at [facility]. Recently had left leg surgery and completed 6 weeks of IV antibiotics. Reported GI bleed. In the ER he was noted to have elevated BNP and imaging was suggestive of pulmonary edema. 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 Patient was admitted for further management. Hospital Course: Diagnosis Acute on chronic diastolic heart failure Acute respiratory failure with hypoxia Pulmonary edema Peripheral vascular disease DM type II Chronic anemia Chronic kidney disease stage IV Patient admitted to the medical floor and the following medical problems addressed: Acute on chronic diastolic heart failure Acute hypoxemic respiratory failure Pulmonary edema Patient initially required supplemental oxygen Patient was seen in consultation with nephrology Dr. Daniel He received a dose of IV Lasix and subsequently treated with oral Bumex and Aldactone He also received a dose of metolazone. Patient diuresed well. Acute respiratory failure resolved. Patient is tolerating room air. Blood pressure controlled on his home antihypertensives. Repeat echocardiogram shows normal EF PVD Continued Xarelto Continued. statin CKD4 Patient seen in consultation by nephrology Dr. Daniel. Serum creatinine trended up while on diuretics. Dr. Daniel recommended to continue current dose Bumex as an outpatient and follow-up with Dr. Obregon in the office next week for renal function follow-up and diuretic adjustments. Chronic Anemia Hemoglobin remained relatively stable Monitor and transfuse as needed for hemoglobin less than 7. IDDM Continued Jardiance. Blood sugar also managed with insulin sliding scale and home dose Lantus insulin HTN Continue home antihypertensives-doxazosin and metoprolol Recent leg surgery Patient reports he has completed home IV antibiotics via PICC line. Patient plans to follow-up with his PCP Dr. Barton for reassessment and PICC line removal as needed. Vital Signs/Physical Exam: Temp Pulse Resp BP Pulse Ox 97.3 F 74 16 134/64 98 10/07/24 13:31 10/07/24 13:31 10/07/24 13:31 10/07/24 13:31 10/07/24 13:31 General: Alert, In no apparent distress, Oriented x3 HEENT: Mucous membr. moist/pink Neck: Supple, JVD not distended Respiratory: Clear to auscultation bilaterally, Normal air movement Cardiovascular: No edema, Regular rate/rhythm, Normal S1 S2 Gastrointestinal: Normal bowel sounds, Soft and benign, Non-distended Musculoskeletal: No swelling Integumentary: No cyanosis Neurological: Normal strength at 5/5 x4 extr Laboratory Data at Discharge: WBC 6.00 thou/uL (4.3-10.9) 10/07/24 04:21 Hgb 10.3 g/dL (13.6-17.9) L 10/07/24 04:21 Hct 30.0 % (39.6-49.0) L 10/07/24 04:21 Plt Count 196 thou/uL (152-406) 10/07/24 04:21 PT 24.7 SECONDS (9.4-12.5) H 10/03/24 19:30 INR 2.26 10/03/24 19:30 Sodium 138 mEq/L (136-145) 10/07/24 04:21 Potassium 3.9 mEq/L (3.5-5.1) 10/07/24 04:21 BUN 51 mg/dL (7-18) H 10/07/24 04:21 Creatinine 3.22 mg/dL (0.70-1.30) H 10/07/24 04:21 Glucose 120 mg/dL (74-106) H 10/07/24 04:21 Uric Acid 8.6 mg/dL (3.5-7.2) H 10/06/24 08:30 Phosphorus 4.6 mg/dL (2.5-4.9) 10/06/24 08:30 Magnesium 2.2 mg/dL (1.6-2.4) 10/03/24 19:30 Total Bilirubin 0.8 mg/dL (0.2-1.0) 10/04/24 04:53 AST < 10 U/L (15-37) L 10/04/24 04:53 ALT 21 U/L (16-61) 10/04/24 04:53 Alkaline Phosphatase 110 U/L (45-117) 10/04/24 04:53 Home Medications: Doxazosin [Cardura*] 4 mg PO BEDTIME 12/01/20 Gabapentin 300 mg PO BID 12/01/20 Metoprolol Succinate 1 tab PO BID 12/01/20 Pantoprazole [Protonix Tab*] 40 mg PO DAILY 12/01/20 Amlodipine [Norvasc*] 10 mg PO DAILY #30 tab 12/12/20 Empagliflozin [Jardiance] 25 mg PO DAILY 10/11/22 Fluticasone [Flonase 50MCG Nasal [place]*] 2 sprays NS DAILYPRN PRN 10/11/22 Insulin Glargine,Hum.rec.anlog [Lantus] 20 unit SQ BID 10/11/22 Montelukast Sodium 10 mg PO DAILYPRN PRN 10/11/22 Semaglutide [Ozempic] 0.5 mg SQ EVERY 7TH DAY 10/11/22 Vit C/E/Zn/Coppr/Lutein/Zeaxan [Preservision Areds 2 Softgel] 2 each PO DAILY 10/11/22 Allopurinol 100 mg PO DAILY 10/04/24 Collagenase [Santyl Ointment*] 1 appl TP DAILY 10/04/24 Ferrous Sulfate 325 mg PO DAILY 10/04/24 Lovastatin 80 mg PO BEDTIME 10/04/24 Rivaroxaban [Xarelto*] 15 mg PO DAILY 10/04/24 cycloSPORINE [Restasis Multidose] 1 drop OP BID PRN 10/04/24 Bumetanide [Bumex] 1 mg PO BID #60 tab 10/07/24 Cyanocobalamin [Vitamin B-12*] 1,000 mcg SQ DAILY #30 vial 10/07/24 Docusate [Colace Cap*] 100 mg PO BID #60 cap 10/07/24 Spironolactone [Aldactone*] 25 mg PO DAILY #30 tab 10/07/24 New Medications: Spironolactone [Aldactone*] 25 mg PO DAILY #30 tab Bumetanide [Bumex] 1 mg PO BID #60 tab Docusate [Colace Cap*] 100 mg PO BID #60 cap Cyanocobalamin [Vitamin B-12*] 1,000 mcg SQ DAILY #30 vial Diet: ADA Activity: Fall precautions Followup: Roger Elizondo NP [Primary Care Provider] - Abdiel Obregon MD [ACTIVE - CAN ADMIT] - 1 Week Time spent managing pt's care (in minutes): 36
[2024-10-09 15:11] VITALS: BP 134/64
[2024-10-09 15:15] VITALS: O2SAT 99
[2024-10-09 15:18] VITALS: TEMP 97.3
== END 2024-10-07 16:04 | disposition home or self-care (01) | DRG 291 ==
LOC: ER 18:34 → 2ND 21:50
PROVIDERS: ADMIT Internal Medicine; ATTEND Internal Medicine
DX: I13.0 Hypertensive heart and chronic kidney disease with heart failure and stage 1 through stage 4 chronic kidney disease, or unspecified chronic kidney disease (principal); I50.33 Acute on chronic diastolic (congestive) heart failure; J81.0 Acute pulmonary edema; J96.01 Acute respiratory failure with hypoxia; N18.4 Chronic kidney disease, stage 4 (severe); N17.9 Acute kidney failure, unspecified; E11.51 Type 2 diabetes mellitus with diabetic peripheral angiopathy without gangrene; D63.1 Anemia in chronic kidney disease; Z95.820 Peripheral vascular angioplasty status with implants and grafts; E11.621 Type 2 diabetes mellitus with foot ulcer; E11.22 Type 2 diabetes mellitus with diabetic chronic kidney disease; Z79.4 Long term (current) use of insulin; K21.9 Gastro-esophageal reflux disease without esophagitis; I25.10 Atherosclerotic heart disease of native coronary artery without angina pectoris; Z85.038 Personal history of other malignant neoplasm of large intestine
CPT/HCPCS: 36415; 71045; 71046; 80048; 80053; 80069; 80076; 81001; 82550; 82947; 83540; 83735; 83880; 84100; 84466; 84484; 84550; 85025; 85610; 87070; 87205; 93005; 93306; 96372; 96374; 99285; J1940; J3420